=== PATIENT | female | born 1945 | race Caucasian/White ===

== ENCOUNTER → 2017-03-16 | Outpatient (CLI) | payer MEDICARE, OTHER ==
--- NOTE | 2017-03-17 10:17 | MM ---
Reason for exam: screening (asymptomatic). Last mammogram was performed 2 years and 4 months ago. History: Patient is postmenopausal and has history of high-risk lesion on a previous biopsy at age 42. Family history of breast cancer in sister at age 61. High risk excisional biopsy of the right breast, 1994. Excisional biopsy of the right breast, 1987. Physical Findings: A clinical breast exam by your physician is recommended on an annual basis and results should be correlated with mammographic findings. MG 3D Screening Mammo W/Cad Bilateral CC, MLO, and XCCL view(s) were taken. Prior study comparison: November 15, 2014, bilateral MG screening mammo w CAD. May 01, 2008, bilateral digital screening mammogram. There are scattered fibroglandular densities. Finding: There are typically benign round, linear calcifications in both breasts. There is a chronic nodularity in the left breast. There is no discrete abnormality. ASSESSMENT: Benign, BI-RAD 2 RECOMMENDATION: Routine screening mammogram of both breasts in 1 year.
== END | disposition home or self-care (01) ==
LOC: RADMAMWWP 13:14
PROVIDERS: ATTEND Family Medicine
DX: Z12.31 Encounter for screening mammogram for malignant neoplasm of breast (principal)
CPT/HCPCS: 77063; G0202

== ENCOUNTER → 2017-08-20 | Outpatient (CLI) | payer MEDICARE, OTHER ==
--- NOTE | 2017-08-21 07:20 | US ---
EXAMINATION TYPE: US kidneys/renal and bladder DATE OF EXAM: 08/20/2017 COMPARISON: NONE CLINICAL HISTORY: R94.4 ABN KIDNEY RESULTS. EXAM MEASUREMENTS: Right Kidney: 10.7 x 5.4 x 5.1 cm Left Kidney: 10.6 x 5.7 x 4.2 cm Right Kidney: No hydronephrosis or masses seen. No nephrolithiasis. Cortical medullary differentiatio n is maintained. Left Kidney: No hydronephrosis or masses seen. No nephrolithiasis. Cortical medullary differentiatio n is maintained. Bladder: wnl as visualized, not fully distended Bilateral Jets seen: No, bladder is not fully distended There is no evidence for hydronephrosis at this point in time. No nephrolithiasis is seen. No usman s are identified. The urinary bladder is anechoic as visualized. IMPRESSION: No hydronephrosis or nephrolithiasis. No sonographic evidence of medical renal disease.
== END | disposition home or self-care (01) ==
LOC: RADUSWWP 15:16
PROVIDERS: ATTEND Family Medicine
DX: R94.4 Abnormal results of kidney function studies (principal)
CPT/HCPCS: 76770

== ENCOUNTER → 2018-10-25 | Outpatient (CLI) | payer MEDICARE, OTHER ==
--- NOTE | 2018-10-27 11:28 | MM ---
Reason for exam: screening (asymptomatic). Last mammogram was performed 1 year and 7 months ago. History: Patient is postmenopausal and has history of high-risk lesion on a previous biopsy at age 42. Family history of breast cancer in sister at age 61. High risk excisional biopsy of the right breast, 1994. Excisional biopsy of the right breast, 1987. Physical Findings: A clinical breast exam by your physician is recommended on an annual basis and results should be correlated with mammographic findings. MG 3D Screening Mammo W/Cad Bilateral CC and MLO view(s) were taken. XCCL and CV view(s) were taken of the left breast. Prior study comparison: March 16, 2017, bilateral MG 3d screening mammo w/cad. November 15, 2014, bilateral MG screening mammo w CAD. There are scattered fibroglandular densities. Benign appearing bilateral calcifications. No suspicious abnormality. No significant changes when compared with prior studies. ASSESSMENT: Benign, BI-RAD 2 RECOMMENDATION: Routine screening mammogram of both breasts in 1 year.
== END | disposition home or self-care (01) ==
LOC: RADMAMWWP 15:08
PROVIDERS: ATTEND Family Medicine
DX: Z12.31 Encounter for screening mammogram for malignant neoplasm of breast (principal)
CPT/HCPCS: 77063; 77067

== ENCOUNTER → 2019-09-11 | Outpatient (CLI) | payer MEDICARE, OTHER ==
--- NOTE | 2019-09-11 15:44 | US ---
EXAMINATION TYPE: US kidneys/renal and bladder DATE OF EXAM: 09/11/2019 COMPARISON: NONE CLINICAL HISTORY: 73-year-old female N08 glomerular disorders in diseases classified. Abn labs TECHNIQUE: Multiple sonographic images of the kidneys and bladder are obtained. FINDINGS: EXAM MEASUREMENTS: Right Kidney: 11.1 x 5.2 x 5.7 cm Left Kidney: 11.4 x 6.0 x 4.3 cm No hydronephrosis on either side. Bladder: Nondistention of the bladder limits its evaluation. IMPRESSION: 1. No hydronephrosis. 2. Bladder not assessed as it is collapsed.
== END | disposition home or self-care (01) ==
LOC: RADUSWWP 13:40
PROVIDERS: ATTEND Family Medicine
DX: N08 Glomerular disorders in diseases classified elsewhere (principal)
CPT/HCPCS: 76770

== ENCOUNTER → 2019-09-28 | Outpatient (CLI) | payer MEDICARE, OTHER ==
[2019-09-28 14:43] LABS: HGB 9.8 gm/dL (11.4-16.0); Hypochromasia Moderate; MCH 28.3 pg (25.0-35.0); MCHC 31.4 g/dL (31.0-37.0); Platelet Count 327 k/uL (150-450); RBC 3.45 m/uL (3.80-5.40); RDW 14.8 % (11.5-15.5); WBC 11.3 k/uL (3.8-10.6)
[2019-09-28 14:52] LABS: Amorphous Sediment,Urine Rare /hpf; Appearance,Urine Cloudy (Clear); Bacteria,Urine Rare /hpf; Bilirubin,Urine Negative (Negative); Blood,Urine Small (Negative); Color,Urine Yellow; Glucose,Urine (UA) Negative (Negative); Hyaline Casts,Urine 11 /lpf (0-2); Ketones,Urine Negative (Negative); Leukocyte Esterase,Urine Large (Negative); Mucus,Urine Rare /hpf; Nitrite,Urine Negative (Negative); PH, Urine 5.5 (5.0-8.0); Protein,Urine 2+ (Negative); RBC,Urine 4 /hpf (0-5); Specific Gravity,Urine 1.018 (1.001-1.035); Squamous Epithelial Cell,Urine 9 /hpf (0-4); Urobilinogen,Urine <2.0 mg/dL (<2.0); WBC,Urine 21 /hpf (0-5)
[2019-09-28 19:21] LABS: Urine Creatinine 94.3 mg/dL
[2019-09-29 01:36] LABS: Magnesium 2.3 mg/dL (1.5-2.4); Phosphorus 4.4 mg/dL (2.4-5.1); Uric Acid 8.3 mg/dL (2.9-7.7)
[2019-09-29 01:37] LABS: % Iron Saturation 11.3 (12.00-45.00); African American GFR (CKD) 31.4 (60.0-200.0); Albumin 3.9 g/dL (3.80-4.90); Albumin/Globulin Ratio 1.77 (1.60-3.17); Anion Gap 7.3 mmol/L (4.00-12.00); BUN/Creat Ratio 26.67 Ratio (12.00-20.00); Calcium 9.6 mg/dL (8.7-10.3); Carbon Dioxide 26.7 mmol/L (21.6-31.8); Globulin 2.2 g/dL (1.6-3.3); Non-African American GFR(CKD) 27.1 (60.0-200.0); Potassium 5.6 mmol/L (3.5-5.5); Total Bilirubin 0.3 mg/dL (0.3-1.2); Total Protein 6.1 g/dL (6.2-8.2)
[2019-09-29 01:45] LABS: Ferritin 76.4 ng/mL (10.0-291.0)
== END | disposition home or self-care (01) ==
LOC: LABWHC1 13:31
PROVIDERS: ATTEND Internal Medicine
DX: N25.81 Secondary hyperparathyroidism of renal origin (principal); N39.0 Urinary tract infection, site not specified; M10.9 Gout, unspecified; E55.9 Vitamin D deficiency, unspecified; D63.1 Anemia in chronic kidney disease; N18.3 Chronic kidney disease, stage 3 (moderate)
CPT/HCPCS: 36415; 80053; 81001; 82043; 82306; 82570; 82728; 83540; 83550; 83735; 83970; 84100; 84550; 85027

== ENCOUNTER → 2019-10-04 | Outpatient (CLI) | payer MEDICARE, OTHER ==
[2019-10-04 23:24] LABS: African American GFR (CKD) 36.2 (60.0-200.0); Anion Gap 6.5 mmol/L (4.00-12.00); BUN/Creat Ratio 29.38 Ratio (12.00-20.00); Calcium 9.7 mg/dL (8.7-10.3); Carbon Dioxide 26.5 mmol/L (21.6-31.8); Non-African American GFR(CKD) 31.2 (60.0-200.0); Potassium 5.3 mmol/L (3.5-5.5)
== END | disposition home or self-care (01) ==
LOC: LABWHC1 13:31
PROVIDERS: ATTEND Nurse Practitioner Family
DX: E87.5 Hyperkalemia (principal)
CPT/HCPCS: 36415; 80048

== ENCOUNTER 2020-03-13 12:21 | Inpatient (IN) | payer MEDICARE, OTHER ==
[2020-03-13 13:19] LABS: Basophils # (A) 0.1 k/uL (0-0.2); Basophils % (A) 1 %; Eosinophils # (A) 0.2 k/uL (0-0.7); Eosinophils % (A) 1 %; HCT 35.5 % (34.0-46.0); HGB 11.3 gm/dL (11.4-16.0); Hypochromasia Slight; Lymphocytes # (A) 0.9 k/uL (1.0-4.8); Lymphocytes % (A) 8 %; MCH 31.1 pg (25.0-35.0); MCV 97.3 fL (80.0-100.0); Monocytes # (A) 0.5 k/uL (0-1.0); Monocytes % (A) 5 %; Neutrophils # (A) 9.7 k/uL (1.3-7.7); Neutrophils % (A) 85 %; Platelet Count 415 k/uL (150-450); RBC 3.65 m/uL (3.80-5.40); RDW 13.8 % (11.5-15.5); WBC 11.5 k/uL (3.8-10.6)
[2020-03-13 13:29] LABS: INR 0.9 (<1.2); Partial Thromboplastin Time 25.1 sec (22.0-30.0); Prothrombin Time 9.7 sec (9.0-12.0)
[2020-03-13 13:30] LABS: Albumin 3.8 g/dL (3.5-5.0); Calcium 10.6 mg/dL (8.4-10.2); Magnesium 2.2 mg/dL (1.6-2.3); Potassium 5.3 mmol/L (3.5-5.1); Total Bilirubin 0.6 mg/dL (0.2-1.3); Total Protein 6.8 g/dL (6.3-8.2)
--- NOTE | 2020-03-13 13:33 | XR ---
EXAMINATION TYPE: XR chest 2V DATE OF EXAM: 03/13/2020 COMPARISON: NONE HISTORY: Shortness of breath TECHNIQUE: Frontal and lateral views of the chest are obtained. FINDINGS: Scattered senescent parenchymal changes noted. Hyperinflation compatible with COPD. No evidence for infiltrate. No evidence for atelectasis. There is cardiomegaly with pulmonary venous congestion. Mild developing infiltrate right medial lung base. Correlate for developing congestive failure versus underlying pneumonia. Mediastinal structures are stable and grossly unremarkable. No evidence for hilar prominence. Degenerative changes dorsal spine. IMPRESSION: 1. There is cardiomegaly without pulmonary venous congestion. Mild developing infiltrate right medial lung base. Correlate for developing congestive failure versus underlying pneumonia.
--- NOTE | 2020-03-13 13:41 | ED ---
General Adult HPI - General Chief complaint: Shortness of Breath Stated complaint: Chest Pain Time Seen by Provider: 03/13/20 12:33 Source: patient, RN notes reviewed Mode of arrival: wheelchair Limitations: no limitations - History of Present Illness Initial comments: 74-year-old female with a past medical history of CAD, heart failure, hyperlipidemia, hypertension, renal disease presents to the emergency room for a chief, shortness of breath. Patient has had a cough and shortness of breath for the past few days. She also reports she has had leg swelling. Patient states that she has been up on her feet baking and thought it was from that. Patient reports that a few months ago her crna told her to only take her Lasix if she started to develop shortness of breath or leg swelling. Patient has been taking this for the past 6 days because of this. Patient saw her doctor today who wanted her evaluated in the emergency room. She has not had any chest pain.Patient has no other complaints at this time including chest pain, abdominal pain, nausea or vomiting, headache, or visual changes. - Related Data Home Medications Medication Instructions Recorded Confirmed Atorvastatin [Lipitor] 80 mg PO HS 07/04/14 03/13/20 Carvedilol [Coreg] 25 mg PO BID 07/04/14 03/13/20 amLODIPine BESYLATE [Norvasc] 10 mg PO DAILY 07/04/14 03/13/20 hydroCHLOROthiazide 25 mg PO DAILY 07/04/14 03/13/20 Allopurinol [Zyloprim] 100 mg PO DAILY 03/13/20 03/13/20 Ergocalciferol [Vitamin D2] 50,000 unit PO QMONTHLY 03/13/20 03/13/20 Glimepiride [Amaryl] 4 mg PO DAILY PRN 03/13/20 03/13/20 Insulin Glargine,Hum.rec.anlog 10 - 25 unit SQ DAILY 03/13/20 03/13/20 [Basaglar Kwikpen U-100] Thiamine [Vitamin B-1] 100 mg PO BID 03/13/20 03/13/20 Allergies Allergy/AdvReac Type Severity Reaction Status Date / Time Penicillins Allergy Unknown Verified 03/13/20 14:03 Childhood Review of Systems ROS Statement: Those systems with pertinent positive or pertinent negative responses have been documented in the HPI. ROS Other: All systems not noted in ROS Statement are negative. Past Medical History Past Medical History: Coronary Artery Disease (CAD), Heart Failure, CVA/TIA, Hyperlipidemia, Hypertension, Myocardial Infarction ([place]), Renal Disease Additional Past Medical History / Comment(s): HX TIA POST CAROTID SX, STATES LOST VISION NEETA EYES ON LEFT SIDE;cyst under L armpit removed. Last Myocardial Infarction Date:: 2006 History of Any Multi-Drug Resistant Organisms: None Reported Past Surgical History: Coronary Bypass/CABG, Heart Catheterization, Hysterectomy Additional Past Surgical History / Comment(s): CABG X4, STENT IN RIGHT CAROTID ARTERY. 07/12 Incision and drainagel of abscess under left arm Past Anesthesia/Blood Transfusion Reactions: No Reported Reaction Date of Last Stent Placement:: UN Past Psychological History: No Psychological Hx Reported Smoking Status: Former smoker Past Alcohol Use History: None Reported Past Drug Use History: None Reported - Past Family History Sister(s) Family Medical History: Cancer, Deep Vein Thrombosis (DVT) Additional Family Medical History / Comment(s): CERVICAL Father Family Medical History: Cancer General Exam Limitations: no limitations General appearance: alert, in no apparent distress Head exam: Present: atraumatic, normocephalic, normal inspection Eye exam: Present: normal appearance, PERRL, EOMI. Absent: scleral icterus, conjunctival injection, periorbital swelling ENT exam: Present: normal exam, mucous membranes moist Neck exam: Present: normal inspection, full ROM. Absent: tenderness, meningismus, lymphadenopathy Respiratory exam: Present: normal lung sounds bilaterally. Absent: respiratory distress, wheezes, rales, rhonchi, stridor Cardiovascular Exam: Present: regular rate, normal rhythm, normal heart sounds. Absent: systolic murmur, diastolic murmur, rubs, gallop, clicks Extremities exam: Present: pedal edema (2+ pitting edema bilaterally) Course Vital Signs 03/13/20 03/13/20 12:22 14:14 Temperature 98.1 F Pulse Rate 69 67 Respiratory 18 20 Rate Blood Pressure 163/78 173/79 O2 Sat by Pulse 93 L 99 Oximetry EKG Findings - EKG Comments: EKG Findings:: Sinus rhythm with occasional PVC, ventricular rate 68, [place] interval 140, QTC 425. I did compare this to previous EKG from 2015 and it is similar. I did also review patient's EKG that was sent from her doctor's office that appears consistent. Dr. Turner also evaluated these. Medical Decision Making - Medical Decision Making Patient slightly hypoxic 93% on room air. Vitals are otherwise stable. Patient with shortness of breath for the past several days. Has not been taking her Lasix because of her kidney function. She started to feel short of breath and have worsening swelling in the bilateral legs about a week ago. Restarted taking her Lasix for 6 days without improvement. Patient has slight cough and is orthopneic. States she cannot lie flat and when she had started to the EKG she became more short of breath. CBC CMP unremarkable. Troponin 0.024 likely related to kidney function but within normal limits. EKG does not show any acute SC. BNP is elevated at 3800, I do not have a previous. Chest x-ray shows cardiomegaly. Mild evolving infiltrate right medial lung base. Correlate for developing CHF versus underlying pneumonia. I do feel that this is related to CHF given leg swelling and orthopnea. However patient does have a cough and leukocytosis and will also be treated with a dose of antibiotics in addition to Lasix. Patient will be admitted for IV Lasix given her oral Lasix is not giving her improving symptoms. - Lab Data Result diagrams: 03/13/20 13:10 03/13/20 13:10 Lab Results 03/13/20 03/13/20 03/13/20 Range/Units 13:10 13:10 13:10 WBC 11.5 H (3.8-10.6) k/uL RBC 3.65 L (3.80-5.40) m/uL Hgb 11.3 L (11.4-16.0) gm/dL Hct 35.5 (34.0-46.0) % MCV 97.3 (80.0-100.0) fL MCH 31.1 (25.0-35.0) pg MCHC 32.0 (31.0-37.0) g/dL RDW 13.8 (11.5-15.5) % Plt Count 415 (150-450) k/uL MPV 7.0 Neutrophils % 85 % Lymphocytes % 8 % Monocytes % 5 % Eosinophils % 1 % Basophils % 1 % Neutrophils # 9.7 H (1.3-7.7) k/uL Lymphocytes # 0.9 L (1.0-4.8) k/uL Monocytes # 0.5 (0-1.0) k/uL Eosinophils # 0.2 (0-0.7) k/uL Basophils # 0.1 (0-0.2) k/uL Hypochromasia Slight PT 9.7 (9.0-12.0) sec INR 0.9 (<1.2) APTT 25.1 (22.0-30.0) sec Sodium 140 (137-145) mmol/L Potassium 5.3 H (3.5-5.1) mmol/L Chloride 105 (98-107) mmol/L Carbon Dioxide 29 (22-30) mmol/L Anion Gap 6 mmol/L BUN 43 H (7-17) mg/dL Creatinine 2.20 H (0.52-1.04) mg/dL Est GFR (CKD-EPI)AfAm 24 (>60 ml/min/1.73 sqM) Est GFR (CKD-EPI)NonAf 21 (>60 ml/min/1.73 sqM) Glucose 193 H (74-99) mg/dL Calcium 10.6 H (8.4-10.2) mg/dL Magnesium 2.2 (1.6-2.3) mg/dL Total Bilirubin 0.6 (0.2-1.3) mg/dL AST 24 (14-36) U/L ALT 14 (4-34) U/L Alkaline Phosphatase 72 (38-126) U/L Troponin I (0.000-0.034) ng/mL NT-Pro-B Natriuret Pep pg/mL Total Protein 6.8 (6.3-8.2) g/dL Albumin 3.8 (3.5-5.0) g/dL Lipase 145 (23-300) U/L Coronavirus (PCR) (Not Detectd) 03/13/20 03/13/20 03/13/20 Range/Units 13:10 13:10 13:10 WBC (3.8-10.6) k/uL RBC (3.80-5.40) m/uL Hgb (11.4-16.0) gm/dL Hct (34.0-46.0) % MCV (80.0-100.0) fL MCH (25.0-35.0) pg MCHC (31.0-37.0) g/dL RDW (11.5-15.5) % Plt Count (150-450) k/uL MPV Neutrophils % % Lymphocytes % % Monocytes % % Eosinophils % % Basophils % % Neutrophils # (1.3-7.7) k/uL Lymphocytes # (1.0-4.8) k/uL Monocytes # (0-1.0) k/uL Eosinophils # (0-0.7) k/uL Basophils # (0-0.2) k/uL Hypochromasia PT (9.0-12.0) sec INR (<1.2) APTT (22.0-30.0) sec Sodium (137-145) mmol/L Potassium (3.5-5.1) mmol/L Chloride (98-107) mmol/L Carbon Dioxide (22-30) mmol/L Anion Gap mmol/L BUN (7-17) mg/dL Creatinine (0.52-1.04) mg/dL Est GFR (CKD-EPI)AfAm (>60 ml/min/1.73 sqM) Est GFR (CKD-EPI)NonAf (>60 ml/min/1.73 sqM) Glucose (74-99) mg/dL Calcium (8.4-10.2) mg/dL Magnesium (1.6-2.3) mg/dL Total Bilirubin (0.2-1.3) mg/dL AST (14-36) U/L ALT (4-34) U/L Alkaline Phosphatase (38-126) U/L Troponin I 0.024 (0.000-0.034) ng/mL NT-Pro-B Natriuret Pep 3840 pg/mL Total Protein (6.3-8.2) g/dL Albumin (3.5-5.0) g/dL Lipase (23-300) U/L Coronavirus (PCR) Not Detected (Not Detectd) Disposition Clinical Impression: Congestive heart failure, Pneumonia, Shortness of breath Disposition: ADMITTED IP TO THIS HOSP Condition: Fair Is patient prescribed a controlled substance at d/c from ED?: No Referrals: Dwight Abdullahi MD [Primary Care Provider] - 1-2 days Time of Disposition: 14:56
[2020-03-13] MEDS ORDERED: FUROSEMIDE 10 MG/ML 4 ML VIAL IV STA (14:51)
[2020-03-13] MEDS ORDERED: AZITHROMYCIN 500 MG in SODIUM CHLORIDE 0.9% 250 ML IVPB STA (15:02)
[2020-03-13] MEDS ORDERED: cefTRIAXone IN SWFI 1,000 MG/10 ML SYRINGE IVP STA (15:02)
[2020-03-13] MEDS ORDERED: GLIMEPIRIDE 4 MG TAB PO PRN (17:31)
[2020-03-13] MEDS: THIAMINE 100 MG TAB PO SCH (20:37)
[2020-03-13] MEDS: carvediloL 12.5 MG TAB PO SCH (20:37)
[2020-03-13] MEDS: ATORVASTATIN 80 MG TAB PO SCH (20:37)
[2020-03-13 21:29] LABS: Glucose,Whole Blood 185 mg/dL (75-99)
[2020-03-14] MEDS ORDERED: FUROSEMIDE 10 MG/ML 4 ML VIAL IV SCH (03:00)
[2020-03-14 06:27] LABS: Glucose,Whole Blood 140 mg/dL (75-99)
[2020-03-14] MEDS: carvediloL 12.5 MG TAB PO SCH ×2 (06:30→17:22)
[2020-03-14] MEDS: allopurinoL 100 MG TAB PO SCH (08:52)
[2020-03-14] MEDS: amLODIPine 10 MG TAB PO SCH (08:52)
[2020-03-14] MEDS: THIAMINE 100 MG TAB PO SCH ×2 (08:54→20:44)
[2020-03-14] MEDS: INSULIN DETEMIR (LEVEMIR) 100 UNIT/ML SYR SQ SCH (08:55)
[2020-03-14] MEDS ORDERED: hydroCHLOROthiazide 25 MG TAB PO SCH (09:00)
[2020-03-14 11:30] LABS: Glucose,Whole Blood 169 mg/dL (75-99)
[2020-03-14 11:47] LABS: Calcium 10.5 mg/dL (8.4-10.2); Magnesium 2.1 mg/dL (1.6-2.3); Potassium 4.9 mmol/L (3.5-5.1)
--- NOTE | 2020-03-14 11:48 | P.NPCON ---
History of Present Illness - Reason for Consult acute renal failure, chronic renal failure - History of Present Illness Reason for consultation: Acute kidney injury on chronic kidney disease History of present illness: The patient is a 74-year-old female seen in renal consultation for acute kidney injury on chronic kidney disease. Patient has chronic kidney disease stage IIIb with baseline creatinine in the range of 1.8- 2. Patient presented to the hospital with worsening shortness of breath and edema in her lower extremities. She is currently maintained on IV Lasix 40 mg twice daily. Patient states edema has improved significantly. She denies any hematuria or dysuria. Shortness of breath is also improved. She is currently on 2 L nasal cannula. Patient states she was taking hydrochlorothiazide at home for the last 6 days due to the swelling in her legs but it didn't help much. Creatinine was 2.2 on admission. Labs from today are pending. No fever or chills. Patient has history of coronary artery disease and underwent CABG about 14 years ago. She also has a carotid stent. Renal ultrasound from September 2019 revealed no evidence of hydronephrosis. She denies use of nonsteroidals. Denies family history of renal disease. She does have long-standing history of diabetes and states her blood sugars are well-controlled. States recent A1c was less than 7%. Vital signs are stable. General: The patient appeared well nourished and normally developed. HEENT: Head exam is unremarkable. Neck is without jugular venous distension. LUNGS: Breath sounds decreased. HEART: Rate and Rhythm are regular. ABDOMEN: Soft, nontender. EXTREMITITES: 1+ edema. Past Medical History Past Medical History: Coronary Artery Disease (CAD), Heart Failure, CVA/TIA, Diabetes Mellitus, Hyperlipidemia, Hypertension, Myocardial Infarction ([place]), Renal Disease Additional Past Medical History / Comment(s): HX TIA POST CAROTID SX, STATES L OST VISION NEETA EYES ON LEFT SIDE;cyst under L armpit removed. type 2 diabetes Last Myocardial Infarction Date:: 2006 History of Any Multi-Drug Resistant Organisms: None Reported Past Surgical History: Cholecystectomy, Coronary Bypass/CABG, Heart Catheterization, Hysterectomy Additional Past Surgical History / Comment(s): CABG X4, STENT IN RIGHT CAROTID ARTERY. 07/12 Incision and drainagel of abscess under left arm, 5 knee sx, breast biposies-precancerous per pt. Past Anesthesia/Blood Transfusion Reactions: No Reported Reaction Date of Last Stent Placement:: UN Past Psychological History: No Psychological Hx Reported Smoking Status: Former smoker Past Alcohol Use History: None Reported Past Drug Use History: None Reported - Past Family History Sister(s) Family Medical History: Cancer, Deep Vein Thrombosis (DVT) Additional Family Medical History / Comment(s): CERVICAL Father Family Medical History: Cancer Medications and Allergies Home Medications Medication Instructions Recorded Confirmed Type Atorvastatin [Lipitor] 80 mg PO HS 07/04/14 03/13/20 History Carvedilol [Coreg] 25 mg PO BID 07/04/14 03/13/20 History amLODIPine BESYLATE [Norvasc] 10 mg PO DAILY 07/04/14 03/13/20 History hydroCHLOROthiazide 25 mg PO DAILY 07/04/14 03/13/20 History Allopurinol [Zyloprim] 100 mg PO DAILY 03/13/20 03/13/20 History Ergocalciferol [Vitamin D2] 50,000 unit PO QMONTHLY 03/13/20 03/13/20 History Glimepiride [Amaryl] 4 mg PO DAILY PRN 03/13/20 03/13/20 History Insulin Glargine,Hum.rec.anlog 10 - 25 unit SQ DAILY 03/13/20 03/13/20 History [Basaglar Kwikpen U-100] Thiamine [Vitamin B-1] 100 mg PO BID 03/13/20 03/13/20 History Allergies Allergy/AdvReac Type Severity Reaction Status Date / Time Penicillins Allergy Unknown Verified 03/13/20 14:03 Childhood Physical Exam Vitals: Vital Signs Temp Pulse Pulse Resp BP BP Pulse Ox 03/14/20 09:00 20 03/14/20 08:45 97 03/14/20 08:44 98 F 72 20 168/68 85 L 03/14/20 02:36 98.2 F 68 151/74 95 03/14/20 02:35 68 03/13/20 20:04 97.7 F 71 129/68 92 L 03/13/20 20:00 71 03/13/20 17:01 97.7 F 75 18 178/78 90 L 03/13/20 15:45 98.2 F 71 18 186/96 98 03/13/20 14:14 67 20 173/79 99 03/13/20 12:22 98.1 F 69 18 163/78 93 L Intake and Output 03/13/20 03/14/20 03/14/20 22:59 06:59 14:59 Intake Total 550 500 240 Output Total 1400 Balance 550 -900 240 Intake: Oral 550 500 240 Output: Urine 1400 Other: Voiding Method Toilet Toilet Toilet # Voids 1 3 Weight 122.47 kg Results - Lab Results Most recent lab results Calcium 10.6 mg/dL (8.4-10.2) H 03/13/20 13:10 Magnesium 2.2 mg/dL (1.6-2.3) 03/13/20 13:10 03/13/20 13:10 03/13/20 13:10 Assessment and Plan Plan: Assessment: 1. Acute kidney injury mostly prerenal secondary to cardiorenal syndrome. Creatinine 2.2 on admission - 2.42 today. 2. Chronic kidney disease stage III. Baseline creatinine 1.8-2 secondary to diabetic kidney disease. 3. Volume overload. 4. Diabetes mellitus. 5. Hypercalcemia secondary to hydrochlorothiazide and vitamin D. 6. Hypertension with chronic kidney disease. Plan: Stop hydrochlorothiazide. Maintain IV Lasix 40 mg twice daily. Check urinalysis. Add hydralazine 25 mg 3 times daily. Check echocardiogram. I advised the patient to maintain a fluid restriction of less than 40 ounces per day. She was also advised to monitor her weight closely at home and to call our office if he gains more than 3 pounds or edema worsens. Plan to change to oral diuretics starting tomorrow. Repeat electrolytes in the morning. Thank you for the consultation. I will continue to follow the patient with you during her hospital stay.
[2020-03-14] MEDS: hydrALAZINE HCL 25 MG TAB PO SCH ×3 (12:15→20:44)
--- NOTE | 2020-03-14 13:50 | ECHOF ---
Referral Reason:chf, sob MEASUREMENTS -------- HEIGHT: 167.6 cm WEIGHT: 122.5 kg BP: 168/68 RVIDd: 3.7 cm (< 3.3) IVSd: 1.6 cm (0.6 - 1.1) LVIDd: 5.3 cm (3.9 - 5.3) LVPWd: 1.8 cm (0.6 - 1.1) IVSs: 2.0 cm LVIDs: 4.0 cm LVPWs: 2.1 cm LAESV Index (A-L): 39.79 ml/m Ao Diam: 2.7 cm (2.0 - 3.7) AV Cusp: 1.5 cm (1.5 - 2.6) LA Diam: 5.5 cm (2.7 - 3.8) MV EXCURSION: 17.310 mm (> 18.000) MV EF SLOPE: 50 mm/s (70 - 150) EPSS: 1.4 cm AV maxP.87 mmHg AV meanP.85 mmHg RAP: 5.00 mmHg RVSP: 49.03 mmHg FINDINGS -------- Sinus rhythm. This was a technically difficult study with suboptimal views. The left ventricle is mildly dilated. There is moderate concentric left ventricular hypertrophy. Overall left ventricular systolic function is moderately impaired with, an EF between 35 - 40 %. Se ptal wall motion is delayed and consistent with prior cardiac surgery. The right ventricle is mildly enlarged. LA is moderately dilated 34-39 ml/m2 The right atrium was not well visualized. 5.0mg of Lumason was utilized for enhancement of images Interatrial and interventricular septum intact. The aortic valve was not well visualized. There is no evidence of aortic regurgitation. There is moderate aortic stenosis. Degree of aortic stenosis may be underestimated by low flow state. Mild mitral regurgitation is present. Moderate tricuspid regurgitation present. There is moderate pulmonary hypertension. The right shan tricular systolic pressure, as measured by Doppler, is 49.03mmHg. There is no pulmonic regurgitation present. The aortic root size is normal. IVC Not well visulized. There is no pericardial effusion. CONCLUSIONS -------- 1. The left ventricle is mildly dilated. 2. There is moderate concentric left ventricular hypertrophy. 3. Overall left ventricular systolic function is moderately impaired with, an EF between 35 - 40 %. 4. The right ventricle is mildly enlarged. 5. LA is moderately dilated 34-39 ml/m2 6. There is moderate aortic stenosis. Degree of aortic stenosis may be underestimated by low flow st ate. 7. Mild mitral regurgitation is present. 8. Moderate tricuspid regurgitation present. 9. There is moderate pulmonary hypertension. 10. The right ventricular systolic pressure, as measured by Doppler, is 49.03mmHg. SCALE TANK OPERATOR: Chapis Schultz RDCS
[2020-03-14 15:00] VITALS: BMI 43.5
[2020-03-14] MEDS: FUROSEMIDE 100 MG in SODIUM CHLORIDE 0.9% 90 ML IV SCH ×2 (15:29→23:02)
[2020-03-14 17:02] LABS: Glucose,Whole Blood 140 mg/dL (75-99)
[2020-03-14 19:08] LABS: Appearance,Urine Clear (Clear); Bacteria,Urine Rare /hpf; Bilirubin,Urine Negative (Negative); Blood,Urine Small (Negative); Color,Urine Light Yellow; Glucose,Urine (UA) Negative (Negative); Hyaline Casts,Urine 1 /lpf (0-2); Ketones,Urine Negative (Negative); Leukocyte Esterase,Urine Trace (Negative); Mucus,Urine Rare /hpf; Nitrite,Urine Negative (Negative); PH, Urine 5.5 (5.0-8.0); Protein,Urine 1+ (Negative); RBC,Urine 2 /hpf (0-5); Specific Gravity,Urine 1.013 (1.001-1.035); Squamous Epithelial Cell,Urine 1 /hpf (0-4); Urobilinogen,Urine <2.0 mg/dL (<2.0); WBC,Urine 1 /hpf (0-5)
[2020-03-14] MEDS: ATORVASTATIN 80 MG TAB PO SCH (20:44)
[2020-03-14 20:55] LABS: Glucose,Whole Blood 185 mg/dL (75-99)
--- NOTE | 2020-03-15 00:25 | P.HPIM ---
History of Present Illness H&P Date: 03/14/20 Chief Complaint: short of breath History of presenting complaint: This is a very pleasant 74-year-old patient of Dr. Dwight Abdullahi. Chronic stable medical conditions include coronary artery disease, diabetes, hypertension, hyperlipidemia with a prior history of coronary bypass. Patient presents with the off progressive shortness of breath may be a longer period than that. Lower extremity edema. Slight cough. No fever no chills. No perspiration. Appetite is good. Also has orthopnea. 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 Does smoke in the remote past. No alcohol. Physical examination: VITAL SIGNS: 98.1, 69, 18, 163.78, 93% room air-upon presentation GENERAL: BMI 43.6, sitting up in a recliner. EYES: Pupils equal. Conjunctiva normal. HEENT: External appearance of nose and ears normal, oral cavity grossly normal. NECK: JVD possibly raised; masses not palpable. HEART: First and second heart sounds are normal; edema present. LUNGS: Respiratory rate increased, bilateral crackles. ABDOMEN: Soft, nontender, liver spleen not palpable, no masses palpable. PSYCH: Alert and oriented x3; mood and affect normal. NEUROLOGICAL: Cranial nerves grossly intact; no facial asymmetry, power and sensation grossly intact. MUSCULAR skeletal: Evidence of OA LYMPHATICS: No lymph nodes palpable in the axilla and neck INVESTIGATIONS, reviewed in the clinical context: White count 11.5 hemoglobin 11.3 platelets 415 potassium 5.3 BUN 43 creatinine 2.2, proBNP 3840 Coronavirus P/Cr-not detected EKG tracing personally reviewed by me-normal sinus rhythm some T-wave changes Chest x-ray film personally reviewed by me-cardiomegaly and venous prominence 2-D echocardiogram-moderate concentric LVH, EF 35-40%, moderate aortic stenosis, moderate tricuspid regurgitation, moderate pulmonary hypertension Assessment: -Acute on chronic congestive heart exacerbation from systolic dysfunction EF 35- 40% from underlying ischemic heart disease -Moderate aortic stenosis -Moderate tricuspid regurgitation and secondary moderate pulmonary hypertension -Coronary artery disease by history of coronary bypass and-essential hypertension -Hyperlipidemia -Chronic kidney disease stage III, baseline around 2 secondary to diabetic kidney disease Plan: Patient be pushed over to IV Lasix drip overnight. Fluid restriction. Folliculitis closely. Nephrology and cott[place] consulted. Home medications to be continued. Follow Accu-Cheks closely. Care was discussed with the patient. Questions were answered. Strict I's and O's. Past Medical History Past Medical History: Coronary Artery Disease (CAD), Heart Failure, CVA/TIA, Diabetes Mellitus, Hyperlipidemia, Hypertension, Myocardial Infarction ([place]), Renal Disease Additional Past Medical History / Comment(s): HX TIA POST CAROTID SX, STATES LOST VISION NEETA EYES ON LEFT SIDE;cyst under L armpit removed. type 2 diabetes Last Myocardial Infarction Date:: 2006 History of Any Multi-Drug Resistant Organisms: None Reported Past Surgical History: Cholecystectomy, Coronary Bypass/CABG, Heart Catheterization, Hysterectomy Additional Past Surgical History / Comment(s): CABG X4, STENT IN RIGHT CAROTID A RTERY. 07/12 Incision and drainagel of abscess under left arm, 5 knee sx, breast biposies-precancerous per pt. Past Anesthesia/Blood Transfusion Reactions: No Reported Reaction Date of Last Stent Placement:: UN Past Psychological History: No Psychological Hx Reported Smoking Status: Former smoker Past Alcohol Use History: None Reported Past Drug Use History: None Reported - Past Family History Sister(s) Family Medical History: Cancer, Deep Vein Thrombosis (DVT) Additional Family Medical History / Comment(s): CERVICAL Father Family Medical History: Cancer Medications and Allergies Home Medications Medication Instructions Recorded Confirmed Type Atorvastatin [Lipitor] 80 mg PO HS 07/04/14 03/13/20 History Carvedilol [Coreg] 25 mg PO BID 07/04/14 03/13/20 History amLODIPine BESYLATE [Norvasc] 10 mg PO DAILY 07/04/14 03/13/20 History hydroCHLOROthiazide 25 mg PO DAILY 07/04/14 03/13/20 History Allopurinol [Zyloprim] 100 mg PO DAILY 03/13/20 03/13/20 History Ergocalciferol [Vitamin D2] 50,000 unit PO QMONTHLY 03/13/20 03/13/20 History Glimepiride [Amaryl] 4 mg PO DAILY PRN 03/13/20 03/13/20 History Insulin Glargine,Hum.rec.anlog 10 - 25 unit SQ DAILY 03/13/20 03/13/20 History [Basagldionicio Yeagerpen U-100] Thiamine [Vitamin B-1] 100 mg PO BID 03/13/20 03/13/20 History Allergies Allergy/AdvReac Type Severity Reaction Status Date / Time Penicillins Allergy Unknown Verified 03/13/20 14:03 Childhood Physical Exam Vitals: Vital Signs Temp Pulse Pulse Resp BP BP Pulse Ox 03/14/20 09:00 20 03/14/20 08:45 97 03/14/20 08:44 98 F 72 20 168/68 85 L 03/14/20 02:36 98.2 F 68 151/74 95 03/14/20 02:35 68 03/13/20 20:04 97.7 F 71 129/68 92 L 03/13/20 20:00 71 03/13/20 17:01 97.7 F 75 18 178/78 90 L 03/13/20 15:45 98.2 F 71 18 186/96 98 03/13/20 14:14 67 20 173/79 99 03/13/20 12:22 98.1 F 69 18 163/78 93 L Intake and Output 03/13/20 03/14/20 03/14/20 22:59 06:59 14:59 Intake Total 550 500 240 Output Total 1400 Balance 550 -900 240 Intake: Oral 550 500 240 Output: Urine 1400 Other: Voiding Method Toilet Toilet Toilet # Voids 1 3 Weight 122.47 kg Results CBC & Chem 7: 03/13/20 13:10 03/14/20 11:17 Labs: Abnormal Lab Results - Last 24 Hours (Table) 03/13/20 03/13/20 03/13/20 Range/Units 13:10 13:10 21:28 WBC 11.5 H (3.8-10.6) k/uL RBC 3.65 L (3.80-5.40) m/uL Hgb 11.3 L (11.4-16.0) gm/dL Neutrophils # 9.7 H (1.3-7.7) k/uL Lymphocytes # 0.9 L (1.0-4.8) k/uL Potassium 5.3 H (3.5-5.1) mmol/L BUN 43 H (7-17) mg/dL Creatinine 2.20 H (0.52-1.04) mg/dL Glucose 193 H (74-99) mg/dL POC Glucose (mg/dL) 185 H (75-99) mg/dL Calcium 10.6 H (8.4-10.2) mg/dL 03/14/20 Range/Units 06:25 WBC (3.8-10.6) k/uL RBC (3.80-5.40) m/uL Hgb (11.4-16.0) gm/dL Neutrophils # (1.3-7.7) k/uL Lymphocytes # (1.0-4.8) k/uL Potassium (3.5-5.1) mmol/L BUN (7-17) mg/dL Creatinine (0.52-1.04) mg/dL Glucose (74-99) mg/dL POC Glucose (mg/dL) 140 H (75-99) mg/dL Calcium (8.4-10.2) mg/dL Thrombosis Risk Factor Assmnt - Choose All That Apply Any of the Below Risk Factors Present?: Yes Each Factor Represents 1 point: Obesity (BMI >25), Swollen legs (current) Other Risk Factors: Yes Each Risk Factor Represents 3 Points: Age 75 years or older Thrombosis Risk Factor Assessment Total Risk Factor Score: 5 Thrombosis Risk Factor Assessment Level: High Risk
[2020-03-15 06:08] LABS: Glucose,Whole Blood 132 mg/dL (75-99)
[2020-03-15] MEDS: INSULIN DETEMIR (LEVEMIR) 100 UNIT/ML SYR SQ SCH (06:15)
[2020-03-15] MEDS: carvediloL 12.5 MG TAB PO SCH (06:15)
[2020-03-15 08:43] VITALS: BP 145/69; RESP 16; TEMP 98
[2020-03-15 08:56] VITALS: PULSE 69
[2020-03-15] MEDS: hydrALAZINE HCL 25 MG TAB PO SCH (08:56)
[2020-03-15] MEDS: THIAMINE 100 MG TAB PO SCH (08:56)
[2020-03-15] MEDS: allopurinoL 100 MG TAB PO SCH (08:56)
[2020-03-15] MEDS: amLODIPine 10 MG TAB PO SCH (08:57)
[2020-03-15 09:05] LABS: Calcium 9.8 mg/dL (8.4-10.2); Magnesium 1.9 mg/dL (1.6-2.3); Potassium 4.6 mmol/L (3.5-5.1)
[2020-03-15] MEDS ORDERED: FUROSEMIDE 40 MG TAB PO SCH (09:16)
--- NOTE | 2020-03-15 09:36 | P.CRDCN ---
History of Present Illness History of present illness: HISTORY OF PRESENTING ILLNESS This is a pleasant 74-year-old femal past medical history significant for coronary artery disease s/p bypass grafting, chronic heart failure unknown E F, diabetes mellitus, hypertension, dyslipidemia, CVA, peripheral vascular s/p carotid stenting, chronic kidney disease with baseline creatinine 1.8-2 and morbid obesity. She follows in the office with Dr. Ryan in [place]. We have been asked to see in consultation for heart failure. She presented to the hospital with symptoms of worsening shortness of breath and lower extremity edema. She states she's noticed for the previous one month that her breathing is becoming shorter and shorter. In the previous week it seems like things have exacerbated worse. She had been doing a lot of baking and cooking around the house and she states that she felt like her legs weight 100 pounds each. On arrival chest x-ray revealed developing congestive heart failure. She was initiated on a Lasix infusion. Nephrology is also following secondary to chronic kidney disease. She is seen and examined sitting up in the recliner in no acute distress. She states at baseline she is not very active. She states she has been up urinating quite frequently and feels as though her breathing is mostly back to baseline. Lower extremity edema has almost entirely resolved. EKG reveals sinus mechanism, poor R-wave progression, PVCs, T-wave abnormalities inferiorly with a heart rate of 68. Echocardiogram revealed impaired LV systolic function with ejection fraction 35-40%, moderate aortic stenosis, mild mitral regurgitation, moderate tricuspid regurgitation and moderate pulmonary hypertension with an RVSP of 49 mmHg. Laboratory data reviewed, WBC 11.5, hemoglobin 11.3, platelets 415, sodium 139, potassium 4.6, creatinine 2.42 magnesium 1.9, troponin negative 1, NT proBNP 3840. Current daily cardiac medications include hydrochlorothiazide 25 mg daily, amlodipine 10 mg daily, Coreg 25 mg twice a day and atorvastatin 80 mg at bedtime. She is maintaining a negative fluid balance this 2800cc of urine output in the previous 24 hours and her weight is down 3 kg since admission. In the past the patient was on lisinopril which was discontinued secondary to worsening renal function. REVIEW OF SYSTEMS At the time of my exam: CONSTITUTIONAL: Denies fever or chills. CARDIOVASCULAR: Denies chest pain, shortness of breath, orthopnea, PND or palpitations. RESPIRATORY: Denies cough. GASTROINTESTINAL: Denies abdominal pain, diarrhea, constipation, nausea or vomiting. MUSCULOSKELETAL: Denies myalgias. NEUROLOGIC: Denies numbness, tingling or weakness. ENDOCRINE: Denies fatigue, weight change, polydipsia or polyurina. GENITOURINARY: Denies burning, hematuria or urgency with micturation. HEMATOLOGIC: Denies history of anemia or bleeding. PHYSICAL EXAMINATION Blood pressure 145/69 heart rate 69 afebrile and maintaining oxygen saturation on nasal cannula. CONSTITUTIONAL: No apparent distress. Morbidly obese. HEENT: Head is normocephalic. Pupils are equal, round. Sclerae anicteric. Mucous membranes of the mouth are moist. No JVD. Bilateral carotid bruit. CHEST EXAMINATION: Lungs are clear to auscultation. No chest wall tenderness is noted on palpation or with deep breathing. Diminished bilaterally. HEART EXAMINATION: Regular rate and rhythm. S1, S2 heard. Systolic ejection m urmur at the base, no gallops or rub. ABDOMEN: Soft, nontender. Positive bowel sounds. EXTREMITIES: 2+ peripheral pulses, trace lower extremity edema and no calf tenderness. NEUROLOGIC EXAMINATION: Patient is awake, alert and oriented x3. ASSESSMENT Acute systolic heart failure, previous EF unknown by the patient. Acute on chronic kidney disease Leukocytosis Hypoxia Hypertension Coronary artery disease s/p bypass grafting Aortic stenosis, moderate Tricuspid regurgitation, moderate Pulmonary hypertension, moderate Peripheral vascular disease status post stent placement of the left carotid ac cording to the patient, exact details unavailable CVA Diabetes mellitus Dyslipidemia Morbid obesity, BMI 42 PLAN The fluid volume status has improved, recommend transitioning to oral diuretics. Ideally would like to resume lisinopril when her renal function stabilizes. Continue coreg, hydralazine, atorvastatin and amlodipine as previously ordered. Will follow up on carotid doppler in the outpatient setting. Request records from her primary communication arts lecturer to assess prior LV function. Thank you kindly for this consultation. Nurse Practitioner note has been reviewed, I agree with a documented findings and plan of care. Patient was seen and examined. Past Medical History Past Medical History: Coronary Artery Disease (CAD), Heart Failure, CVA/TIA, Diabetes Mellitus, Hyperlipidemia, Hypertension, Myocardial Infarction ([place]), Renal Disease Additional Past Medical History / Comment(s): HX TIA POST CAROTID SX, STATES LOST VISION NEETA EYES ON LEFT SIDE;cyst under L armpit removed. type 2 diabetes Last Myocardial Infarction Date:: 2006 History of Any Multi-Drug Resistant Organisms: None Reported Past Surgical History: Cholecystectomy, Coronary Bypass/CABG, Heart Catheterization, Hysterectomy Additional Past Surgical History / Comment(s): CABG X4, STENT IN RIGHT CAROTID ARTERY. 07/12 Incision and drainagel of abscess under left arm, 5 knee sx, breast biposies-precancerous per pt. Past Anesthesia/Blood Transfusion Reactions: No Reported Reaction Date of Last Stent Placement:: UN Past Psychological History: No Psychological Hx Reported Smoking Status: Former smoker Past Alcohol Use History: None Reported Past Drug Use History: None Reported - Past Family History Sister(s) Family Medical History: Cancer, Deep Vein Thrombosis (DVT) Additional Family Medical History / Comment(s): CERVICAL Father Family Medical History: Cancer Medications and Allergies Home Medications Medication Instructions Recorded Confirmed Type Atorvastatin [Lipitor] 80 mg PO HS 07/04/14 03/13/20 History Carvedilol [Coreg] 25 mg PO BID 07/04/14 03/13/20 History amLODIPine BESYLATE [Norvasc] 10 mg PO DAILY 07/04/14 03/13/20 History hydroCHLOROthiazide 25 mg PO DAILY 07/04/14 03/13/20 History Allopurinol [Zyloprim] 100 mg PO DAILY 03/13/20 03/13/20 History Ergocalciferol [Vitamin D2] 50,000 unit PO QMONTHLY 03/13/20 03/13/20 History Glimepiride [Amaryl] 4 mg PO DAILY PRN 03/13/20 03/13/20 History Insulin Glargine,Hum.rec.anlog 10 - 25 unit SQ DAILY 03/13/20 03/13/20 History [Basaglar Kwikpen U-100] Thiamine [Vitamin B-1] 100 mg PO BID 03/13/20 03/13/20 History Allergies Allergy/AdvReac Type Severity Reaction Status Date / Time Penicillins Allergy Unknown Verified 03/13/20 14:03 Childhood Physical Exam Vitals: Vital Signs Temp Pulse Resp BP Pulse Ox 03/15/20 08:55 69 89 L 03/15/20 08:42 98 F 67 16 145/69 96 03/15/20 06:10 166/72 03/15/20 02:56 97.7 F 76 19 132/60 95 03/14/20 19:47 97.5 F L 69 18 163/68 96 03/14/20 15:00 20 03/14/20 14:50 98.4 F 68 20 147/54 96 Intake and Output 03/14/20 03/15/20 03/15/20 22:59 06:59 14:59 Intake Total 200 517.5 240 Output Total 1000 1600 300 Balance -800 -1082.5 -60 Intake: Intake, IV Titration 75.5 Amount Furosemide 100 mg In 75.5 Sodium Chloride 0.9% 90 ml @ 10 MG/HR 10 mls/hr IV .Q10H [facility] Rx#: [id number] Oral 200 442 240 Output: Urine 1000 1600 300 Other: Voiding Method Toilet Toilet # Voids 1 1 # Bowel Movements 1 Weight 119.5 kg Results 03/13/20 13:10 03/15/20 08:03 Comprehensive Metabolic Panel 03/14/20 03/15/20 Range/Units 11:17 08:03 Sodium 141 139 (137-145) mmol/L Potassium 4.9 4.6 (3.5-5.1) mmol/L Chloride 104 102 (98-107) mmol/L Carbon Dioxide 30 33 H (22-30) mmol/L BUN 54 H 57 H (7-17) mg/dL Creatinine 2.42 H 2.42 H (0.52-1.04) mg/dL Glucose 157 H 159 H (74-99) mg/dL Calcium 10.5 H 9.8 (8.4-10.2) mg/dL Current Medications Generic Name Dose Route Start Last Admin Trade Name Freq PRN Reason Stop Dose Admin Allopurinol 100 mg 03/14/20 09:00 03/15/20 08:56 Allopurinol 100 Mg Tab PO 100 mg DAILY [facility] Administration Amlodipine Besylate 10 mg 03/14/20 09:00 03/15/20 08:57 Amlodipine 10 Mg Tab PO 10 mg DAILY [facility] Administration Atorvastatin Calcium 80 mg 03/13/20 21:00 03/14/20 20:44 Atorvastatin 80 Mg Tab PO 80 mg HS [facility] Administration Carvedilol 25 mg 03/13/20 21:00 03/15/20 06:15 Carvedilol 12.5 Mg Tab PO 25 mg BID-W/MEALS [facility] Administration Furosemide 40 mg 03/15/20 09:16 Furosemide 40 Mg Tab PO BID@0900,1600 [facility] Hydralazine HCl 25 mg 03/14/20 11:45 03/15/20 08:56 Hydralazine Hcl 25 Mg Tab PO 25 mg TID [facility] Administration Insulin Detemir 30 unit 03/14/20 07:00 03/15/20 06:15 Insulin Detemir (Levemir) 100 Unit/Ml Syr SQ 30 unit DAILY@0700 [facility] Administration Thiamine HCl 100 mg 03/13/20 21:00 03/15/20 08:56 Thiamine 100 Mg Tab PO 100 mg BID [facility] Administration Intake and Output 03/14/20 03/15/20 03/15/20 22:59 06:59 14:59 Intake Total 200 517.5 240 Output Total 1000 1600 300 Balance -800 -1082.5 -60 Intake: Intake, IV Titration 75.5 Amount Furosemide 100 mg In 75.5 Sodium Chloride 0.9% 90 ml @ 10 MG/HR 10 mls/hr IV .Q10H [facility] Rx#: [id number] Oral 200 442 240 Output: Urine 1000 1600 300 Other: Voiding Method Toilet Toilet # Voids 1 1 # Bowel Movements 1 Weight 119.5 kg 03/13/20 13:10 03/15/20 08:03
[2020-03-15] MEDS ORDERED: ASPIRIN 81 MG PO SCH (09:45)
--- NOTE | 2020-03-15 10:02 | P.PN ---
Subjective Patient is seen in follow-up for acute kidney injury on chronic kidney disease. Patient was started on Lasix drip yesterday. Renal function stable. Edema improved. Urine output 2.8 L in the last 24 hours. Denies chest pain or shortness of breath. Vital signs are stable. General: The patient appeared well nourished and normally developed. HEENT: Head exam is unremarkable. Neck is without jugular venous distension. LUNGS: Breath sounds decreased. HEART: Rate and Rhythm are regular. ABDOMEN: Soft, nontender. EXTREMITITES: Trace edema. Objective - Vital Signs Vital signs: Vital Signs Temp 98 F 03/15/20 08:42 Pulse 69 03/15/20 08:55 Resp 16 03/15/20 09:00 BP 145/69 03/15/20 08:42 Pulse Ox 89 L 03/15/20 08:55 Intake & Output 03/14/20 03/15/20 03/15/20 18:59 06:59 18:59 Intake Total 540 717.5 240 Output Total 600 2200 300 Balance -60 -1482.5 -60 Weight 122.47 kg 119.5 kg Intake: Intake, IV Titration 75.5 Amount Furosemide 100 mg In 75.5 Sodium Chloride 0.9% 90 ml @ 10 MG/HR 10 mls/hr IV .Q10H [facility]CLUDES [facility] Rx#: [id number] Oral 540 642 240 Output: Urine 600 2200 300 Other: Voiding Method Toilet Toilet Toilet # Voids 1 # Bowel Movements 1 - Labs CBC & Chem 7: 03/13/20 13:10 03/15/20 08:03 Labs: Abnormal Lab Results - Last 24 Hours (Table) 03/14/20 03/14/20 03/14/20 Range/Units 11:17 11:28 14:17 Carbon Dioxide (22-30) mmol/L BUN 54 H (7-17) mg/dL Creatinine 2.42 H (0.52-1.04) mg/dL Glucose 157 H (74-99) mg/dL POC Glucose (mg/dL) 169 H (75-99) mg/dL Calcium 10.5 H (8.4-10.2) mg/dL Urine Protein 1+ H (Negative) Urine Blood Small H (Negative) Ur Leukocyte Esterase Trace H (Negative) Urine Bacteria Rare H (None) /hpf Urine Mucus Rare H (None) /hpf 03/14/20 03/14/20 03/15/20 Range/Units 16:59 20:54 06:06 Carbon Dioxide (22-30) mmol/L BUN (7-17) mg/dL Creatinine (0.52-1.04) mg/dL Glucose (74-99) mg/dL POC Glucose (mg/dL) 140 H 185 H 132 H (75-99) mg/dL Calcium (8.4-10.2) mg/dL Urine Protein (Negative) Urine Blood (Negative) Ur Leukocyte Esterase (Negative) Urine Bacteria (None) /hpf Urine Mucus (None) /hpf 03/15/20 Range/Units 08:03 Carbon Dioxide 33 H (22-30) mmol/L BUN 57 H (7-17) mg/dL Creatinine 2.42 H (0.52-1.04) mg/dL Glucose 159 H (74-99) mg/dL POC Glucose (mg/dL) (75-99) mg/dL Calcium (8.4-10.2) mg/dL Urine Protein (Negative) Urine Blood (Negative) Ur Leukocyte Esterase (Negative) Urine Bacteria (None) /hpf Urine Mucus (None) /hpf Microbiology - Last 24 Hours (Table) 03/13/20 15:58 Blood Culture - Preliminary Blood No Growth after 24 hours Assessment and Plan Plan: Assessment: 1. Acute kidney injury mostly prerenal secondary to cardiorenal syndrome. Creatinine 2.2 on admission - stable at 2.42 today. 2. Chronic kidney disease stage III. Baseline creatinine 1.8-2 secondary to diabetic kidney disease. 3. Volume overload. Improved with diuresis. 4. Diabetes mellitus. 5. Hypercalcemia secondary to hydrochlorothiazide and vitamin D. Better. 6. Hypertension with chronic kidney disease. Stable. 7. Acute on chronic systolic CHF with ejection fraction of 35-40% with moderate tricuspid regurgitation and pulmonary hypertension. Plan: Stop Lasix drip. Start torsemide 20 mg bid tomorrow. I advised the patient to maintain a fluid restriction of less than 40 ounces per day. She was also advised to monitor her weight closely at home and to call our office if he gains more than 3 pounds or edema worsens. Stable to be discharged home from nephrology standpoint.
[2020-03-15 11:28] LABS: Glucose,Whole Blood 154 mg/dL (75-99)
[2020-03-15] MEDS ORDERED: FUROSEMIDE 10 MG/ML 10 ML VIAL IV STA (12:14)
--- NOTE | 2020-03-15 21:44 | P.DS ---
Providers Date of admission: 03/14/20 10:52 Expected date of discharge: 03/15/20 Attending physician: Johnathon Oswald Consults: 03/14/20 10:48 Consult Physician Routine Consulting Provider: Evens Hinojosa Consult Reason/Comments: [email or web address] Do you want consulting provider notified?: Yes 03/14/20 13:15 Consult Physician Routine Consulting Provider: Brad Amaro Consult Reason/Comments: chf Do you want consulting provider notified?: Yes Primary care physician: Dwight Abdullahi [facility] Course: Chief Complaint: short of breath History of presenting complaint: This is a very pleasant 74-year-old patient of Dr. Dwight Abdullahi. Chronic stable medical conditions include coronary artery disease, diabetes, hypertension, hyperlipidemia with a prior history of coronary bypass. Patient presents with the off progressive shortness of breath may be a longer period than that. Lower extremity edema. Slight cough. No fever no chills. No perspiration. Appetite is good. Also has orthopnea. Admitted with CHF exacerbation from systolic dysfunction EF 35-40%. Put on Lasix drip. Good negative fluid balance. Cleared by nephrology and currently. Consultation: Dr. Amaro from cardiology Dr. Hinojosa from nephrology Physical examination: VITAL SIGNS: 98, 69, 16, 89% room air, 1 [id number] GENERAL: BMI 43.6, sitting up in a recliner. EYES: Pupils equal. Conjunctiva normal. HEENT: External appearance of nose and ears normal, oral cavity grossly normal. NECK: JVD possibly raised; masses not palpable. HEART: First and second heart sounds are normal; edema present. LUNGS: Respiratory rate increased, improved with entry ABDOMEN: Soft, nontender, liver spleen not palpable, no masses palpable. PSYCH: Alert and oriented x3; mood and affect normal. INVESTIGATIONS, reviewed in the clinical context: March 15: Potassium 4.6 bun 57 creatinine 2.4 to White count 11.5 hemoglobin 11.3 platelets 415 potassium 5.3 BUN 43 creatinine 2.2, proBNP 3840 Coronavirus P/Cr-not detected EKG tracing personally reviewed by me-normal sinus rhythm some T-wave changes Chest x-ray film personally reviewed by me-cardiomegaly and venous prominence 2-D echocardiogram-moderate concentric LVH, EF 35-40%, moderate aortic stenosis, moderate tricuspid regurgitation, moderate pulmonary hypertension Assessment: -Acute on chronic congestive heart exacerbation from systolic dysfunction EF 35- 40% from underlying ischemic heart disease -Moderate aortic stenosis -Moderate tricuspid regurgitation and secondary moderate pulmonary hypertension -Coronary artery disease by history of coronary bypass and-essential hypertension -Hyperlipidemia -Chronic kidney disease stage III, baseline around 2 secondary to diabetic kidney disease Disposition: Home Patient Condition at Discharge: Stable Plan - Discharge Summary Discharge Rx Participant: No New Discharge Prescriptions: New hydrALAZINE HCL [Apresoline] 25 mg PO TID #90 tab Aspirin 81 mg PO DAILY chew Torsemide [Demadex] 20 mg PO BID@0900,1600 #60 tab Continue amLODIPine BESYLATE [Norvasc] 10 mg PO DAILY Carvedilol [Coreg] 25 mg PO BID Atorvastatin [Lipitor] 80 mg PO HS Allopurinol [Zyloprim] 100 mg PO DAILY Thiamine [Vitamin B-1] 100 mg PO BID Ergocalciferol [Vitamin D2 (DRISDOL)] 50,000 unit PO QMONTHLY Insulin Glargine,Hum.rec.anlog [Basaglar Kwikpen U-100] 10 - 25 unit SQ DAILY Discontinued hydroCHLOROthiazide 25 mg PO DAILY Glimepiride [Amaryl] 4 mg PO DAILY PRN PRN Reason: Blood Sugar - High Discharge Medication List Atorvastatin [Lipitor] 80 mg PO HS 07/04/14 [History] Carvedilol [Coreg] 25 mg PO BID 07/04/14 [History] amLODIPine BESYLATE [Norvasc] 10 mg PO DAILY 07/04/14 [History] Allopurinol [Zyloprim] 100 mg PO DAILY 03/13/20 [History] Ergocalciferol [Vitamin D2 (DRISDOL)] 50,000 unit PO QMONTHLY 03/13/20 [History] Insulin Glargine,Hum.rec.anlog [Basaglar Kwikpen U-100] 10 - 25 unit SQ DAILY 03/13/20 [History] Thiamine [Vitamin B-1] 100 mg PO BID 03/13/20 [History] Aspirin 81 mg PO DAILY chew 03/15/20 [Rx] Torsemide [Demadex] 20 mg PO BID@0900,1600 #60 tab 03/15/20 [Rx] hydrALAZINE HCL [Apresoline] 25 mg PO TID #90 tab 03/15/20 [Rx] Follow up Appointment(s)/Referral(s): Brad Amaro DO [STAFF PHYSICIAN] - 2 Weeks ( Office will call with appointment time ) Dwight Abdullahi MD [Primary Care Provider] - 03/20/20 3:00 pm (with Lorenza RIVERA) Evens Hinojosa DO [STAFF PHYSICIAN] - 04/10/20 11:00 am (Telephone chat) Patient Instructions/Handouts: Heart Failure (DC), Using Oxygen at Home (DC), Fluid Restriction (DC) Activity/Diet/Wound Care/Special Instructions: bmp - 5 days Discharge Disposition: HOME SELF-CARE
[2020-03-16] MEDS ORDERED: TORSEMIDE 20 MG TAB PO SCH (09:00)
== END 2020-03-15 16:00 | disposition home or self-care (01) | DRG 291 ==
LOC: EC 12:21 → 1SOBS 14:57 → OBSVTOIN 03-14 10:52
PROVIDERS: ADMIT Hospitalist; ATTEND Hospitalist
DX: I13.0 Hypertensive heart and chronic kidney disease with heart failure and stage 1 through stage 4 chronic kidney disease, or unspecified chronic kidney disease (principal); I50.23 Acute on chronic systolic (congestive) heart failure; N17.9 Acute kidney failure, unspecified; Z68.41 Body mass index [BMI] 40.0-44.9, adult; E11.22 Type 2 diabetes mellitus with diabetic chronic kidney disease; E11.51 Type 2 diabetes mellitus with diabetic peripheral angiopathy without gangrene; E66.01 Morbid (severe) obesity due to excess calories; E78.5 Hyperlipidemia, unspecified; E83.52 Hypercalcemia; I08.3 Combined rheumatic disorders of mitral, aortic and tricuspid valves; I25.10 Atherosclerotic heart disease of native coronary artery without angina pectoris; I27.20 Pulmonary hypertension, unspecified; T50.2X5A Adverse effect of carbonic-anhydrase inhibitors, benzothiadiazides and other diuretics, initial encounter; Z20.828 Contact with and (suspected) exposure to other viral communicable diseases; I49.3 Ventricular premature depolarization; N18.32 Chronic kidney disease, stage 3b; Z79.899 Other long term (current) drug therapy; I25.2 Old myocardial infarction; Z79.84 Long term (current) use of oral hypoglycemic drugs; Z90.710 Acquired absence of both cervix and uterus; Z95.820 Peripheral vascular angioplasty status with implants and grafts; Z95.1 Presence of aortocoronary bypass graft; Z87.891 Personal history of nicotine dependence; Z86.73 Personal history of transient ischemic attack (TIA), and cerebral infarction without residual deficits; Z88.0 Allergy status to penicillin; Z82.49 Family history of ischemic heart disease and other diseases of the circulatory system; Z90.49 Acquired absence of other specified parts of digestive tract
CPT/HCPCS: 36415; 71046; 80048; 80053; 81001; 83690; 83735; 83880; 84484; 85025; 85610; 85730; 87040; 87635; 93005; 93306; 96365; 96375; 99285

== ENCOUNTER 2020-06-21 22:02 | Inpatient (IN) | payer MEDICARE, OTHER ==
[2020-06-21] MEDS ORDERED: FUROSEMIDE 10 MG/ML 4 ML VIAL IV STA (22:15)
[2020-06-21] MEDS ORDERED: MORPHINE SULFATE 4 MG/ML SYRINGE IV STA (22:18)
[2020-06-21] MEDS ORDERED: NITROGLYCERIN OINT 1 INCH/GM PACKET TOPICAL STA (22:18)
--- NOTE | 2020-06-21 22:25 | ED ---
SOB HPI - General Chief Complaint: Shortness of Breath Stated Complaint: MOHINDER Time Seen by Provider: 06/21/20 22:06 Source: patient, EMS Mode of arrival: EMS Limitations: no limitations - History of Present Illness Initial Comments: This patient is 74-year-old woman who presents with complaint of progressive shortness of breath. She states she has been short of breath for over a couple of weeks, but that it seemed to be getting progressively worse since earlier today. She also is complaining of orthopnea and edema of the lower extremities. The patient states that she is being worked up to start having dialysis. She did recently have venous mapping performed. She had been in the hospital in February with pneumonia and they noticed that she was developing worsening renal failure. The patient denies chest pain. There is a rare cough. No fever or chills. MD Complaint: shortness of breath -: week(s) Severity: moderate Severity scale (1-10): 0 Consistency: constant Improves With: nothing Worsens With: lying flat Known History Of: congestive heart failure Associated Symptoms: orthopnea, other (Edema) Treatments Prior to Arrival: none - Related Data Home Oxygen Therapy: No Home Medications Medication Instructions Recorded Confirmed Atorvastatin [Lipitor] 80 mg PO HS 07/04/14 06/13/20 Carvedilol [Coreg] 25 mg PO BID 07/04/14 06/13/20 amLODIPine BESYLATE [Norvasc] 10 mg PO DAILY 07/04/14 06/13/20 Allopurinol [Zyloprim] 100 mg PO DAILY 03/13/20 06/13/20 Ergocalciferol [Vitamin D2 50,000 unit PO QMONTHLY 03/13/20 06/13/20 (DRISDOL)] Insulin Glargine,Hum.rec.anlog 10 - 25 unit SQ DAILY 03/13/20 06/13/20 [Basaglar Kwikpen U-100] Thiamine [Vitamin B-1] 100 mg PO BID 03/13/20 06/13/20 Previous Rx's Medication Instructions Recorded Aspirin 81 mg PO DAILY chew 03/15/20 Torsemide [Demadex] 20 mg PO BID@0900,1600 #60 tab 03/15/20 hydrALAZINE HCL [Apresoline] 25 mg PO TID #90 tab 03/15/20 Allergies Allergy/AdvReac Type Severity Reaction Status Date / Time Penicillins Allergy Unknown Verified 06/13/20 10:56 Childhood Review of Systems ROS Statement: Those systems with pertinent positive or pertinent negative responses have been documented in the HPI. ROS Other: All systems not noted in ROS Statement are negative. Constitutional: Denies: fever, chills Respiratory: Reports: cough, dyspnea. Denies: wheezes, hemoptysis, stridor Cardiovascular: Reports: orthopnea, edema. Denies: chest pain, palpitations, syncope Gastrointestinal: Denies: abdominal pain, vomiting, diarrhea Genitourinary: Denies: dysuria, frequency, hematuria Musculoskeletal: Denies: back pain Skin: Denies: rash Neurological: Denies: headache, weakness Past Medical History Past Medical History: Coronary Artery Disease (CAD), Heart Failure, CVA/TIA, Diabetes Mellitus, Hyperlipidemia, Hypertension, Myocardial Infarction ([place]), Renal Disease Additional Past Medical History / Comment(s): HX TIA POST CAROTID SX, STATES LOST VISION NEETA EYES ON LEFT SIDE;cyst under L armpit removed. type 2 diabetes Last Myocardial Infarction Date:: 2006 History of Any Multi-Drug Resistant Organisms: None Reported Past Surgical History: Cholecystectomy, Coronary Bypass/CABG, Heart Catheterization, Hysterectomy Additional Past Surgical History / Comment(s): CABG X4, STENT IN RIGHT CAROTID ARTERY. 07/12 Incision and drainagel of abscess under left arm, 5 knee sx, breast biposies-precancerous per pt. Past Anesthesia/Blood Transfusion Reactions: No Reported Reaction Date of Last Stent Placement:: UN Past Psychological History: No Psychological Hx Reported Smoking Status: Former smoker - Past Family History Sister(s) Family Medical History: Cancer, Deep Vein Thrombosis (DVT) Additional Family Medical History / Comment(s): CERVICAL Father Family Medical History: Cancer General Exam Limitations: no limitations General appearance: alert, in distress Head exam: Present: atraumatic, normocephalic Eye exam: Present: normal appearance. Absent: scleral icterus, conjunctival injection ENT exam: Present: normal oropharynx Neck exam: Present: normal inspection Respiratory exam: Present: respiratory distress (Mild tachypnea), rales. A bsent: wheezes, rhonchi, stridor, accessory muscle use, decreased breath sounds, prolonged expiratory Cardiovascular Exam: Present: regular rate, normal rhythm (With ectopic beats), systolic murmur (Grade 3 systolic ejection murmur left sternal border). Absent: diastolic murmur, rubs, gallop GI/Abdominal exam: Present: soft. Absent: distended, tenderness, guarding, rebound, rigid, mass Extremities exam: Present: normal inspection, normal capillary refill, pedal edema. Absent: calf tenderness Back exam: Present: normal inspection. Absent: CVA tenderness (R), CVA tenderness (L) Neurological exam: Present: alert Skin exam: Present: warm, pallor. Absent: dry, intact, normal color, rash Course Vital Signs 06/21/20 22:03 Temperature 98.3 F Pulse Rate 69 Respiratory 22 Rate Blood Pressure 164/60 O2 Sat by Pulse 92 L Oximetry Medical Decision Making - EKG Data -: EKG Interpreted by Me EKG shows normal: sinus rhythm (With occasional PVC, rate 66 bpm), axis (Normal), intervals (Normal), QRS complexes, ST-T waves (Normal) Rate: normal (Rate 66 bpm) Interpretation: other (Possible old septal infarct.) Disposition Referrals: Dwight Abdullahi MD [Primary Care Provider] - 1-2 days
--- NOTE | 2020-06-21 22:58 | XR ---
EXAMINATION TYPE: XR chest 2V DATE OF EXAM: 06/21/2020 COMPARISON: 03/13/2020 HISTORY: Difficulty breathing TECHNIQUE: 2 views FINDINGS: Heart is enlarged. There is pulmonary interstitial and airspace edema. Thoracic aorta is at heromatous. There are sternal wires. There are chest leads. There is blunting of the costophrenic ang les. IMPRESSION: Congestive heart failure with increased congestion and pleural fluid compared to old exam .
[2020-06-21 22:59] LABS: Basophils % (A) 0 %; Eosinophils # (A) 0.1 k/uL (0-0.7); Eosinophils % (A) 1 %; HCT 25.1 % (34.0-46.0); HGB 8.3 gm/dL (11.4-16.0); Hypochromasia Slight; Lymphocytes % (A) 10 %; MCH 31.1 pg (25.0-35.0); MCHC 33.2 g/dL (31.0-37.0); MCV 93.7 fL (80.0-100.0); Mean Platelet Volume 6.9; Monocytes # (A) 0.8 k/uL (0-1.0); Monocytes % (A) 7 %; Neutrophils # (A) 8.3 k/uL (1.3-7.7); Neutrophils % (A) 81 %; Platelet Count 324 k/uL (150-450); RBC 2.68 m/uL (3.80-5.40); RDW 14.9 % (11.5-15.5); WBC 10.2 k/uL (3.8-10.6)
[2020-06-21 23:16] LABS: INR 0.9 (<1.2)
[2020-06-21 23:19] LABS: D-Dimer 0.75 mg/L FEU (<0.60); Partial Thromboplastin Time 21.6 sec (22.0-30.0)
[2020-06-21 23:23] LABS: Albumin 3.3 g/dL (3.5-5.0); Potassium 4.6 mmol/L (3.5-5.1); Total Protein 5.8 g/dL (6.3-8.2)
[2020-06-21 23:24] LABS: Calcium 10.1 mg/dL (8.4-10.2); Total Bilirubin 0.6 mg/dL (0.2-1.3)
[2020-06-22] MEDS: FUROSEMIDE 10 MG/ML 10 ML VIAL IV SCH ×2 (00:32→12:28)
[2020-06-22 01:07] LABS: Appearance,Urine Cloudy (Clear); Bacteria,Urine Rare /hpf; Bilirubin,Urine Negative (Negative); Blood,Urine Negative (Negative); Color,Urine Light Yellow; Glucose,Urine (UA) Negative (Negative); Hyaline Casts,Urine 3 /lpf (0-2); Ketones,Urine Negative (Negative); Leukocyte Esterase,Urine Moderate (Negative); Mucus,Urine Rare /hpf; Nitrite,Urine Negative (Negative); PH, Urine 5.5 (5.0-8.0); Protein,Urine 1+ (Negative); RBC,Urine 2 /hpf (0-5); Specific Gravity,Urine 1.011 (1.001-1.035); Squamous Epithelial Cell,Urine 15 /hpf (0-4); Urobilinogen,Urine <2.0 mg/dL (<2.0); WBC,Urine 62 /hpf (0-5)
--- NOTE | 2020-06-22 03:12 | P.HPIM ---
History of Present Illness H&P Date: 06/22/20 The patient is a 74-year-old female with an extensive PMH including CHF, type II DM, hypertension, hyperlipidemia, chronic kidney disease, and coronary artery disease who presented to the emergency room with complaints of shortness of breath. Patient reports that over the past week, she has noted gradually worsening exercise tolerance along with lower extremity swelling and orthopnea. The patient reports that she underwent a venous mapping last week and is currently being prepared to start hemodialysis. She otherwise denied chest discomfort, nausea, vomiting, diaphoresis, abdominal pain, diarrhea, fever, chills, cough. Laboratory evaluation was remarkable for troponin of 0.041, hemoglobin 8.3, BUN 52, creatinine 2.28, and a d-dimer of 0.75. Chest x-ray was remarkable for congestive heart failure. EKG revealed sinus rhythm with PVCs at 66 bpm. Review of Systems Pertinent positives and negatives as discussed in HPI, a complete review of systems was performed and all other systems are negative. Past Medical History Past Medical History: Coronary Artery Disease (CAD), Heart Failure, CVA/TIA, Diabetes Mellitus, Hyperlipidemia, Hypertension, Myocardial Infarction ([place]), Renal Disease Additional Past Medical History / Comment(s): HX TIA POST CAROTID SX, STATES LOST VISION NEETA EYES ON LEFT SIDE;cyst under L armpit removed. type 2 diabetes Last Myocardial Infarction Date:: 2006 History of Any Multi-Drug Resistant Organisms: None Reported Past Surgical History: Cholecystectomy, Coronary Bypass/CABG, Heart Cathete rization, Hysterectomy Additional Past Surgical History / Comment(s): CABG X4, STENT IN RIGHT CAROTID ARTERY. 07/12 Incision and drainagel of abscess under left arm, 5 knee sx, breast biposies-precancerous per pt. Past Anesthesia/Blood Transfusion Reactions: No Reported Reaction Date of Last Stent Placement:: UN Past Psychological History: No Psychological Hx Reported Smoking Status: Former smoker Past Alcohol Use History: None Reported Past Drug Use History: None Reported - Past Family History Sister(s) Family Medical History: Cancer, Deep Vein Thrombosis (DVT) Additional Family Medical History / Comment(s): CERVICAL Father Family Medical History: Cancer Medications and Allergies Home Medications Medication Instructions Recorded Confirmed Type Atorvastatin [Lipitor] 80 mg PO HS 07/04/14 06/21/20 History Carvedilol [Coreg] 25 mg PO BID 07/04/14 06/21/20 History amLODIPine BESYLATE [Norvasc] 10 mg PO DAILY 07/04/14 06/21/20 History Allopurinol [Zyloprim] 100 mg PO DAILY 03/13/20 06/21/20 History Insulin Glargine,Hum.rec.anlog 30 unit SQ DAILY 03/13/20 06/21/20 History [Basaglar Kwikpen U-100] Thiamine [Vitamin B-1] 100 mg PO BID 03/13/20 06/21/20 History Aspirin 81 mg PO DAILY chew 03/15/20 06/21/20 Rx Torsemide [Demadex] 20 mg PO BID@0900,1600 #60 tab 03/15/20 06/21/20 Rx hydrALAZINE HCL [Apresoline] 25 mg PO TID #90 tab 03/15/20 06/21/20 Rx Cholecalciferol [Vitamin D3 (25 25 mcg PO DAILY 06/21/20 06/21/20 History Mcg = 1000 Iu)] Glimepiride [Amaryl] 4 mg PO DAILY 06/21/20 06/21/20 History Allergies Allergy/AdvReac Type Severity Reaction Status Date / Time Penicillins Allergy Unknown Verified 06/21/20 23:18 Childhood Physical Exam Vitals: Vital Signs Temp Pulse Pulse Resp BP BP Pulse Ox 06/22/20 01:25 84 16 143/72 95 06/22/20 00:50 97.9 F 63 22 140/75 96 06/22/20 00:17 86 17 157/87 96 06/21/20 22:42 28 H 06/21/20 22:25 67 171/64 93 L 06/21/20 22:03 98.3 F 69 22 164/60 92 L Intake and Output 06/21/20 06/21/20 06/22/20 14:59 22:59 06:59 Other: Weight 122.47 kg 122.47 kg General: non toxic, no distress, appears at stated age, morbidly obese Derm: no unusual rashes/lesions no unusual ecchymoses, warm, dry Head: atraumatic, normocephalic, symmetric Eyes: EOMI, no lid lag, anicteric sclera, pupils equal round reactive to light ENT: Nose and ears atraumatic, no thrush, no pharyngeal erythema Neck: No thyromegaly, no cervical lymphadenopathy, trachea midline, supple Mouth: no lip lesion, mucus membranes moist Cardiovascular: S1S2 reg, grade 3 systolic murmur appreciated, positive posterior tibial pulse bilateral, 2+ pitting edema bilateral lower extremities, capillary refill less than 2 seconds Lungs: Bibasilar rales, no rhonchi, no wheezing , no accessory muscle use Abdominal: soft, nontender to palpation, no guarding, no appreciable organomegaly, normal bowel sounds Ext: no gross muscle atrophy, muscle strength 5 out of 5 in all 4 extremities grossly, no contractures, Neuro: CN II-XI grossly intact, light touch intact all 4 extremities, finger to nose within normal limits, Psych: Alert, oriented, appropriate affect Results CBC & Chem 7: 06/21/20 22:45 06/21/20 22:45 Labs: Abnormal Lab Results - Last 24 Hours (Table) 06/21/20 06/21/20 06/21/20 Range/Units 22:45 22:45 22:45 RBC 2.68 L (3.80-5.40) m/uL Hgb 8.3 L (11.4-16.0) gm/dL Hct 25.1 L (34.0-46.0) % Neutrophils # 8.3 H (1.3-7.7) k/uL APTT 21.6 L (22.0-30.0) sec D-Dimer 0.75 H (<0.60) mg/L FEU Carbon Dioxide 32 H (22-30) mmol/L BUN 52 H (7-17) mg/dL Creatinine 2.28 H (0.52-1.04) mg/dL Glucose 152 H (74-99) mg/dL Troponin I (0.000-0.034) ng/mL Total Protein 5.8 L (6.3-8.2) g/dL Albumin 3.3 L (3.5-5.0) g/dL Urine Appearance (Clear) Urine Protein (Negative) Ur Leukocyte Esterase (Negative) Urine WBC (0-5) /hpf Ur Squamous Epith Cells (0-4) /hpf Urine Bacteria (None) /hpf Hyaline Casts (0-2) /lpf Urine Mucus (None) /hpf 06/21/20 06/22/20 Range/Units 22:45 00:56 RBC (3.80-5.40) m/uL Hgb (11.4-16.0) gm/dL Hct (34.0-46.0) % Neutrophils # (1.3-7.7) k/uL APTT (22.0-30.0) sec D-Dimer (<0.60) mg/L FEU Carbon Dioxide (22-30) mmol/L BUN (7-17) mg/dL Creatinine (0.52-1.04) mg/dL Glucose (74-99) mg/dL Troponin I 0.041 H* (0.000-0.034) ng/mL Total Protein (6.3-8.2) g/dL Albumin (3.5-5.0) g/dL Urine Appearance Cloudy H (Clear) Urine Protein 1+ H (Negative) Ur Leukocyte Esterase Moderate H (Negative) Urine WBC 62 H (0-5) /hpf Ur Squamous Epith Cells 15 H (0-4) /hpf Urine Bacteria Rare H (None) /hpf Hyaline Casts 3 H (0-2) /lpf Urine Mucus Rare H (None) /hpf Assessment and Plan Plan: Shortness of breath secondary to fluid overload due to acute CHF exacerbation along with chronic kidney disease -Last echo from 03/17 revealed LVH along with an EF of 35-40% -Continue with Lasix IVP 80 mg twice a day -Fluid restriction -Daily weights -Intake and output -Cardiac monitoring -Cardiology consult Troponin elevation, likely leak due to demand ischemia -Trend for now Normocytic anemia, lower than baseline -Possibly due to CKD -Obtain w/u Chronic conditions: Hypertension, hyperlipidemia, type II DM, coronary artery disease -Continue with home medications -Hold oral hypoglycemics -Lispro insulin sliding scale and blood glucose monitoring -Check A1c DVT prophylaxis -Heparin subq The patient is admitted with an anticipated greater than 2 midnight stay for evaluation of CHF exacer CODE STATUS: Lisa Code Discussed with: patient Anticipated discharge date: 2-[address]: home A total of 40 minutes was spent on the care of this complex patient more than 50% of the time was spent in counseling and care coordination.
[2020-06-22 06:08] LABS: Glucose,Whole Blood 173 mg/dL (75-99)
[2020-06-22 08:29] LABS: HCT 24.7 % (34.0-46.0); HGB 8.2 gm/dL (11.4-16.0); Hypochromasia Slight; MCH 31.5 pg (25.0-35.0); MCHC 33.4 g/dL (31.0-37.0); MCV 94.3 fL (80.0-100.0); Mean Platelet Volume 7.3; Platelet Count 321 k/uL (150-450); RBC 2.62 m/uL (3.80-5.40)
[2020-06-22 08:54] LABS: Calcium 10.1 mg/dL (8.4-10.2); Potassium 4.2 mmol/L (3.5-5.1)
[2020-06-22] MEDS ORDERED: TORSEMIDE 20 MG TAB PO SCH (09:00)
[2020-06-22] MEDS: INSULIN ASPART (NovoLOG) 100 UNIT/ML VIAL SQ SCH ×4 (09:22→20:52)
[2020-06-22] MEDS: carvediloL 12.5 MG TAB PO SCH ×2 (09:23→20:52)
[2020-06-22] MEDS: ASPIRIN 81 MG PO SCH (09:23)
[2020-06-22] MEDS: CHOLECALCIFEROL 25 MCG (1000 IU) TABLET PO SCH (09:24)
[2020-06-22] MEDS: hydrALAZINE HCL 25 MG TAB PO SCH ×3 (09:24→20:52)
[2020-06-22] MEDS: HEPARIN SODIUM,PORCINE 5,000 UNIT/ML 1 ML VIAL SQ SCH ×2 (09:24→20:52)
[2020-06-22] MEDS: amLODIPine 10 MG TAB PO SCH (09:24)
[2020-06-22] MEDS: THIAMINE 100 MG TAB PO SCH ×2 (09:24→20:52)
--- NOTE | 2020-06-22 11:20 | P.NPCON ---
History of Present Illness - Reason for Consult Consult date: 06/22/20 acute renal failure - Chief Complaint Acute and chronic kidney disease - History of Present Illness This is a 74-year-old female seen in consultation because of acute and chronic kidney disease. She came in because of worsening shortness of breath and edema. No fever chills no cough. No nausea vomiting diarrhea No changes in medications She's been seen in the past by our office. She is known with coronary artery disease and diabetes mellitus, CVA in the past, history of carotid surgery and visual blurring. Also known with coronary artery bypass graft cholecystectomy and stents in the right carotid artery Since admission she is feeling better less short of breath. She is also known with anemia and is on subcutaneous charts as an outpatient Past Medical History Past Medical History: Coronary Artery Disease (CAD), Heart Failure, CVA/TIA, D iabetes Mellitus, Hyperlipidemia, Hypertension, Myocardial Infarction ([place]), Renal Disease Additional Past Medical History / Comment(s): HX TIA POST CAROTID SX, STATES LOST VISION NEETA EYES ON LEFT SIDE;cyst under L armpit removed. type 2 diabetes Last Myocardial Infarction Date:: 2006 History of Any Multi-Drug Resistant Organisms: None Reported Past Surgical History: Cholecystectomy, Coronary Bypass/CABG, Heart Catheterization, Hysterectomy Additional Past Surgical History / Comment(s): CABG X4, STENT IN RIGHT CAROTID ARTERY. 07/12 Incision and drainagel of abscess under left arm, 5 knee sx, breast biposies-precancerous per pt. Past Anesthesia/Blood Transfusion Reactions: No Reported Reaction Date of Last Stent Placement:: UN Past Psychological History: No Psychological Hx Reported Smoking Status: Former smoker Past Alcohol Use History: None Reported Past Drug Use History: None Reported - Past Family History Sister(s) Family Medical History: Cancer, Deep Vein Thrombosis (DVT) Additional Family Medical History / Comment(s): CERVICAL Father Family Medical History: Cancer Medications and Allergies Home Medications Medication Instructions Recorded Confirmed Type Atorvastatin [Lipitor] 80 mg PO HS 07/04/14 06/21/20 History Carvedilol [Coreg] 25 mg PO BID 07/04/14 06/21/20 History amLODIPine BESYLATE [Norvasc] 10 mg PO DAILY 07/04/14 06/21/20 History Allopurinol [Zyloprim] 100 mg PO DAILY 03/13/20 06/21/20 History Insulin Glargine,Hum.rec.anlog 30 unit SQ DAILY 03/13/20 06/21/20 History [Basaglar Kwikpen U-100] Thiamine [Vitamin B-1] 100 mg PO BID 03/13/20 06/21/20 History Aspirin 81 mg PO DAILY chew 03/15/20 06/21/20 Rx Torsemide [Demadex] 20 mg PO BID@0900,1600 #60 tab 03/15/20 06/21/20 Rx hydrALAZINE HCL [Apresoline] 25 mg PO TID #90 tab 03/15/20 06/21/20 Rx Cholecalciferol [Vitamin D3 (25 25 mcg PO DAILY 06/21/20 06/21/20 History Mcg = 1000 Iu)] Glimepiride [Amaryl] 4 mg PO DAILY 06/21/20 06/21/20 History Allergies Allergy/AdvReac Type Severity Reaction Status Date / Time Penicillins Allergy Unknown Verified 06/21/20 23:18 Childhood Physical Exam Vitals: Vital Signs Temp Pulse Pulse Resp BP BP BP 06/22/20 08:20 97.1 F L 68 18 140/67 06/22/20 02:00 97.9 F 63 22 140/75 06/22/20 01:25 84 16 143/72 06/22/20 00:50 97.9 F 63 22 140/75 06/22/20 00:17 86 17 157/87 06/21/20 22:42 28 H 06/21/20 22:25 67 171/64 06/21/20 22:03 98.3 F 69 22 164/60 Pulse Ox 06/22/20 08:20 93 L 06/22/20 02:00 96 06/22/20 01:25 95 06/22/20 00:50 96 06/22/20 00:17 96 06/21/20 22:42 06/21/20 22:25 93 L 06/21/20 22:03 92 L Intake and Output 06/21/20 06/22/20 06/22/20 22:59 06:59 14:59 Output Total 180 Balance -180 Output: Urine 180 Other: Voiding Method External Catheter External Catheter Weight 122.47 kg 122.4 kg On examination she is mildly short of breath otherwise comfortable she is awake and alert and oriented HEENT exam no JVP neck is supple no facial asymmetry Lungs are significant for an occasional coarse crackle at bases good air entry bilaterally Heart sounds unremarkable for any murmur rub gallop Abdomen soft nontender obese protuberant No suprapubic or flank tenderness Extremity exam reveals minimal edema Neurologically awake alert oriented but generalized weakness Results - Lab Results Most recent lab results Calcium 10.1 mg/dL (8.4-10.2) 06/22/20 08:14 06/22/20 08:14 06/22/20 08:14 Assessment and Plan Assessment: Impression 1. Chronic kidney disease, stage IV secondary to nephrosclerosis and possible diabetic nephropathy additionally with 1+ proteinuria. Baseline creatinine of was 1.6 as of 10/04/2019 but more recently has been at 2.4-1 03/15/2020. She came in with a creatinine of 2.28 and went up to 2.3 this morning. Her true baseline and therefore is somewhere between 1.6-2.2 2. Possible acute kidney injury secondary to cardiorenal syndrome 3. The chart failure 4. Mild degree of metabolic alkalosis secondary to diuresis bicarb is up from 32 on admission to 36 this morning. 5. History of anemia on ANGELA as an outpatient. Hemoglobin is 8.2 was 8.1 on 06/13/2020 a week ago. Etiology is chronic kidney disease as well as iron saturation being 11.3% she has iron deficiency 6. Iron deficiency 11.2% saturation on 09/27/2021 months ago but no recent saturation available. Recommendation 1. Currently on Lasix 80 mg every 12 with good response, would continue that for a deer 2 and then reassess 2. Check iron saturation 3. Maintain darbepoetin 40 g every 7 days. Thank you for this consultation and we'll continue to follow
[2020-06-22 11:30] LABS: % Iron Saturation 13.33 (12.00-45.00)
[2020-06-22 11:45] LABS: Glucose,Whole Blood 203 mg/dL (75-99)
[2020-06-22 11:54] VITALS: BMI 43.5
[2020-06-22] MEDS ORDERED: DARBEPOETIN ALFA 40 MCG/0.4 ML SYRINGE SQ SCH (12:00)
[2020-06-22 12:08] LABS: Ferritin 385.4 ng/mL (10.0-291.0)
--- NOTE | 2020-06-22 12:14 | P.CRDCN ---
History of Present Illness Consult date: 06/22/20 History of present illness: HISTORY OF PRESENT ILLNESS: This is a 74 year old female with a past medical history significant for congestive heart failure, chronic kidney disease, coronary artery disease with previous CABG 4, carotid stenosis with stent in the right carotid artery, hypertension, hyperlipidemia, and former nicotine dependence. Patient follows in the office with Dr. Amaro. We have been asked to see the patient in consultation for congestive heart failure. Patient examined at the bedside. patient states she has been feeling short of breath for the last 2-3 weeks but states over the past 2 days it has become significantly worse. Patient reports increased swelling to her lower extremities. Patient states when she was di scharged from the hospital last she was weighing herself daily but has not been doing this recently. Patient also reports that she had a vein mapping done recently and is going to be started on hemodialysis but she is unsure when this will happen. She follows with Dr. Hinojosa. Patient was found to be in congestive heart failure in the emergency room. She was started on IV Lasix 80 mg every 12 hours. Patient is sitting up in the chair this morning. She states that her breathing has significantly improved. She also reports improvement in her lower extremity edema. she denies chest pain or pressure. EKG reveals sinus rhythm with PVCs. No signs of acute ischemia. Chest xray congestive heart failure with increased congestion and pleural fluid compared to exam. Laboratory data: WBC 9.0. Hemoglobin 8.2. Platelet count 321. Sodium 141. Potassium 4.2. BUN 50. Creatinine 2.33. BNP 6220. Troponin 0.041. 0.033. Current home cardiac medications include Demadex 20 mg twice a day hydralazine 25 mg 3 times a day, amlodipine 10 mg daily, carvedilol 25 mg twice a day, atorvastatin 80 mg daily, and aspirin 81 mg daily Most recent echocardiogram obtained in February 2020 revealed ejection fraction 35-40%, moderate aortic stenosis, moderate tricuspid regurgitation, and moderate pulmonary hypertension REVIEW OF SYSTEMS: At the time of my exam: CONSTITUTIONAL: Denies fever or chills. HEENT: Denies blurred vision, vision changes, or eye pain. Denies hemoptysis CARDIOVASCULAR: Denies chest pain. Denies orthopnea. Denies PND. Denies palpitations RESPIRATORY: Denies shortness of breath. GASTROINTESTINAL: Denies abdominal pain. Denies nausea or vomiting. HEMATOLOGIC: Denies bleeding disorders. GENITOURINARY: Denies any blood in urine. SKIN: Denies pruitis. Denies rash. PHYSICAL EXAM: VITAL SIGNS: Reviewed. GENERAL: Well-developed in no acute distress. HEENT: Head is normocephalic. Pupils are equal, round. Sclerae anicteric. Mucous membranes of the mouth are moist. Neck supple. No JVD or thyromegaly LUNGS: Respirations even and unlabored. Lungs diminished bilaterally with mild bibasilar rales. HEART: Regular rate and rhythm. S1 and S2 heard. systolic murmur noted. ABDOMEN: Soft. Nondistended. Nontender. EXTREMITIES: Normal range of motion. No clubbing or cyanosis. Peripheral pulses intact. trace bilateral lower extremity edema NEUROLOGIC: Awake and alert. Oriented x 3. ASSESSMENT: Acute exacerbation of chronic systolic heart failure, EF 35-40% chronic kidney disease Coronary artery disease status post CABG Valvular heart disease: Moderate aortic stenosis and moderate tricuspid regurgitation Moderate pulmonary hypertension Hypertension Hyperlipidemia Peripheral vascular disease with previous stent placement of left carotid artery per patient Diabetes mellitus History of TIA PLAN: No need to repeat echocardiogram as this was performed in February 2020 Nephrology following Continue IV Lasix Monitor kidney function Daily weights Resume additional home cardiac medications Further recommendations pending patient course Nurse practitioner note has been reviewed by physician. Signing provider agrees with the documented findings, assessment, and plan of care. Past Medical History Past Medical History: Coronary Artery Disease (CAD), Heart Failure, CVA/TIA, Diabetes Mellitus, Hyperlipidemia, Hypertension, Myocardial Infarction (HI), Renal Disease Additional Past Medical History / Comment(s): HX TIA POST CAROTID SX, STATES LOST VISION NEETA EYES ON LEFT SIDE;cyst under L armpit removed. type 2 diabetes Last Myocardial Infarction Date:: 2006 History of Any Multi-Drug Resistant Organisms: None Reported Past Surgical History: Cholecystectomy, Coronary Bypass/CABG, Heart Catheterization, Hysterectomy Additional Past Surgical History / Comment(s): CABG X4, STENT IN RIGHT CAROTID ARTERY. 07/12 Incision and drainagel of abscess under left arm, 5 knee sx, serafin st biposies-precancerous per pt. Past Anesthesia/Blood Transfusion Reactions: No Reported Reaction Date of Last Stent Placement:: UN Past Psychological History: No Psychological Hx Reported Smoking Status: Former smoker Past Alcohol Use History: None Reported Past Drug Use History: None Reported - Past Family History Sister(s) Family Medical History: Cancer, Deep Vein Thrombosis (DVT) Additional Family Medical History / Comment(s): CERVICAL Father Family Medical History: Cancer Medications and Allergies Home Medications Medication Instructions Recorded Confirmed Type Atorvastatin [Lipitor] 80 mg PO HS 07/04/14 06/21/20 History Carvedilol [Coreg] 25 mg PO BID 07/04/14 06/21/20 History amLODIPine BESYLATE [Norvasc] 10 mg PO DAILY 07/04/14 06/21/20 History Allopurinol [Zyloprim] 100 mg PO DAILY 03/13/20 06/21/20 History Insulin Glargine,Hum.rec.anlog 30 unit SQ DAILY 03/13/20 06/21/20 History [Basaglar Kwikpen U-100] Thiamine [Vitamin B-1] 100 mg PO BID 03/13/20 06/21/20 History Aspirin 81 mg PO DAILY chew 03/15/20 06/21/20 Rx Torsemide [Demadex] 20 mg PO BID@0900,1600 #60 tab 03/15/20 06/21/20 Rx hydrALAZINE HCL [Apresoline] 25 mg PO TID #90 tab 03/15/20 06/21/20 Rx Cholecalciferol [Vitamin D3 (25 25 mcg PO DAILY 06/21/20 06/21/20 History Mcg = 1000 Iu)] Glimepiride [Amaryl] 4 mg PO DAILY 06/21/20 06/21/20 History Allergies Allergy/AdvReac Type Severity Reaction Status Date / Time Penicillins Allergy Unknown Verified 06/21/20 23:18 Childhood Physical Exam Vitals: Vital Signs Temp Pulse Pulse Resp BP BP BP 06/22/20 08:20 97.1 F L 68 18 140/67 06/22/20 02:00 97.9 F 63 22 140/75 06/22/20 01:25 84 16 143/72 06/22/20 00:50 97.9 F 63 22 140/75 06/22/20 00:17 86 17 157/87 06/21/20 22:42 28 H 06/21/20 22:25 67 171/64 06/21/20 22:03 98.3 F 69 22 164/60 Pulse Ox 06/22/20 08:20 93 L 06/22/20 02:00 96 06/22/20 01:25 95 06/22/20 00:50 96 06/22/20 00:17 96 06/21/20 22:42 06/21/20 22:25 93 L 06/21/20 22:03 92 L Intake and Output 06/21/20 06/22/20 06/22/20 22:59 06:59 14:59 Output Total 180 Balance -180 Output: Urine 180 Other: Voiding Method External Catheter External Catheter Weight 122.47 kg 122.4 kg Results 06/22/20 08:14 06/22/20 08:14 Cardiac Enzymes 06/21/20 06/21/20 06/22/20 Range/Units 22:45 22:45 08:14 AST 26 (14-36) U/L Troponin I 0.041 H* 0.033 (0.000-0.034) ng/mL Coagulation 06/21/20 Range/Units 22:45 PT 10.0 (9.0-12.0) sec APTT 21.6 L (22.0-30.0) sec CBC 06/21/20 06/22/20 Range/Units 22:45 08:14 WBC 10.2 9.0 (3.8-10.6) k/uL RBC 2.68 L 2.62 L (3.80-5.40) m/uL Hgb 8.3 L 8.2 L (11.4-16.0) gm/dL Hct 25.1 L 24.7 L (34.0-46.0) % Plt Count 324 321 (150-450) k/uL Comprehensive Metabolic Panel 06/21/20 06/22/20 Range/Units 22:45 08:14 Sodium 140 141 (137-145) mmol/L Potassium 4.6 4.2 (3.5-5.1) mmol/L Chloride 102 102 (98-107) mmol/L Carbon Dioxide 32 H 36 H (22-30) mmol/L BUN 52 H 50 H (7-17) mg/dL Creatinine 2.28 H 2.33 H (0.52-1.04) mg/dL Glucose 152 H 131 H (74-99) mg/dL Calcium 10.1 10.1 (8.4-10.2) mg/dL AST 26 (14-36) U/L ALT 22 (4-34) U/L Alkaline Phosphatase 62 (38-126) U/L Total Protein 5.8 L (6.3-8.2) g/dL Albumin 3.3 L (3.5-5.0) g/dL Current Medications Generic Name Dose Route Start Last Admin Trade Name Pretty PRN Reason Stop Dose Admin Amlodipine Besylate 10 mg 06/22/20 09:00 06/22/20 09:24 Amlodipine 10 Mg Tab PO 10 mg DAILY ELIESER Administration Aspirin 81 mg 06/22/20 09:00 06/22/20 09:23 Aspirin 81 Mg PO 81 mg DAILY ELIESER Administration Atorvastatin Calcium 80 mg 06/22/20 21:00 Atorvastatin 80 Mg Tab PO HS [facility] Carvedilol 25 mg 06/22/20 09:00 06/22/20 09:23 Carvedilol 12.5 Mg Tab PO 25 mg BID ELIESER Administration Cholecalciferol 25 mcg 06/22/20 09:00 06/22/20 09:24 Cholecalciferol 25 Mcg (1000 Iu) Tablet PO 25 mcg DAILY [facility] Administration Furosemide 80 mg 06/22/20 00:30 06/22/20 00:32 Furosemide 10 Mg/Ml 10 Ml Vial IV Not Given Q12H [facility] Heparin Sodium (Porcine) 5,000 unit 06/22/20 09:00 06/22/20 09:24 Heparin Sodium,Porcine 5,000 Unit/Ml 1 Ml Vial SQ 5,000 unit Q12HR ELIESER Administration Hydralazine HCl 25 mg 06/22/20 09:00 06/22/20 09:24 Hydralazine Hcl 25 Mg Tab PO 25 mg TID [facility] Administration Insulin Aspart 0 unit 06/22/20 07:30 06/22/20 09:22 Insulin Aspart (Novolog) 100 Unit/Ml Vial SQ Not Given ACHS [facility] Protocol Insulin Detemir 20 unit 06/22/20 21:00 Insulin Detemir (Levemir) 100 Unit/Ml Syr SQ HS [facility] Sodium Chloride 10 ml 06/22/20 09:00 06/22/20 10:11 Sodium Chloride 0.9% Flush 10 Ml Syringe IV Not Given BID [facility] Thiamine HCl 100 mg 06/22/20 09:00 06/22/20 09:24 Thiamine 100 Mg Tab PO 100 mg BID [facility] Administration Intake and Output 06/21/20 06/22/20 06/22/20 22:59 06:59 14:59 Output Total 180 Balance -180 Output: Urine 180 Other: Voiding Method External Catheter External Catheter Weight 122.47 kg 122.4 kg 06/22/20 08:14 06/22/20 08:14
[2020-06-22 14:34] LABS: Hemoglobin A1C 5.6 % (4.0-6.0)
[2020-06-22 17:00] LABS: Glucose,Whole Blood 156 mg/dL (75-99)
[2020-06-22 20:09] LABS: Glucose,Whole Blood 192 mg/dL (75-99)
[2020-06-22 20:44] LABS: Hepatitis B Surface AB- Quant 4.6 mIU/mL; Hepatitis B Surface Antibody Non-Reactive (Non-Reactive); Hepatitis B Surface Antigen Non-Reactive (Non-Reactive)
[2020-06-22] MEDS: ATORVASTATIN 80 MG TAB PO SCH (20:51)
[2020-06-22] MEDS: INSULIN DETEMIR (LEVEMIR) 100 UNIT/ML SYR SQ SCH (20:52)
[2020-06-23] MEDS: FUROSEMIDE 10 MG/ML 10 ML VIAL IV SCH (00:23)
[2020-06-23 06:12] LABS: Glucose,Whole Blood 114 mg/dL (75-99)
[2020-06-23] MEDS: INSULIN ASPART (NovoLOG) 100 UNIT/ML VIAL SQ SCH ×4 (06:16→21:04)
[2020-06-23] MEDS: amLODIPine 10 MG TAB PO SCH (08:36)
[2020-06-23] MEDS: ASPIRIN 81 MG PO SCH (08:39)
[2020-06-23] MEDS: CHOLECALCIFEROL 25 MCG (1000 IU) TABLET PO SCH (08:39)
[2020-06-23] MEDS: hydrALAZINE HCL 25 MG TAB PO SCH ×3 (08:39→21:04)
[2020-06-23] MEDS: THIAMINE 100 MG TAB PO SCH ×2 (08:39→21:04)
[2020-06-23] MEDS: carvediloL 12.5 MG TAB PO SCH ×2 (08:39→21:04)
[2020-06-23] MEDS: HEPARIN SODIUM,PORCINE 5,000 UNIT/ML 1 ML VIAL SQ SCH ×2 (08:39→21:04)
[2020-06-23 10:08] LABS: Calcium 9.9 mg/dL (8.4-10.2); Magnesium 2.4 mg/dL (1.6-2.3); Potassium 4.3 mmol/L (3.5-5.1)
--- NOTE | 2020-06-23 11:03 | P.PN ---
Subjective Progress Note Date: 06/23/20 Principal diagnosis: This is a 74 year. Old female, seen in consultation because of acute kidney injury secondary to cardiorenal syndrome, and chronic kidney disease with diabetic nephropathy and nephrosclerosis 1+ proteinuria, baseline creatinine is in the 1.6 mg to 2.2 mg range. Additionally she is known with mild degree of metabolic alkalosis, bicarb of 36 > 38, anemia with a hemoglobin of 8.2 and possible iron deficiency. She was treated with Lasix with good response. She is also on darbepoetin, last dose was . Her iron saturation came out to be 30% yesterday the 2020 She is known with coronary artery disease diabetes mellitus carotid artery surgery coronary artery bypass graft and stents in the right carotid artery. Objective - Vital Signs Vital signs: Vital Signs Temp 97.1 F L 06/23/20 08:20 Pulse 67 06/23/20 08:20 Resp 18 06/23/20 08:20 BP 134/57 06/23/20 08:20 Pulse Ox 94 L 06/23/20 08:20 Intake & Output 06/22/20 06/23/20 06/23/20 18:59 06:59 18:59 Intake Total 882 240 Output Total 400 100 650 Balance 482 -100 -410 Weight 122.4 kg 121.7 kg Intake: Oral 882 240 Output: Urine 400 100 650 Other: Voiding Method External Catheter External Catheter External Catheter Examination she is awake alert oriented comfortable She is on room air HEENT exam JVP is still remains elevated about 8 cm above the sternal angle Lungs are significant for an occasional coarse crackle at bases good air entry bilaterally Heart sounds unremarkable for any murmur rub gallop Abdomen soft nontender obese protuberant Extremity exam was trace edema Neurologically awake alert oriented - Labs CBC & Chem 7: 06/22/20 08:14 06/23/20 08:36 Labs: Abnormal Lab Results - Last 24 Hours (Table) 06/22/20 06/22/20 06/22/20 Range/Units 08:14 11:44 16:59 Carbon Dioxide (22-30) mmol/L BUN (7-17) mg/dL Creatinine (0.52-1.04) mg/dL Glucose (74-99) mg/dL POC Glucose (mg/dL) 203 H 156 H (75-99) mg/dL Magnesium (1.6-2.3) mg/dL Iron 38 L (50-170) ug/dL Ferritin 385.4 H (10.0-291.0) ng/mL 06/22/20 06/23/20 06/23/20 Range/Units 20:08 06:10 08:36 Carbon Dioxide 38 H (22-30) mmol/L BUN 55 H (7-17) mg/dL Creatinine 2.23 H (0.52-1.04) mg/dL Glucose 125 H (74-99) mg/dL POC Glucose (mg/dL) 192 H 114 H (75-99) mg/dL Magnesium 2.4 H (1.6-2.3) mg/dL Iron (50-170) ug/dL Ferritin (10.0-291.0) ng/mL Microbiology - Last 24 Hours (Table) 06/21/20 22:30 Blood Culture - Preliminary Blood No Growth after 24 hours 06/21/20 22:45 Blood Culture - Preliminary Blood No Growth after 24 hours Assessment and Plan Assessment: Impression 1. Chronic kidney disease, stage IV secondary to nephrosclerosis and possible diabetic nephropathy additionally with 1+ proteinuria. Baseline creatinine of was 1.6 as of 10/04/2019 but more recently has been at 2.4-on 03/15/2020. She came in with a creatinine of 2.28 and went up to 2.3 this morning. Her true b aseline and therefore is somewhere between 1.6-2.2 2. Possible acute kidney injury secondary to cardiorenal syndrome. Improved creatinine is 2.23 down from 2.3 yesterday 3. Congestive heart failure better 4. Mild degree of metabolic alkalosis secondary to diuresis bicarb is up from 32 on admission to 36 > 38 this morning. 5. History of anemia on ANGELA as an outpatient. Hemoglobin is 8.2 was 8.1 on 06/13/2020 a week ago. Etiology is chronic kidney disease as well as iron deficiency 6. Iron deficienc, saturations 13% on 06/23/2019 V1 yesterday Recommendation 1. IV Ferrlecit 125 mg 1 dose 2. In preparation for discharge, discontinued IV Lasix 80 every 12 hours and start torsemide 80 once a day and watch urine output and clinical course
--- NOTE | 2020-06-23 11:30 | P.PN ---
Subjective Progress Note Date: 06/23/20 Patient reports feeling a lot better compared to her presentation. Shortness of breath is improving. She is diuresing well. She was up in the chair when I saw her. She informed me that lower extremity edema improved significantly. Objective - Vital Signs Vital signs: Vital Signs Temp 97.1 F L 06/23/20 08:20 Pulse 67 06/23/20 08:20 Resp 18 06/23/20 08:20 BP 134/57 06/23/20 08:20 Pulse Ox 94 L 06/23/20 08:20 Intake & Output 06/22/20 06/23/20 06/23/20 18:59 06:59 18:59 Intake Total 882 240 Output Total 400 100 650 Balance 482 -100 -410 Weight 122.4 kg 121.7 kg Intake: Oral 882 240 Output: Urine 400 100 650 Other: Voiding Method External Catheter External Catheter External Catheter - Exam General: The patient is awake and alert, in no distress Eye: there is normal conjunctiva bilaterally. Neck: The neck is supple, there is no JVD. Cardiovascular: Normal S1-S2, no S3-S4, no murmurs. Respiratory: Lungs clear to auscultation bilaterally Gastrointestinal: Abdomen is soft, nontender Musculoskeletal: There is +1 pedal edema. Neurological:. Speech is normal. Skin: Skin is warm and dry - Labs CBC & Chem 7: 06/22/20 08:14 06/23/20 08:36 Labs: Abnormal Lab Results - Last 24 Hours (Table) 06/22/20 06/22/20 06/22/20 Range/Units 08:14 11:44 16:59 Carbon Dioxide (22-30) mmol/L BUN (7-17) mg/dL Creatinine (0.52-1.04) mg/dL Glucose (74-99) mg/dL POC Glucose (mg/dL) 203 H 156 H (75-99) mg/dL Magnesium (1.6-2.3) mg/dL Iron 38 L (50-170) ug/dL Ferritin 385.4 H (10.0-291.0) ng/mL 06/22/20 06/23/20 06/23/20 Range/Units 20:08 06:10 08:36 Carbon Dioxide 38 H (22-30) mmol/L BUN 55 H (7-17) mg/dL Creatinine 2.23 H (0.52-1.04) mg/dL Glucose 125 H (74-99) mg/dL POC Glucose (mg/dL) 192 H 114 H (75-99) mg/dL Magnesium 2.4 H (1.6-2.3) mg/dL Iron (50-170) ug/dL Ferritin (10.0-291.0) ng/mL Microbiology - Last 24 Hours (Table) 06/21/20 22:30 Blood Culture - Preliminary Blood No Growth after 24 hours 06/21/20 22:45 Blood Culture - Preliminary Blood No Growth after 24 hours Assessment and Plan Assessment: This is a 74-year-old female with very complex past medical history noted below who presented to the emergency room with worsening shortness of breath. Patient was evaluated in the ER and admitted to the hospital for further management of her medical problems noted below. 1. Acute systolic heart failure exacerbation, started on IV Lasix 80 mg twice daily with good response. Most recent echocardiogram showed ejection fraction of 35-40%. Patient was seen by cardiology, appreciate recommendations. 2. Acute kidney injury on stage IIIB chronic kidney disease, maybe cardiorenal. patient was seen and evaluated by nephrology. Creatinine stable at this time. 3. Chronic medical problems: Coronary artery disease with history of CABG, moderate aortic stenosis, moderate pulmonary hypertension, hyperlipidemia, hypertension, type 2 diabetes, peripheral vascular occlusive disease Today, I reviewed her medication list and lab work results. Continue current regimen. Wean off O2 as tolerated. Anticipate discharge home tomorrow.
[2020-06-23] MEDS ORDERED: SODIUM FERRIC GLUCONAT-SUCROSE 125 MG in SODIUM CHLORIDE 0.9% 100 ML IVPB ONE (12:00)
[2020-06-23 12:28] LABS: Glucose,Whole Blood 155 mg/dL (75-99)
[2020-06-23] MEDS: TORSEMIDE 20 MG TAB PO SCH (12:43)
--- NOTE | 2020-06-23 12:48 | P.PN ---
Subjective Progress Note Date: 06/23/20 HISTORY OF PRESENT ILLNESS: 06/22/2020 This is a 74 year old female with a past medical history significant for congestive heart failure, chronic kidney disease, coronary artery disease with previous CABG 4, carotid stenosis with stent in the right carotid artery, hypertension, hyperlipidemia, and former nicotine dependence. Patient follows in the office with Dr. Amaro. We have been asked to see the patient in consultation for congestive heart failure. Patient examined at the bedside. patient states she has been feeling short of breath for the last 2-3 weeks but states over the past 2 days it has become significantly worse. Patient reports increased swelling to her lower extremities. Patient states when she was discharged from the hospital last she was weighing herself daily but has not been doing this recently. Patient also reports that she had a vein mapping done recently and is going to be started on hemodialysis but she is unsure when this will happen. She follows with Dr. Hinojosa. Patient was found to be in congestive heart failure in the emergency room. She was started on IV Lasix 80 mg every 12 hours. Patient is sitting up in the chair this morning. She states that her breathing has significantly improved. She also reports improvement in her lower extremity edema. she denies chest pain or pressure. EKG reveals sinus rhythm with PVCs. No signs of acute ischemia. Chest xray congestive heart failure with increased congestion and pleural fluid compared to exam. Laboratory data: WBC 9.0. Hemoglobin 8.2. Platelet count 321. Sodium 141. Potassium 4.2. BUN 50. Creatinine 2.33. BNP 6220. Troponin 0.041. 0.033. Current home cardiac medications include Demadex 20 mg twice a day hydralazine 25 mg 3 times a day, amlodipine 10 mg daily, carvedilol 25 mg twice a day, atorvastatin 80 mg daily, and aspirin 81 mg daily Most recent echocardiogram obtained in February 2020 revealed ejection fraction 35-40%, moderate aortic stenosis, moderate tricuspid regurgitation, and moderate pulmonary hypertension 06/23/2020 Patient examined this morning at the bedside. Patient denies chest pain or pressure. She states her shortness of breath has resolved. She reports significant improvement in her lower extremity edema. Creatinine today 2.23. PHYSICAL EXAM: VITAL SIGNS: Reviewed. GENERAL: Well-developed in no acute distress. HEENT: Head is normocephalic. Pupils are equal, round. Sclerae anicteric. Mucous membranes of the mouth are moist. Neck supple. No JVD or thyromegaly LUNGS: Respirations even and unlabored. Lungs diminished bilaterally. HEART: Regular rate and rhythm. S1 and S2 heard. systolic murmur noted. ABDOMEN: Soft. Nondistended. Nontender. EXTREMITIES: Normal range of motion. No clubbing or cyanosis. Peripheral pulses intact. Minimal bilateral pedal edema NEUROLOGIC: Awake and alert. Oriented x 3. ASSESSMENT: Acute exacerbation of chronic systolic heart failure, EF 35-40% chronic kidney disease Coronary artery disease status post CABG Valvular heart disease: Moderate aortic stenosis and moderate tricuspid regurgitation Moderate pulmonary hypertension Hypertension Hyperlipidemia Peripheral vascular disease with previous stent placement of left carotid artery per patient Diabetes mellitus History of TIA PLAN: Continue diuretics per nephrology Monitor kidney function Daily weights Further recommendations pending patient course Nurse practitioner note has been reviewed by physician. Signing provider agrees with the documented findings, assessment, and plan of care. Objective - Vital Signs Vital signs: Vital Signs Temp 97.1 F L 06/23/20 08:20 Pulse 67 06/23/20 08:20 Resp 18 06/23/20 08:20 BP 134/57 06/23/20 08:20 Pulse Ox 94 L 06/23/20 08:20 Intake & Output 06/22/20 06/23/20 06/23/20 18:59 06:59 18:59 Intake Total 882 240 Output Total 400 100 650 Balance 482 -100 -410 Weight 122.4 kg 121.7 kg Intake: Oral 882 240 Output: Urine 400 100 650 Other: Voiding Method External Catheter External Catheter External Catheter - Labs CBC & Chem 7: 06/22/20 08:14 06/23/20 08:36 Labs: Abnormal Lab Results - Last 24 Hours (Table) 06/22/20 06/22/20 06/23/20 Range/Units 16:59 20:08 06:10 Carbon Dioxide (22-30) mmol/L BUN (7-17) mg/dL Creatinine (0.52-1.04) mg/dL Glucose (74-99) mg/dL POC Glucose (mg/dL) 156 H 192 H 114 H (75-99) mg/dL Magnesium (1.6-2.3) mg/dL 06/23/20 06/23/20 Range/Units 08:36 12:22 Carbon Dioxide 38 H (22-30) mmol/L BUN 55 H (7-17) mg/dL Creatinine 2.23 H (0.52-1.04) mg/dL Glucose 125 H (74-99) mg/dL POC Glucose (mg/dL) 155 H (75-99) mg/dL Magnesium 2.4 H (1.6-2.3) mg/dL Microbiology - Last 24 Hours (Table) 06/21/20 22:30 Blood Culture - Preliminary Blood No Growth after 24 hours 06/21/20 22:45 Blood Culture - Preliminary Blood No Growth after 24 hours
[2020-06-23 16:05] LABS: Glucose,Whole Blood 196 mg/dL (75-99)
[2020-06-23 20:25] LABS: Glucose,Whole Blood 215 mg/dL (75-99)
[2020-06-23] MEDS: ATORVASTATIN 80 MG TAB PO SCH (21:04)
[2020-06-23] MEDS: INSULIN DETEMIR (LEVEMIR) 100 UNIT/ML SYR SQ SCH (21:05)
[2020-06-24 04:29] VITALS: TEMP 97.1
[2020-06-24 05:41] LABS: Glucose,Whole Blood 108 mg/dL (75-99)
[2020-06-24] MEDS: INSULIN ASPART (NovoLOG) 100 UNIT/ML VIAL SQ SCH ×2 (05:56→12:46)
[2020-06-24 07:54] LABS: Magnesium 2.3 mg/dL (1.6-2.3); Potassium 4.4 mmol/L (3.5-5.1)
--- NOTE | 2020-06-24 08:36 | XR ---
EXAMINATION TYPE: XR chest 2V DATE OF EXAM: 06/24/2020 COMPARISON: 06/21/2020 HISTORY: 74 year-old female shortness of breath, follow-up study TECHNIQUE: AP and lateral views FINDINGS: Median sternotomy wires are present. Post-CABG clips in the mediastinum. Heart mildly enlarged. Diffu se vascular and interstitial prominence. A few Mervin B lines are also noted. Trace to small effusion s bilaterally. IMPRESSION: Correlate for mild CHF with mild pulmonary vascular congestion along with trace to small effusions, s imilar to slightly improved from prior exam.
[2020-06-24] MEDS: ASPIRIN 81 MG PO SCH (09:39)
[2020-06-24] MEDS: TORSEMIDE 20 MG TAB PO SCH (09:39)
[2020-06-24] MEDS: hydrALAZINE HCL 25 MG TAB PO SCH (09:39)
[2020-06-24] MEDS: CHOLECALCIFEROL 25 MCG (1000 IU) TABLET PO SCH (09:39)
[2020-06-24] MEDS: amLODIPine 10 MG TAB PO SCH (09:39)
[2020-06-24] MEDS: carvediloL 12.5 MG TAB PO SCH (09:39)
[2020-06-24] MEDS: THIAMINE 100 MG TAB PO SCH (09:39)
[2020-06-24] MEDS: HEPARIN SODIUM,PORCINE 5,000 UNIT/ML 1 ML VIAL SQ SCH (09:39)
--- NOTE | 2020-06-24 10:01 | P.DS ---
Providers Date of admission: 06/22/20 00:28 Expected date of discharge: 06/24/20 Attending physician: Linda Caputo MD Consults: 06/22/20 00:22 Consult Physician Routine Consulting Provider: Evens Hinojosa Consult Reason/Comments: your patient Do you want consulting provider notified?: Yes 06/22/20 03:06 Consult Physician Routine Consulting Provider: Pedro Bush Consult Reason/Comments: chf Do you want consulting provider notified?: Yes Primary care physician: Dwight Oleary [place] [facility] Course: This is a 74-year-old female with very complex past medical history noted below who presented to the emergency room with worsening shortness of breath. Patient was evaluated in the ER and admitted to the hospital for further management of her medical problems noted below. 1. Acute systolic heart failure exacerbation, started on IV Lasix 80 mg twice daily with good response. Most recent echocardiogram showed ejection fraction of 35-40%. Patient was seen by cardiology and nephrology. Diuretics switched to oral torsemide 80 mg daily. 2. Acute kidney injury on stage IIIB chronic kidney disease, maybe cardiorenal. patient was seen and evaluated by nephrology. Creatinine stable at this time. 3. Iron deficiency anemia and anemia of chronic disease, started on iron supplement. 4. Chronic medical problems: Coronary artery disease with history of CABG, moderate aortic stenosis, moderate pulmonary hypertension, hyperlipidemia, hypertension, type 2 diabetes, peripheral vascular occlusive disease Patient will be discharged home in a stable condition. She was advised to follow-up with her PCP within the next 3-5 days for repeat BMP. She will need referral to nephrology as an outpatient due to chronic kidney disease. Plan - Discharge Summary Discharge Rx Participant: Yes New Discharge Prescriptions: New Torsemide [Demadex] 80 mg PO DAILY #120 tablet Ferrous Sulfate [Feosol] 325 mg PO BID #60 tab Continue amLODIPine BESYLATE [Norvasc] 10 mg PO DAILY Carvedilol [Coreg] 25 mg PO BID Atorvastatin [Lipitor] 80 mg PO HS Allopurinol [Zyloprim] 100 mg PO DAILY Thiamine [Vitamin B-1] 100 mg PO BID Insulin Glargine,Hum.rec.anlog [Basaglar Kwikpen U-100] 30 unit SQ DAILY hydrALAZINE HCL [Apresoline] 25 mg PO TID #90 tab Aspirin 81 mg PO DAILY chew Glimepiride [Amaryl] 4 mg PO DAILY Cholecalciferol [Vitamin D3 (25 Mcg = 1000 Iu)] 25 mcg PO DAILY Discontinued Torsemide [Demadex] 20 mg PO BID@0900,1600 #60 tab Discharge Medication List Atorvastatin [Lipitor] 80 mg PO HS 07/04/14 [History] Carvedilol [Coreg] 25 mg PO BID 07/04/14 [History] amLODIPine BESYLATE [Norvasc] 10 mg PO DAILY 07/04/14 [History] Allopurinol [Zyloprim] 100 mg PO DAILY 03/13/20 [History] Insulin Glargine,Hum.rec.anlog [Basaglar Kwikpen U-100] 30 unit SQ DAILY 03/13/20 [History] Thiamine [Vitamin B-1] 100 mg PO BID 03/13/20 [History] Aspirin 81 mg PO DAILY chew 03/15/20 [Rx] hydrALAZINE HCL [Apresoline] 25 mg PO TID #90 tab 03/15/20 [Rx] Cholecalciferol [Vitamin D3 (25 Mcg = 1000 Iu)] 25 mcg PO DAILY 06/21/20 [History] Glimepiride [Amaryl] 4 mg PO DAILY 06/21/20 [History] Ferrous Sulfate [Feosol] 325 mg PO BID #60 tab 06/24/20 [Rx] Torsemide [Demadex] 80 mg PO DAILY #120 tablet 06/24/20 [Rx] Follow up Appointment(s)/Referral(s): Dwight Abdullahi MD [Primary Care Provider] - 1-2 days Discharge Disposition: HOME SELF-CARE
[2020-06-24 10:03] VITALS: RESP 18
--- NOTE | 2020-06-24 11:08 | P.PN ---
Subjective Progress Note Date: 06/24/20 HISTORY OF PRESENT ILLNESS: 06/22/2020 This is a 74 year old female with a past medical history significant for congestive heart failure, chronic kidney disease, coronary artery disease with previous CABG 4, carotid stenosis with stent in the right carotid artery, hypertension, hyperlipidemia, and former nicotine dependence. Patient follows in the office with Dr. Amaro. We have been asked to see the patient in consultation for congestive heart failure. Patient examined at the bedside. patient states she has been feeling short of breath for the last 2-3 weeks but states over the past 2 days it has become significantly worse. Patient reports increased swelling to her lower extremities. Patient states when she was discharged from the hospital last she was weighing herself daily but has not been doing this recently. Patient also reports that she had a vein mapping done recently and is going to be started on hemodialysis but she is unsure when this will happen. She follows with Dr. Hinojosa. Patient was found to be in congestive heart failure in the emergency room. She was started on IV Lasix 80 mg every 12 hours. Patient is sitting up in the chair this morning. She states that her breathing has significantly improved. She also reports improvement in her lower extremity edema. she denies chest pain or pressure. EKG reveals sinus rhythm with PVCs. No signs of acute ischemia. Chest xray congestive heart failure with increased congestion and pleural fluid compared to exam. Laboratory data: WBC 9.0. Hemoglobin 8.2. Platelet count 321. Sodium 141. Potassium 4.2. BUN 50. Creatinine 2.33. BNP 6220. Troponin 0.041. 0.033. Current home cardiac medications include Demadex 20 mg twice a day hydralazine 25 mg 3 times a day, amlodipine 10 mg daily, carvedilol 25 mg twice a day, atorvastatin 80 mg daily, and aspirin 81 mg daily Most recent echocardiogram obtained in February 2020 revealed ejection fraction 35-40%, moderate aortic stenosis, moderate tricuspid regurgitation, and moderate pulmonary hypertension 06/23/2020 Patient examined this morning at the bedside. Patient denies chest pain or pressure. She states her shortness of breath has resolved. She reports significant improvement in her lower extremity edema. Creatinine today 2.23. 06/24/2020 Patient examined this morning. She is sitting up in the chair. She denies chest pain or pressure. She denies shortness of breath. She's been transitioned to oral Demadex. Creatinine today 2.4. Fluid balance over the last 24 hours is -160 mL. PHYSICAL EXAM: VITAL SIGNS: Reviewed. GENERAL: Well-developed in no acute distress. HEENT: Head is normocephalic. Pupils are equal, round. Sclerae anicteric. Mucous membranes of the mouth are moist. Neck supple. No JVD or thyromegaly LUNGS: Respirations even and unlabored. Lungs diminished bilaterally. HEART: Regular rate and rhythm. S1 and S2 heard. systolic murmur noted. ABDOMEN: Soft. Nondistended. Nontender. EXTREMITIES: Normal range of motion. No clubbing or cyanosis. Peripheral pulses intact. No lower extremity edema NEUROLOGIC: Awake and alert. Oriented x 3. ASSESSMENT: Acute exacerbation of chronic systolic heart failure, EF 35-40% chronic kidney disease Coronary artery disease status post CABG Valvular heart disease: Moderate aortic stenosis and moderate tricuspid regur gitation Moderate pulmonary hypertension Hypertension Hyperlipidemia Peripheral vascular disease with previous stent placement of left carotid artery per patient Diabetes mellitus History of TIA PLAN: Continue diuretics per nephrology Monitor kidney function Daily weights Patient is stable for discharge home today from a cardiac standpoint. She is to follow up outpatient with Dr. Amaro Nurse practitioner note has been reviewed by physician. Signing provider agrees with the documented findings, assessment, and plan of care. Objective - Vital Signs Vital signs: Vital Signs Temp 97.1 F L 06/24/20 04:27 Pulse 65 06/24/20 08:00 Resp 18 06/24/20 08:00 BP 133/69 06/24/20 08:00 Pulse Ox 96 06/24/20 08:00 Intake & Output 06/23/20 06/24/20 06/24/20 18:59 06:59 18:59 Intake Total 490 Output Total 650 Balance -160 Weight 122 kg Intake: Oral 490 Output: Urine 650 Other: Voiding Method External Catheter External Catheter External Catheter # Bowel Movements 1 - Labs CBC & Chem 7: 06/22/20 08:14 06/24/20 07:07 Labs: Abnormal Lab Results - Last 24 Hours (Table) 06/23/20 06/23/20 06/23/20 Range/Units 12:22 16:03 20:13 Carbon Dioxide (22-30) mmol/L BUN (7-17) mg/dL Creatinine (0.52-1.04) mg/dL POC Glucose (mg/dL) 155 H 196 H 215 H (75-99) mg/dL 06/24/20 06/24/20 Range/Units 05:39 07:07 Carbon Dioxide 39 H (22-30) mmol/L BUN 58 H (7-17) mg/dL Creatinine 2.41 H (0.52-1.04) mg/dL POC Glucose (mg/dL) 108 H (75-99) mg/dL Microbiology - Last 24 Hours (Table) 06/21/20 22:30 Blood Culture - Preliminary Blood No Growth after 48 hours 06/21/20 22:45 Blood Culture - Preliminary Blood No Growth after 48 hours
[2020-06-24 11:48] LABS: Glucose,Whole Blood 159 mg/dL (75-99)
[2020-06-24 12:52] VITALS: BP 129/76; PULSE 73
--- NOTE | 2020-06-24 14:05 | PN ---
PROGRESS NOTE The patient is seen for followup for acute kidney injury on top of chronic kidney disease with baseline creatinine 1.6-2.2 mg/dL. The patient was admitted with fluid overload and mostly cardiorenal acute kidney injury. She has been diuresed and now switched over to oral Demadex. PHYSICAL EXAMINATION: On examination today, blood pressure is 129/76, heart rate 73 per minute. She is afebrile. EXAMINATION OF THE HEART: S1, S2. EXAMINATION OF LUNGS: Decreased breath sounds at bases. Abdomen is soft, nontender. Examination of lower extremities shows trace edema bilaterally. HAT LINING BLOCKER exam is grossly intact. LABS: Labs show sodium 141, potassium 4.1, chloride 99, CO2 is 39, BUN 58, creatinine 2.4. ASSESSMENT: 1. Acute kidney injury, cardiorenal, renal function fairly stable. Patient has been switched over to oral diuretics. 2. Chronic kidney disease, stage 4, secondary to diabetic nephropathy. Baseline creatinine 1.6-2.2. 3. Congestive heart failure, acute on top of chronic. 4. Anemia of chronic disease and iron deficiency, status post IV iron. PLAN: Patient can be discharged. Follow up as outpatient in about one week's time. MMODL / IJN: [id number] /
[2020-06-27] MEDS ORDERED: DARBEPOETIN ALFA 40 MCG/0.4 ML SYRINGE SQ SCH (12:00)
== END 2020-06-24 14:45 | disposition home or self-care (01) | DRG 291 ==
LOC: EC 22:02 → 3SCARD 06-22 00:28
PROVIDERS: ADMIT Internal Medicine; ATTEND Internal Medicine
DX: I13.0 Hypertensive heart and chronic kidney disease with heart failure and stage 1 through stage 4 chronic kidney disease, or unspecified chronic kidney disease (principal); I50.23 Acute on chronic systolic (congestive) heart failure; I24.8 Other forms of acute ischemic heart disease; N17.9 Acute kidney failure, unspecified; N18.4 Chronic kidney disease, stage 4 (severe); E87.3 Alkalosis; Z87.01 Personal history of pneumonia (recurrent); Z79.82 Long term (current) use of aspirin; Z95.1 Presence of aortocoronary bypass graft; Z90.710 Acquired absence of both cervix and uterus; Z87.891 Personal history of nicotine dependence; E11.22 Type 2 diabetes mellitus with diabetic chronic kidney disease; I25.10 Atherosclerotic heart disease of native coronary artery without angina pectoris; I25.2 Old myocardial infarction; Z79.84 Long term (current) use of oral hypoglycemic drugs; E78.5 Hyperlipidemia, unspecified; Z86.73 Personal history of transient ischemic attack (TIA), and cerebral infarction without residual deficits; D50.9 Iron deficiency anemia, unspecified; I08.2 Rheumatic disorders of both aortic and tricuspid valves; I27.20 Pulmonary hypertension, unspecified; I73.9 Peripheral vascular disease, unspecified; E11.51 Type 2 diabetes mellitus with diabetic peripheral angiopathy without gangrene; D63.8 Anemia in other chronic diseases classified elsewhere
CPT/HCPCS: 36415; 71046; 80048; 80053; 81001; 82607; 82728; 83036; 83540; 83550; 83605; 83735; 83880; 84484; 85025; 85027; 85379; 85610; 85730; 86704; 86706; 87040; 87340; 87635; 93005; 96374; 99285

== ENCOUNTER 2020-07-28 02:26 | Inpatient (IN) | payer MEDICARE, OTHER ==
[2020-07-28 03:12] LABS: Basophils % (A) 0 %; Eosinophils # (A) 0.2 k/uL (0-0.7); Eosinophils % (A) 2 %; HCT 24.8 % (34.0-46.0); HGB 7.8 gm/dL (11.4-16.0); Hypochromasia Slight; Lymphocytes % (A) 8 %; MCHC 31.4 g/dL (31.0-37.0); MCV 92.4 fL (80.0-100.0); Mean Platelet Volume 7.3; Monocytes # (A) 0.7 k/uL (0-1.0); Monocytes % (A) 6 %; Neutrophils # (A) 9.8 k/uL (1.3-7.7); Neutrophils % (A) 82 %; Platelet Count 351 k/uL (150-450); RBC 2.69 m/uL (3.80-5.40)
[2020-07-28 03:33] LABS: INR 0.9 (<1.2); Prothrombin Time 9.9 sec (9.0-12.0)
--- NOTE | 2020-07-28 03:33 | ED ---
SOB HPI - General Chief Complaint: Shortness of Breath Stated Complaint: SOB Time Seen by Provider: 07/28/20 02:37 Source: patient, EMS Mode of arrival: EMS Limitations: no limitations - History of Present Illness Initial Comments: This woman is a 74-year-old who presents to have evaluation of worsening shortness of breath. She states that is been going on since at least Wednesday possibly a little before. She states that it is reminding her of previous CHF exacerbation. She has not noted fever or chills. Patient denies much in way of coughing. She has not noted change in urination. No new leg edema though she has some at baseline. MD Complaint: shortness of breath, cough Onset/Timin -: days(s) Consistency: constant Improves With: nothing Worsens With: lying flat, exertion Known History Of: congestive heart failure Associated Symptoms: denies other symptoms Treatments Prior to Arrival: none - Related Data Home Medications Medication Instructions Recorded Confirmed Atorvastatin [Lipitor] 80 mg PO HS 07/04/14 07/28/20 Carvedilol [Coreg] 25 mg PO BID 07/04/14 07/28/20 amLODIPine BESYLATE [Norvasc] 10 mg PO DAILY 07/04/14 07/28/20 Allopurinol [Zyloprim] 200 mg PO DAILY 03/13/20 07/28/20 Insulin Glargine,Hum.rec.anlog 30 unit SQ DAILY 03/13/20 07/28/20 [Basaglar Kwikpen U-100] Thiamine [Vitamin B-1] 100 mg PO BID 03/13/20 07/28/20 Glimepiride [Amaryl] 4 mg PO DAILY 06/21/20 07/28/20 Ergocalciferol [Vitamin D2 (1250 1,250 mcg PO Q30D 07/28/20 07/28/20 Mcg = 09619 Iu)] Previous Rx's Medication Instructions Recorded Aspirin 81 mg PO DAILY chew 03/15/20 hydrALAZINE HCL [Apresoline] 25 mg PO TID #90 tab 03/15/20 Ferrous Sulfate [Feosol] 325 mg PO BID #60 tab 06/24/20 Torsemide [Demadex] 80 mg PO DAILY #120 tablet 06/24/20 Allergies Allergy/AdvReac Type Severity Reaction Status Date / Time Penicillins Allergy Unknown Verified 07/28/20 07:30 Childhood Review of Systems ROS Statement: Those systems with pertinent positive or pertinent negative responses have been documented in the HPI. ROS Other: All systems not noted in ROS Statement are negative. Constitutional: Denies: fever, chills, weakness Respiratory: Reports: dyspnea. Denies: cough, wheezes, hemoptysis Cardiovascular: Reports: dyspnea on exertion, orthopnea, edema. Denies: chest pain, palpitations, syncope Gastrointestinal: Denies: abdominal pain, vomiting, diarrhea, melena, hematochezia Genitourinary: Denies: dysuria, hematuria Musculoskeletal: Denies: back pain Skin: Denies: rash Neurological: Denies: headache, weakness, numbness Past Medical History Past Medical History: Coronary Artery Disease (CAD), Heart Failure, CVA/TIA, Diabetes Mellitus, Hyperlipidemia, Hypertension, Myocardial Infarction ([place]), Renal Disease Additional Past Medical History / Comment(s): HX TIA POST CAROTID SX, STATES LOST VISION NEETA EYES ON LEFT SIDE;cyst under L armpit removed. type 2 diabetes Last Myocardial Infarction Date:: 2006 History of Any Multi-Drug Resistant Organisms: None Reported Past Surgical History: Cholecystectomy, Coronary Bypass/CABG, Heart Catheterization, Hysterectomy Additional Past Surgical History / Comment(s): CABG X4, STENT IN RIGHT CAROTID ARTERY. 07/12 Incision and drainagel of abscess under left arm, 5 knee sx, breast biposies-precancerous per pt. Past Anesthesia/Blood Transfusion Reactions: No Reported Reaction Date of Last Stent Placement:: UN Past Psychological History: No Psychological Hx Reported Smoking Status: Former smoker Past Alcohol Use History: None Reported Past Drug Use History: None Reported - Past Family History Sister(s) Family Medical History: Cancer, Deep Vein Thrombosis (DVT) Additional Family Medical History / Comment(s): CERVICAL Father Family Medical History: Cancer General Exam Limitations: no limitations General appearance: alert, in no apparent distress Head exam: Present: atraumatic, normocephalic Eye exam: Present: normal appearance. Absent: scleral icterus, conjunctival injection Neck exam: Present: normal inspection Respiratory exam: Present: rales (Bilateral lower lung cantu). Absent: respiratory distress, wheezes, rhonchi, stridor, accessory muscle use, decreased breath sounds Cardiovascular Exam: Present: regular rate, normal rhythm, systolic murmur. Absent: diastolic murmur, rubs, gallop GI/Abdominal exam: Present: soft. Absent: distended, tenderness, guarding, rebound, rigid, mass Extremities exam: Present: normal inspection, normal capillary refill, pedal edema. Absent: calf tenderness Back exam: Present: normal inspection Neurological exam: Present: alert Skin exam: Present: warm, dry, intact, normal color. Absent: rash Course Vital Signs 07/28/20 07/28/20 07/28/20 02:32 02:36 04:27 Temperature 97.9 F Pulse Rate 63 64 Pulse Rate [ Pulse Oximetery ] Respiratory 16 16 Rate Blood Pressure 121/46 165/65 Blood Pressure [Right Arm] O2 Sat by Pulse 94 L 97 Oximetry 07/28/20 07/28/20 06:19 08:00 Temperature 97.9 F Pulse Rate 69 Pulse Rate [ 74 Pulse Oximetery ] Respiratory 18 18 Rate Blood Pressure 142/51 Blood Pressure 164/70 [Right Arm] O2 Sat by Pulse 95 95 Oximetry Medical Decision Making - Lab Data Result diagrams: 07/30/20 07:11 07/30/20 07:11 Lab Results 07/28/20 07/28/20 07/28/20 Range/Units 02:46 02:46 02:46 WBC 12.0 H (3.8-10.6) k/uL RBC 2.69 L (3.80-5.40) m/uL Hgb 7.8 L (11.4-16.0) gm/dL Hct 24.8 L (34.0-46.0) % MCV 92.4 (80.0-100.0) fL MCH 29.0 (25.0-35.0) pg MCHC 31.4 (31.0-37.0) g/dL RDW 15.0 (11.5-15.5) % Plt Count 351 (150-450) k/uL MPV 7.3 Neutrophils % 82 % Lymphocytes % 8 % Monocytes % 6 % Eosinophils % 2 % Basophils % 0 % Neutrophils # 9.8 H (1.3-7.7) k/uL Lymphocytes # 1.0 (1.0-4.8) k/uL Monocytes # 0.7 (0-1.0) k/uL Eosinophils # 0.2 (0-0.7) k/uL Basophils # 0.0 (0-0.2) k/uL Hypochromasia Slight PT 9.9 (9.0-12.0) sec INR 0.9 (<1.2) APTT 21.5 L (22.0-30.0) sec Sodium 136 L (137-145) mmol/L Potassium 4.5 (3.5-5.1) mmol/L Chloride 97 L (98-107) mmol/L Carbon Dioxide 30 (22-30) mmol/L Anion Gap 9 mmol/L BUN 97 H (7-17) mg/dL Creatinine 3.31 H (0.52-1.04) mg/dL Est GFR (CKD-EPI)AfAm 15 (>60 ml/min/1.73 sqM) Est GFR (CKD-EPI)NonAf 13 (>60 ml/min/1.73 sqM) Glucose 119 H (74-99) mg/dL Estimated Ave Glu mg/dL Hemoglobin A1c (4.0-6.0) % Plasma Lactic Acid Corwin (0.7-2.0) mmol/L Calcium 9.6 (8.4-10.2) mg/dL Magnesium 2.7 H (1.6-2.3) mg/dL Iron (50-170) ug/dL TIBC (228-460) ug/dL % Saturation (12.00-45.00) Ferritin (10.0-291.0) ng/mL Total Bilirubin 0.5 (0.2-1.3) mg/dL AST 25 (14-36) U/L ALT 11 (4-34) U/L Alkaline Phosphatase 62 (38-126) U/L Troponin I (0.000-0.034) ng/mL NT-Pro-B Natriuret Pep pg/mL Total Protein 5.9 L (6.3-8.2) g/dL Albumin 3.2 L (3.5-5.0) g/dL Vitamin B12 (200.0-944.0) pg/mL RBC Folate (280 - 791) ng/mL Influenza Type A (PCR) (Not Detectd) Influenza Type B (PCR) (Not Detectd) RSV (PCR) (Not Detectd) SARS-CoV-2 (PCR) (Not Detectd) 07/28/20 07/28/20 07/28/20 Range/Units 02:46 02:46 02:46 WBC (3.8-10.6) k/uL RBC (3.80-5.40) m/uL Hgb (11.4-16.0) gm/dL Hct (34.0-46.0) % MCV (80.0-100.0) fL MCH (25.0-35.0) pg MCHC (31.0-37.0) g/dL RDW (11.5-15.5) % Plt Count (150-450) k/uL MPV Neutrophils % % Lymphocytes % % Monocytes % % Eosinophils % % Basophils % % Neutrophils # (1.3-7.7) k/uL Lymphocytes # (1.0-4.8) k/uL Monocytes # (0-1.0) k/uL Eosinophils # (0-0.7) k/uL Basophils # (0-0.2) k/uL Hypochromasia PT (9.0-12.0) sec INR (<1.2) APTT (22.0-30.0) sec Sodium (137-145) mmol/L Potassium (3.5-5.1) mmol/L Chloride (98-107) mmol/L Carbon Dioxide (22-30) mmol/L Anion Gap mmol/L BUN (7-17) mg/dL Creatinine (0.52-1.04) mg/dL Est GFR (CKD-EPI)AfAm (>60 ml/min/1.73 sqM) Est GFR (CKD-EPI)NonAf (>60 ml/min/1.73 sqM) Glucose (74-99) mg/dL Estimated Ave Glu mg/dL Hemoglobin A1c (4.0-6.0) % Plasma Lactic Acid Corwin 0.7 (0.7-2.0) mmol/L Calcium (8.4-10.2) mg/dL Magnesium (1.6-2.3) mg/dL Iron (50-170) ug/dL TIBC (228-460) ug/dL % Saturation (12.00-45.00) Ferritin (10.0-291.0) ng/mL Total Bilirubin (0.2-1.3) mg/dL AST (14-36) U/L ALT (4-34) U/L Alkaline Phosphatase (38-126) U/L Troponin I 0.045 H* (0.000-0.034) ng/mL NT-Pro-B Natriuret Pep 6500 pg/mL Total Protein (6.3-8.2) g/dL Albumin (3.5-5.0) g/dL Vitamin B12 (200.0-944.0) pg/mL RBC Folate (280 - 791) ng/mL Influenza Type A (PCR) (Not Detectd) Influenza Type B (PCR) (Not Detectd) RSV (PCR) (Not Detectd) SARS-CoV-2 (PCR) (Not Detectd) 07/28/20 07/28/20 07/28/20 Range/Units 04:27 06:43 06:43 WBC 11.8 H (3.8-10.6) k/uL RBC 2.65 L (3.80-5.40) m/uL Hgb 8.1 L (11.4-16.0) gm/dL Hct 24.5 L (34.0-46.0) % MCV 92.3 (80.0-100.0) fL MCH 30.6 (25.0-35.0) pg MCHC 33.2 (31.0-37.0) g/dL RDW 14.6 (11.5-15.5) % Plt Count 276 (150-450) k/uL MPV 7.2 Neutrophils % % Lymphocytes % % Monocytes % % Eosinophils % % Basophils % % Neutrophils # (1.3-7.7) k/uL Lymphocytes # (1.0-4.8) k/uL Monocytes # (0-1.0) k/uL Eosinophils # (0-0.7) k/uL Basophils # (0-0.2) k/uL Hypochromasia PT (9.0-12.0) sec INR (<1.2) APTT (22.0-30.0) sec Sodium 135 L (137-145) mmol/L Potassium 4.6 (3.5-5.1) mmol/L Chloride 99 (98-107) mmol/L Carbon Dioxide 28 (22-30) mmol/L Anion Gap 8 mmol/L BUN 95 H (7-17) mg/dL Creatinine 3.29 H (0.52-1.04) mg/dL Est GFR (CKD-EPI)AfAm 15 (>60 ml/min/1.73 sqM) Est GFR (CKD-EPI)NonAf 13 (>60 ml/min/1.73 sqM) Glucose 135 H (74-99) mg/dL Estimated Ave Glu mg/dL Hemoglobin A1c (4.0-6.0) % Plasma Lactic Acid Corwin (0.7-2.0) mmol/L Calcium 10.0 (8.4-10.2) mg/dL Magnesium 2.7 H (1.6-2.3) mg/dL Iron 22 L (50-170) ug/dL TIBC 269 (228-460) ug/dL % Saturation 8.18 L (12.00-45.00) Ferritin 429.7 H (10.0-291.0) ng/mL Total Bilirubin (0.2-1.3) mg/dL AST (14-36) U/L ALT (4-34) U/L Alkaline Phosphatase (38-126) U/L Troponin I (0.000-0.034) ng/mL NT-Pro-B Natriuret Pep pg/mL Total Protein (6.3-8.2) g/dL Albumin (3.5-5.0) g/dL Vitamin B12 488.0 (200.0-944.0) pg/mL RBC Folate (280 - 791) ng/mL Influenza Type A (PCR) Not Detected (Not Detectd) Influenza Type B (PCR) Not Detected (Not Detectd) RSV (PCR) Not Detected (Not Detectd) SARS-CoV-2 (PCR) Not Detected (Not Detectd) 07/28/20 07/28/20 07/28/20 Range/Units 06:43 06:43 06:45 WBC (3.8-10.6) k/uL RBC (3.80-5.40) m/uL Hgb (11.4-16.0) gm/dL Hct (34.0-46.0) % MCV (80.0-100.0) fL MCH (25.0-35.0) pg MCHC (31.0-37.0) g/dL RDW (11.5-15.5) % Plt Count (150-450) k/uL MPV Neutrophils % % Lymphocytes % % Monocytes % % Eosinophils % % Basophils % % Neutrophils # (1.3-7.7) k/uL Lymphocytes # (1.0-4.8) k/uL Monocytes # (0-1.0) k/uL Eosinophils # (0-0.7) k/uL Basophils # (0-0.2) k/uL Hypochromasia PT (9.0-12.0) sec INR (<1.2) APTT (22.0-30.0) sec Sodium (137-145) mmol/L Potassium (3.5-5.1) mmol/L Chloride (98-107) mmol/L Carbon Dioxide (22-30) mmol/L Anion Gap mmol/L BUN (7-17) mg/dL Creatinine (0.52-1.04) mg/dL Est GFR (CKD-EPI)AfAm (>60 ml/min/1.73 sqM) Est GFR (CKD-EPI)NonAf (>60 ml/min/1.73 sqM) Glucose (74-99) mg/dL Estimated Ave Glu mg/dL 85 Hemoglobin A1c 4.6 (4.0-6.0) % Plasma Lactic Acid Corwin (0.7-2.0) mmol/L Calcium (8.4-10.2) mg/dL Magnesium (1.6-2.3) mg/dL Iron (50-170) ug/dL TIBC (228-460) ug/dL % Saturation (12.00-45.00) Ferritin (10.0-291.0) ng/mL Total Bilirubin (0.2-1.3) mg/dL AST (14-36) U/L ALT (4-34) U/L Alkaline Phosphatase (38-126) U/L Troponin I 0.038 H* (0.000-0.034) ng/mL NT-Pro-B Natriuret Pep pg/mL Total Protein (6.3-8.2) g/dL Albumin (3.5-5.0) g/dL Vitamin B12 (200.0-944.0) pg/mL RBC Folate 1,050 H (280 - 791) ng/mL Influenza Type A (PCR) (Not Detectd) Influenza Type B (PCR) (Not Detectd) RSV (PCR) (Not Detectd) SARS-CoV-2 (PCR) (Not Detectd) - EKG Data -: EKG Interpreted by Me EKG shows normal: sinus rhythm, axis (Normal), intervals (Normal), QRS complexes (Possible old anteroseptal infarct), ST-T waves (Normal) Rate: normal (Rate 64 bpm) Disposition Clinical Impression: Elevated troponin I measurement, Chronic renal disease, Acute on chronic diastolic CHF (congestive heart failure) Disposition: ADMITTED IP TO THIS HOSP Condition: Poor Is patient prescribed a controlled substance at d/c from ED?: No
[2020-07-28 03:35] LABS: Albumin 3.2 g/dL (3.5-5.0); Calcium 9.6 mg/dL (8.4-10.2); Magnesium 2.7 mg/dL (1.6-2.3); Potassium 4.5 mmol/L (3.5-5.1); Total Bilirubin 0.5 mg/dL (0.2-1.3); Total Protein 5.9 g/dL (6.3-8.2)
--- NOTE | 2020-07-28 03:45 | XR ---
EXAM: XR Chest, 2 Views CLINICAL HISTORY: ITS.REASON XR Reason: difficulty breathing TECHNIQUE: Frontal and lateral views of the chest. COMPARISON: Chest x-ray dated 06/24/2020 FINDINGS: Lungs: Diffuse airspace opacities which may represent pulmonary edema versus an infectious process. Pleural space: Unremarkable. Heart: Unremarkable. Mediastinum: Unremarkable. Bones/joints: Evidence of prior median sternotomy. Vasculature: Tortuosity calcification of the aorta. IMPRESSION: Diffuse airspace opacities which may represent pulmonary edema versus an infectious process.
[2020-07-28 03:46] LABS: Partial Thromboplastin Time 21.5 sec (22.0-30.0)
[2020-07-28] MEDS ORDERED: MORPHINE SULFATE 4 MG/ML SYRINGE IV STA (04:05)
[2020-07-28] MEDS ORDERED: FUROSEMIDE 10 MG/ML 2 ML VIAL IV STA (04:05)
[2020-07-28] MEDS ORDERED: NITROGLYCERIN OINT 1 INCH/GM PACKET TOPICAL STA (04:05)
--- NOTE | 2020-07-28 05:15 | P.HPIM ---
History of Present Illness H&P Date: 07/28/20 Patient is a 74-year-old female with a PMH of systolic CHF, chronic kidney disease, CAD, hypertension, hyperlipidemia, and type II DM presented to the emergency room with complaints of shortness of breath and fluid overload. The patient reports that over the past few weeks, she has noticed gradually worsening shortness of breath, orthopnea, decreased excess tolerance, and lower extremity edema. The patient reports compliance with her diet and her medications with little avail. She has been following with cardiology and recently underwent an echocardiogram and is also being prepared for hemodialysis and underwent a venous mapping. The patient otherwise denied chest discomfort, nausea, vomiting, fever, chills, cough, lower extremity pain. Also denied abdominal pain, diarrhea, or dizziness. In the emergency room, chest x-ray revealed bilateral airspace opacities as pulmonary edema versus infectious process. EKG revealed normal sinus rhythm at 64 bpm with poor R-wave progression and flattened T waves in V1 to V3. After evaluation was remarkable for leukocytosis of 12.0, hemoglobin 7.8, sodium 136, chloride 97, BUN 97, creatinine 3.31, troponin 0.045, proBNP 6500. Review of Systems Pertinent positives and negatives as discussed in HPI, a complete review of systems was performed and all other systems are negative. Past Medical History Past Medical History: Coronary Artery Disease (CAD), Heart Failure, CVA/TIA, Diabetes Mellitus, Hyperlipidemia, Hypertension, Myocardial Infarction ([place]), Renal Disease Additional Past Medical History / Comment(s): HX TIA POST CAROTID SX, STATES LO ST VISION NEETA EYES ON LEFT SIDE;cyst under L armpit removed. type 2 diabetes Last Myocardial Infarction Date:: 2006 History of Any Multi-Drug Resistant Organisms: None Reported Past Surgical History: Cholecystectomy, Coronary Bypass/CABG, Heart Catheterization, Hysterectomy Additional Past Surgical History / Comment(s): CABG X4, STENT IN RIGHT CAROTID ARTERY. 07/12 Incision and drainagel of abscess under left arm, 5 knee sx, breast biposies-precancerous per pt. Past Anesthesia/Blood Transfusion Reactions: No Reported Reaction Date of Last Stent Placement:: UN Past Psychological History: No Psychological Hx Reported Smoking Status: Former smoker Past Alcohol Use History: None Reported Past Drug Use History: None Reported - Past Family History Sister(s) Family Medical History: Cancer, Deep Vein Thrombosis (DVT) Additional Family Medical History / Comment(s): CERVICAL Father Family Medical History: Cancer Medications and Allergies Home Medications Medication Instructions Recorded Confirmed Type Atorvastatin [Lipitor] 80 mg PO HS 07/04/14 07/25/20 History Carvedilol [Coreg] 25 mg PO BID 07/04/14 07/25/20 History amLODIPine BESYLATE [Norvasc] 10 mg PO DAILY 07/04/14 07/25/20 History Allopurinol [Zyloprim] 100 mg PO DAILY 03/13/20 07/25/20 History Insulin Glargine,Hum.rec.anlog 30 unit SQ DAILY 03/13/20 07/25/20 History [Basaglar Kwikpen U-100] Thiamine [Vitamin B-1] 100 mg PO BID 03/13/20 07/25/20 History Aspirin 81 mg PO DAILY chew 03/15/20 07/25/20 Rx hydrALAZINE HCL [Apresoline] 25 mg PO TID #90 tab 03/15/20 07/25/20 Rx Cholecalciferol [Vitamin D3 (25 25 mcg PO DAILY 06/21/20 07/25/20 History Mcg = 1000 Iu)] Glimepiride [Amaryl] 4 mg PO DAILY 06/21/20 07/25/20 History Ferrous Sulfate [Feosol] 325 mg PO BID #60 tab 06/24/20 07/25/20 Rx Torsemide [Demadex] 80 mg PO DAILY #120 tablet 06/24/20 07/25/20 Rx Allergies Allergy/AdvReac Type Severity Reaction Status Date / Time Penicillins Allergy Unknown Verified 07/04/20 13:19 Childhood Physical Exam Vitals: Vital Signs Temp Pulse Resp BP Pulse Ox 07/28/20 04:27 64 16 165/65 97 07/28/20 02:36 97.9 F 07/28/20 02:32 63 16 121/46 94 L Intake and Output 07/27/20 07/27/20 07/28/20 14:59 22:59 06:59 Other: Weight 120.202 kg General: non toxic, no distress, appears at stated age, obese Derm: no unusual rashes/lesions no unusual ecchymoses, warm, dry Head: atraumatic, normocephalic, symmetric Eyes: EOMI, no lid lag, anicteric sclera, pupils equal round reactive to light ENT: Nose and ears atraumatic, no thrush, no pharyngeal erythema Neck: No thyromegaly, no cervical lymphadenopathy, trachea midline, supple Mouth: no lip lesion, mucus membranes moist Cardiovascular: S1S2 reg, systolic murmur appreciated, positive posterior tibial pulse bilateral, compression stockings on with 2+ edema noted of thighs neeta, ca pillary refill less than 2 seconds Lungs: Bibasilar rales to mid lung, no wheezing appreciated, no accessory muscle use Abdominal: Obese, soft, nontender to palpation, no guarding, no appreciable org anomegaly, normal bowel sounds Ext: no gross muscle atrophy, muscle strength 4 out of 5 in all 4 extremities grossly, no contractures, Neuro: CN II-XI grossly intact, light touch intact all 4 extremities, finger to nose within normal limits, Psych: Alert, oriented, appropriate affect Results CBC & Chem 7: 07/28/20 02:46 07/28/20 02:46 Labs: Abnormal Lab Results - Last 24 Hours (Table) 07/28/20 07/28/20 07/28/20 Range/Units 02:46 02:46 02:46 WBC 12.0 H (3.8-10.6) k/uL RBC 2.69 L (3.80-5.40) m/uL Hgb 7.8 L (11.4-16.0) gm/dL Hct 24.8 L (34.0-46.0) % Neutrophils # 9.8 H (1.3-7.7) k/uL APTT 21.5 L (22.0-30.0) sec Sodium 136 L (137-145) mmol/L Chloride 97 L (98-107) mmol/L BUN 97 H (7-17) mg/dL Creatinine 3.31 H (0.52-1.04) mg/dL Glucose 119 H (74-99) mg/dL Magnesium 2.7 H (1.6-2.3) mg/dL Troponin I (0.000-0.034) ng/mL Total Protein 5.9 L (6.3-8.2) g/dL Albumin 3.2 L (3.5-5.0) g/dL 07/28/20 Range/Units 02:46 WBC (3.8-10.6) k/uL RBC (3.80-5.40) m/uL Hgb (11.4-16.0) gm/dL Hct (34.0-46.0) % Neutrophils # (1.3-7.7) k/uL APTT (22.0-30.0) sec Sodium (137-145) mmol/L Chloride (98-107) mmol/L BUN (7-17) mg/dL Creatinine (0.52-1.04) mg/dL Glucose (74-99) mg/dL Magnesium (1.6-2.3) mg/dL Troponin I 0.045 H* (0.000-0.034) ng/mL Total Protein (6.3-8.2) g/dL Albumin (3.5-5.0) g/dL Assessment and Plan Plan: Fluid overload in setting of acute CHF exacerbation with chronic kidney disease -Continue with Lasix 40 mg every 8 hourly for now -Cardiology consult -Cardiac monitoring -Daily weight, I/Os, fluid restriction THERESA on Chronic kidney disease -Nephrology consult -Avoid nephrotoxic agents Troponin elevation, at baseline, likely due to CHF w/ THERESA Normocytic anemia, likely secondary to chronic kidney disease -Slightly lower than baseline Chronic conditions: Type II DM, hypertension, hyperlipidemia -Continue with home medications -Check A1c -Lispro insulin sliding scale and blood glucose monitoring DVT prophylaxis -Heparin subq Discussed with: Patient Anticipated discharge date: 2-[address]: Home A total of 40 minutes was spent on the care of this complex patient more than 50% of the time was spent in counseling and care coordination.
[2020-07-28 06:58] LABS: HCT 24.5 % (34.0-46.0); HGB 8.1 gm/dL (11.4-16.0); MCH 30.6 pg (25.0-35.0); MCHC 33.2 g/dL (31.0-37.0); MCV 92.3 fL (80.0-100.0); Mean Platelet Volume 7.2; Platelet Count 276 k/uL (150-450); RBC 2.65 m/uL (3.80-5.40); RDW 14.6 % (11.5-15.5); WBC 11.8 k/uL (3.8-10.6)
[2020-07-28 07:10] LABS: Magnesium 2.7 mg/dL (1.6-2.3); Potassium 4.6 mmol/L (3.5-5.1)
[2020-07-28] MEDS ORDERED: NALOXONE 0.4 MG/ML 1 ML VIAL IV PRN (07:22)
[2020-07-28] MEDS: INSULIN ASPART (NovoLOG) 100 UNIT/ML VIAL SQ SCH ×4 (07:57→20:53)
[2020-07-28] MEDS: HEPARIN SODIUM,PORCINE/PF 5,000 UNIT/0.5 ML SYRINGE SQ SCH ×3 (08:01→23:43)
[2020-07-28 11:50] LABS: Glucose,Whole Blood 133 mg/dL (75-99)
[2020-07-28] MEDS ORDERED: FUROSEMIDE 10 MG/ML 4 ML VIAL IV SCH (12:00)
[2020-07-28 12:32] LABS: % Iron Saturation 8.18 (12.00-45.00); Ferritin 429.7 ng/mL (10.0-291.0)
[2020-07-28] MEDS: allopurinoL 100 MG TAB PO SCH (12:43)
[2020-07-28] MEDS: carvediloL 12.5 MG TAB PO SCH ×2 (12:43→18:19)
[2020-07-28] MEDS: amLODIPine 10 MG TAB PO SCH (12:43)
[2020-07-28] MEDS: ASPIRIN 81 MG PO SCH (12:44)
[2020-07-28 14:11] LABS: Hemoglobin A1C 4.6 % (4.0-6.0)
--- NOTE | 2020-07-28 14:12 | P.NPCON ---
History of Present Illness - Reason for Consult Consult date: 07/28/20 acute renal failure - Chief Complaint Shortness of breath - History of Present Illness Admitted to the hospital with worsening shortness of breath. She has history of CK D4 with a baseline creatinine around 2.0-2.2 MG per DL. Currently hospitalized and discharged on torsemide 80 mg daily.. As per her she was taking her medications, restricting her fluid and salt intake. He has EF of 30- 35%. No nausea vomiting diarrhea no recent contrast studies or NSAID use. Serum creatinine was 3.3, started on Lasix, 40 mg IV every 8, creatinine stable today. Urine output still minimal. Clinically feels better. Review of Systems Constitutional: Reports as per HPI Past Medical History Past Medical History: Coronary Artery Disease (CAD), Heart Failure, CVA/TIA, Diabetes Mellitus, Hyperlipidemia, Hypertension, Myocardial Infarction ([place]), Renal Disease Additional Past Medical History / Comment(s): HX TIA POST CAROTID SX, STATES LOST VISION NEETA EYES ON LEFT SIDE;cyst under L armpit removed. type 2 diabetes Last Myocardial Infarction Date:: 2006 History of Any Multi-Drug Resistant Organisms: None Reported Past Surgical History: Cholecystectomy, Coronary Bypass/CABG, Heart Catheterization, Hysterectomy Additional Past Surgical History / Comment(s): CABG X4, STENT IN RIGHT CAROTID ARTERY. 07/12 Incision and drainagel of abscess under left arm, 5 knee sx, breast biposies-precancerous per pt. Past Anesthesia/Blood Transfusion Reactions: No Reported Reaction Date of Last Stent Placement:: UN Past Psychological History: No Psychological Hx Reported Smoking Status: Former smoker Past Alcohol Use History: None Reported Past Drug Use History: None Reported - Past Family History Sister(s) Family Medical History: Cancer, Deep Vein Thrombosis (DVT) Additional Family Medical History / Comment(s): CERVICAL Father Family Medical History: Cancer Medications and Allergies Home Medications Medication Instructions Recorded Confirmed Type Atorvastatin [Lipitor] 80 mg PO HS 07/04/14 07/28/20 History Carvedilol [Coreg] 25 mg PO BID 07/04/14 07/28/20 History amLODIPine BESYLATE [Norvasc] 10 mg PO DAILY 07/04/14 07/28/20 History Allopurinol [Zyloprim] 200 mg PO DAILY 03/13/20 07/28/20 History Insulin Glargine,Hum.rec.anlog 30 unit SQ DAILY 03/13/20 07/28/20 History [Danni Teresa U-100] Thiamine [Vitamin B-1] 100 mg PO BID 03/13/20 07/28/20 History Aspirin 81 mg PO DAILY chew 03/15/20 07/28/20 Rx hydrALAZINE HCL [Apresoline] 25 mg PO TID #90 tab 03/15/20 07/28/20 Rx Glimepiride [Amaryl] 4 mg PO DAILY 06/21/20 07/28/20 History Ferrous Sulfate [Feosol] 325 mg PO BID #60 tab 06/24/20 07/28/20 Rx Torsemide [Demadex] 80 mg PO DAILY #120 tablet 06/24/20 07/28/20 Rx Ergocalciferol [Vitamin D2 (1250 1,250 mcg PO Q30D 07/28/20 07/28/20 History Mcg = 65670 Iu)] Allergies Allergy/AdvReac Type Severity Reaction Status Date / Time Penicillins Allergy Unknown Verified 07/28/20 07:30 Childhood Physical Exam Vitals: Vital Signs Temp Pulse Pulse Resp BP BP Pulse Ox 07/28/20 08:00 97.9 F 74 18 164/70 95 07/28/20 06:19 69 18 142/51 95 07/28/20 04:27 64 16 165/65 97 07/28/20 02:36 97.9 F 07/28/20 02:32 63 16 121/46 94 L Intake and Output 07/27/20 07/28/20 07/28/20 22:59 06:59 14:59 Intake Total 180 Output Total 300 Balance -120 Intake: Oral 180 Output: Urine 300 Other: Voiding Method External Catheter # Bowel Movements 1 Weight 120.202 kg 120.202 kg No acute distress S1-S2 heard Decreased breath sounds Abdomen distended Edema Results - Lab Results Most recent lab results Calcium 10.0 mg/dL (8.4-10.2) 07/28/20 06:43 Magnesium 2.7 mg/dL (1.6-2.3) H 07/28/20 06:43 07/28/20 06:43 07/28/20 06:43 Assessment and Plan Assessment: #1 acute kidney injury secondary to type I CRS. #2 CK D stage IV suspect nephrosclerosis with a baseline creatinine of 2.0-2.2 MG per DL. #3 volume overload with pulmonary edema #4 hypertension with chronic kidney disease #5 metabolic bone disease #6 CHF with systolic dysfunction EF of 30-35% Plan: #1 continue with Lasix increased to 80 mg IV 3 times a day. #2 add metolazone for extra diuretic effect #3 bladder scan to rule out urinary retention #4 daily weights and strict ins and outs #5 avoid nephrotoxic agents and hypotensive episodes
[2020-07-28 16:46] LABS: Glucose,Whole Blood 140 mg/dL (75-99)
[2020-07-28 17:20] LABS: Creatinine,Urine Random 68.7 mg/dL
[2020-07-28 17:30] LABS: Appearance,Urine Clear (Clear); Bilirubin,Urine Negative (Negative); Blood,Urine Negative (Negative); Color,Urine Light Yellow; Glucose,Urine (UA) Negative (Negative); Hyaline Casts,Urine 4 /lpf (0-2); Ketones,Urine Negative (Negative); Leukocyte Esterase,Urine Trace (Negative); Nitrite,Urine Negative (Negative); Protein,Urine 1+ (Negative); RBC,Urine 1 /hpf (0-5); Specific Gravity,Urine 1.014 (1.001-1.035); Squamous Epithelial Cell,Urine <1 /hpf (0-4); Urobilinogen,Urine <2.0 mg/dL (<2.0); WBC,Urine 4 /hpf (0-5)
[2020-07-28] MEDS: hydrALAZINE HCL 25 MG TAB PO SCH ×2 (18:18→21:05)
[2020-07-28] MEDS: metOLazone 5 MG TAB PO SCH (18:19)
--- NOTE | 2020-07-28 19:14 | P.CRDCN ---
History of Present Illness Consult date: 07/28/20 History of present illness: This is a 74-year-old female with history of previous bypass surgery, carotid stenosis with previous stent placement of the carotid artery, hypertension, hyperlipidemia who follows with my partner, Dr. Amaro. Patient had echocardiogram and cardiology office last Wednesday which showed evidence of pleural effusions. Patient comes to the hospital now with complaints of increasing shortness of breath and increasing pedal swelling. Patient also has chronic renal failure. She was advised that she may need dialysis. Patient is relatively comfortable at rest. Doesn't appear to be in acute distress. Her blood pressure in the range of 140-160 systolic. Heart rate is in the 70s. Respirations are 18 and patient is afebrile. Lab values showed hemoglobin of 8.1. Her creatinine is 3.29. Troponin values 0.038. Her proBNP is 6500. Her echo Cardigan showed normal LV function. Patient's congestive heart failure, Seems to be diastolic. She is currently on Coreg 25 mg by mouth twice a day. Lipitor, aspirin and Norvasc along with hydralazine. She is initiated on IV Lasix along with metolazone 5 mg daily. She is on subcu heparin. Continue current medical therapy. Patient may need dialysis. She may also need pleural tap. From [facility]ec standpoint we'll continue current medical therapy Review of Systems As per the chart Past Medical History Past Medical History: Coronary Artery Disease (CAD), Heart Failure, CVA/TIA, Diabetes Mellitus, Hyperlipidemia, Hypertension, Myocardial Infarction ([place]), Renal Disease Additional Past Medical History / Comment(s): HX TIA POST CAROTID SX, STATES LOST VISION NEETA EYES ON LEFT SIDE;cyst under L armpit removed. type 2 diabetes Last Myocardial Infarction Date:: 2006 History of Any Multi-Drug Resistant Organisms: None Reported Past Surgical History: Cholecystectomy, Coronary Bypass/CABG, Heart Catheterization, Hysterectomy Additional Past Surgical History / Comment(s): CABG X4, STENT IN RIGHT CAROTID ARTERY. 07/12 Incision and drainagel of abscess under left arm, 5 knee sx, breast biposies-precancerous per pt. Past Anesthesia/Blood Transfusion Reactions: No Reported Reaction Date of Last Stent Placement:: UN Past Psychological History: No Psychological Hx Reported Smoking Status: Former smoker Past Alcohol Use History: None Reported Past Drug Use History: None Reported - Past Family History Sister(s) Family Medical History: Cancer, Deep Vein Thrombosis (DVT) Additional Family Medical History / Comment(s): CERVICAL Father Family Medical History: Cancer Medications and Allergies Home Medications Medication Instructions Recorded Confirmed Type Atorvastatin [Lipitor] 80 mg PO HS 07/04/14 07/28/20 History Carvedilol [Coreg] 25 mg PO BID 07/04/14 07/28/20 History amLODIPine BESYLATE [Norvasc] 10 mg PO DAILY 07/04/14 07/28/20 History Allopurinol [Zyloprim] 200 mg PO DAILY 03/13/20 07/28/20 History Insulin Glargine,Hum.rec.anlog 30 unit SQ DAILY 03/13/20 07/28/20 History [Basvarundionicio Hairstonikpen U-100] Thiamine [Vitamin B-1] 100 mg PO BID 03/13/20 07/28/20 History Aspirin 81 mg PO DAILY chew 03/15/20 07/28/20 Rx hydrALAZINE HCL [Apresoline] 25 mg PO TID #90 tab 03/15/20 07/28/20 Rx Glimepiride [Amaryl] 4 mg PO DAILY 06/21/20 07/28/20 History Ferrous Sulfate [Feosol] 325 mg PO BID #60 tab 06/24/20 07/28/20 Rx Torsemide [Demadex] 80 mg PO DAILY #120 tablet 06/24/20 07/28/20 Rx Ergocalciferol [Vitamin D2 (1250 1,250 mcg PO Q30D 07/28/20 07/28/20 History Mcg = 94286 Iu)] Allergies Allergy/AdvReac Type Severity Reaction Status Date / Time Penicillins Allergy Unknown Verified 07/28/20 07:30 Childhood Physical Exam Vitals: Vital Signs Temp Pulse Pulse Resp BP BP Pulse Ox 07/28/20 16:00 97.7 F 64 18 142/65 95 07/28/20 14:00 64 18 07/28/20 12:00 76 18 163/70 93 L 07/28/20 08:00 97.9 F 74 18 164/70 95 07/28/20 06:19 69 18 142/51 95 07/28/20 04:27 64 16 165/65 97 07/28/20 02:36 97.9 F 07/28/20 02:32 63 16 121/46 94 L Intake and Output 07/28/20 07/28/20 07/28/20 06:59 14:59 22:59 Intake Total 180 240 Output Total 450 450 Balance -270 -210 Intake: Oral 180 240 Output: Urine 450 450 Other: Voiding Method External Catheter # Bowel Movements 1 Weight 120.202 kg 120.202 kg GENERAL EXAM: Patient is alert and oriented and doesn't appear to be in any acute distress HEENT: Normocephalic. Normal reaction of pupils, equal size, normal range of extraocular motion. No erythema or exudates in the throat. NECK: No masses, no nuchal rigidity. CHEST: No chest wall deformity. LUNGS: Diminished breath sounds HEART: S1 and S2 normal with no audible mumurs or gallops. Regular rhythm, femorals equal on both sides.. ABDOMEN: No hepatosplenomegaly, normal bowel sounds, no guarding or rigidity. SKIN: No rashes CENTRAL NERVOUS SYSTEM: No focal deficits. EXTREMITIES: 2-3+ edema Results 07/28/20 06:43 07/28/20 06:43 Cardiac Enzymes 07/28/20 07/28/20 07/28/20 Range/Units 02:46 02:46 06:45 AST 25 (14-36) U/L Troponin I 0.045 H* 0.038 H* (0.000-0.034) ng/mL Coagulation 07/28/20 Range/Units 02:46 PT 9.9 (9.0-12.0) sec APTT 21.5 L (22.0-30.0) sec CBC 07/28/20 07/28/20 Range/Units 02:46 06:43 WBC 12.0 H 11.8 H (3.8-10.6) k/uL RBC 2.69 L 2.65 L (3.80-5.40) m/uL Hgb 7.8 L 8.1 L (11.4-16.0) gm/dL Hct 24.8 L 24.5 L (34.0-46.0) % Plt Count 351 276 (150-450) k/uL Comprehensive Metabolic Panel 07/28/20 07/28/20 Range/Units 02:46 06:43 Sodium 136 L 135 L (137-145) mmol/L Potassium 4.5 4.6 (3.5-5.1) mmol/L Chloride 97 L 99 (98-107) mmol/L Carbon Dioxide 30 28 (22-30) mmol/L BUN 97 H 95 H (7-17) mg/dL Creatinine 3.31 H 3.29 H (0.52-1.04) mg/dL Glucose 119 H 135 H (74-99) mg/dL Calcium 9.6 10.0 (8.4-10.2) mg/dL AST 25 (14-36) U/L ALT 11 (4-34) U/L Alkaline Phosphatase 62 (38-126) U/L Total Protein 5.9 L (6.3-8.2) g/dL Albumin 3.2 L (3.5-5.0) g/dL Current Medications Generic Name Dose Route Start Last Admin Trade Name Freq PRN Reason Stop Dose Admin Allopurinol 200 mg 07/28/20 10:30 07/28/20 12:43 Allopurinol 100 Mg Tab PO 200 mg DAILY ELIESER Administration Amlodipine Besylate 10 mg 07/28/20 10:30 07/28/20 12:43 Amlodipine 10 Mg Tab PO 10 mg DAILY ELIESER Administration Aspirin 81 mg 07/28/20 10:30 07/28/20 12:44 Aspirin 81 Mg PO 81 mg DAILY ELIESER Administration Atorvastatin Calcium 80 mg 07/28/20 21:00 Atorvastatin 80 Mg Tab PO HS [facility] Carvedilol 25 mg 07/28/20 10:30 07/28/20 18:19 Carvedilol 12.5 Mg Tab PO 25 mg AC-BID ELIESER Administration Furosemide 80 mg 07/28/20 20:00 Furosemide 10 Mg/Ml 10 Ml Vial IV Q8H [facility] Heparin Sodium (Porcine) 5,000 unit 07/28/20 08:00 07/28/20 18:19 Heparin Sodium,Porcine/Pf 5,000 Unit/0.5 Ml Syringe SQ 5,000 unit Q8HR [facility] Administration Hydralazine HCl 25 mg 07/28/20 16:00 07/28/20 18:18 Hydralazine Hcl 25 Mg Tab PO 25 mg TID ELIESER Administration Insulin Aspart 0 unit 07/28/20 07:30 07/28/20 17:13 Insulin Aspart (Novolog) 100 Unit/Ml Vial SQ Not Given ACHS [facility] Protocol Metolazone 5 mg 07/28/20 14:15 07/28/20 18:19 Metolazone 5 Mg Tab PO 5 mg DAILY ELIESER Administration Naloxone HCl 0.2 mg 07/28/20 07:22 Naloxone 0.4 Mg/Ml 1 Ml Vial IV Q2M PRN Opioid Reversal Intake and Output 07/28/20 07/28/20 07/28/20 06:59 14:59 22:59 Intake Total 180 240 Output Total 450 450 Balance -270 -210 Intake: Oral 180 240 Output: Urine 450 450 Other: Voiding Method External Catheter # Bowel Movements 1 Weight 120.202 kg 120.202 kg Patient Weight 07/29/20 06:59 Weight 120.202 kg 07/28/20 06:43 07/28/20 06:43 EKG Interpretations (text) Sinus rhythm. Possible anteroseptal IN Assessment and Plan (1) Acute on chronic diastolic CHF (congestive heart failure) Current Visit: Yes Status: Acute Code(s): I50.33 - ACUTE ON CHRONIC DIASTOLIC (CONGESTIVE) HEART FAILURE SNOMED Code(s): 052550744 (2) CAD (coronary artery disease) Current Visit: Yes Status: Acute Code(s): I25.10 - ATHSCL HEART DISEASE OF [place] CORONARY ARTERY W/O ANG PCTRS SNOMED Code(s): 01224265 (3) CAD (coronary artery disease) of bypass graft Current Visit: Yes Status: Acute Code(s): I25.810 - ATHEROSCLEROSIS OF CABG W/O ANGINA PECTORIS SNOMED Code(s): 708391706 (4) Chronic renal failure Current Visit: Yes Status: Acute Code(s): N18.9 - CHRONIC KIDNEY DISEASE, UNSPECIFIED SNOMED Code(s): 78762305 (5) Anemia Current Visit: No Status: Acute Code(s): D64.9 - ANEMIA, UNSPECIFIED SNOMED Code(s): 331266108 (6) Elevated troponin I measurement Current Visit: No Status: Acute Code(s): R77.8 - OTHER SPECIFIED ABNORMALITIES OF PLASMA PROTEINS SNOMED Code(s): 710017903 Plan: Continue current management with IV Lasix and also metolazone. Continue rest of the medications. Consider dialysis. Further examination depend upon critical course
[2020-07-28 20:30] LABS: Glucose,Whole Blood 198 mg/dL (75-99)
[2020-07-28] MEDS: ATORVASTATIN 80 MG TAB PO SCH (20:53)
[2020-07-28] MEDS: FUROSEMIDE 10 MG/ML 10 ML VIAL IV SCH (20:53)
[2020-07-29] MEDS: FUROSEMIDE 10 MG/ML 10 ML VIAL IV SCH ×3 (04:12→21:21)
[2020-07-29 06:41] LABS: Glucose,Whole Blood 199 mg/dL (75-99)
[2020-07-29] MEDS: INSULIN ASPART (NovoLOG) 100 UNIT/ML VIAL SQ SCH ×4 (07:03→21:21)
[2020-07-29] MEDS: carvediloL 12.5 MG TAB PO SCH ×2 (07:03→17:39)
[2020-07-29 08:24] LABS: Basophils % (A) 0 %; Eosinophils # (A) 0.1 k/uL (0-0.7); Eosinophils % (A) 1 %; HCT 23.6 % (34.0-46.0); HGB 7.8 gm/dL (11.4-16.0); Hypochromasia Slight; Lymphocytes # (A) 0.7 k/uL (1.0-4.8); Lymphocytes % (A) 8 %; MCH 30.9 pg (25.0-35.0); MCHC 33.2 g/dL (31.0-37.0); Mean Platelet Volume 6.9; Monocytes # (A) 0.6 k/uL (0-1.0); Monocytes % (A) 6 %; Neutrophils % (A) 84 %; Platelet Count 350 k/uL (150-450); RBC 2.54 m/uL (3.80-5.40); RDW 14.7 % (11.5-15.5); WBC 9.6 k/uL (3.8-10.6)
[2020-07-29] MEDS: HEPARIN SODIUM,PORCINE/PF 5,000 UNIT/0.5 ML SYRINGE SQ SCH ×2 (08:55→15:30)
[2020-07-29 08:56] LABS: Albumin 3.2 g/dL (3.5-5.0); Calcium 10.1 mg/dL (8.4-10.2); Phosphorus 5.4 mg/dL (2.5-4.5); Potassium 4.3 mmol/L (3.5-5.1); Total Bilirubin 0.5 mg/dL (0.2-1.3); Total Protein 5.9 g/dL (6.3-8.2)
[2020-07-29] MEDS: amLODIPine 10 MG TAB PO SCH (08:56)
[2020-07-29] MEDS: ASPIRIN 81 MG PO SCH (08:56)
[2020-07-29] MEDS: hydrALAZINE HCL 25 MG TAB PO SCH ×3 (08:56→21:21)
[2020-07-29] MEDS: metOLazone 5 MG TAB PO SCH (08:56)
[2020-07-29] MEDS: allopurinoL 100 MG TAB PO SCH (08:56)
[2020-07-29 11:00] VITALS: BMI 42.5
[2020-07-29] MEDS: ACETAMINOPHEN TAB 325 MG TAB PO PRN ×2 (11:10→21:55)
[2020-07-29 11:26] LABS: Glucose,Whole Blood 242 mg/dL (75-99)
--- NOTE | 2020-07-29 11:44 | P.PN ---
Subjective Progress Note Date: 07/29/20 Feels better, no chest pain no abdominal pain no nausea or vomiting. She is on 2 L of oxygen. She denies shortness of breath. Objective - Vital Signs Vital signs: Vital Signs Temp 97.8 F 07/29/20 08:51 Pulse 70 07/29/20 11:08 Resp 18 07/29/20 11:08 BP 146/62 07/29/20 11:08 Pulse Ox 94 L 07/29/20 11:08 Intake & Output 07/28/20 07/29/20 07/29/20 18:59 06:59 18:59 Intake Total 420 240 Output Total 900 650 700 Balance -480 -650 -460 Weight 120.202 kg 119.7 kg 119.7 kg Intake: Oral 420 240 Output: Urine 900 650 700 Other: Voiding Method External Catheter External Catheter External Catheter # Voids 1 # Bowel Movements 1 - Exam Constitutional: No acute distress, conversant, pleasant Eyes: Anicteric sclerae, moist conjunctiva, no lid-lag, PERRLA ENMT: NC/AT Neck:Supple, FROM, no masses, or JVD, No carotid bruits; No thyromegaly Lungs: Decreased breath sounds, no wheezing Cardiovascular: Heart regular in rate and rhythm, No murmurs, gallops, or rubs no peripheral edema Abdominal: Soft Nontender, nom distended, no guarding, no rebound or rigidity Skin: Normal temperature Extremities:No digital cyanosis No clubbing, 1+ bilateral edema Psychiatric: Alert and oriented to person, place and time, Appropriate affect In tact judgement Neuro: Muscles Strength 5/5 in all 4 extremities, Sensation to light touch grossly present throughout, Cranial nerves II-XII grossly intact. No focal sensory deficits - Labs CBC & Chem 7: 07/29/20 08:00 07/29/20 08:00 Labs: Abnormal Lab Results - Last 24 Hours (Table) 07/28/20 07/28/20 07/28/20 Range/Units 06:43 11:48 15:15 RBC (3.80-5.40) m/uL Hgb (11.4-16.0) gm/dL Hct (34.0-46.0) % Neutrophils # (1.3-7.7) k/uL Lymphocytes # (1.0-4.8) k/uL Chloride (98-107) mmol/L Carbon Dioxide (22-30) mmol/L BUN (7-17) mg/dL Creatinine (0.52-1.04) mg/dL Glucose (74-99) mg/dL POC Glucose (mg/dL) 133 H (75-99) mg/dL Phosphorus (2.5-4.5) mg/dL Iron 22 L (50-170) ug/dL % Saturation 8.18 L (12.00-45.00) Ferritin 429.7 H (10.0-291.0) ng/mL Total Protein (6.3-8.2) g/dL Albumin (3.5-5.0) g/dL Urine Protein 1+ H (Negative) Ur Leukocyte Esterase Trace H (Negative) Hyaline Casts 4 H (0-2) /lpf 07/28/20 07/28/20 07/29/20 Range/Units 16:44 20:27 06:38 RBC (3.80-5.40) m/uL Hgb (11.4-16.0) gm/dL Hct (34.0-46.0) % Neutrophils # (1.3-7.7) k/uL Lymphocytes # (1.0-4.8) k/uL Chloride (98-107) mmol/L Carbon Dioxide (22-30) mmol/L BUN (7-17) mg/dL Creatinine (0.52-1.04) mg/dL Glucose (74-99) mg/dL POC Glucose (mg/dL) 140 H 198 H 199 H (75-99) mg/dL Phosphorus (2.5-4.5) mg/dL Iron (50-170) ug/dL % Saturation (12.00-45.00) Ferritin (10.0-291.0) ng/mL Total Protein (6.3-8.2) g/dL Albumin (3.5-5.0) g/dL Urine Protein (Negative) Ur Leukocyte Esterase (Negative) Hyaline Casts (0-2) /lpf 07/29/20 07/29/20 07/29/20 Range/Units 08:00 08:00 11:23 RBC 2.54 L (3.80-5.40) m/uL Hgb 7.8 L (11.4-16.0) gm/dL Hct 23.6 L (34.0-46.0) % Neutrophils # 8.0 H (1.3-7.7) k/uL Lymphocytes # 0.7 L (1.0-4.8) k/uL Chloride 97 L (98-107) mmol/L Carbon Dioxide 33 H (22-30) mmol/L BUN 93 H (7-17) mg/dL Creatinine 3.20 H (0.52-1.04) mg/dL Glucose 149 H (74-99) mg/dL POC Glucose (mg/dL) 242 H (75-99) mg/dL Phosphorus 5.4 H (2.5-4.5) mg/dL Iron (50-170) ug/dL % Saturation (12.00-45.00) Ferritin (10.0-291.0) ng/mL Total Protein 5.9 L (6.3-8.2) g/dL Albumin 3.2 L (3.5-5.0) g/dL Urine Protein (Negative) Ur Leukocyte Esterase (Negative) Hyaline Casts (0-2) /lpf Assessment and Plan Plan: Acute on chronic diastolic/systolic CHF EF 30-35% -Continue with Lasix 40 mg every 8 hourly, continue metolazone -Cardiology consult, input appreciated THERESA on Chronic kidney disease stage IV baseline serum creatinine to 2.2 Currently serum creatinine 3.2 -Nephrology consult, input appreciated -Avoid nephrotoxic agents Troponin elevation, at baseline, likely due to CHF w/ THERESA monitor Normocytic anemia, likely secondary to chronic kidney disease -Slightly lower than baseline, hemoglobin down to 7.8 Chronic conditions: Type II DM, hypertension, hyperlipidemia -Continue with home medications -Lispro insulin sliding scale and blood glucose monitoring DVT prophylaxis -Heparin subq Discussed with: Patient Anticipated discharge date: 1-[address]: Home once clinically better.
--- NOTE | 2020-07-29 14:04 | PN ---
PROGRESS NOTE The patient is seen for followup for acute kidney injury. Her renal function is fairly stable with creatinine staying at about 3.2 mg/dL for the last couple of days. The patient has CKD with baseline creatinine around 2.2-2.3 mg/dL all the way back to 2019. She was admitted with volume overload and is currently being diuresed. She is maintained on Lasix 80 mg IV q.8 hours. Overall, patient states she is feeling better. A 24-hour urine output documented at 1.5 L. PHYSICAL EXAMINATION: On examination today, blood pressure is 136/61, heart rate 70 per minute. She is afebrile. EXAMINATION OF THE HEART: S1, S2. EXAMINATION OF THE LUNGS: Bilateral breath sounds are heard. Abdomen is soft, nontender. Examination of lower extremities shows edema 1+ bilaterally. SUPERIOR COURT CLERK exam grossly intact. LABS: Labs show sodium 138, potassium 4.3, chloride 97, CO2 is 33, BUN 93, creatinine 3.2, hemoglobin 7.8 g/dL. ASSESSMENT: 1. Acute kidney injury cardiorenal currently stable. The patient is aware of possible renal replacement therapy if her renal function deteriorates. However, at this time she is stable with improvement in volume status, so we can wait on initiation of dialysis. 2. Severe anemia with significantly low iron saturation, although ferritin was on the higher side, but this could be acute phase reactant. We will proceed with a couple of doses of IV iron and start the patient on Aranesp. 3. Chronic kidney disease, stage 4. Baseline creatinine 2-2.2 mg/dL secondary to nephrosclerosis. 4. Cardiomyopathy, ejection fraction 30% to 35%. 5. Chronic kidney disease mineral bone disorder. PLAN: Continue with current dose of Lasix. Repeat labs in a.m. Avoid nephrotoxic medications. Add IV iron. Add Aranesp starting tomorrow and no need for renal replacement therapy at this point unless renal function worsens or volume status worsens. MMODL / IJN: [id number] /
--- NOTE | 2020-07-29 14:44 | P.PN ---
Subjective This is a 74-year-old female with history of coronary artery disease status post CABG 2016, chronic systolic heart failure, type 2 diabetes, hypertension, hyperlipidemia, peripheral vascular disease status post left internal carotid artery stenting with complications from stenting resulting stroke and partial vision loss, prior tobacco use. Patient follows with Dr. Amaro. We are being consulted for congestive heart failure and elevated troponin. Most recent echocardiogram 02/2020- EF 35-40%, which was decreased from prior which was 45-50%, moderate aortic stenosis, mild tricuspid regurgitation, pulmonary hypertension with RVSP of 49. Echocardiogram obtained at office 07/26/20- results not available at this time. Patient was also suppose to undergo Lexiscan stress test outpatient. 07/29/20: Patient seen and examined at bedside, no acute distress. Blood pressure 146/62, heart rate 70, afebrile, maintaining oxygen saturation is 94% on 2 L nasal cannula currently being maintained on amlodipine 10 mg daily, aspirin 81 mg daily, atorvastatin 80 mg nightly, carvedilol 25 mg twice a day Lasix IV 80 mg every 8, hydralazine 25 mg 3 times a day. Patient with 1.5 L urine output past 24 hours laboratory data reviewed sodium 138, potassium 4.3, serum creatinine 3.20 BUN 93 GENERAL: Well-appearing, well-nourished and in no acute distress. NECK: Supple without JVD or thyromegaly. LUNGS: Breath sounds clear to auscultation bilaterally. Respiration equal and unlabored. No wheezes, rales or rhonchi. HEART: Regular rate and rhythm without murmurs, rubs or gallops. S1 and S2 heard. EXTREMITIES: Normal range of motion, no edema. No clubbing or cyanosis. Peripheral pulses intact. ASSESSMENT Chronic Systolic heart failure - EF 35-40% Elevated troponin Type 2 Diabetes Coronary artery disease s/p CAGB Moderate aortic stenosis Coronary artery stenosis Chronic Kidney Disease Anemia Hypertension Dyslipidemia Obesity BMI 42. PLAN -Will call office and obtain Echocardiogram results -Continue IV Lasix- nephrology is following and managing -Continue metolazone -Continue aspirin 81 mg daily, atorvastatin 80 mg nightly, carvedilol 25 mg twice a day -Further recommendations pending clinical course Nurse Practitioner note has been reviewed, I agree with a documented findings and plan of care. Patient was seen and examined. Objective - Vital Signs Vital signs: Vital Signs Temp 97.8 F 07/29/20 08:51 Pulse 70 07/29/20 12:45 Resp 18 07/29/20 12:45 BP 146/62 07/29/20 11:08 Pulse Ox 94 L 07/29/20 11:08 Intake & Output 07/28/20 07/29/20 07/29/20 18:59 06:59 18:59 Intake Total 420 240 Output Total 900 650 700 Balance -480 -650 -460 Weight 120.202 kg 119.7 kg 119.7 kg Intake: Oral 420 240 Output: Urine 900 650 700 Other: Voiding Method External Catheter External Catheter External Catheter # Voids 1 # Bowel Movements 1 - Labs CBC & Chem 7: 07/29/20 08:00 07/29/20 08:00 Labs: Abnormal Lab Results - Last 24 Hours (Table) 07/28/20 07/28/20 07/28/20 Range/Units 06:43 15:15 16:44 RBC (3.80-5.40) m/uL Hgb (11.4-16.0) gm/dL Hct (34.0-46.0) % Neutrophils # (1.3-7.7) k/uL Lymphocytes # (1.0-4.8) k/uL Chloride (98-107) mmol/L Carbon Dioxide (22-30) mmol/L BUN (7-17) mg/dL Creatinine (0.52-1.04) mg/dL Glucose (74-99) mg/dL POC Glucose (mg/dL) 140 H (75-99) mg/dL Phosphorus (2.5-4.5) mg/dL Total Protein (6.3-8.2) g/dL Albumin (3.5-5.0) g/dL RBC Folate 1,050 H (280 - 791) ng/mL Urine Protein 1+ H (Negative) Ur Leukocyte Esterase Trace H (Negative) Hyaline Casts 4 H (0-2) /lpf 07/28/20 07/29/20 07/29/20 Range/Units 20:27 06:38 08:00 RBC 2.54 L (3.80-5.40) m/uL Hgb 7.8 L (11.4-16.0) gm/dL Hct 23.6 L (34.0-46.0) % Neutrophils # 8.0 H (1.3-7.7) k/uL Lymphocytes # 0.7 L (1.0-4.8) k/uL Chloride (98-107) mmol/L Carbon Dioxide (22-30) mmol/L BUN (7-17) mg/dL Creatinine (0.52-1.04) mg/dL Glucose (74-99) mg/dL POC Glucose (mg/dL) 198 H 199 H (75-99) mg/dL Phosphorus (2.5-4.5) mg/dL Total Protein (6.3-8.2) g/dL Albumin (3.5-5.0) g/dL RBC Folate (280 - 791) ng/mL Urine Protein (Negative) Ur Leukocyte Esterase (Negative) Hyaline Casts (0-2) /lpf 07/29/20 07/29/20 Range/Units 08:00 11:23 RBC (3.80-5.40) m/uL Hgb (11.4-16.0) gm/dL Hct (34.0-46.0) % Neutrophils # (1.3-7.7) k/uL Lymphocytes # (1.0-4.8) k/uL Chloride 97 L (98-107) mmol/L Carbon Dioxide 33 H (22-30) mmol/L BUN 93 H (7-17) mg/dL Creatinine 3.20 H (0.52-1.04) mg/dL Glucose 149 H (74-99) mg/dL POC Glucose (mg/dL) 242 H (75-99) mg/dL Phosphorus 5.4 H (2.5-4.5) mg/dL Total Protein 5.9 L (6.3-8.2) g/dL Albumin 3.2 L (3.5-5.0) g/dL RBC Folate (280 - 791) ng/mL Urine Protein (Negative) Ur Leukocyte Esterase (Negative) Hyaline Casts (0-2) /lpf
[2020-07-29] MEDS: SODIUM FERRIC GLUCONAT-SUCROSE 125 MG in SODIUM CHLORIDE 0.9% 100 ML IVPB SCH (15:29)
[2020-07-29 17:00] LABS: Glucose,Whole Blood 171 mg/dL (75-99)
[2020-07-29 20:34] LABS: Glucose,Whole Blood 176 mg/dL (75-99)
[2020-07-29] MEDS: ATORVASTATIN 80 MG TAB PO SCH (21:21)
[2020-07-30] MEDS: HEPARIN SODIUM,PORCINE/PF 5,000 UNIT/0.5 ML SYRINGE SQ SCH ×4 (00:16→23:02)
[2020-07-30] MEDS: FUROSEMIDE 10 MG/ML 10 ML VIAL IV SCH (03:37)
[2020-07-30] MEDS: ACETAMINOPHEN TAB 325 MG TAB PO PRN ×3 (03:41→21:49)
[2020-07-30 06:17] LABS: Glucose,Whole Blood 146 mg/dL (75-99)
[2020-07-30] MEDS: INSULIN ASPART (NovoLOG) 100 UNIT/ML VIAL SQ SCH ×4 (06:48→20:22)
[2020-07-30] MEDS: carvediloL 12.5 MG TAB PO SCH ×2 (06:48→17:26)
[2020-07-30 07:51] LABS: Basophils % (A) 0 %; Eosinophils # (A) 0.1 k/uL (0-0.7); Eosinophils % (A) 2 %; HCT 24.5 % (34.0-46.0); HGB 8.1 gm/dL (11.4-16.0); Lymphocytes % (A) 10 %; MCH 30.3 pg (25.0-35.0); MCHC 32.9 g/dL (31.0-37.0); MCV 92.2 fL (80.0-100.0); Monocytes # (A) 0.6 k/uL (0-1.0); Monocytes % (A) 7 %; Neutrophils # (A) 7.4 k/uL (1.3-7.7); Neutrophils % (A) 80 %; Platelet Count 340 k/uL (150-450); RBC 2.66 m/uL (3.80-5.40); RDW 14.6 % (11.5-15.5); WBC 9.3 k/uL (3.8-10.6)
[2020-07-30 08:11] LABS: Albumin 3.1 g/dL (3.5-5.0); Calcium 10.2 mg/dL (8.4-10.2); Potassium 4.6 mmol/L (3.5-5.1); Total Bilirubin 0.5 mg/dL (0.2-1.3); Total Protein 5.8 g/dL (6.3-8.2)
[2020-07-30] MEDS: hydrALAZINE HCL 25 MG TAB PO SCH ×3 (08:51→20:21)
[2020-07-30] MEDS: allopurinoL 100 MG TAB PO SCH (08:51)
[2020-07-30] MEDS: amLODIPine 10 MG TAB PO SCH (08:51)
[2020-07-30] MEDS: metOLazone 5 MG TAB PO SCH (08:51)
[2020-07-30] MEDS: ASPIRIN 81 MG PO SCH (08:51)
[2020-07-30] MEDS: SODIUM FERRIC GLUCONAT-SUCROSE 125 MG in SODIUM CHLORIDE 0.9% 100 ML IVPB SCH (08:52)
--- NOTE | 2020-07-30 09:31 | XR ---
EXAMINATION TYPE: XR chest 1V portable DATE OF EXAM: 07/30/2020 COMPARISON: 07/28/20 INDICATION: CHF TECHNIQUE: Single frontal view of the chest is obtained. FINDINGS: The heart size is normal. The pulmonary vasculature is normal. The lungs are clear. IMPRESSION: 1. Resolution previous volume overload.
--- NOTE | 2020-07-30 10:55 | P.PN ---
Subjective Progress Note Date: 07/30/20 Hospital course: Patient is a 74-year-old female with a past medical history of CAD status post CABG, chronic systolic heart failure, hypertension, hyperlipidemia, COPD home oxygen dependent on 2 L O2, previous CVA with deficit of partial vision loss, insulin-dependent diabetes mellitus type 2, and CKD stage III. Patient presented to the hospital on 07/28/20 for chief complaint of shortness of breath with exertion. The patient reports this initially began approximately 3 weeks ago and progressively worsened shortness of breath with exertion, orthopnea, increased lower extremity edema, and finally resulting in shortness of breath at rest resulting in her coming to the hospital for further evaluation. Upon arrival to Hospital patient was found to be in moderate fluid overload but the proBNP is 6500, elevated troponin 0.045, and to have an acute kidney injury on top of her stage III chronic kidney disease with a BUN of 97, creatinine of 3.31, and GFR of 13. Initial chest x-ray revealing diffuse airspace opacities possibly representing pulmonary edema versus an infectious process. EKG showing normal sinus rhythm at 64 bpm with no noted T wave or ST abnormality showing no signs of acute ischemia. Patient was admitted under our services for acute exacerbation of chronic systolic heart failure and acute kidney injury on chronic kidney disease accompanied by consultation to nephrology and cardiology. Patient has been under outpatient treatment by cardiology for chronic systolic heart failure and nephrology where she is being prepared for hemodialysis and recently underwent venous mapping for AV fistula with plans to place and left arm. Physical exam: 07/30/20: Patient seen and fully evaluated at the bedside this morning. Patient reports feeling much better, stating previously experienced shortness of breath at rest and orthopnea has significantly improved and she only continues to have shortness of breath with exertion only. Patient denies having any chest pain, palpitations, headaches, lightheadedness, dizziness, or experiencing any numbness/tingling/weakness in her extremities. She has been receiving Lasix 80 mg 3 times daily and has had a urine output of 1950 mL over the past 24 hours. Renal function remains unchanged with creatinine 3.36. General: non toxic, no distress, appears at stated age Derm: warm, dry Head: atraumatic, normocephalic, symmetric Eyes: EOMI, no lid lag, anicteric sclera Mouth: no lip lesion, mucus membranes moist Cardiovascular: S1S2 reg, no murmur, positive posterior tibial pulse bilateral, Lungs: Respirations even, regular, and unlabored on 3 L O2 via nasal cannula. Lungs significantly diminished at bilateral bases. No wheezes, rales, or rhonchi noted. No accessory muscle usage. Abdominal: soft obese abdomen, nontender to palpation, no guarding, no appreciable organomegaly Ext: no gross muscle atrophy, 1+ pitting lower extremity edema , no contractures Neuro: CN II-XI grossly intact, no focal neuro deficits Psych: Alert, oriented, appropriate affect Plan of care: Acute on chronic systolic heart failure with a moderately impaired ejection fraction of 30-35% -ProBNP 6500 -Initial chest x-ray revealing diffuse airspace opacities concerning for pulmonary edema/fluid overload. Repeat chest x-ray on 07/30/20 reported resolution of previous volume overload. -Echocardiogram completed 03/17/20 showing a moderately impaired ejection fraction of 35-40% with a mildly dilated left ventricle, moderate aortic stenosis, moderate tricuspid regurgitation and moderate pulmonary hypertension. -Lasix decreased to 40 mg twice a day. -Continued close monitoring of electrolyte function while diuresing. -Close monitoring of I's and O's. -Daily weights. -Cardiology following, appreciate further recommendations. THERESA on Chronic kidney disease stage IV -Currently serum creatinine 3.36, baseline 2.2. -Nephrology following, appreciate further recommendations. -Caution with nephrotoxic medications. Elevated troponin, elevated at baseline likely secondary to CKD stage IV currently with acute exacerbation of chronic systolic heart failure and THERESA -Telemetry monitoring. -Cardiology following, appreciate further recommendations. Normocytic anemia of chronic disease secondary to chronic kidney disease stage IV -Currently at baseline with hemoglobin of 8.1. -We will continue to monitor with repeat a.m. labs. Insulin-dependent diabetes mellitus type 2 -Glycemic protocol with NovoLog sliding scale. -Heart healthy and carb consistent renal diet. Hypertension -Monitor vital signs and continue daily medication management with hydralazine, carvedilol, and amlodipine. Hyperlipidemia -Continue daily medication management with atorvastatin 80 mg nightly. CODE STATUS: Full code DVT prophylaxis: Heparin Discussed with: Patient and RN Anticipated discharge date: 1-[address]: Home with home care A total of 45 minutes was spent on the care of this complex patient more than 50% of the time was spent in counseling and care coordination. Objective - Vital Signs Vital signs: Vital Signs Temp 98 F 07/30/20 08:25 Pulse 59 L 07/30/20 08:25 Resp 18 07/30/20 08:25 BP 123/65 07/30/20 08:25 Pulse Ox 97 07/30/20 09:02 Intake & Output 07/29/20 07/30/20 07/30/20 18:59 06:59 18:59 Intake Total 480 240 Output Total 950 1000 600 Balance -470 -1000 -360 Weight 119.7 kg 119.7 kg Intake: Oral 480 240 Output: Urine 950 1000 600 Other: Voiding Method External Catheter External Catheter External Catheter # Bowel Movements 1 - Labs CBC & Chem 7: 07/30/20 07:11 07/30/20 07:11 Labs: Abnormal Lab Results - Last 24 Hours (Table) 07/28/20 07/29/20 07/29/20 Range/Units 06:43 11:23 16:59 RBC (3.80-5.40) m/uL Hgb (11.4-16.0) gm/dL Hct (34.0-46.0) % Sodium (137-145) mmol/L Chloride (98-107) mmol/L Carbon Dioxide (22-30) mmol/L BUN (7-17) mg/dL Creatinine (0.52-1.04) mg/dL Glucose (74-99) mg/dL POC Glucose (mg/dL) 242 H 171 H (75-99) mg/dL Total Protein (6.3-8.2) g/dL Albumin (3.5-5.0) g/dL RBC Folate 1,050 H (280 - 791) ng/mL 07/29/20 07/30/20 07/30/20 Range/Units 20:32 06:15 07:11 RBC 2.66 L (3.80-5.40) m/uL Hgb 8.1 L (11.4-16.0) gm/dL Hct 24.5 L (34.0-46.0) % Sodium (137-145) mmol/L Chloride (98-107) mmol/L Carbon Dioxide (22-30) mmol/L BUN (7-17) mg/dL Creatinine (0.52-1.04) mg/dL Glucose (74-99) mg/dL POC Glucose (mg/dL) 176 H 146 H (75-99) mg/dL Total Protein (6.3-8.2) g/dL Albumin (3.5-5.0) g/dL RBC Folate (280 - 791) ng/mL 07/30/20 Range/Units 07:11 RBC (3.80-5.40) m/uL Hgb (11.4-16.0) gm/dL Hct (34.0-46.0) % Sodium 135 L (137-145) mmol/L Chloride 94 L (98-107) mmol/L Carbon Dioxide 35 H (22-30) mmol/L BUN 93 H (7-17) mg/dL Creatinine 3.36 H (0.52-1.04) mg/dL Glucose 120 H (74-99) mg/dL POC Glucose (mg/dL) (75-99) mg/dL Total Protein 5.8 L (6.3-8.2) g/dL Albumin 3.1 L (3.5-5.0) g/dL RBC Folate (280 - 791) ng/mL
[2020-07-30 12:38] LABS: Glucose,Whole Blood 148 mg/dL (75-99)
--- NOTE | 2020-07-30 15:38 | PN ---
PROGRESS NOTE The patient is seen for followup for chronic kidney disease and volume overload. She was admitted to the hospital with CHF exacerbation. Serum creatinine has been staying at about 3.3-3.2 mg/dL. Today creatinine is up to 3.3 from 3.2. Overall, patient states she feels about the same. She did have an episode of increased oxygen requirement last night. PHYSICAL EXAMINATION: On examination today, blood pressure is 136/67, heart rate 71 per minute. She is afebrile. EXAMINATION OF THE HEART: S1, S2. EXAMINATION OF THE LUNGS: Decreased breath sounds at the bases. Abdomen is obese, soft, nontender. Examination of lower extremities shows improving edema, 1+ edema noted in the ankles. [employer]ODUCTION TROUBLES[employer]OTER exam grossly intact. LABS: Labs show sodium 135, potassium 4.6, chloride 94, CO2 of 35, BUN 93, serum creatinine 3.36. ASSESSMENT: 1. Acute kidney injury, mostly cardiorenal, serum creatinine slightly higher today. The patient is being diuresed. I will continue with the current dose of diuretics and change to oral diuretics in a.m. Check chest x-ray as well. 2. Severe anemia with significantly low iron saturations, status post IV iron. Also start Aranesp. 3. Chronic kidney disease, stage 4. Baseline creatinine 2-2.2 secondary to nephrosclerosis. 4. Cardiomyopathy, ejection fraction 30% to 35%. 5. Chronic kidney disease mineral bone disorder. PLAN: The patient will be discharged home on oral Zaroxolyn along with the dose of Demadex that she was taking at home. She will need to follow up closely as outpatient. Different options for renal replacement therapy discussed with the patient. She is scheduled to see Vascular Surgery after cardiac clearance for placement of AV fistula. The patient is advised to avoid any blood draws or IVs in her left arm. No need for dialysis at this point. MMODL / IJN: [id number] /
[2020-07-30] MEDS: FUROSEMIDE 40 MG TAB PO SCH (15:42)
--- NOTE | 2020-07-30 16:21 | P.PN ---
Subjective This is a 74-year-old female with history of coronary artery disease status post CABG 2016, chronic systolic heart failure, type 2 diabetes, hypertension, hyperlipidemia, peripheral vascular disease status post left internal carotid artery stenting with complications from stenting resulting stroke and partial vision loss, prior tobacco use. Patient follows with Dr. Amaro. We are being consulted for congestive heart failure and elevated troponin. Echocardiogram 07/26/20- in the office, EF 40-45%, moderate aortic stenosis, peak gradient 29mmHg/mean gradient 19mmHg, severe tricuspid regurgitation, mild to moderate tricuspid regurgitation, moderately increased pulmonary hypertension with RVSP of 52mmHg Echocardiogram 02/2020- EF 35-40%, which was decreased from prior which was 45- 50%, moderate aortic stenosis, mild tricuspid regurgitation, pulmonary hypertension with RVSP of 49. Echocardiogram obtained at office 07/26/20- results not available at this time. Patient was also suppose to undergo Lexiscan stress test outpatient. 07/30/20: Patient seen and examined at bedside, no acute distress. Blood pressure , heart rate afebrile, maintaining oxygen saturation is 94% on 2 L nasal cannula currently being maintained on amlodipine 10 mg daily, aspirin 81 mg daily, atorvastatin 80 mg nightly, carvedilol 25 mg twice a day Lasix IV 80 mg every 8, hydralazine 25 mg 3 times a day. Patient with urine output past 24 hours Laboratory data reviewed sodium 138, potassium 4.3, serum creatinine 3.20 BUN 93 GENERAL: Well-appearing, well-nourished and in no acute distress. NECK: Supple without JVD or thyromegaly. LUNGS: Breath sounds clear to auscultation bilaterally. Respiration equal and unlabored. No wheezes, rales or rhonchi. HEART: Regular rate and rhythm systolic murmur heard at left sternal border, systolic murmur heard right sternal border. No rubs or gallops. S1 and S2 heard. EXTREMITIES: Normal range of motion, no edema. No clubbing or cyanosis. Peripheral pulses intact. ASSESSMENT Chronic Systolic heart failure - EF 35-40% Elevated troponin, not indicative of acute coronary syndrome. Moderate aortic stenosis, severe tricuspid regurgitation Type 2 Diabetes Coronary artery disease s/p CAGB Moderate aortic stenosis Coronary artery stenosis Chronic Kidney Disease Anemia Hypertension Dyslipidemia Obesity BMI 42. PLAN -Echocardiogram 07/26 as above -We will transition to PO lasix today -Continue metolazone per nephrology -Continue aspirin 81 mg daily, atorvastatin 80 mg nightly, carvedilol 25 mg t wice a day -Most likely discharge tomorrow if improvement Nurse Practitioner note has been reviewed, I agree with a documented findings and plan of care. Patient was seen and examined. Objective - Vital Signs Vital signs: Vital Signs Temp 98 F 07/30/20 08:25 Pulse 59 L 07/30/20 08:25 Resp 18 07/30/20 08:25 BP 123/65 07/30/20 08:25 Pulse Ox 97 07/30/20 09:02 Intake & Output 07/29/20 07/30/20 07/30/20 18:59 06:59 18:59 Intake Total 480 240 Output Total 950 1000 600 Balance -470 -1000 -360 Weight 119.7 kg 119.7 kg Intake: Oral 480 240 Output: Urine 950 1000 600 Other: Voiding Method External Catheter External Catheter External Catheter # Bowel Movements 1 - Labs CBC & Chem 7: 07/30/20 07:11 07/30/20 07:11 Labs: Abnormal Lab Results - Last 24 Hours (Table) 07/28/20 07/29/20 07/29/20 Range/Units 06:43 16:59 20:32 RBC (3.80-5.40) m/uL Hgb (11.4-16.0) gm/dL Hct (34.0-46.0) % Sodium (137-145) mmol/L Chloride (98-107) mmol/L Carbon Dioxide (22-30) mmol/L BUN (7-17) mg/dL Creatinine (0.52-1.04) mg/dL Glucose (74-99) mg/dL POC Glucose (mg/dL) 171 H 176 H (75-99) mg/dL Total Protein (6.3-8.2) g/dL Albumin (3.5-5.0) g/dL RBC Folate 1,050 H (280 - 791) ng/mL 07/30/20 07/30/20 07/30/20 Range/Units 06:15 07:11 07:11 RBC 2.66 L (3.80-5.40) m/uL Hgb 8.1 L (11.4-16.0) gm/dL Hct 24.5 L (34.0-46.0) % Sodium 135 L (137-145) mmol/L Chloride 94 L (98-107) mmol/L Carbon Dioxide 35 H (22-30) mmol/L BUN 93 H (7-17) mg/dL Creatinine 3.36 H (0.52-1.04) mg/dL Glucose 120 H (74-99) mg/dL POC Glucose (mg/dL) 146 H (75-99) mg/dL Total Protein 5.8 L (6.3-8.2) g/dL Albumin 3.1 L (3.5-5.0) g/dL RBC Folate (280 - 791) ng/mL
[2020-07-30 17:20] LABS: Glucose,Whole Blood 152 mg/dL (75-99)
[2020-07-30 20:05] LABS: Glucose,Whole Blood 179 mg/dL (75-99)
[2020-07-30] MEDS: ATORVASTATIN 80 MG TAB PO SCH (20:21)
[2020-07-30] MEDS ORDERED: FUROSEMIDE 10 MG/ML 10 ML VIAL IV SCH (21:00)
[2020-07-30 23:02] LABS: Glucose,Whole Blood 148 mg/dL (75-99)
[2020-07-31] MEDS: ACETAMINOPHEN TAB 325 MG TAB PO PRN ×2 (03:15→09:56)
[2020-07-31 06:19] LABS: Glucose,Whole Blood 151 mg/dL (75-99)
[2020-07-31] MEDS: carvediloL 12.5 MG TAB PO SCH (06:26)
[2020-07-31] MEDS: INSULIN ASPART (NovoLOG) 100 UNIT/ML VIAL SQ SCH ×2 (06:26→13:40)
[2020-07-31 08:44] LABS: Calcium 9.9 mg/dL (8.4-10.2); Potassium 4.1 mmol/L (3.5-5.1)
[2020-07-31 09:00] LABS: Magnesium 2.6 mg/dL (1.6-2.3)
[2020-07-31 09:04] LABS: Basophils % (A) 0 %; Eosinophils # (A) 0.2 k/uL (0-0.7); Eosinophils % (A) 2 %; HCT 24.7 % (34.0-46.0); HGB 7.8 gm/dL (11.4-16.0); Hypochromasia Slight; Lymphocytes # (A) 0.8 k/uL (1.0-4.8); Lymphocytes % (A) 8 %; MCH 29.6 pg (25.0-35.0); MCHC 31.7 g/dL (31.0-37.0); MCV 93.3 fL (80.0-100.0); Mean Platelet Volume 7.1; Monocytes # (A) 0.6 k/uL (0-1.0); Monocytes % (A) 6 %; Neutrophils # (A) 8.2 k/uL (1.3-7.7); Neutrophils % (A) 82 %; Platelet Count 367 k/uL (150-450); RBC 2.64 m/uL (3.80-5.40); RDW 15.1 % (11.5-15.5); WBC 9.9 k/uL (3.8-10.6)
[2020-07-31] MEDS: metOLazone 5 MG TAB PO SCH (09:08)
[2020-07-31] MEDS: HEPARIN SODIUM,PORCINE/PF 5,000 UNIT/0.5 ML SYRINGE SQ SCH (09:56)
[2020-07-31] MEDS: allopurinoL 100 MG TAB PO SCH (09:57)
[2020-07-31] MEDS: SODIUM FERRIC GLUCONAT-SUCROSE 125 MG in SODIUM CHLORIDE 0.9% 100 ML IVPB SCH (09:57)
[2020-07-31] MEDS: FUROSEMIDE 40 MG TAB PO SCH (09:57)
[2020-07-31] MEDS: hydrALAZINE HCL 25 MG TAB PO SCH (09:57)
[2020-07-31] MEDS: ASPIRIN 81 MG PO SCH (09:57)
[2020-07-31] MEDS: amLODIPine 10 MG TAB PO SCH (09:57)
[2020-07-31 11:53] LABS: Glucose,Whole Blood 197 mg/dL (75-99)
--- NOTE | 2020-07-31 12:54 | P.PN ---
Subjective This is a 74-year-old female with history of coronary artery disease status post CABG 2016, chronic systolic heart failure, type 2 diabetes, hypertension, hyperlipidemia, peripheral vascular disease status post left internal carotid artery stenting with complications from stenting resulting stroke and partial vision loss, prior tobacco use. Patient follows with Dr. Amaro. We are being consulted for congestive heart failure and elevated troponin. Echocardiogram 07/26/20- in the office, EF 40-45%, moderate aortic stenosis, peak gradient 29mmHg/mean gradient 19mmHg, severe tricuspid regurgitation, mild to moderate tricuspid regurgitation, moderately increased pulmonary hypertension with RVSP of 52mmHg Echocardiogram 02/2020- EF 35-40%, which was decreased from prior which was 45- 50%, moderate aortic stenosis, mild tricuspid regurgitation, pulmonary hypertension with RVSP of 49. Echocardiogram obtained at office 07/26/20- results not available at this time. Patient was also suppose to undergo Lexiscan stress test outpatient. 07/31/20: Patient seen and examined at bedside, no acute distress. Blood pressure 120/58 , heart rate 71 afebrile, maintaining oxygen saturation is 94% on 2 L nasal cannula currently being maintained on amlodipine 10 mg daily, aspirin 81 mg daily, atorvastatin 80 mg nightly, carvedilol 25 mg twice a day, furosemide 40 mg twice a day, hydralazine 25 mg 3 times a day. Patient with 2.9 L urine output past 24 hours. Laboratory data reviewed sodium 134, potassium 4.3, serum creatinine 4.26 BUN 106 (increased from yesterday) GENERAL: Well-appearing, well-nourished and in no acute distress. NECK: Supple without JVD or thyromegaly. LUNGS: Breath sounds clear to auscultation bilaterally. Respiration equal and unlabored. No wheezes, rales or rhonchi. HEART: Regular rate and rhythm systolic murmur heard at left sternal border, systolic murmur heard right sternal border. No rubs or gallops. S1 and S2 heard. EXTREMITIES: Normal range of motion, no edema. No clubbing or cyanosis. Peripheral pulses intact. ASSESSMENT Chronic Systolic heart failure - EF 35-40% Elevated troponin, not indicative of acute coronary syndrome. Moderate aortic stenosis, severe tricuspid regurgitation Type 2 Diabetes Coronary artery disease s/p CAGB Moderate aortic stenosis Coronary artery stenosis Acute on Chronic Kidney Disease- Anemia Hypertension Dyslipidemia Obesity BMI 42. PLAN -Echocardiogram 07/26 as above -Would recommend discontinuing metolazone will discuss with nephrology -Continue aspirin 81 mg daily, atorvastatin 80 mg nightly, carvedilol 25 mg twice a day -From cardiology perspective, no further workup or changes at this time. Patient is stable for discharge from our perspective -Patient is undergoing workup for renal replacement therapy and she is scheduled to see vascular surgery for placement of AV fistula as an outpatient. Nurse Practitioner note has been reviewed, I agree with a documented findings and plan of care. Patient was seen and examined. Objective - Vital Signs Vital signs: Vital Signs Temp 98 F 07/31/20 03:57 Pulse 74 07/31/20 03:57 Resp 18 07/31/20 03:57 BP 139/63 07/31/20 03:57 Pulse Ox 92 L 07/31/20 03:57 Intake & Output 07/30/20 07/31/20 07/31/20 18:59 06:59 18:59 Intake Total 820 240 240 Output Total 2000 900 Balance -1180 -660 240 Weight 118.8 kg Intake: Intake, IV Titration 100 240 Amount Sodium Ferric Gluconat- 100 240 Sucrose 125 mg In Sodium Chloride 0.9% 100 ml @ 100 mls/hr IVPB DAILY [facility] Rx#:[id number] Oral 720 240 Output: Urine 2000 900 Other: Voiding Method External Catheter External Catheter # Bowel Movements 1 - Labs CBC & Chem 7: 07/31/20 08:14 07/31/20 08:14 Labs: Abnormal Lab Results - Last 24 Hours (Table) 07/30/20 07/30/20 07/30/20 Range/Units 17:18 20:00 22:56 RBC (3.80-5.40) m/uL Hgb (11.4-16.0) gm/dL Hct (34.0-46.0) % Neutrophils # (1.3-7.7) k/uL Lymphocytes # (1.0-4.8) k/uL Sodium (137-145) mmol/L Chloride (98-107) mmol/L Carbon Dioxide (22-30) mmol/L BUN (7-17) mg/dL Creatinine (0.52-1.04) mg/dL Glucose (74-99) mg/dL POC Glucose (mg/dL) 152 H 179 H 148 H (75-99) mg/dL Magnesium (1.6-2.3) mg/dL 07/31/20 07/31/20 07/31/20 Range/Units 06:18 08:14 08:14 RBC 2.64 L (3.80-5.40) m/uL Hgb 7.8 L (11.4-16.0) gm/dL Hct 24.7 L (34.0-46.0) % Neutrophils # 8.2 H (1.3-7.7) k/uL Lymphocytes # 0.8 L (1.0-4.8) k/uL Sodium 134 L (137-145) mmol/L Chloride 92 L (98-107) mmol/L Carbon Dioxide 35 H (22-30) mmol/L BUN 106 H* (7-17) mg/dL Creatinine 4.26 H (0.52-1.04) mg/dL Glucose 178 H (74-99) mg/dL POC Glucose (mg/dL) 151 H (75-99) mg/dL Magnesium 2.6 H (1.6-2.3) mg/dL 07/31/20 Range/Units 11:45 RBC (3.80-5.40) m/uL Hgb (11.4-16.0) gm/dL Hct (34.0-46.0) % Neutrophils # (1.3-7.7) k/uL Lymphocytes # (1.0-4.8) k/uL Sodium (137-145) mmol/L Chloride (98-107) mmol/L Carbon Dioxide (22-30) mmol/L BUN (7-17) mg/dL Creatinine (0.52-1.04) mg/dL Glucose (74-99) mg/dL POC Glucose (mg/dL) 197 H (75-99) mg/dL Magnesium (1.6-2.3) mg/dL
[2020-07-31 14:22] VITALS: TEMP 97.7
--- NOTE | 2020-07-31 14:37 | PN ---
PROGRESS NOTE Ekaterina is seen for followup for chronic kidney disease and acute kidney injury and volume overload. She has been aggressively diuresed. Serum creatinine has jumped up today to 4.26. The patient was maintained on Zaroxolyn and IV Lasix 80 mg q.8 hours. She has been switched to p.o. Lasix today. Patient is feeling well. She wants to go home and has been cleared . No complaints of chest pains or shortness of breath. PHYSICAL EXAMINATION: On examination today, blood pressure was 128/58, heart rate 71 per minute. Patient is afebrile. Examination shows no significant edema lower extremities. Abdomen is soft, obese, nontender. EMT P exam is grossly intact. LABS: Labs show sodium 134, potassium 4.1, BUN 106, serum creatinine 4.26, CO2 is 35, hemoglobin 7.8 g/dL. ASSESSMENT: 1. Acute kidney injury related to recent diuresis. Creatinine at 4.2. Agree with holding off on Zaroxolyn and switching to p.o. diuretics. We can decrease the dose of her diuretics for the next couple of days post discharge and patient can start Zaroxolyn 3 times a week from next week. In the meantime, she will reduce her Lasix to 40 mg daily for the next couple of days and then resume 80 mg daily that she was taking at home about 3 days later. She will need to follow up as outpatient in about one week's time with Nephrology. 2. 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 3. Cardiomyopathy, ejection fraction 30% to 35%. PLAN: Agree with holding Zaroxolyn for now. We can decrease her home dose of Lasix upon discharge to 40 mg daily for 2 days and then resume the 80 mg daily and we can add Zaroxolyn 3 times a week starting next week with labs to be done in one week and follow up with Nephrology in one week's time. MMODL / IJN: [id number] /
[2020-07-31 14:52] VITALS: BP 137/62; PULSE 71; RESP 16
--- NOTE | 2020-07-31 15:18 | P.DS ---
Providers Date of admission: 07/28/20 07:23 Expected date of discharge: 07/31/20 Attending physician: Linda Caputo MD Consults: 07/28/20 05:13 Consult Physician Routine Consulting Provider: Evens Hinojosa Consult Reason/Comments: THERESA on CKD w/ CHF Do you want consulting provider notified?: Yes Consult Physician Urgent Consulting Provider: Pedro Bush Consult Reason/Comments: systolic CHF exac Do you want consulting provider notified?: Yes Primary care physician: Dwight Oleary [place] Hospital Course: Discharge Diagnosis: Acute on chronic systolic heart failure with a moderately impaired ejection fraction of 30-35% THERESA on Chronic kidney disease stage IV Elevated troponin, elevated at baseline likely secondary to CKD stage IV currently with acute exacerbation of chronic systolic heart failure and THERESA Normocytic anemia of chronic disease secondary to chronic kidney disease stage IV Insulin-dependent diabetes mellitus type 2 Hypertension Hyperlipidemia Hospital Course: Patient is a 74-year-old female with a past medical history of CAD status post CABG, chronic systolic heart failure, hypertension, hyperlipidemia, COPD home oxygen dependent on 2 L O2, previous CVA with visual deficits, insulin-dependent diabetes mellitus type 2, and CK D stage IV. She is currently being prepared for hemodialysis and recently underwent venous mapping for AV fistula placement in left arm and presented to the hospital on 07/28/20 for chief complaint of shortness of breath with exertion. She reported this initially began approximately 3 weeks ago and progressively worsened accompanied by orthopnea and increased lower extremity edema. Upon arrival to the hospital she was found to be in moderate fluid overload with a pro-BNP of 6500, elevated troponin 0.045, and to have an acute kidney injury on top of her stage IV CKD with a BUN of 97, creatinine 3.31, and GFR of 13. Chest x-ray was completed revealing diffuse airspace opacities representing pulmonary edema. EKG showed normal sinus rhythm at 64 bpm with no noted T wave or ST abnormality showing no signs of acute ischemia. Patient was admitted under our services for acute exacerbation of chronic systolic heart failure and acute kidney injury on chronic kidney disease accompanied by consultation to nephrology and cardiology. Patient was aggressively diuresed and a repeat chest x-ray on 07/30/20 reported resolution of previous fluid volume overload. Patient was seen and evaluated both by cardiology and nephrology and cleared for discharge home. Patient reported significant improvement of shortness of breath and really eager to return home. Patient medically cleared for discharge home and to follow up outpatient with nephrology as for further preparation for hemodialysis. Patient being discharged home on Lasix 40 mg twice a day and to begin Zaroxolyn 5 mg every other day beginning Wednesday08/05/20 as instructed by rn dermatology. Patient to follow-up with PCP in 1-2 days and rn dermatology next week for continued monitoring and repeat labs. Physical exam: 07/31/20: Patient seen and fully evaluated at the bedside this morning. Patient reports she continues to feel better and is very eager to go home. Patient denies having any chest pain, palpitations, headaches, lightheadedness, dizziness, or experiencing any numbness/tingling/weakness in her extremities. She has been receiving Lasix 80 mg 3 times daily and has had a urine output of 1950 mL over the past 24 hours. Renal function remains unchanged with creatinine 3.36. General: non toxic, no distress, appears at stated age Derm: warm, dry Head: atraumatic, normocephalic, symmetric Eyes: EOMI, no lid lag, anicteric sclera Mouth: no lip lesion, mucus membranes moist Cardiovascular: S1S2 normal with regular rate and rhythm. Murmur present. No gallop or rub noted. Bilateral posterior tibial pulses palpated. Lungs: Respirations even, regular, and unlabored on baseline 2 L O2 via nasal cannula. Lungs significantly diminished at bilateral bases. No wheezes, rales, or rhonchi noted. No accessory muscle usage. Abdominal: soft obese abdomen, nontender to palpation, no guarding, no appreciable organomegaly Ext: no gross muscle atrophy, 1+ pitting lower extremity edema , no contractures Neuro: CN II-XI grossly intact, no focal neuro deficits Psych: Alert, oriented, appropriate affect A total of 45 minutes of time were spent preparing this complex discharge summary. Patient Condition at Discharge: Stable Plan - Discharge Summary Discharge Rx Participant: Yes New Discharge Prescriptions: New Darbepoetin Paresh [Aranesp] 40 mcg SQ Q7D syringe Furosemide [Lasix] 40 mg PO BID@0900,1600 30 Days #60 tab metOLazone [Zaroxolyn] 5 mg PO Q48H 30 Days #15 tab Continue amLODIPine BESYLATE [Norvasc] 10 mg PO DAILY Carvedilol [Coreg] 25 mg PO BID Atorvastatin [Lipitor] 80 mg PO HS Allopurinol [Zyloprim] 200 mg PO DAILY Thiamine [Vitamin B-1] 100 mg PO BID Insulin Glargine,Hum.rec.anlog [Basaglar Kwikpen U-100] 30 unit SQ DAILY hydrALAZINE HCL [Apresoline] 25 mg PO TID #90 tab Aspirin 81 mg PO DAILY chew Glimepiride [Amaryl] 4 mg PO DAILY Torsemide [Demadex] 80 mg PO DAILY #120 tablet Ferrous Sulfate [Feosol] 325 mg PO BID #60 tab Ergocalciferol [Vitamin D2 (1250 Mcg = 25498 Iu)] 1,250 mcg PO Q30D Discharge Medication List Atorvastatin [Lipitor] 80 mg PO HS 07/04/14 [History] Carvedilol [Coreg] 25 mg PO BID 07/04/14 [History] amLODIPine BESYLATE [Norvasc] 10 mg PO DAILY 07/04/14 [History] Allopurinol [Zyloprim] 200 mg PO DAILY 03/13/20 [History] Insulin Glargine,Hum.rec.anlog [Basaglar Kwikpen U-100] 30 unit SQ DAILY 03/13/20 [History] Thiamine [Vitamin B-1] 100 mg PO BID 03/13/20 [History] Aspirin 81 mg PO DAILY chew 03/15/20 [Rx] hydrALAZINE HCL [Apresoline] 25 mg PO TID #90 tab 03/15/20 [Rx] Glimepiride [Amaryl] 4 mg PO DAILY 06/21/20 [History] Ferrous Sulfate [Feosol] 325 mg PO BID #60 tab 06/24/20 [Rx] Torsemide [Demadex] 80 mg PO DAILY #120 tablet 06/24/20 [Rx] Ergocalciferol [Vitamin D2 (1250 Mcg = 22897 Iu)] 1,250 mcg PO Q30D 07/28/20 [History] Darbepoetin Paresh [Aranesp] 40 mcg SQ Q7D syringe 07/31/20 [Rx] Furosemide [Lasix] 40 mg PO BID@0900,1600 30 Days #60 tab 07/31/20 [Rx] metOLazone [Zaroxolyn] 5 mg PO Q48H 30 Days #15 tab 07/31/20 [Rx] Follow up Appointment(s)/Referral(s): Malini Tyler MD [STAFF PHYSICIAN] - 08/28/20 10:40 am (Keep education appointment 08/07 at 1040. ) Dwight Abdullahi MD [Primary Care Provider] - 08/05/20 12:00 pm Patient Instructions/Handouts: Heart Failure (DC), Chronic Kidney Disease (DC)
[2020-08-01] MEDS ORDERED: DARBEPOETIN ALFA 40 MCG/0.4 ML SYRINGE SQ SCH (09:00)
== END 2020-07-31 15:34 | disposition home or self-care (01) | DRG 291 ==
LOC: EC 02:26 → 3SCARD 07:23
PROVIDERS: ADMIT Internal Medicine; ATTEND Internal Medicine
DX: I13.2 Hypertensive heart and chronic kidney disease with heart failure and with stage 5 chronic kidney disease, or end stage renal disease (principal); I50.23 Acute on chronic systolic (congestive) heart failure; Z68.41 Body mass index [BMI] 40.0-44.9, adult; I25.810 Atherosclerosis of coronary artery bypass graft(s) without angina pectoris; N17.9 Acute kidney failure, unspecified; N18.5 Chronic kidney disease, stage 5; I13.0 Hypertensive heart and chronic kidney disease with heart failure and stage 1 through stage 4 chronic kidney disease, or unspecified chronic kidney disease; E11.22 Type 2 diabetes mellitus with diabetic chronic kidney disease; Z79.4 Long term (current) use of insulin; I42.9 Cardiomyopathy, unspecified; I69.398 Other sequelae of cerebral infarction; J44.9 Chronic obstructive pulmonary disease, unspecified; E83.9 Disorder of mineral metabolism, unspecified; D63.1 Anemia in chronic kidney disease; D72.829 Elevated white blood cell count, unspecified; E66.9 Obesity, unspecified; E78.5 Hyperlipidemia, unspecified; E88.89 Other specified metabolic disorders; H54.7 Unspecified visual loss; I08.3 Combined rheumatic disorders of mitral, aortic and tricuspid valves; R79.89 Other specified abnormal findings of blood chemistry; Z20.822 Contact with and (suspected) exposure to COVID-19; I25.10 Atherosclerotic heart disease of native coronary artery without angina pectoris; I25.2 Old myocardial infarction; I27.20 Pulmonary hypertension, unspecified; Z79.82 Long term (current) use of aspirin; Z79.899 Other long term (current) drug therapy; Z87.891 Personal history of nicotine dependence; Z90.710 Acquired absence of both cervix and uterus; Z95.5 Presence of coronary angioplasty implant and graft; Z99.81 Dependence on supplemental oxygen; Z98.890 Other specified postprocedural states; Z88.0 Allergy status to penicillin; Z90.49 Acquired absence of other specified parts of digestive tract
CPT/HCPCS: 36415; 71045; 71046; 80048; 80053; 81001; 82570; 82607; 82728; 82747; 83036; 83540; 83550; 83605; 83735; 83880; 84100; 84133; 84300; 84484; 84540; 85025; 85027; 85610; 85730; 87636; 93005; 94760; 96372; 96374; 99285

== ENCOUNTER 2020-08-06 10:15 | Inpatient (IN) | payer MEDICARE, OTHER ==
--- NOTE | 2020-08-06 10:43 | ED ---
General Adult HPI - General Chief complaint: Recheck/Abnormal Lab/Rx Stated complaint: sent by PCP Time Seen by Provider: 08/06/20 10:26 Source: patient, RN notes reviewed Mode of arrival: ambulatory Limitations: no limitations - History of Present Illness Initial comments: Patient is a pleasant 74-year-old female presenting to the emergency department for abnormal lab results. Patient is unclear which it was. Patient states she received a call from her doctor and wanted her to come to the hospital. Patient complains of generalized weakness and fatigue. Patient was recently in the hospital for CHF. Patient denies any dyspnea. No chest pain. No fevers. Patient has had nausea and decreased appetite. No vomiting. Patient is on fluid restrictions and has been sticking with that. - Related Data Home Medications Medication Instructions Recorded Confirmed Atorvastatin [Lipitor] 80 mg PO HS 07/04/14 08/06/20 Carvedilol [Coreg] 25 mg PO BID 07/04/14 08/06/20 amLODIPine BESYLATE [Norvasc] 10 mg PO DAILY 07/04/14 08/06/20 Allopurinol [Zyloprim] 200 mg PO DAILY 03/13/20 08/06/20 Insulin Glargine,Hum.rec.anlog 30 unit SQ DAILY 03/13/20 08/06/20 [Basaglar Kwikpen U-100] Thiamine [Vitamin B-1] 100 mg PO BID 03/13/20 08/06/20 Ergocalciferol [Vitamin D2 (1250 1,250 mcg PO Q30D 07/28/20 08/06/20 Mcg = 99906 Iu)] Darbepoetin Paresh [Aranesp] 40 mcg SQ TH 08/06/20 08/06/20 Previous Rx's Medication Instructions Recorded Aspirin 81 mg PO DAILY chew 03/15/20 hydrALAZINE HCL [Apresoline] 25 mg PO TID #90 tab 03/15/20 Ferrous Sulfate [Feosol] 325 mg PO BID #60 tab 06/24/20 Torsemide [Demadex] 80 mg PO DAILY #120 tablet 06/24/20 Furosemide [Lasix] 40 mg PO BID@0900,1600 30 Days #60 07/31/20 tab metOLazone [Zaroxolyn] 5 mg PO Q48H 30 Days #15 tab 07/31/20 Allergies Allergy/AdvReac Type Severity Reaction Status Date / Time Penicillins Allergy Unknown Verified 08/06/20 10:22 Childhood Review of Systems ROS Statement: Those systems with pertinent positive or pertinent negative responses have been documented in the HPI. ROS Other: All systems not noted in ROS Statement are negative. Constitutional: Denies: fever Eyes: Denies: eye pain ENT: Denies: ear pain Respiratory: Denies: cough, dyspnea Cardiovascular: Denies: chest pain Endocrine: Reports: fatigue Gastrointestinal: Reports: nausea. Denies: abdominal pain, vomiting Genitourinary: Denies: urgency Musculoskeletal: Denies: back pain Skin: Denies: rash Neurological: Denies: headache, confusion Past Medical History Past Medical History: Coronary Artery Disease (CAD), Heart Failure, CVA/TIA, Diabetes Mellitus, Hyperlipidemia, Hypertension, Myocardial Infarction ([place]), Renal Disease Additional Past Medical History / Comment(s): HX TIA POST CAROTID SX, STATES LOST VISION NEETA EYES ON LEFT SIDE;cyst under L armpit removed. type 2 diabetes Last Myocardial Infarction Date:: 2006 History of Any Multi-Drug Resistant Organisms: None Reported Past Surgical History: Cholecystectomy, Coronary Bypass/CABG, Heart Catheterization, Hysterectomy Additional Past Surgical History / Comment(s): CABG X4, STENT IN RIGHT CAROTID ARTERY. 07/12 Incision and drainagel of abscess under left arm, 5 knee sx, breast biposies-precancerous per pt. Past Anesthesia/Blood Transfusion Reactions: No Reported Reaction Date of Last Stent Placement:: UN Past Psychological History: No Psychological Hx Reported Smoking Status: Former smoker Past Alcohol Use History: None Reported Past Drug Use History: None Reported - Past Family History Sister(s) Family Medical History: Cancer, Deep Vein Thrombosis (DVT) Additional Family Medical History / Comment(s): CERVICAL Father Family Medical History: Cancer General Exam Limitations: no limitations General appearance: alert, in no apparent distress Head exam: Present: normocephalic Eye exam: Present: normal appearance Neck exam: Present: normal inspection Respiratory exam: Present: normal lung sounds bilaterally Cardiovascular Exam: Present: regular rate, normal rhythm GI/Abdominal exam: Present: soft. Absent: distended, tenderness Extremities exam: Present: pedal edema (Trace bilateral. Patient does have stockings on). Absent: calf tenderness Neurological exam: Present: alert Psychiatric exam: Present: normal affect, normal mood Skin exam: Present: normal color Course Vital Signs 08/06/20 08/06/20 08/06/20 10:19 11:30 12:29 Temperature 97.2 F L Pulse Rate 66 64 75 Respiratory 20 20 21 Rate Blood Pressure 136/55 138/76 139/69 O2 Sat by Pulse 97 98 96 Oximetry EKG Findings - EKG Comments: EKG Findings:: Sinus rhythm with a rate of 64. PVC present. [place] 162. QRS 108. QT 4:30. QTC 443. Normal axis. Septal Q waves. No acute ST change. Medical Decision Making - Medical Decision Making Labs received from primary care physician's office concern for renal failure. Patient reevaluated and updated. Case was discussed with Dr. Donis, covering for Dr. Abdullahi, who will admit. - Lab Data Result diagrams: 08/06/20 11:00 08/06/20 11:00 Lab Results 08/06/20 08/06/20 08/06/20 Range/Units 11:00 11:00 11:00 WBC 11.8 H (3.8-10.6) k/uL RBC 2.54 L (3.80-5.40) m/uL Hgb 7.8 L (11.4-16.0) gm/dL Hct 23.3 L (34.0-46.0) % MCV 91.9 (80.0-100.0) fL MCH 30.8 (25.0-35.0) pg MCHC 33.5 (31.0-37.0) g/dL RDW 15.5 (11.5-15.5) % Plt Count 359 (150-450) k/uL MPV 7.4 Neutrophils % 85 % Lymphocytes % 6 % Monocytes % 6 % Eosinophils % 1 % Basophils % 1 % Neutrophils # 10.0 H (1.3-7.7) k/uL Lymphocytes # 0.7 L (1.0-4.8) k/uL Monocytes # 0.7 (0-1.0) k/uL Eosinophils # 0.2 (0-0.7) k/uL Basophils # 0.1 (0-0.2) k/uL PT 9.8 (9.0-12.0) sec INR 0.9 (<1.2) APTT 21.3 L (22.0-30.0) sec Sodium (137-145) mmol/L Potassium (3.5-5.1) mmol/L Chloride (98-107) mmol/L Carbon Dioxide (22-30) mmol/L Anion Gap mmol/L BUN (7-17) mg/dL Creatinine (0.52-1.04) mg/dL Est GFR (CKD-EPI)AfAm (>60 ml/min/1.73 sqM) Est GFR (CKD-EPI)NonAf (>60 ml/min/1.73 sqM) Glucose (74-99) mg/dL Plasma Lactic Acid Corwin (0.7-2.0) mmol/L Calcium (8.4-10.2) mg/dL Phosphorus (2.5-4.5) mg/dL Magnesium (1.6-2.3) mg/dL Total Bilirubin (0.2-1.3) mg/dL AST (14-36) U/L ALT (4-34) U/L Alkaline Phosphatase (38-126) U/L Creatine Kinase (30-135) U/L NT-Pro-B Natriuret Pep pg/mL Total Protein (6.3-8.2) g/dL Albumin (3.5-5.0) g/dL Urine Color Light Yellow Urine Appearance Clear (Clear) Urine pH 5.5 (5.0-8.0) Ur Specific Orrick 1.012 (1.001-1.035) Urine Protein 1+ H (Negative) Urine Glucose (UA) Negative (Negative) Urine Ketones Negative (Negative) Urine Blood Negative (Negative) Urine Nitrite Negative (Negative) Urine Bilirubin Negative (Negative) Urine Urobilinogen <2.0 (<2.0) mg/dL Ur Leukocyte Esterase Small H (Negative) Urine WBC 3 (0-5) /hpf Ur Squamous Epith Cells 1 (0-4) /hpf 08/06/20 08/06/20 08/06/20 Range/Units 11:00 11:00 11:00 WBC (3.8-10.6) k/uL RBC (3.80-5.40) m/uL Hgb (11.4-16.0) gm/dL Hct (34.0-46.0) % MCV (80.0-100.0) fL MCH (25.0-35.0) pg MCHC (31.0-37.0) g/dL RDW (11.5-15.5) % Plt Count (150-450) k/uL MPV Neutrophils % % Lymphocytes % % Monocytes % % Eosinophils % % Basophils % % Neutrophils # (1.3-7.7) k/uL Lymphocytes # (1.0-4.8) k/uL Monocytes # (0-1.0) k/uL Eosinophils # (0-0.7) k/uL Basophils # (0-0.2) k/uL PT (9.0-12.0) sec INR (<1.2) APTT (22.0-30.0) sec Sodium 135 L (137-145) mmol/L Potassium 4.7 (3.5-5.1) mmol/L Chloride 94 L (98-107) mmol/L Carbon Dioxide 29 (22-30) mmol/L Anion Gap 12 mmol/L BUN 126 H* (7-17) mg/dL Creatinine 6.23 H (0.52-1.04) mg/dL Est GFR (CKD-EPI)AfAm 7 (>60 ml/min/1.73 sqM) Est GFR (CKD-EPI)NonAf 6 (>60 ml/min/1.73 sqM) Glucose 116 H (74-99) mg/dL Plasma Lactic Acid Corwin 0.6 L (0.7-2.0) mmol/L Calcium 10.4 H (8.4-10.2) mg/dL Phosphorus 7.7 H (2.5-4.5) mg/dL Magnesium 2.9 H (1.6-2.3) mg/dL Total Bilirubin 0.4 (0.2-1.3) mg/dL AST 31 (14-36) U/L ALT 20 (4-34) U/L Alkaline Phosphatase 72 (38-126) U/L Creatine Kinase 31 (30-135) U/L NT-Pro-B Natriuret Pep 9540 pg/mL Total Protein 6.3 (6.3-8.2) g/dL Albumin 3.6 (3.5-5.0) g/dL Urine Color Urine Appearance (Clear) Urine pH (5.0-8.0) Ur Specific Orrick (1.001-1.035) Urine Protein (Negative) Urine Glucose (UA) (Negative) Urine Ketones (Negative) Urine Blood (Negative) Urine Nitrite (Negative) Urine Bilirubin (Negative) Urine Urobilinogen (<2.0) mg/dL Ur Leukocyte Esterase (Negative) Urine WBC (0-5) /hpf Ur Squamous Epith Cells (0-4) /hpf Disposition Clinical Impression: ARF (acute renal failure) Disposition: ADMITTED IP TO THIS HOSP Is patient prescribed a controlled substance at d/c from ED?: No Referrals: Dwight Abdullahi MD [Primary Care Provider] - 1-2 days Decision Time: 13:11
[2020-08-06 11:45] LABS: Basophils # (A) 0.1 k/uL (0-0.2); Basophils % (A) 1 %; Eosinophils # (A) 0.2 k/uL (0-0.7); Eosinophils % (A) 1 %; HCT 23.3 % (34.0-46.0); HGB 7.8 gm/dL (11.4-16.0); Lymphocytes # (A) 0.7 k/uL (1.0-4.8); Lymphocytes % (A) 6 %; MCH 30.8 pg (25.0-35.0); MCHC 33.5 g/dL (31.0-37.0); MCV 91.9 fL (80.0-100.0); Mean Platelet Volume 7.4; Monocytes # (A) 0.7 k/uL (0-1.0); Monocytes % (A) 6 %; Neutrophils % (A) 85 %; Platelet Count 359 k/uL (150-450); RBC 2.54 m/uL (3.80-5.40); RDW 15.5 % (11.5-15.5); WBC 11.8 k/uL (3.8-10.6)
[2020-08-06 12:03] LABS: Albumin 3.6 g/dL (3.5-5.0); Calcium 10.4 mg/dL (8.4-10.2); Magnesium 2.9 mg/dL (1.6-2.3); Phosphorus 7.7 mg/dL (2.5-4.5); Potassium 4.7 mmol/L (3.5-5.1); Total Bilirubin 0.4 mg/dL (0.2-1.3); Total Protein 6.3 g/dL (6.3-8.2)
[2020-08-06 12:05] LABS: INR 0.9 (<1.2); Prothrombin Time 9.8 sec (9.0-12.0)
--- NOTE | 2020-08-06 12:16 | XR ---
EXAMINATION TYPE: XR chest 2V DATE OF EXAM: 08/06/2020 COMPARISON: 07/30/2020 TECHNIQUE: PA and lateral views submitted. HISTORY: Weakness FINDINGS: Heart is enlarged and there is diffuse interstitial pattern. Postoperative change and cardiomegaly. A therosclerotic change aorta. No pneumothorax. Hypertrophic degenerative changes spine. Tiny bilateral pleural effusions. IMPRESSION: 1. Correlate for CHF otherwise consider interstitial pneumonia.
[2020-08-06 12:26] LABS: Partial Thromboplastin Time 21.3 sec (22.0-30.0)
[2020-08-06 13:02] LABS: Appearance,Urine Clear (Clear); Bilirubin,Urine Negative (Negative); Blood,Urine Negative (Negative); Color,Urine Light Yellow; Glucose,Urine (UA) Negative (Negative); Ketones,Urine Negative (Negative); Leukocyte Esterase,Urine Small (Negative); Nitrite,Urine Negative (Negative); PH, Urine 5.5 (5.0-8.0); Protein,Urine 1+ (Negative); Specific Gravity,Urine 1.012 (1.001-1.035); Squamous Epithelial Cell,Urine 1 /hpf (0-4); Urobilinogen,Urine <2.0 mg/dL (<2.0); WBC,Urine 3 /hpf (0-5)
[2020-08-06] MEDS ORDERED: NALOXONE 0.4 MG/ML 1 ML VIAL IV PRN ×2 (13:11→16:53)
[2020-08-06] MEDS ORDERED: ONDANSETRON 4 MG/2 ML VIAL IVP PRN (16:53)
[2020-08-06] MEDS ORDERED: metOLazone 5 MG TAB PO SCH (17:00)
[2020-08-06] MEDS ORDERED: ERGOCALCIFEROL 1,250 MCG (50,000 IU) CAPSULE PO SCH (17:00)
--- NOTE | 2020-08-06 17:02 | P.HPIM ---
History of Present Illness H&P Date: 08/06/20 Chief Complaint: weakness 74-year-old female presenting to the emergency department for abnormal lab results involving her kidneys. She is currently being worked up for a fistula placement, she already had a stress test and an echocardiogram but she is not aware of the results. Over the past few weeks she has been having worsening generalized weakness and nausea. No vomiting. No diarrhea. She denied having chest pain, shortness of breath, fevers or chills. Patient states that she continues to make urine. She denies urinary symptoms. In the emergency department her creatinine was over 6, BUN 120, sodium 135. Rest of labs okay. Chest x-ray showed CHF. Review of Systems Complete review of system performed, pertinent positives per HPI, otherwise negative Past Medical History Past Medical History: Coronary Artery Disease (CAD), Heart Failure, CVA/TIA, Diabetes Mellitus, Hyperlipidemia, Hypertension, Myocardial Infarction ([place]), Renal Disease Additional Past Medical History / Comment(s): HX TIA POST CAROTID SX, STATES LOST VISION NEETA EYES ON LEFT SIDE;cyst under L armpit removed. type 2 diabetes Last Myocardial Infarction Date:: 2006 History of Any Multi-Drug Resistant Organisms: None Reported Past Surgical History: Cholecystectomy, Coronary Bypass/CABG, Heart Catheterization, Hysterectomy Additional Past Surgical History / Comment(s): CABG X4, STENT IN RIGHT CAROTID ARTERY. 07/12 Incision and drainagel of abscess under left arm, 5 knee sx, breast biposies-precancerous per pt. Past Anesthesia/Blood Transfusion Reactions: No Reported Reaction Date of Last Stent Placement:: UN Past Psychological History: No Psychological Hx Reported Smoking Status: Former smoker Past Alcohol Use History: None Reported Past Drug Use History: None Reported - Past Family History Sister(s) Family Medical History: Cancer, Deep Vein Thrombosis (DVT) Additional Family Medical History / Comment(s): CERVICAL Father Family Medical History: Cancer Medications and Allergies Home Medications Medication Instructions Recorded Confirmed Type Atorvastatin [Lipitor] 80 mg PO HS 07/04/14 08/06/20 History Carvedilol [Coreg] 25 mg PO BID 07/04/14 08/06/20 History amLODIPine BESYLATE [Norvasc] 10 mg PO DAILY 07/04/14 08/06/20 History Allopurinol [Zyloprim] 200 mg PO DAILY 03/13/20 08/06/20 History Insulin Glargine,Hum.rec.anlog 30 unit SQ DAILY 03/13/20 08/06/20 History [Yarelisagldionicio Yeagerpen U-100] Thiamine [Vitamin B-1] 100 mg PO BID 03/13/20 08/06/20 History Aspirin 81 mg PO DAILY chew 03/15/20 08/06/20 Rx hydrALAZINE HCL [Apresoline] 25 mg PO TID #90 tab 03/15/20 08/06/20 Rx Ferrous Sulfate [Feosol] 325 mg PO BID #60 tab 06/24/20 08/06/20 Rx Torsemide [Demadex] 80 mg PO DAILY #120 tablet 06/24/20 08/06/20 Rx Ergocalciferol [Vitamin D2 (1250 1,250 mcg PO Q30D 07/28/20 08/06/20 History Mcg = 57179 Iu)] Furosemide [Lasix] 40 mg PO BID@0900,1600 30 Days #60 07/31/20 08/06/20 Rx tab metOLazone [Zaroxolyn] 5 mg PO Q48H 30 Days #15 tab 07/31/20 08/06/20 Rx Darbepoetin Paresh [Aranesp] 40 mcg SQ TH 08/06/20 08/06/20 History Allergies Allergy/AdvReac Type Severity Reaction Status Date / Time Penicillins Allergy Unknown Verified 08/06/20 10:22 Childhood Physical Exam Vitals: Vital Signs Temp Pulse Resp BP Pulse Ox 08/06/20 14:00 71 20 141/65 96 08/06/20 12:29 75 21 139/69 96 08/06/20 11:30 64 20 138/76 98 08/06/20 10:19 97.2 F L 66 20 136/55 97 Intake and Output 08/06/20 08/06/20 08/06/20 06:59 14:59 22:59 Other: Weight 117.027 kg Constitutional: No acute distress, conversant, pleasant Eyes:Anicteric sclerae, moist conjunctiva, no lid-lag, PERRLA, ENMT: Oropharynx clear, no erythema, exudates Neck: Supple, FROM, no masses, or JVD, No carotid bruits, No thyromegaly Lungs: Clear to auscultation, Clear to percussion, Normal respiratory effort, no accessory muscle use Cardiovascular: Heart regular in rate and rhythm, No murmurs, gallops, or rubs, 2+ peripheral edema Abdominal: Soft, Nontender, no guarding, rebound or rigidity, Normoactive bowel sounds, No hepatomegaly, No splenomegaly, No palpable mass Skin: Normal temperature, tone, texture, turgor, no induration, No subcutaneous nodules, No rash, lesions, No ulcers Extremities: No digital cyanosis, No clubbing, Pedal pulses intact and symmetrical, Radial pulses intact and symmetrical, No calf tenderness Psychiatric: Alert and oriented to person, place and time, appropriate affect, intact judgement Neuro: Muscles Strength 5/5 in all 4 extremities, Sensation to light touch grossly present throughout, Cranial nerves II-XII grossly intact, no focal sensory deficits Results CBC & Chem 7: 08/06/20 11:00 08/06/20 11:00 Labs: Abnormal Lab Results - Last 24 Hours (Table) 08/06/20 08/06/20 08/06/20 Range/Units 11:00 11:00 11:00 WBC 11.8 H (3.8-10.6) k/uL RBC 2.54 L (3.80-5.40) m/uL Hgb 7.8 L (11.4-16.0) gm/dL Hct 23.3 L (34.0-46.0) % Neutrophils # 10.0 H (1.3-7.7) k/uL Lymphocytes # 0.7 L (1.0-4.8) k/uL APTT 21.3 L (22.0-30.0) sec Sodium (137-145) mmol/L Chloride (98-107) mmol/L BUN (7-17) mg/dL Creatinine (0.52-1.04) mg/dL Glucose (74-99) mg/dL Plasma Lactic Acid Corwin (0.7-2.0) mmol/L Calcium (8.4-10.2) mg/dL Phosphorus (2.5-4.5) mg/dL Magnesium (1.6-2.3) mg/dL Urine Protein 1+ H (Negative) Ur Leukocyte Esterase Small H (Negative) 08/06/20 08/06/20 Range/Units 11:00 11:00 WBC (3.8-10.6) k/uL RBC (3.80-5.40) m/uL Hgb (11.4-16.0) gm/dL Hct (34.0-46.0) % Neutrophils # (1.3-7.7) k/uL Lymphocytes # (1.0-4.8) k/uL APTT (22.0-30.0) sec Sodium 135 L (137-145) mmol/L Chloride 94 L (98-107) mmol/L BUN 126 H* (7-17) mg/dL Creatinine 6.23 H (0.52-1.04) mg/dL Glucose 116 H (74-99) mg/dL Plasma Lactic Acid Corwin 0.6 L (0.7-2.0) mmol/L Calcium 10.4 H (8.4-10.2) mg/dL Phosphorus 7.7 H (2.5-4.5) mg/dL Magnesium 2.9 H (1.6-2.3) mg/dL Urine Protein (Negative) Ur Leukocyte Esterase (Negative) Assessment and Plan Plan: Acute on chronic kidney disease stage V Patient will be admitted Consult nephrology, consult vascular surgery for access placement Monitor electrolytes and creatinine Continue home Lasix Essential hypertension Gout Coronary Artery Disease (CAD) Diabetes Mellitus 2, Hyperlipidemia All stable Resume meds Admitted to inpatient, expected length of stay more than 2 midnights
[2020-08-06] MEDS: SODIUM CHLORIDE 0.9% 1,000 ML IV SCH (20:11)
[2020-08-06] MEDS: ATORVASTATIN 80 MG TAB PO SCH (21:42)
[2020-08-06] MEDS: THIAMINE 100 MG TAB PO SCH (21:42)
[2020-08-06] MEDS: hydrALAZINE HCL 25 MG TAB PO SCH (21:42)
[2020-08-06] MEDS: FERROUS SULFATE 325 MG TAB PO SCH (21:42)
[2020-08-06] MEDS: ACETAMINOPHEN TAB 325 MG TAB PO PRN (21:43)
[2020-08-06] MEDS: carvediloL 12.5 MG TAB PO SCH (21:43)
[2020-08-07 05:48] LABS: Basophils % (A) 0 %; Eosinophils # (A) 0.1 k/uL (0-0.7); Eosinophils % (A) 1 %; HCT 22.6 % (34.0-46.0); HGB 7.4 gm/dL (11.4-16.0); Lymphocytes # (A) 0.7 k/uL (1.0-4.8); Lymphocytes % (A) 6 %; MCH 30.8 pg (25.0-35.0); MCHC 32.8 g/dL (31.0-37.0); MCV 93.8 fL (80.0-100.0); Mean Platelet Volume 7.6; Monocytes # (A) 0.8 k/uL (0-1.0); Monocytes % (A) 7 %; Neutrophils # (A) 9.6 k/uL (1.3-7.7); Neutrophils % (A) 84 %; Platelet Count 340 k/uL (150-450); RDW 15.4 % (11.5-15.5); WBC 11.4 k/uL (3.8-10.6)
[2020-08-07] MEDS: ACETAMINOPHEN TAB 325 MG TAB PO PRN ×3 (06:04→21:14)
[2020-08-07 07:35] LABS: African American GFR (CKD) 7 (>60 ml/min/1.73 sqM); Anion Gap 10 mmol/L; Calcium 9.9 mg/dL (8.4-10.2); Carbon Dioxide 30 mmol/L (22-30); Chloride 96 mmol/L (98-107); Glucose 120 mg/dL (74-99); Magnesium 2.9 mg/dL (1.6-2.3); Non-African American GFR(CKD) 6 (>60 ml/min/1.73 sqM); Phosphorus 7.6 mg/dL (2.5-4.5); Potassium 4.5 mmol/L (3.5-5.1); Sodium 136 mmol/L (137-145)
[2020-08-07 07:45] LABS: Blood Urea Nitrogen 125 mg/dL (7-17)
[2020-08-07] MEDS ORDERED: FUROSEMIDE 40 MG TAB PO SCH (09:00)
[2020-08-07] MEDS ORDERED: INSULIN DETEMIR (LEVEMIR) 100 UNIT/ML SYR SQ SCH (09:00)
[2020-08-07] MEDS: amLODIPine 10 MG TAB PO SCH (09:43)
[2020-08-07] MEDS: THIAMINE 100 MG TAB PO SCH ×2 (09:43→21:15)
[2020-08-07] MEDS: carvediloL 12.5 MG TAB PO SCH ×2 (09:43→21:14)
[2020-08-07] MEDS: FERROUS SULFATE 325 MG TAB PO SCH ×2 (09:43→21:15)
[2020-08-07] MEDS: hydrALAZINE HCL 25 MG TAB PO SCH ×3 (09:46→21:14)
[2020-08-07] MEDS: ASPIRIN 81 MG PO SCH (10:31)
--- NOTE | 2020-08-07 11:05 | P.NPCON ---
History of Present Illness - Reason for Consult acute renal failure, chronic renal failure - History of Present Illness Reason for consultation: Acute kidney injury on chronic kidney disease History of present illness: Patient is a 74-year-old female seen in renal consultation for acute kidney injury on chronic kidney disease. Patient has chronic kidney disease stage IV with baseline creatinine in the range of 2.2-2.4 secondary to diabetic kidney disease and cardiorenal syndrome. Patient was recently discharged from the hospital and at that time was admitted for CHF exacerbation. Patient states s he's been taking Lasix 40 mg orally twice daily. She had blood work in yesterday and was noted to be in acute renal failure. She was subsequently advised to go to the hospital. Creatinine today is 6.39. Oral intake has been poor. Feels weak and tired. Denies chest pain or shortness of breath. Currently on 2 L nasal cannula which she wears at home as well. Has been voiding. No hematuria or dysuria. No diarrhea. No fever or chills. Hemodynamically stable. Vital signs are stable. General: The patient appeared well nourished and normally developed. HEENT: Head exam is unremarkable. Neck is without jugular venous distension. LUNGS: Breath sounds decreased. HEART: Rate and Rhythm are regular. ABDOMEN: Soft, obese. EXTREMITITES: Trace edema. Past Medical History Past Medical History: Coronary Artery Disease (CAD), Heart Failure, COPD, CVA/T IA, Diabetes Mellitus, Hyperlipidemia, Hypertension, Myocardial Infarction ([place]), Pneumonia, Renal Disease Additional Past Medical History / Comment(s): Pt recently admitted to [facility] on 07/31/20 for acute on chronic CHF with EF 30-35%. Other hx: IDDM type II, neuropathy bilateral legs/feet, CKD stage IV-pt being worked up for fistula placement/hemodialysis, normocytic anemia, during caratid stent procedure pt lost some vision in bilateral eyes, home oxygen 2L/NC ATC, gout bilateral great toes. Last Myocardial Infarction Date:: 2006 History of Any Multi-Drug Resistant Organisms: None Reported Past Surgical History: Breast Surgery, Cholecystectomy, Coronary Bypass/CABG, Heart Catheterization, Hysterectomy, Orthopedic Surgery Additional Past Surgical History / Comment(s): R caratid stenting, 2006 CABG 4 vessels, bilateral knee surgeries-R knee was reconstructed/has hardware, L axillae cyst I&D, R index finger wound I&D, R breast biopsy x 2. Past Anesthesia/Blood Transfusion Reactions: No Reported Reaction Date of Last Stent Placement:: UN Smoking Status: Former smoker - Past Family History Mother Family Medical History: No Reported History Sister(s) Family Medical History: Cancer, Deep Vein Thrombosis (DVT) Additional Family Medical History / Comment(s): CERVICAL Father Family Medical History: Coronary Artery Disease (CAD), Diabetes Mellitus Medications and Allergies Home Medications Medication Instructions Recorded Confirmed Type Atorvastatin [Lipitor] 80 mg PO HS 07/04/14 08/06/20 History Carvedilol [Coreg] 25 mg PO BID 07/04/14 08/06/20 History amLODIPine BESYLATE [Norvasc] 10 mg PO DAILY 07/04/14 08/06/20 History Allopurinol [Zyloprim] 200 mg PO DAILY 03/13/20 08/06/20 History Insulin Glargine,Hum.rec.anlog 30 unit SQ DAILY 03/13/20 08/06/20 History [Basaglar Toypen U-100] Thiamine [Vitamin B-1] 100 mg PO BID 03/13/20 08/06/20 History Aspirin 81 mg PO DAILY chew 03/15/20 08/06/20 Rx hydrALAZINE HCL [Apresoline] 25 mg PO TID #90 tab 03/15/20 08/06/20 Rx Ferrous Sulfate [Feosol] 325 mg PO BID #60 tab 06/24/20 08/06/20 Rx Torsemide [Demadex] 80 mg PO DAILY #120 tablet 06/24/20 08/06/20 Rx Ergocalciferol [Vitamin D2 (1250 1,250 mcg PO Q30D 07/28/20 08/06/20 History Mcg = 68333 Iu)] Furosemide [Lasix] 40 mg PO BID@0900,1600 30 Days #60 07/31/20 08/06/20 Rx tab metOLazone [Zaroxolyn] 5 mg PO Q48H 30 Days #15 tab 07/31/20 08/06/20 Rx Darbepoetin Paresh [Aranesp] 40 mcg SQ TH 08/06/20 08/06/20 History Allergies Allergy/AdvReac Type Severity Reaction Status Date / Time Penicillins Allergy Unknown Verified 08/06/20 10:22 Childhood Physical Exam Vitals: Vital Signs Temp Pulse Pulse Resp BP BP Pulse Ox 08/07/20 07:45 97.7 F 73 16 125/57 97 08/07/20 06:05 97.8 F 73 17 141/50 97 08/07/20 01:50 72 19 131/51 98 08/06/20 22:00 73 16 136/59 97 08/06/20 19:30 75 18 144/58 99 08/06/20 17:00 81 20 132/65 96 08/06/20 14:00 71 20 141/65 96 08/06/20 12:29 75 21 139/69 96 08/06/20 11:30 64 20 138/76 98 Intake and Output 08/06/20 08/07/20 08/07/20 22:59 06:59 14:59 Intake Total 236 Balance 236 Intake: Oral 236 Other: # Voids 2 Weight 117.027 kg Results - Lab Results Most recent lab results Calcium 9.9 mg/dL (8.4-10.2) 08/07/20 04:40 Phosphorus 7.6 mg/dL (2.5-4.5) H 08/07/20 04:40 Magnesium 2.9 mg/dL (1.6-2.3) H 08/07/20 04:40 08/07/20 04:40 08/07/20 04:40 Assessment and Plan Plan: Assessment: 1. Acute kidney injury secondary to ATN secondary to cardiorenal syndrome. Also concern for progression of underlying renal disease. Creatinine 6.39 today. 2. Chronic kidney disease stage IV with baseline creatinine 2.2-2.4 secondary to diabetic kidney disease and cardiorenal syndrome. Patient's creatinine during last admission was as high as 4.2. 3. Acute on chronic systolic CHF with ejection fraction of 35-40% with moderate tricuspid regurgitation and aortic stenosis. 4. Pulmonary hypertension. 5. Weakness, poor appetite concerning for uremia. 6. Anemia of chronic kidney disease. Rule out iron deficiency. No active bleeding. 7. Hypercalcemia secondary to vitamin D supplementation as well as thiazide diuretic. Better today. 8. Hypertension with chronic kidney disease. Controlled. 9. Fluid overload. Plan: I will change Lasix to 40 mg IV twice daily. Stop metolazone. Stop vitamin D. Check iron studies. Add Aranesp. Check phosphorus level. Due to worsening renal function and symptoms of uremia, initiate renal placement therapy. Consult vascular surgery for dialysis catheter placement. Plan for first treatment of hemodialysis today and second treatment water. cash applications manager to set up outpatient hemodialysis. Patient is agreeable with the above plan. Thank you for the consultation. I will continue to follow the patient with you during her hospital stay.
[2020-08-07 11:55] LABS: Glucose,Whole Blood 202 mg/dL (75-99)
--- NOTE | 2020-08-07 15:02 | P.PN ---
Subjective Progress Note Date: 08/07/20 Principal diagnosis: Abnormal labs Patient doing well, still feeling generally weak. No pain or shortness of breath. No fevers or chills. Objective - Vital Signs Vital signs: Vital Signs Temp 97.6 F 08/07/20 12:28 Pulse 68 08/07/20 12:28 Resp 16 08/07/20 12:28 BP 126/60 08/07/20 12:28 Pulse Ox 95 08/07/20 12:28 Intake & Output 08/06/20 08/07/20 08/07/20 18:59 06:59 18:59 Intake Total 236 Balance 236 Weight 117.027 kg 117.027 kg Intake: Oral 236 Other: # Voids 2 - Exam Constitutional: No acute distress, conversant, pleasant Eyes:Anicteric sclerae, moist conjunctiva, no lid-lag, PERRLA, ENMT: Oropharynx clear, no erythema, exudates Neck: Supple, FROM, no masses, or JVD, No carotid bruits, No thyromegaly Lungs: Clear to auscultation, Clear to percussion, Normal respiratory effort, no accessory muscle use Cardiovascular: Heart regular in rate and rhythm, No murmurs, gallops, or rubs, No peripheral edema Abdominal: Soft, Nontender, no guarding, rebound or rigidity, Normoactive bowel sounds, No hepatomegaly, No splenomegaly, No palpable mass Skin: Normal temperature, tone, texture, turgor, no induration, No subcutaneous nodules, No rash, lesions, No ulcers Extremities: No digital cyanosis, No clubbing, Pedal pulses intact and symmetrical, Radial pulses intact and symmetrical, No calf tenderness Psychiatric: Alert and oriented to person, place and time, appropriate affect, intact judgement Neuro: Muscles Strength 5/5 in all 4 extremities, Sensation to light touch grossly present throughout, Cranial nerves II-XII grossly intact, no focal sensory deficits - Labs CBC & Chem 7: 08/07/20 04:40 08/07/20 04:40 Labs: Abnormal Lab Results - Last 24 Hours (Table) 08/07/20 08/07/20 08/07/20 Range/Units 04:40 04:40 11:54 WBC 11.4 H (3.8-10.6) k/uL RBC 2.40 L (3.80-5.40) m/uL Hgb 7.4 L (11.4-16.0) gm/dL Hct 22.6 L (34.0-46.0) % Neutrophils # 9.6 H (1.3-7.7) k/uL Lymphocytes # 0.7 L (1.0-4.8) k/uL Sodium 136 L (137-145) mmol/L Chloride 96 L (98-107) mmol/L BUN 125 H* (7-17) mg/dL Creatinine 6.39 H (0.52-1.04) mg/dL Glucose 120 H (74-99) mg/dL POC Glucose (mg/dL) 202 H (75-99) mg/dL Phosphorus 7.6 H (2.5-4.5) mg/dL Magnesium 2.9 H (1.6-2.3) mg/dL Assessment and Plan Plan: Acute on chronic kidney disease stage V Patient seen by vascular surgery and nephrology, Planning dialysis catheter this afternoon Monitor electrolytes and creatinine Continue home Lasix Essential hypertension Gout Coronary Artery Disease (CAD) Diabetes Mellitus 2, Hyperlipidemia All stable Resume meds
--- NOTE | 2020-08-07 16:17 | P.GSCN ---
History of Present Illness History of present illness: 74-year-old white female, and has been admitted with shortness of breath and history of chronic kidney disease. 6.39. Patient also has history of congestive heart failure on Lasix and has history of 4 diabetes coronary syndrome I was consulted for placement of a dialysis catheter Neck examination neck is supple no bruit appreciated Chest is clear her bilateral Abdomen soft nontender Femoral dorsal pedis spell present Plan is placement of dialysis catheter risk and complication discussed Past Medical History Past Medical History: Coronary Artery Disease (CAD), Heart Failure, COPD, CVA/TIA, Diabetes Mellitus, Hyperlipidemia, Hypertension, Myocardial Infarction (ID), Pneumonia, Renal Disease Additional Past Medical History / Comment(s): Pt recently admitted to [facility] on 07/31/20 for acute on chronic CHF with EF 30-35%. Other hx: IDDM type II, neuropathy bilateral legs/feet, CKD stage IV-pt being worked up for fistula placement/hemodialysis, normocytic anemia, during caratid stent procedure pt lost some vision in bilateral eyes, home oxygen 2L/NC ATC, gout bilateral great toes. Last Myocardial Infarction Date:: 2006 History of Any Multi-Drug Resistant Organisms: None Reported Past Surgical History: Breast Surgery, Cholecystectomy, Coronary Bypass/CABG, Heart Catheterization, Hysterectomy, Orthopedic Surgery Additional Past Surgical History / Comment(s): R caratid stenting, 2006 CABG 4 vessels, bilateral knee surgeries-R knee was reconstructed/has hardware, L axillae cyst I&D, R index finger wound I&D, R breast biopsy x 2. Past Anesthesia/Blood Transfusion Reactions: No Reported Reaction Date of Last Stent Placement:: UN Smoking Status: Former smoker - Past Family History Mother Family Medical History: No Reported History Sister(s) Family Medical History: Cancer, Deep Vein Thrombosis (DVT) Additional Family Medical History / Comment(s): CERVICAL Father Family Medical History: Coronary Artery Disease (CAD), Diabetes Mellitus Medications and Allergies Home Medications Medication Instructions Recorded Confirmed Type Atorvastatin [Lipitor] 80 mg PO HS 07/04/14 08/06/20 History Carvedilol [Coreg] 25 mg PO BID 07/04/14 08/06/20 History amLODIPine BESYLATE [Norvasc] 10 mg PO DAILY 07/04/14 08/06/20 History Allopurinol [Zyloprim] 200 mg PO DAILY 03/13/20 08/06/20 History Insulin Glargine,Hum.rec.anlog 30 unit SQ DAILY 03/13/20 08/06/20 History [Yarelisagldionicio Yeagerpen U-100] Thiamine [Vitamin B-1] 100 mg PO BID 03/13/20 08/06/20 History Aspirin 81 mg PO DAILY chew 03/15/20 08/06/20 Rx hydrALAZINE HCL [Apresoline] 25 mg PO TID #90 tab 03/15/20 08/06/20 Rx Ferrous Sulfate [Feosol] 325 mg PO BID #60 tab 06/24/20 08/06/20 Rx Torsemide [Demadex] 80 mg PO DAILY #120 tablet 06/24/20 08/06/20 Rx Ergocalciferol [Vitamin D2 (1250 1,250 mcg PO Q30D 07/28/20 08/06/20 History Mcg = 25749 Iu)] Furosemide [Lasix] 40 mg PO BID@0900,1600 30 Days #60 07/31/20 08/06/20 Rx tab metOLazone [Zaroxolyn] 5 mg PO Q48H 30 Days #15 tab 07/31/20 08/06/20 Rx Darbepoetin Paresh [Aranesp] 40 mcg SQ TH 08/06/20 08/06/20 History Allergies Allergy/AdvReac Type Severity Reaction Status Date / Time Penicillins Allergy Unknown Verified 08/06/20 10:22 Childhood Surgical - Exam Vital Signs Temp Pulse Resp BP Pulse Ox 97.2 F L 66 20 136/55 97 08/06/20 10:19 08/06/20 10:19 08/06/20 10:19 08/06/20 10:19 08/06/20 10:19 Results - Labs 08/07/20 04:40 08/07/20 04:40 Abnormal Lab Results - Last 24 Hours (Table) 08/07/20 08/07/20 08/07/20 Range/Units 04:40 04:40 11:54 WBC 11.4 H (3.8-10.6) k/uL RBC 2.40 L (3.80-5.40) m/uL Hgb 7.4 L (11.4-16.0) gm/dL Hct 22.6 L (34.0-46.0) % Neutrophils # 9.6 H (1.3-7.7) k/uL Lymphocytes # 0.7 L (1.0-4.8) k/uL Sodium 136 L (137-145) mmol/L Chloride 96 L (98-107) mmol/L BUN 125 H* (7-17) mg/dL Creatinine 6.39 H (0.52-1.04) mg/dL Glucose 120 H (74-99) mg/dL POC Glucose (mg/dL) 202 H (75-99) mg/dL Phosphorus 7.6 H (2.5-4.5) mg/dL Magnesium 2.9 H (1.6-2.3) mg/dL Diabetes panel 08/07/20 Range/Units 04:40 Sodium 136 L (137-145) mmol/L Potassium 4.5 (3.5-5.1) mmol/L Chloride 96 L (98-107) mmol/L Carbon Dioxide 30 (22-30) mmol/L BUN 125 H* (7-17) mg/dL Creatinine 6.39 H (0.52-1.04) mg/dL Glucose 120 H (74-99) mg/dL Calcium 9.9 (8.4-10.2) mg/dL Calcium panel 08/07/20 Range/Units 04:40 Calcium 9.9 (8.4-10.2) mg/dL Phosphorus 7.6 H (2.5-4.5) mg/dL Pituitary panel 08/07/20 Range/Units 04:40 Sodium 136 L (137-145) mmol/L Potassium 4.5 (3.5-5.1) mmol/L Chloride 96 L (98-107) mmol/L Carbon Dioxide 30 (22-30) mmol/L BUN 125 H* (7-17) mg/dL Creatinine 6.39 H (0.52-1.04) mg/dL Glucose 120 H (74-99) mg/dL Calcium 9.9 (8.4-10.2) mg/dL Adrenal panel 08/07/20 Range/Units 04:40 Sodium 136 L (137-145) mmol/L Potassium 4.5 (3.5-5.1) mmol/L Chloride 96 L (98-107) mmol/L Carbon Dioxide 30 (22-30) mmol/L BUN 125 H* (7-17) mg/dL Creatinine 6.39 H (0.52-1.04) mg/dL Glucose 120 H (74-99) mg/dL Calcium 9.9 (8.4-10.2) mg/dL
[2020-08-07] MEDS ORDERED: IV FLUID CONTINUATION 600 ML IV ONE (16:30)
[2020-08-07] MEDS ORDERED: fentaNYL (PF) 50 MCG/ML 2 ML AMP IV ONE (16:55)
[2020-08-07] MEDS ORDERED: LIDOCAINE 1% INJ 10MG/ML (20 ML MDV) SQ ONE (16:57)
[2020-08-07] MEDS ORDERED: MIDAZOLAM 2 MG/2 ML VIAL IV ONE (16:58)
[2020-08-07] MEDS: INSULIN ASPART (NovoLOG) 100 UNIT/ML VIAL SQ SCH ×2 (17:19→21:15)
--- NOTE | 2020-08-07 17:39 | P.PCN ---
Description of Procedure: Preoperative diagnoses is acute chronic renal failure Postoperative same procedure ultrasound-guided 90 seemed is Carmen right jugul ar approach #2 sedation time 45 minutes Procedure patient brought to the [facility] of the neck and S was prepped afebrile used an manner 1% lidocaine for infected local and IV sedation was given and ultrasound-guided micropuncture needle right jugular vein micropuncture guidewire was passed and 4-Polish dilator across on the top of guidewire. After that we passed a regular guidewire which was parked at the inferior vena cava dilator was advanced and sheath were advanced. The guidewire through the sheath we did use dialysis catheter tip of the catheter in superior vena cava and atrium junction flush with heparin saline and Hep-Lock. Incision was closed with Vicryl and nylon dressing applied patient are to the procedure well dorsal to her room in satisfactory condition thank you
[2020-08-07] MEDS: SODIUM CHLORIDE 0.9% 1,000 ML IV SCH (17:52)
--- NOTE | 2020-08-07 19:03 | XR ---
EXAMINATION TYPE: XR chest 1V portable DATE OF EXAM: 08/07/2020 COMPARISON: 08/06/2020 HISTORY: Catheter insertion TECHNIQUE: Single view FINDINGS: There is right-sided central venous catheter with tip in the superior vena cava. There are sternal wires. Thoracic aorta is atheromatous. There is some pulmonary interstitial edema. No pneumot horax. IMPRESSION: Catheter in good position. There is pulmonary edema which is the same or slightly improve d compared to yesterday.
[2020-08-07 20:44] LABS: Glucose,Whole Blood 171 mg/dL (75-99)
[2020-08-07] MEDS: FUROSEMIDE 10 MG/ML 4 ML VIAL IV SCH (21:15)
[2020-08-07] MEDS: ATORVASTATIN 80 MG TAB PO SCH (21:15)
[2020-08-08] MEDS: ACETAMINOPHEN TAB 325 MG TAB PO PRN ×3 (02:57→22:35)
[2020-08-08 04:02] LABS: % Iron Saturation 7.14 (12.00-45.00); Ferritin 792.7 ng/mL (10.0-291.0)
[2020-08-08 04:55] LABS: Hepatitis B Surface AB- Quant 3.5 mIU/mL; Hepatitis B Surface Antibody Non-Reactive (Non-Reactive); Hepatitis B Surface Antigen Non-Reactive (Non-Reactive)
[2020-08-08 07:51] LABS: Glucose,Whole Blood 165 mg/dL (75-99)
[2020-08-08] MEDS: INSULIN ASPART (NovoLOG) 100 UNIT/ML VIAL SQ SCH ×4 (08:22→20:57)
[2020-08-08] MEDS: INSULIN DETEMIR (LEVEMIR) 100 UNIT/ML SYR SQ SCH (08:22)
[2020-08-08] MEDS: FUROSEMIDE 10 MG/ML 4 ML VIAL IV SCH ×2 (08:22→20:58)
[2020-08-08] MEDS: ASPIRIN 81 MG PO SCH (08:22)
[2020-08-08] MEDS: amLODIPine 10 MG TAB PO SCH (08:23)
[2020-08-08] MEDS: carvediloL 12.5 MG TAB PO SCH ×2 (08:23→20:58)
[2020-08-08] MEDS: FERROUS SULFATE 325 MG TAB PO SCH (08:23)
[2020-08-08] MEDS: hydrALAZINE HCL 25 MG TAB PO SCH ×3 (08:23→21:00)
[2020-08-08] MEDS: THIAMINE 100 MG TAB PO SCH ×2 (08:23→20:58)
[2020-08-08] MEDS ORDERED: DARBEPOETIN ALFA 40 MCG/0.4 ML SYRINGE SQ SCH (09:00)
--- NOTE | 2020-08-08 11:45 | P.PN ---
Subjective Patient is seen in follow-up for chronic kidney disease stage IV, now progressed to end-stage renal disease. Catheter placed this morning for dialysis. Denies chest pain or shortness of breath. Has been voiding. Vital signs are stable. General: The patient appeared well nourished and normally developed. HEENT: Head exam is unremarkable. Neck is without jugular venous distension. LUNGS: Breath sounds decreased. HEART: Rate and Rhythm are regular. ABDOMEN: Soft, no distention. Obese. EXTREMITITES: 1+ edema. Objective - Vital Signs Vital signs: Vital Signs Temp 98.1 F 08/08/20 04:44 Pulse 76 08/08/20 08:15 Resp 16 08/08/20 04:44 BP 119/62 08/08/20 08:15 Pulse Ox 95 08/08/20 04:44 Intake & Output 08/07/20 08/08/20 08/08/20 18:59 06:59 18:59 Intake Total 526 840 Output Total 200 Balance 526 640 Weight 117.027 kg Intake: IV 50 Intake, IV Titration 240 240 Amount Sodium Chloride 0.9% 1, 240 240 000 ml @ 20 mls/hr IV . Q24H [facility] Rx#:[id number] Oral 236 600 Output: Urine 200 Other: Voiding Method Bedside Commode Bedside Commode Incontinent Incontinent # Voids 2 2 - Labs CBC & Chem 7: 08/07/20 04:40 08/07/20 04:40 Labs: Abnormal Lab Results - Last 24 Hours (Table) 08/07/20 08/07/20 08/07/20 Range/Units 04:40 11:54 20:43 POC Glucose (mg/dL) 202 H 171 H (75-99) mg/dL Iron 19 L (50-170) ug/dL % Saturation 7.14 L (12.00-45.00) Ferritin 792.7 H (10.0-291.0) ng/mL 08/08/20 Range/Units 07:39 POC Glucose (mg/dL) 165 H (75-99) mg/dL Iron (50-170) ug/dL % Saturation (12.00-45.00) Ferritin (10.0-291.0) ng/mL Assessment and Plan Plan: Assessment: 1. Acute kidney injury secondary to ATN secondary to cardiorenal syndrome. Now progressed to end-stage renal disease. 2. Chronic kidney disease stage IV with baseline creatinine 2.2-2.4 secondary to diabetic kidney disease and cardiorenal syndrome. Patient's creatinine during last admission was as high as 4.2. 3. Acute on chronic systolic CHF with ejection fraction of 35-40% with moderate tricuspid regurgitation and aortic stenosis. 4. Pulmonary hypertension. 5. Weakness, poor appetite concerning for uremia. 6. Anemia of chronic kidney disease. Iron deficiency noted. On Aranesp. No active bleeding. 7. Hypercalcemia secondary to vitamin D supplementation as well as thiazide diuretic. Improved. 8. Hypertension with chronic kidney disease. Controlled. 9. Fluid overload. 10. Hyperphosphatemia secondary to chronic kidney disease. Plan: Maintain IV Lasix. Continue to hold vitamin D. Add IV iron. Add Renvela with meals. Due to worsening renal function and symptoms of uremia, initiate renal placement therapy. Catheter placed this morning. Plan for first treatment of hemodialysis today and second treatment tomorrow. manager resort to set up outpatient hemodialysis. Patient is agreeable with the above plan. Potential rehab upon discharge.
[2020-08-08] MEDS: SODIUM FERRIC GLUCONAT-SUCROSE 125 MG in SODIUM CHLORIDE 0.9% 100 ML IVPB SCH (12:22)
[2020-08-08 12:41] LABS: Glucose,Whole Blood 113 mg/dL (75-99)
[2020-08-08] MEDS: SEVELAMER 800 MG TAB PO SCH ×2 (14:41→17:42)
[2020-08-08 15:02] VITALS: BMI 41.6
--- NOTE | 2020-08-08 15:51 | IR ---
EXAMINATION TYPE: IR cvc insert central tunneled DATE OF EXAM: 08/07/2020 COMPARISON: NONE HISTORY: Fluoroscopy time. Fluoroscopy was provided to the referring clinician.
[2020-08-08 16:03] LABS: African American GFR (CKD) 7.7 (60.0-200.0); Anion Gap 13.9 mmol/L (4.00-12.00); BUN/Creat Ratio 21.58 Ratio (12.00-20.00); Calcium 9.8 mg/dL (8.7-10.3); Carbon Dioxide 29.1 mmol/L (21.6-31.8); Magnesium 2.8 mg/dL (1.5-2.4); Non-African American GFR(CKD) 6.7 (60.0-200.0); Phosphorus 7.5 mg/dL (2.4-5.1); Potassium 4.2 mmol/L (3.5-5.5)
--- NOTE | 2020-08-08 16:14 | P.PN ---
Subjective Progress Note Date: 08/08/20 Principal diagnosis: Abnormal labs No sob, no pain. No overnight events. Starting dialysis today. Objective - Vital Signs Vital signs: Vital Signs Temp 97.5 F L 08/08/20 11:46 Pulse 65 08/08/20 11:46 Resp 18 08/08/20 11:46 BP 118/63 08/08/20 14:28 Pulse Ox 94 L 08/08/20 11:46 Intake & Output 08/07/20 08/08/20 08/08/20 18:59 06:59 18:59 Intake Total 526 840 Output Total 200 1000 Balance 526 640 -1000 Weight 117.027 kg 117.027 kg Intake: IV 50 Intake, IV Titration 240 240 Amount Sodium Chloride 0.9% 1, 240 240 000 ml @ 20 mls/hr IV . Q24H [facility] Rx#:[id number] Oral 236 600 Output: Urine 200 Hemodialysis 1000 Other: Voiding Method Bedside Commode Bedside Commode Incontinent Incontinent # Voids 2 2 2 # Bowel Movements 1 - Exam Constitutional: No acute distress, conversant, pleasant Eyes:Anicteric sclerae, moist conjunctiva, no lid-lag, PERRLA, ENMT: Oropharynx clear, no erythema, exudates Neck: Supple, FROM, no masses, or JVD, No carotid bruits, No thyromegaly Lungs: Clear to auscultation, Clear to percussion, Normal respiratory effort, no accessory muscle use Cardiovascular: Heart regular in rate and rhythm, No murmurs, gallops, or rubs, No peripheral edema Abdominal: Soft, Nontender, no guarding, rebound or rigidity, Normoactive bowel sounds, No hepatomegaly, No splenomegaly, No palpable mass Skin: Normal temperature, tone, texture, turgor, no induration, No subcutaneous nodules, No rash, lesions, No ulcers Extremities: No digital cyanosis, No clubbing, Pedal pulses intact and symmetrical, Radial pulses intact and symmetrical, No calf tenderness Psychiatric: Alert and oriented to person, place and time, appropriate affect, intact judgement Neuro: Muscles Strength 5/5 in all 4 extremities, Sensation to light touch nathan ssly present throughout, Cranial nerves II-XII grossly intact, no focal sensory deficits - Labs CBC & Chem 7: 08/07/20 04:40 08/07/20 04:40 Labs: Abnormal Lab Results - Last 24 Hours (Table) 08/07/20 08/07/20 08/08/20 Range/Units 04:40 20:43 07:39 POC Glucose (mg/dL) 171 H 165 H (75-99) mg/dL Iron 19 L (50-170) ug/dL % Saturation 7.14 L (12.00-45.00) Ferritin 792.7 H (10.0-291.0) ng/mL 08/08/20 Range/Units 12:30 POC Glucose (mg/dL) 113 H (75-99) mg/dL Iron (50-170) ug/dL % Saturation (12.00-45.00) Ferritin (10.0-291.0) ng/mL Assessment and Plan Plan: Acute on chronic kidney disease stage V Patient seen by vascular surgery and nephrology, Dialysis cath inserted First dialysis treatment today, planning one more tomorrow Monitor electrolytes and creatinine Continue home Lasix Essential hypertension Gout Coronary Artery Disease (CAD) Diabetes Mellitus 2, Hyperlipidemia All stable Resume meds Anticipated discharge tomorrow Disposition likely home
[2020-08-08] MEDS: SODIUM CHLORIDE 0.9% 1,000 ML IV SCH (16:31)
[2020-08-08 17:08] LABS: Glucose,Whole Blood 200 mg/dL (75-99)
[2020-08-08 20:58] LABS: Glucose,Whole Blood 118 mg/dL (75-99)
[2020-08-08] MEDS: ATORVASTATIN 80 MG TAB PO SCH (20:58)
[2020-08-09 07:04] LABS: Glucose,Whole Blood 108 mg/dL (75-99)
[2020-08-09] MEDS: INSULIN ASPART (NovoLOG) 100 UNIT/ML VIAL SQ SCH ×4 (07:13→20:45)
[2020-08-09] MEDS: THIAMINE 100 MG TAB PO SCH ×2 (07:41→20:45)
[2020-08-09] MEDS: FUROSEMIDE 10 MG/ML 4 ML VIAL IV SCH (07:41)
[2020-08-09] MEDS: ASPIRIN 81 MG PO SCH (07:41)
[2020-08-09] MEDS: INSULIN DETEMIR (LEVEMIR) 100 UNIT/ML SYR SQ SCH (08:34)
[2020-08-09] MEDS: SEVELAMER 800 MG TAB PO SCH ×3 (08:34→17:39)
[2020-08-09 10:29] LABS: Anion Gap 12.7 mmol/L (4.00-12.00); BUN/Creat Ratio 20.87 Ratio (12.00-20.00); Calcium 10.1 mg/dL (8.7-10.3); Carbon Dioxide 30.3 mmol/L (21.6-31.8); Magnesium 2.5 mg/dL (1.5-2.4); Non-African American GFR(CKD) 8.6 (60.0-200.0); Potassium 4.1 mmol/L (3.5-5.5)
[2020-08-09 12:07] LABS: Glucose,Whole Blood 144 mg/dL (75-99)
[2020-08-09] MEDS: SODIUM FERRIC GLUCONAT-SUCROSE 125 MG in SODIUM CHLORIDE 0.9% 100 ML IVPB SCH (12:19)
--- NOTE | 2020-08-09 12:44 | P.PN ---
Subjective Patient is seen in follow-up for chronic kidney disease stage IV, now progressed to end-stage renal disease. Started on hemodialysis August 08. No problems with dialysis yesterday. No chest pain or shortness of breath. Hemodynamically stable. Vital signs are stable. General: The patient appeared well nourished and normally developed. HEENT: Head exam is unremarkable. Neck is without jugular venous distension. LUNGS: Breath sounds decreased. HEART: Rate and Rhythm are regular. ABDOMEN: Soft, no distention. Obese. EXTREMITITES: 1+ edema. Objective - Vital Signs Vital signs: Vital Signs Temp 98.5 F 08/09/20 11:58 Pulse 86 08/09/20 11:58 Resp 18 08/09/20 11:58 BP 113/50 08/09/20 11:58 Pulse Ox 94 L 08/09/20 11:58 Intake & Output 08/08/20 08/09/20 08/09/20 18:59 06:59 18:59 Intake Total 340 340 Output Total 1000 800 Balance -660 340 -800 Weight 117.027 kg Intake: Intake, IV Titration 340 240 Amount Sodium Chloride 0.9% 1, 240 240 000 ml @ 20 mls/hr IV . Q24H [facility] Rx#:[id number] Sodium Ferric Gluconat- 100 Sucrose 125 mg In Sodium Chloride 0.9% 100 ml @ 100 mls/hr IVPB Q24H [facility] Rx#:[id number] Oral 100 Output: Urine 800 Hemodialysis 1000 Other: Voiding Method Bedside Commode Bedside Commode Bedside Commode Incontinent Diaper Diaper Incontinent Incontinent # Voids 2 5 # Bowel Movements 2 2 - Labs CBC & Chem 7: 08/07/20 04:40 08/09/20 04:31 Labs: Abnormal Lab Results - Last 24 Hours (Table) 08/08/20 08/08/20 08/08/20 Range/Units 06:20 12:30 17:05 Anion Gap 13.90 H (4.00-12.00) mmol/L BUN 123.0 H* (9.0-27.0) mg/dL Creatinine 5.7 H (0.6-1.5) mg/dL Est GFR (CKD-EPI)AfAm 7.7 L (60.0-200.0) Est GFR (CKD-EPI)NonAf 6.7 L (60.0-200.0) BUN/Creatinine Ratio 21.58 H (12.00-20.00) Ratio Glucose 161 H (70-110) mg/dL POC Glucose (mg/dL) 113 H 200 H (75-99) mg/dL Phosphorus 7.5 H (2.4-5.1) mg/dL Magnesium 2.8 H (1.5-2.4) mg/dL 08/08/20 08/09/20 08/09/20 Range/Units 20:56 04:31 07:02 Anion Gap 12.70 H (4.00-12.00) mmol/L BUN 96.0 H (9.0-27.0) mg/dL Creatinine 4.6 H (0.6-1.5) mg/dL Est GFR (CKD-EPI)AfAm 10.0 L (60.0-200.0) Est GFR (CKD-EPI)NonAf 8.6 L (60.0-200.0) BUN/Creatinine Ratio 20.87 H (12.00-20.00) Ratio Glucose (70-110) mg/dL POC Glucose (mg/dL) 118 H 108 H (75-99) mg/dL Phosphorus (2.4-5.1) mg/dL Magnesium 2.5 H (1.5-2.4) mg/dL 08/09/20 Range/Units 12:02 Anion Gap (4.00-12.00) mmol/L BUN (9.0-27.0) mg/dL Creatinine (0.6-1.5) mg/dL Est GFR (CKD-EPI)AfAm (60.0-200.0) Est GFR (CKD-EPI)NonAf (60.0-200.0) BUN/Creatinine Ratio (12.00-20.00) Ratio Glucose (70-110) mg/dL POC Glucose (mg/dL) 144 H (75-99) mg/dL Phosphorus (2.4-5.1) mg/dL Magnesium (1.5-2.4) mg/dL Assessment and Plan Plan: Assessment: 1. Acute kidney injury secondary to ATN secondary to cardiorenal syndrome. Now progressed to end-stage renal disease. 2. Chronic kidney disease stage IV with baseline creatinine 2.2-2.4 secondary to diabetic kidney disease and cardiorenal syndrome. Patient's creatinine during last admission was as high as 4.2. 3. Acute on chronic systolic CHF with ejection fraction of 35-40% with moderate tricuspid regurgitation and aortic stenosis. 4. Pulmonary hypertension. 5. Weakness, poor appetite concerning for uremia. 6. Anemia of chronic kidney disease. Iron deficiency noted. On Aranesp. No active bleeding. 7. Hypercalcemia secondary to vitamin D supplementation as well as thiazide diuretic. Improved. 8. Hypertension with chronic kidney disease. Controlled. 9. Fluid overload. Improved with diuresis and ultrafiltration. 10. Hyperphosphatemia secondary to chronic kidney disease. Maintained on Renvela. Plan: I will change Lasix to torsemide 40 mg once daily. Continue to hold vitamin D. Maintain IV iron. Next hemodialysis on Wednesday. Outpatient dialysis has been set up. Check workup for hypercalcemia.
--- NOTE | 2020-08-09 13:44 | P.DS ---
Providers Date of admission: 08/06/20 13:11 Expected date of discharge: 08/09/20 Attending physician: Sarah Almaraz Consults: 08/06/20 13:11 Consult Physician Urgent Consulting Provider: Evens Hinojosa Consult Reason/Comments: arf Do you want consulting provider notified?: Yes 08/06/20 16:55 Consult Physician Routine Consulting Provider: Peter Sanchez Consult Reason/Comments: dialyssi Do you want consulting provider notified?: Yes Primary care physician: Dwight Oleary [facility] Course: 74-year-old female presenting to the emergency department for abnormal lab resu lts involving her kidneys. She is currently being worked up for a fistula placement to prepare her for dialysis, she already had a stress test and an echocardiogram. Over the past few weeks she has been having worsening generalized weakness and nausea. No vomiting. No diarrhea. She denied having chest pain, shortness of breath, fevers or chills. She continues to make urine. She denied urinary symptoms. In the emergency department her creatinine was over 6, BUN 120, sodium 135. Rest of labs okay. Chest x-ray showed CHF. Patient was seen by nephrology upon admission. A permacath was ordered and was placed by vascular surgery. Based on her labs she was diagnosed with acute kidney injury secondary to ATN as well as to cardiorenal syndrome. Patient was started on torsemide for diuresis and in addition had 2 treatments of dialysis while in the hospital. Both interventions helped taking fluids off of her. She felt better in terms of her breathing and weakness. Care management was involved in her care and patient was set up for outpatient dialysis. She is currently doing well, will be discharged home in stable condition. Discharge diagnoses Acute exacerbation of systolic congestive heart failure. Fluid overload Adult failure to thrive End-stage renal disease. Pulmonary hypertension. Anemia of chronic kidney disease. Iron deficiency noted. On Aranesp. No active bleeding. Hypercalcemia secondary to vitamin D supplementation as well as thiazide diuretic. Improved. Hypertension with chronic kidney disease. Controlled. Hyperphosphatemia secondary to chronic kidney disease. Maintained on Renvela. Plan - Discharge Summary Discharge Rx Participant: No New Discharge Prescriptions: New Sevelamer [Renvela] 800 mg PO TID-W/MEALS 30 Days #90 tab Continue amLODIPine BESYLATE [Norvasc] 10 mg PO DAILY Carvedilol [Coreg] 25 mg PO BID Atorvastatin [Lipitor] 80 mg PO HS Allopurinol [Zyloprim] 200 mg PO DAILY Thiamine [Vitamin B-1] 100 mg PO BID Insulin Glargine,Hum.rec.anlog [Basaglar Kwikpen U-100] 30 unit SQ DAILY hydrALAZINE HCL [Apresoline] 25 mg PO TID #90 tab Aspirin 81 mg PO DAILY chew metOLazone [Zaroxolyn] 5 mg PO Q48H 30 Days #15 tab Darbepoetin Paresh [Aranesp] 40 mcg SQ TH Ferrous Sulfate [Feosol] 325 mg PO BID #60 tab Ergocalciferol [Vitamin D2 (1250 Mcg = 51577 Iu)] 1,250 mcg PO Q30D Changed Torsemide [Demadex] 40 mg PO DAILY #30 tablet Discontinued Furosemide [Lasix] 40 mg PO BID@0900,1600 30 Days #60 tab Discharge Medication List Atorvastatin [Lipitor] 80 mg PO HS 07/04/14 [History] Carvedilol [Coreg] 25 mg PO BID 07/04/14 [History] amLODIPine BESYLATE [Norvasc] 10 mg PO DAILY 07/04/14 [History] Allopurinol [Zyloprim] 200 mg PO DAILY 03/13/20 [History] Insulin Glargine,Hum.rec.anlog [Basaglar Kwikpen U-100] 30 unit SQ DAILY 03/13/20 [History] Thiamine [Vitamin B-1] 100 mg PO BID 03/13/20 [History] Aspirin 81 mg PO DAILY chew 03/15/20 [Rx] hydrALAZINE HCL [Apresoline] 25 mg PO TID #90 tab 03/15/20 [Rx] Ferrous Sulfate [Feosol] 325 mg PO BID #60 tab 06/24/20 [Rx] Ergocalciferol [Vitamin D2 (1250 Mcg = 15818 Iu)] 1,250 mcg PO Q30D 07/28/20 [History] metOLazone [Zaroxolyn] 5 mg PO Q48H 30 Days #15 tab 07/31/20 [Rx] Darbepoetin Paresh [Aranesp] 40 mcg SQ TH 08/06/20 [History] Sevelamer [Renvela] 800 mg PO TID-W/MEALS 30 Days #90 tab 08/09/20 [Rx] Torsemide [Demadex] 40 mg PO DAILY #30 tablet 08/09/20 [Rx] Follow up Appointment(s)/Referral(s): Dwight Abdullahi MD [Primary Care Provider] - 1-2 days Activity/Diet/Wound Care/Special Instructions: [facility]- in [facility] ([address]) - pt first treatment is Wednesdayaugust 12 at 6:30am
[2020-08-09] MEDS: carvediloL 12.5 MG TAB PO SCH ×2 (14:40→20:44)
[2020-08-09] MEDS: hydrALAZINE HCL 25 MG TAB PO SCH ×3 (14:41→20:45)
[2020-08-09] MEDS: ACETAMINOPHEN TAB 325 MG TAB PO PRN (15:28)
[2020-08-09 16:32] LABS: Protein, Total 5.9 g/dL (6.2-8.2)
[2020-08-09 16:57] LABS: Glucose,Whole Blood 135 mg/dL (75-99)
[2020-08-09] MEDS: amLODIPine 10 MG TAB PO SCH (17:49)
[2020-08-09] MEDS: SODIUM CHLORIDE 0.9% 1,000 ML IV SCH (19:25)
[2020-08-09 20:17] LABS: Glucose,Whole Blood 91 mg/dL (75-99)
[2020-08-09 20:19] VITALS: PULSE 84
[2020-08-09 20:25] VITALS: BP 154/81; RESP 16; TEMP 98.4
[2020-08-09] MEDS: ATORVASTATIN 80 MG TAB PO SCH (20:45)
[2020-08-10] MEDS ORDERED: TORSEMIDE 20 MG TAB PO SCH (09:00)
[2020-08-12 11:38] LABS: Angiotensin-1 Converting Enz. 32 U/L (8-52)
[2020-08-12 12:08] LABS: Albumin 2.92 g/dL (3.80-4.90); Gamma Globulin 0.59 g/dL (0.70-1.50)
[2020-08-12 16:24] LABS: Vitamin D, 1, 25-Dihydroxy 26 pg/mL (20 - 79)
== END 2020-08-09 20:52 | disposition home or self-care (01) | DRG 291 ==
LOC: EC 10:15 → 5NMEDONC 13:11
PROVIDERS: ADMIT Internal Medicine; ATTEND Internal Medicine
PROC: 06H033Z Insertion of Infusion Device into Inferior Vena Cava, Percutaneous Approach (ICD-10-PCS; principal; 2020-08-07 11:40)
PROC: 5A1D70Z Performance of Urinary Filtration, Intermittent, Less than 6 Hours Per Day (ICD-10-PCS; principal; 2020-08-07 11:40)
DX: I13.2 Hypertensive heart and chronic kidney disease with heart failure and with stage 5 chronic kidney disease, or end stage renal disease (principal); I50.23 Acute on chronic systolic (congestive) heart failure; N17.0 Acute kidney failure with tubular necrosis; N18.6 End stage renal disease; Z68.41 Body mass index [BMI] 40.0-44.9, adult; I27.20 Pulmonary hypertension, unspecified; I25.2 Old myocardial infarction; I25.10 Atherosclerotic heart disease of native coronary artery without angina pectoris; D63.1 Anemia in chronic kidney disease; E11.22 Type 2 diabetes mellitus with diabetic chronic kidney disease; Z20.822 Contact with and (suspected) exposure to COVID-19; E11.40 Type 2 diabetes mellitus with diabetic neuropathy, unspecified; Z79.4 Long term (current) use of insulin; E66.9 Obesity, unspecified; E78.5 Hyperlipidemia, unspecified; E83.39 Other disorders of phosphorus metabolism; E83.52 Hypercalcemia; I08.2 Rheumatic disorders of both aortic and tricuspid valves; J44.9 Chronic obstructive pulmonary disease, unspecified; M10.9 Gout, unspecified; R62.7 Adult failure to thrive; Z79.82 Long term (current) use of aspirin; Z79.899 Other long term (current) drug therapy; Z82.49 Family history of ischemic heart disease and other diseases of the circulatory system; Z83.3 Family history of diabetes mellitus; Z86.73 Personal history of transient ischemic attack (TIA), and cerebral infarction without residual deficits; Z87.891 Personal history of nicotine dependence; Z90.710 Acquired absence of both cervix and uterus; Z95.1 Presence of aortocoronary bypass graft; Z99.81 Dependence on supplemental oxygen; Z80.49 Family history of malignant neoplasm of other genital organs; Z83.2 Family history of diseases of the blood and blood-forming organs and certain disorders involving the immune mechanism; Z88.0 Allergy status to penicillin; H53.8 Other visual disturbances
CPT/HCPCS: 36415; 36558; 71045; 71046; 76937; 77001; 80048; 80053; 81001; 82164; 82306; 82550; 82652; 82728; 83540; 83550; 83605; 83735; 83880; 83970; 84100; 84165; 85025; 85610; 85730; 86334; 86335; 86704; 86706; 87324; 87340; 87635; 90935; 93005; 99285

== ENCOUNTER 2020-08-31 21:47 | Inpatient (IN) | payer MEDICARE, OTHER ==
[2020-08-31] MEDS ORDERED: methylPREDNISolone SOD SUCCI 125 MG/2 ML VIAL IV STA ×2 (22:07→22:09)
[2020-08-31] MEDS ORDERED: ALBUTEROL NEBULIZED 2.5 MG/3 ML INHALATION STA (22:09)
[2020-08-31] MEDS ORDERED: SODIUM CHLORIDE 0.9% 500 ML 500 ML IV STA (22:09)
[2020-08-31] MEDS ORDERED: IPRATROPIUM 0.5 MG/2.5 ML NEBU INHALATION STA (22:09)
--- NOTE | 2020-08-31 22:17 | ED ---
SOB HPI - General Chief Complaint: Shortness of Breath Stated Complaint: MOHINDER Time Seen by Provider: 08/31/20 21:52 Source: patient, EMS, RN notes reviewed Mode of arrival: EMS Limitations: no limitations - History of Present Illness Initial Comments: 74-year-old white female, oriented 4 presents to the emergency room in respiratory distress with complaints of dyspnea that started last night, gradually getting worse. Patient was found by EMS to have oxygen saturation of 88% on 6 L n/c. patient was placed on nonrebreather oxygen saturation increased to 96% but still dyspneic with suprasternal retractions and abdominal accessory muscle use. Patient was given a breathing treatment in route by EMS. Patient denies any chest pain, nausea vomiting diarrhea or fevers. patient has history of coronary artery disease, heart failure, COPD, CVA, and diabetes, hypertension, renal failure with hemodialysis, [place] with CABG and heart catheterization. Patient states makes minimal urine. MD Complaint: shortness of breath -: days(s) (1) Severity scale (1-10): 0 Known History Of: COPD, congestive heart failure Associated Symptoms: denies other symptoms Treatments Prior to Arrival: oxygen, bronchodilator - Related Data Home Medications Medication Instructions Recorded Confirmed Atorvastatin [Lipitor] 80 mg PO HS 07/04/14 08/06/20 Carvedilol [Coreg] 25 mg PO BID 07/04/14 08/06/20 amLODIPine BESYLATE [Norvasc] 10 mg PO DAILY 07/04/14 08/06/20 Allopurinol [Zyloprim] 200 mg PO DAILY 03/13/20 08/06/20 Insulin Glargine,Hum.rec.anlog 30 unit SQ DAILY 03/13/20 08/06/20 [Basaglar Yovannyikpen U-100] Thiamine [Vitamin B-1] 100 mg PO BID 03/13/20 08/06/20 Ergocalciferol [Vitamin D2 (1250 1,250 mcg PO Q30D 07/28/20 08/06/20 Mcg = 37409 Iu)] Darbepoetin Paresh [Aranesp] 40 mcg SQ TH 08/06/20 08/06/20 Previous Rx's Medication Instructions Recorded Aspirin 81 mg PO DAILY chew 03/15/20 hydrALAZINE HCL [Apresoline] 25 mg PO TID #90 tab 03/15/20 Ferrous Sulfate [Feosol] 325 mg PO BID #60 tab 06/24/20 metOLazone [Zaroxolyn] 5 mg PO Q48H 30 Days #15 tab 07/31/20 Sevelamer [Renvela] 800 mg PO TID-W/MEALS 30 Days #90 08/09/20 tab Torsemide [Demadex] 40 mg PO DAILY #30 tablet 08/09/20 Allergies Allergy/AdvReac Type Severity Reaction Status Date / Time Penicillins Allergy Unknown Verified 08/31/20 21:57 Childhood Review of Systems ROS Statement: Those systems with pertinent positive or pertinent negative responses have been documented in the HPI. ROS Other: All systems not noted in ROS Statement are negative. Past Medical History Past Medical History: Coronary Artery Disease (CAD), Heart Failure, COPD, CVA/TIA, Diabetes Mellitus, Hyperlipidemia, Hypertension, Myocardial Infarction ([place]), Pneumonia, Renal Disease Additional Past Medical History / Comment(s): Pt recently admitted to [facility] on 07/31/20 for acute on chronic CHF with EF 30-35%. Other hx: IDDM type II, neuropathy bilateral legs/feet, CKD stage IV-pt being worked up for fistula placement/hemodialysis, normocytic anemia, during caratid stent procedure pt los t some vision in bilateral eyes, home oxygen 2L/NC ATC, gout bilateral great toes, CHF Last Myocardial Infarction Date:: 2006 History of Any Multi-Drug Resistant Organisms: None Reported Past Surgical History: Breast Surgery, Cholecystectomy, Coronary Bypass/CABG, Heart Catheterization, Hysterectomy, Orthopedic Surgery Additional Past Surgical History / Comment(s): R caratid stenting, 2006 CABG 4 vessels, bilateral knee surgeries-R knee was reconstructed/has hardware, L axillae cyst I&D, R index finger wound I&D, R breast biopsy x 2. Past Anesthesia/Blood Transfusion Reactions: No Reported Reaction Date of Last Stent Placement:: UN Past Psychological History: No Psychological Hx Reported Smoking Status: Former smoker Past Alcohol Use History: Occasional Past Drug Use History: None Reported - Past Family History Mother Family Medical History: No Reported History Sister(s) Family Medical History: Cancer, Deep Vein Thrombosis (DVT) Additional Family Medical History / Comment(s): CERVICAL Father Family Medical History: Coronary Artery Disease (CAD), Diabetes Mellitus General Exam Limitations: no limitations General appearance: alert, in distress, obese Head exam: Present: atraumatic, normocephalic, normal inspection Eye exam: Present: normal appearance, PERRL, EOMI. Absent: scleral icterus, conjunctival injection, periorbital swelling Pupils: Present: normal accommodation ENT exam: Present: normal exam, normal oropharynx, mucous membranes moist Neck exam: Present: normal inspection, full ROM. Absent: tenderness, meningismus, lymphadenopathy, thyromegaly Respiratory exam: Present: respiratory distress, wheezes, rales, accessory muscle use, decreased breath sounds. Absent: stridor, chest wall tenderness Expanded Location: Wheezes: Right, Left, Upper, Lower, Rales: Lower, Left, Right, Decreased Breath Sounds: Lower Cardiovascular Exam: Present: regular rate, normal rhythm, normal heart sounds. Absent: systolic murmur, diastolic murmur, rubs, gallop, clicks GI/Abdominal exam: Present: soft, normal bowel sounds. Absent: distended, tenderness, guarding, rebound, rigid Rectal exam: Present: deferred Extremities exam: Present: normal inspection, full ROM, normal capillary refill. Absent: tenderness, pedal edema, joint swelling, calf tenderness Back exam: Present: normal inspection. Absent: tenderness, CVA tenderness (R), CVA tenderness (L), muscle spasm, paraspinal tenderness, vertebral tenderness Neurological exam: Present: alert, oriented X3, CN II-XII intact Psychiatric exam: Present: normal affect, normal mood Skin exam: Present: warm, dry, intact, pallor, other (Right chest wall permacath). Absent: rash, cyanosis, diaphoretic, erythema, petechiae, mottled Course Vital Signs 08/31/20 08/31/20 08/31/20 21:50 22:00 22:22 Temperature 97.3 F L Pulse Rate 79 77 Respiratory 33 H 38 H Rate Blood Pressure 108/78 O2 Sat by Pulse 96 Oximetry 08/31/20 08/31/20 08/31/20 22:31 22:43 23:00 Temperature Pulse Rate 82 62 Respiratory 22 Rate Blood Pressure 130/73 O2 Sat by Pulse 100 100 Oximetry - Reevaluation(s) Reevaluation #1: 08/31/20 22:31 Patient on BiPAP states that starting to feel a little bit better. Patient also received solumedrol and currently receiving an albuterol Atrovent treatment. Dr. Hayes at bedside Time: 22:31 Reevaluation #2: 08/31/20 22:49 Arterial blood gas 7.34, patient's color now pink. Patient states continuing to feel better. at bedside states that patient had dialysis last night and that's when she started to feel short of breath. Patient is scheduled with Dr. Sanchez to have dialysis graft placed to stay. Chest x-ray shows congestive heart failure with elevated WBC count patient will be given antibiotics and admitted. Time: 22:49 Medical Decision Making - Medical Decision Making ABG shows pH of 7.33, pCO2 of 62, pO2 of 277. Patient's hemoglobin is 7.8, hematocrit is 25.6 which is consistent for patient. White blood cell count was 18.4 and is elevated and august 07 was 11. Patient given 2 g cefepime. Chest x- ray shows congestive heart failure, cardiomegaly, the right central venous catheter in the superior vena cava. BNP is 27,400, magnesium is 2.4. BUN is 44 and creatinine is 4.84 which is consistent for patient, on renal dialysis. D- dimer is 1.76, was elevated in May of 0.75 which is likely elevated from her congestive heart failure. Troponin Case discussed with Dr. Hayes. Will admit patient to the hospital for congestive heart failure, fluid overload. - Lab Data Result diagrams: 08/31/20 22:21 08/31/20 22:21 Lab Results 08/31/20 08/31/20 08/31/20 Range/Units 22:21 22:21 22:21 WBC 18.4 H (3.8-10.6) k/uL RBC 2.68 L (3.80-5.40) m/uL Hgb 7.8 L (11.4-16.0) gm/dL Hct 25.6 L (34.0-46.0) % MCV 95.4 (80.0-100.0) fL MCH 29.0 (25.0-35.0) pg MCHC 30.4 L (31.0-37.0) g/dL RDW 16.8 H (11.5-15.5) % Plt Count 506 H (150-450) k/uL MPV 6.8 Neutrophils % 87 % Lymphocytes % 5 % Monocytes % 5 % Eosinophils % 1 % Basophils % 1 % Neutrophils # 16.1 H (1.3-7.7) k/uL Lymphocytes # 1.0 (1.0-4.8) k/uL Monocytes # 0.9 (0-1.0) k/uL Eosinophils # 0.1 (0-0.7) k/uL Basophils # 0.1 (0-0.2) k/uL Hypochromasia Moderate Anisocytosis Slight Macrocytosis Slight PT 10.3 (9.0-12.0) sec INR 1.0 (<1.2) APTT 20.8 L (22.0-30.0) sec D-Dimer 1.76 H (<0.60) mg/L FEU Sample Site ABG pH (7.35-7.45) ABG pCO2 (35-45) mmHg ABG pO2 (83-108) mmHg ABG HCO3 (21-25) mmol/L ABG Total CO2 (19-24) mmol/L ABG O2 Saturation (94-97) % ABG Base Excess mmol/L Juvenal Test FiO2 % Sodium 136 L (137-145) mmol/L Potassium 4.6 (3.5-5.1) mmol/L Chloride 95 L (98-107) mmol/L Carbon Dioxide 33 H (22-30) mmol/L Anion Gap 8 mmol/L BUN 44 H (7-17) mg/dL Creatinine 4.84 H (0.52-1.04) mg/dL Est GFR (CKD-EPI)AfAm 9 (>60 ml/min/1.73 sqM) Est GFR (CKD-EPI)NonAf 8 (>60 ml/min/1.73 sqM) Glucose 151 H (74-99) mg/dL Calcium 10.5 H (8.4-10.2) mg/dL Magnesium 2.4 H (1.6-2.3) mg/dL Total Bilirubin 0.4 (0.2-1.3) mg/dL AST 27 (14-36) U/L ALT 11 (4-34) U/L Alkaline Phosphatase 78 (38-126) U/L NT-Pro-B Natriuret Pep pg/mL Total Protein 6.6 (6.3-8.2) g/dL Albumin 3.7 (3.5-5.0) g/dL 08/31/20 08/31/20 Range/Units 22:21 22:36 WBC (3.8-10.6) k/uL RBC (3.80-5.40) m/uL Hgb (11.4-16.0) gm/dL Hct (34.0-46.0) % MCV (80.0-100.0) fL MCH (25.0-35.0) pg MCHC (31.0-37.0) g/dL RDW (11.5-15.5) % Plt Count (150-450) k/uL MPV Neutrophils % % Lymphocytes % % Monocytes % % Eosinophils % % Basophils % % Neutrophils # (1.3-7.7) k/uL Lymphocytes # (1.0-4.8) k/uL Monocytes # (0-1.0) k/uL Eosinophils # (0-0.7) k/uL Basophils # (0-0.2) k/uL Hypochromasia Anisocytosis Macrocytosis PT (9.0-12.0) sec INR (<1.2) APTT (22.0-30.0) sec D-Dimer (<0.60) mg/L FEU Sample Site R radial ABG pH 7.34 L (7.35-7.45) ABG pCO2 63 H (35-45) mmHg ABG pO2 277 H (83-108) mmHg ABG HCO3 33 H (21-25) mmol/L ABG Total CO2 35 H (19-24) mmol/L ABG O2 Saturation 99.9 H (94-97) % ABG Base Excess 7.6 mmol/L Juvenal Test Yes FiO2 100 % Sodium (137-145) mmol/L Potassium (3.5-5.1) mmol/L Chloride (98-107) mmol/L Carbon Dioxide (22-30) mmol/L Anion Gap mmol/L BUN (7-17) mg/dL Creatinine (0.52-1.04) mg/dL Est GFR (CKD-EPI)AfAm (>60 ml/min/1.73 sqM) Est GFR (CKD-EPI)NonAf (>60 ml/min/1.73 sqM) Glucose (74-99) mg/dL Calcium (8.4-10.2) mg/dL Magnesium (1.6-2.3) mg/dL Total Bilirubin (0.2-1.3) mg/dL AST (14-36) U/L ALT (4-34) U/L Alkaline Phosphatase (38-126) U/L NT-Pro-B Natriuret Pep 84084 pg/mL Total Protein (6.3-8.2) g/dL Albumin (3.5-5.0) g/dL - EKG Data EKG shows normal: sinus rhythm, axis (right), intervals (Ventricular rate of 77, NV interval 0.142, QRS of 0.112, QTC of 0.439) Rate: normal Critical Care Time Critical Care Time: Yes Total Critical Care Time: 15 Disposition Clinical Impression: Congestive heart failure, Chronic anemia, Acute exacerbation of chronic obstructive pulmonary disease Disposition: ADMITTED IP TO THIS HOSP Condition: Fair Referrals: Dwight Abdullahi MD [Primary Care Provider] - 1-2 days Decision Date: 08/31/20 Decision Time: 22:52
[2020-08-31 22:33] LABS: Anisocytosis Slight; Basophils # (A) 0.1 k/uL (0-0.2); Basophils % (A) 1 %; Eosinophils # (A) 0.1 k/uL (0-0.7); Eosinophils % (A) 1 %; HCT 25.6 % (34.0-46.0); HGB 7.8 gm/dL (11.4-16.0); Hypochromasia Moderate; Lymphocytes % (A) 5 %; MCHC 30.4 g/dL (31.0-37.0); MCV 95.4 fL (80.0-100.0); Macrocytosis Slight; Mean Platelet Volume 6.8; Monocytes # (A) 0.9 k/uL (0-1.0); Monocytes % (A) 5 %; Neutrophils # (A) 16.1 k/uL (1.3-7.7); Neutrophils % (A) 87 %; Platelet Count 506 k/uL (150-450); RBC 2.68 m/uL (3.80-5.40); RDW 16.8 % (11.5-15.5); WBC 18.4 k/uL (3.8-10.6)
--- NOTE | 2020-08-31 22:39 | XR ---
EXAMINATION TYPE: XR chest 1V portable DATE OF EXAM: 08/31/2020 COMPARISON: 08/07/2020 HISTORY: Difficulty breathing TECHNIQUE: Single view FINDINGS: Heart is enlarged. There is pulmonary vascular congestion. There is right central venous ca theter with tip in the superior vena cava. There are sternal wires. IMPRESSION: Congestive heart failure that is increased compared to last exam.
[2020-08-31 22:40] LABS: ABG Base Excess 7.6 mmol/L; ABG HCO3 33 mmol/L (21-25); ABG Oxygen Saturation 99.9 % (94-97); ABG PCO2 63 mmHg (35-45); ABG PH 7.34 (7.35-7.45); ABG PO2 277 mmHg (83-108); ABG TCO2 35 mmol/L (19-24); Allen Test Performed? Yes
[2020-08-31] MEDS ORDERED: CEFEPIME 2 GM in SODIUM CHLORIDE 0.9% 100 ML IVPB STA (22:44)
[2020-08-31 22:53] LABS: Prothrombin Time 10.3 sec (9.0-12.0)
[2020-08-31 22:58] LABS: Albumin 3.7 g/dL (3.5-5.0); Calcium 10.5 mg/dL (8.4-10.2); Magnesium 2.4 mg/dL (1.6-2.3); Potassium 4.6 mmol/L (3.5-5.1); Total Bilirubin 0.4 mg/dL (0.2-1.3); Total Protein 6.6 g/dL (6.3-8.2)
[2020-08-31 23:02] LABS: D-Dimer 1.76 mg/L FEU (<0.60); Partial Thromboplastin Time 20.8 sec (22.0-30.0)
[2020-08-31] MEDS ORDERED: NALOXONE 0.4 MG/ML 1 ML VIAL IV PRN (23:46)
[2020-08-31] MEDS ORDERED: ACETAMINOPHEN TAB 325 MG TAB PO PRN (23:46)
[2020-09-01] MEDS: ALBUTEROL NEBULIZED 2.5 MG/3 ML INHALATION SCH ×7 (00:01→19:58)
--- NOTE | 2020-09-01 01:31 | P.HPIM ---
History of Present Illness H&P Date: 09/01/20 The patient is a 74-year-old female with an extensive PMH including systolic CHF, chronic hypoxic respiratory failure on home 2 L nasal cannula oxygen, ESRD on hemodialysis, hypertension, hyperlipidemia, and type II DM who presented to the emergency room with complaints of shortness of breath. The patient reports that her breathing acutely worsened yesterday and she woke up from sleep feeling short of breath. She reports that since then, she had to increase her nasal cannula oxygen 6 L with only minimal improvement in her symptoms. EMS found the patient with SpO2 88% on 6 L nasal cannula. She was given a breathing treatment en-route to the hospital. Reports shortness of breath at rest and significantly decreased exercise tolerance. Patient reports she received her last dialysis on Wednesday 08/30, though could not recall the amount of fluid that was removed. She also reported chronic lower extremity edema which is unchanged and two-pillow orthopnea. She denied chest pain, fever, cough. Denied nausea, vomiting, abdominal pain, diarrhea. Denied leg pain. In the emergency room, an EKG revealed normal sinus rhythm at 77 bpm with poor R-wave progression. Chest x- ray was consistent with fluid overload and congestive heart failure. Laboratory evaluation was remarkable for leukocytosis of 18.4, hemoglobin 7.8 (at baseline) platelets 506, d-dimer 1.76, ABG showing pCO2 63, sodium 136, CO2 33, BUN 44, creatinine 4.4, glucose 151, troponin 0.036, proBNP 27,400. Review of systems: Pertinent positives and negatives as discussed in HPI, a complete review of systems was performed and all other systems are negative. Physical examination: General: non toxic, on BiPAP, no distress, appears at stated age, morbidly obese Derm: no unusual rashes/lesions no unusual ecchymoses, warm, dry Head: atraumatic, normocephalic, symmetric Eyes: EOMI, no lid lag, anicteric sclera, pupils equal round reactive to light ENT: Nose and ears atraumatic, no thrush, no pharyngeal erythema Neck: No thyromegaly, no cervical lymphadenopathy, trachea midline, supple Mouth: no lip lesion, mucus membranes moist Cardiovascular: S1S2 reg, no murmur, positive posterior tibial pulse bilateral, 2+ bilateral lower extremity pitting edema to thighs, capillary refill less than 2 seconds Lungs: Bibasilar rales to mid lung cantu, no rhonchi or wheezing appreciated, no accessory muscle use Abdominal: soft, nontender to palpation, no guarding, no appreciable organomegaly, normal bowel sounds Ext: no gross muscle atrophy, muscle strength 5 out of 5 in all 4 extremities grossly, no contractures, Neuro: CN II-XI grossly intact, light touch intact all 4 extremities, finger to nose within normal limits, Psych: Alert, oriented, appropriate affect Assessment/plan Shortness of breath, likely due to fluid overload from systolic CHF and end- stage renal disease -Patient still makes urine -Lasix 80 mg every 12 hourly -Cardiology and nephrology consultations -Cardiac monitoring -Daily weights -Intake and output -Fluid restriction -Continue with BiPAP for now Troponin elevation -Likely secondary to ongoing CHF exacerbation with renal disease -At baseline Leukocytosis, likely due to acute stressor -Obtain pro-calcitonin -Patient received cefepime in the emergency room for suspected pneumonia -Patient denied cough, fever, chills -Hold off on antibiotics pending the pro-calcitonin Borderline elevated D-dimer -Likely elevated due to significant on-going stressors -Low suspicion for DVT/PE at this time Chronic conditions: Type II DM, hypertension, hyperlipidemia -Check A1c -Insulin sliding scale with blood glucose monitoring -Continue with home medications DVT prophylaxis -IPCDs The patient is admitted with an anticipated greater than 2 midnight stay for evaluation of CHF exacerb CODE STATUS: Full Code Discussed with: Patient Anticipated discharge date: 2-[address]: Home A total of 40 minutes was spent on the care of this complex patient more than 50% of the time was spent in counseling and care coordination. Past Medical History Past Medical History: Coronary Artery Disease (CAD), Heart Failure, COPD, CVA/TIA, Diabetes Mellitus, Hyperlipidemia, Hypertension, Myocardial Infarction ([place]), Pneumonia, Renal Disease Additional Past Medical History / Comment(s): Pt recently admitted to [facility] on 07/31/20 for acute on chronic CHF with EF 30-35%. Other hx: IDDM type II, neuropathy bilateral legs/feet, CKD stage IV-pt being worked up for fistula placement/hemodialysis, normocytic anemia, during caratid stent procedure pt lost some vision in bilateral eyes, home oxygen 2L/NC ATC, gout bilateral great toes, CHF Last Myocardial Infarction Date:: 2006 History of Any Multi-Drug Resistant Organisms: None Reported Past Surgical History: Breast Surgery, Cholecystectomy, Coronary Bypass/CABG, Heart Catheterization, Hysterectomy, Orthopedic Surgery Additional Past Surgical History / Comment(s): R caratid stenting, 2006 CABG 4 vessels, bilateral knee surgeries-R knee was reconstructed/has hardware, L axillae cyst I&D, R index finger wound I&D, R breast biopsy x 2. Past Anesthesia/Blood Transfusion Reactions: No Reported Reaction Date of Last Stent Placement:: UN Past Psychological History: No Psychological Hx Reported Smoking Status: Former smoker Past Alcohol Use History: Occasional Past Drug Use History: None Reported - Past Family History Mother Family Medical History: No Reported History Sister(s) Family Medical History: Cancer, Deep Vein Thrombosis (DVT) Additional Family Medical History / Comment(s): CERVICAL Father Family Medical History: Coronary Artery Disease (CAD), Diabetes Mellitus Medications and Allergies Home Medications Medication Instructions Recorded Confirmed Type Atorvastatin [Lipitor] 80 mg PO HS 07/04/14 08/06/20 History Carvedilol [Coreg] 25 mg PO BID 07/04/14 08/06/20 History amLODIPine BESYLATE [Norvasc] 10 mg PO DAILY 07/04/14 08/06/20 History Allopurinol [Zyloprim] 200 mg PO DAILY 03/13/20 08/06/20 History Insulin Glargine,Hum.rec.anlog 30 unit SQ DAILY 03/13/20 08/06/20 History [Danni Teresa U-100] Thiamine [Vitamin B-1] 100 mg PO BID 03/13/20 08/06/20 History Aspirin 81 mg PO DAILY chew 03/15/20 08/06/20 Rx hydrALAZINE HCL [Apresoline] 25 mg PO TID #90 tab 03/15/20 08/06/20 Rx Ferrous Sulfate [Feosol] 325 mg PO BID #60 tab 06/24/20 08/06/20 Rx Ergocalciferol [Vitamin D2 (1250 1,250 mcg PO Q30D 07/28/20 08/06/20 History Mcg = 83768 Iu)] metOLazone [Zaroxolyn] 5 mg PO Q48H 30 Days #15 tab 07/31/20 08/06/20 Rx Darbepoetin Paresh [Aranesp] 40 mcg SQ TH 08/06/20 08/06/20 History Sevelamer [Renvela] 800 mg PO TID-W/MEALS 30 Days #90 08/09/20 Rx tab Torsemide [Demadex] 40 mg PO DAILY #30 tablet 08/09/20 08/06/20 Rx Allergies Allergy/AdvReac Type Severity Reaction Status Date / Time Penicillins Allergy Unknown Verified 08/31/20 21:57 Childhood Physical Exam Vitals: Vital Signs Temp Pulse Resp BP Pulse Ox 09/01/20 00:00 58 L 20 133/51 95 08/31/20 23:00 62 22 130/73 100 08/31/20 22:43 100 08/31/20 22:31 82 08/31/20 22:22 77 08/31/20 22:00 38 H 08/31/20 21:50 97.3 F L 79 33 H 108/78 96 Intake and Output 08/31/20 08/31/20 09/01/20 14:59 22:59 06:59 Other: Weight 114.305 kg Results CBC & Chem 7: 08/31/20 22:21 08/31/20 22:21 Labs: Abnormal Lab Results - Last 24 Hours (Table) 08/31/20 08/31/20 08/31/20 Range/Units 22:21 22:21 22:21 WBC 18.4 H (3.8-10.6) k/uL RBC 2.68 L (3.80-5.40) m/uL Hgb 7.8 L (11.4-16.0) gm/dL Hct 25.6 L (34.0-46.0) % MCHC 30.4 L (31.0-37.0) g/dL RDW 16.8 H (11.5-15.5) % Plt Count 506 H (150-450) k/uL Neutrophils # 16.1 H (1.3-7.7) k/uL APTT 20.8 L (22.0-30.0) sec D-Dimer 1.76 H (<0.60) mg/L FEU ABG pH (7.35-7.45) ABG pCO2 (35-45) mmHg ABG pO2 (83-108) mmHg ABG HCO3 (21-25) mmol/L ABG Total CO2 (19-24) mmol/L ABG O2 Saturation (94-97) % Sodium 136 L (137-145) mmol/L Chloride 95 L (98-107) mmol/L Carbon Dioxide 33 H (22-30) mmol/L BUN 44 H (7-17) mg/dL Creatinine 4.84 H (0.52-1.04) mg/dL Glucose 151 H (74-99) mg/dL Calcium 10.5 H (8.4-10.2) mg/dL Magnesium 2.4 H (1.6-2.3) mg/dL Troponin I (0.000-0.034) ng/mL 08/31/20 08/31/20 Range/Units 22:21 22:36 WBC (3.8-10.6) k/uL RBC (3.80-5.40) m/uL Hgb (11.4-16.0) gm/dL Hct (34.0-46.0) % MCHC (31.0-37.0) g/dL RDW (11.5-15.5) % Plt Count (150-450) k/uL Neutrophils # (1.3-7.7) k/uL APTT (22.0-30.0) sec D-Dimer (<0.60) mg/L FEU ABG pH 7.34 L (7.35-7.45) ABG pCO2 63 H (35-45) mmHg ABG pO2 277 H (83-108) mmHg ABG HCO3 33 H (21-25) mmol/L ABG Total CO2 35 H (19-24) mmol/L ABG O2 Saturation 99.9 H (94-97) % Sodium (137-145) mmol/L Chloride (98-107) mmol/L Carbon Dioxide (22-30) mmol/L BUN (7-17) mg/dL Creatinine (0.52-1.04) mg/dL Glucose (74-99) mg/dL Calcium (8.4-10.2) mg/dL Magnesium (1.6-2.3) mg/dL Troponin I 0.036 H* (0.000-0.034) ng/mL
[2020-09-01 07:43] LABS: African American GFR (CKD) 8 (>60 ml/min/1.73 sqM); Anion Gap 13 mmol/L; Blood Urea Nitrogen 51 mg/dL (7-17); Calcium 11.1 mg/dL (8.4-10.2); Carbon Dioxide 28 mmol/L (22-30); Chloride 95 mmol/L (98-107); Glucose 160 mg/dL (74-99); Non-African American GFR(CKD) 7 (>60 ml/min/1.73 sqM); Potassium 5.6 mmol/L (3.5-5.1); Sodium 136 mmol/L (137-145)
[2020-09-01] MEDS ORDERED: LORazepam 2 MG/ML INJ IV STA ×2 (08:10→14:54)
[2020-09-01] MEDS: INSULIN ASPART (NovoLOG) 100 UNIT/ML VIAL SQ SCH ×4 (09:25→20:55)
[2020-09-01] MEDS: FUROSEMIDE 10 MG/ML 10 ML VIAL IV SCH ×2 (09:31→20:16)
[2020-09-01] MEDS ORDERED: NITROGLYCERIN SL TABS 0.4 MG TAB SUBLINGUAL PRN (09:40)
[2020-09-01] MEDS ORDERED: FOLIC ACID-VIT B COMPLEX-VIT C 1 CAP PO PRN (09:45)
--- NOTE | 2020-09-01 10:19 | P.PN ---
<Brent Pfeiffer - Last Filed: 09/01/20 09:45> Subjective Progress Note Date: 09/01/20 Hospital course: Patient is a 74-year-old female with a past medical history including coronary artery disease, chronic systolic heart failure with an EF of 35-40%, hypertension, hyperlipidemia, COPD home oxygen dependent on 2 L, insulin- dependent diabetes mellitus type 2, and end-stage renal disease on dialysis Mondays/Wednesdays/Fridays. Patient presented to the hospital on 08/31/20 with a chief complaint of shortness of breath. Patient reports on Wednesday after her normal regular dialysis session she went home, but shortly later that evening she began noticing an increase shortness of breath from her baseline. Patient reports she was in the house and the air conditioner was on and she was not exposed to any excess heat or activities. Patient states progressively through the night Wednesday and throughout the day Wednesday shortness of breath became more and more severe so she came to the emergency department. In the emergency department patient was found to have leukocytosis with WBC count of 18.4, and elevated proBNP of 27,400, and a troponin of 0.036. Chest x-ray was completed and revealed increased pulmonary vascular congestion consistent with worsening CHF. EKG revealed normal sinus rhythm at 77 bpm with no noted T wave or ST abnormality showing no signs of acute ischemia. D-dimer was elevated at 1.76, however patient very low suspicion for DVT/PE at this time and borderline elevation is likely secondary to ongoing stressors. Patient admitted under our services for continued medical management with consultation to cardiology for CHF exacerbation and nephrology for continued dialysis.. Patient currently requiring BiPAP. Physical exam: Patient seen and fully evaluated at the bedside. She reports continued short of breath and continued anxiety secondary to wearing BiPAP mask. Patient requesting anti-anxiety medication in order placed at this time. Patient denied having any headache, lightheadedness, dizziness, chest pain, palpitations, abdominal pain, nausea, vomiting, or experiencing any numbness/tingling/weakness in her extremities. General: non toxic, no distress, appears at stated age Derm: warm, dry Head: atraumatic, normocephalic, symmetric Eyes: EOMI, no lid lag, anicteric sclera Mouth: no lip lesion, mucus membranes moist Cardiovascular: Normal rate and rhythm. Positive murmur. No gallop or rub. 2+ pitting bilateral lower extremity edema. Cap refill less than 2 seconds. Dialysis access right anterior chest. Lungs: Respirations tachypneic at 26 breaths per minute but were even, regular, and unlabored on BiPAP. Lungs diminished with diffuse crackles. Abdominal: Obese abdomen soft, nontender to palpation, no guarding, no appreciable organomegaly Ext: no gross muscle atrophy, no edema, no contractures Neuro: CN II-XI grossly intact, no focal neuro deficits Psych: Alert, oriented, appropriate affect Plan of care: Acute on chronic systolic congestive heart failure with an ejection fraction of 35-40% -ProBNP 27,400, troponin 0.036 -Chest x-ray revealed increased pulmonary vascular congestion consistent with worsening CHF. -Consult to Cardiology and Nephrology -Telemetry monitoring -Daily weights -Close monitoring of I's and O's -Cardiac diet -Lasix 80 mg IVP every 12 hours -Continued close monitoring of electrolytes while diuresing. ESRD on dialysis Mondays/Wednesdays/Fridays -Currently admitted for fluid volume overload secondary to acute on chronic systolic congestive heart failure accompanied by need for dialysis. -Nephrology consulted for continued dialysis treatments. -We will continue to monitor closely. Elevated troponin -Likely secondary to CHF exacerbation on top of ESRD -Troponin 0.036 -EKG showed normal sinus rhythm at 77 bpm with no noted T wave or ST abnormalities. -Patient being diuresed and nephrology following for dialysis. -Cardiology following, appreciate further recommendations. Leukocytosis -Possibly secondary to inflammatory secondary to stressors vs underlying infection. -Pro-calcitonin to be obtained. -Blood cultures 2 sets obtained and currently pending results. -We will continue to monitor closely for any signs/symptoms of infections, at this time we will hold off antibiotics until further results available. Hypertension -Monitor vital signs and continue daily medication management. Hyperlipidemia -Continue daily medication management with atorvastatin 80 mg nightly. COPD home oxygen dependent on 2 L -Continue all to provide oxygen supplementation as needed to maintain SpO2 equal to or greater than 92%. Patient currently requiring BiPAP at this time. -Encourage incentive spirometry use 10-15 times hourly while awake. Insulin-dependent diabetes mellitus type 2 -Glycemic protocol with NovoLog sliding scale along with Levemir 30 units daily. -Heart healthy carb consistent diet. CODE STATUS: Full code DVT prophylaxis: Heparin Discussed with: Patient and RN Anticipated discharge date: Clinical course to determine Anticipated discharge place: Home, may consider home care services A total of 45 minutes was spent on the care of this complex patient more than 50% of the time was spent in counseling and care coordination. Objective - Vital Signs Vital signs: Vital Signs Temp 97.3 F L 08/31/20 21:50 Pulse 86 09/01/20 07:35 Resp 18 09/01/20 05:00 BP 139/63 09/01/20 05:00 Pulse Ox 76 L 09/01/20 07:44 Intake & Output 08/31/20 09/01/20 09/01/20 18:59 06:59 18:59 Weight 114.305 kg - Labs CBC & Chem 7: 08/31/20 22:21 09/01/20 06:46 Labs: Abnormal Lab Results - Last 24 Hours (Table) 08/31/20 08/31/20 08/31/20 Range/Units 22:21 22:21 22:21 WBC 18.4 H (3.8-10.6) k/uL RBC 2.68 L (3.80-5.40) m/uL Hgb 7.8 L (11.4-16.0) gm/dL Hct 25.6 L (34.0-46.0) % MCHC 30.4 L (31.0-37.0) g/dL RDW 16.8 H (11.5-15.5) % Plt Count 506 H (150-450) k/uL Neutrophils # 16.1 H (1.3-7.7) k/uL APTT 20.8 L (22.0-30.0) sec D-Dimer 1.76 H (<0.60) mg/L FEU ABG pH (7.35-7.45) ABG pCO2 (35-45) mmHg ABG pO2 (83-108) mmHg ABG HCO3 (21-25) mmol/L ABG Total CO2 (19-24) mmol/L ABG O2 Saturation (94-97) % Sodium 136 L (137-145) mmol/L Potassium (3.5-5.1) mmol/L Chloride 95 L (98-107) mmol/L Carbon Dioxide 33 H (22-30) mmol/L BUN 44 H (7-17) mg/dL Creatinine 4.84 H (0.52-1.04) mg/dL Glucose 151 H (74-99) mg/dL Calcium 10.5 H (8.4-10.2) mg/dL Magnesium 2.4 H (1.6-2.3) mg/dL Troponin I (0.000-0.034) ng/mL 08/31/20 08/31/20 09/01/20 Range/Units 22:21 22:36 06:46 WBC (3.8-10.6) k/uL RBC (3.80-5.40) m/uL Hgb (11.4-16.0) gm/dL Hct (34.0-46.0) % MCHC (31.0-37.0) g/dL RDW (11.5-15.5) % Plt Count (150-450) k/uL Neutrophils # (1.3-7.7) k/uL APTT (22.0-30.0) sec D-Dimer (<0.60) mg/L FEU ABG pH 7.34 L (7.35-7.45) ABG pCO2 63 H (35-45) mmHg ABG pO2 277 H (83-108) mmHg ABG HCO3 33 H (21-25) mmol/L ABG Total CO2 35 H (19-24) mmol/L ABG O2 Saturation 99.9 H (94-97) % Sodium 136 L (137-145) mmol/L Potassium 5.6 H (3.5-5.1) mmol/L Chloride 95 L (98-107) mmol/L Carbon Dioxide (22-30) mmol/L BUN 51 H (7-17) mg/dL Creatinine 5.39 H (0.52-1.04) mg/dL Glucose 160 H (74-99) mg/dL Calcium 11.1 H (8.4-10.2) mg/dL Magnesium (1.6-2.3) mg/dL Troponin I 0.036 H* (0.000-0.034) ng/mL <Emily Dick - Last Filed: 09/01/20 14:35> Objective - Vital Signs Vital signs: Vital Signs Temp 97.3 F L 08/31/20 21:50 Pulse 81 09/01/20 11:09 Resp 27 H 09/01/20 09:43 BP 151/78 09/01/20 09:43 Pulse Ox 97 09/01/20 09:43 Intake & Output 08/31/20 09/01/20 09/01/20 18:59 06:59 18:59 Weight 114.305 kg - Labs CBC & Chem 7: 09/01/20 06:46 09/01/20 06:46 Labs: Abnormal Lab Results - Last 24 Hours (Table) 08/31/20 08/31/20 08/31/20 Range/Units 22:21 22:21 22:21 WBC 18.4 H (3.8-10.6) k/uL RBC 2.68 L (3.80-5.40) m/uL Hgb 7.8 L (11.4-16.0) gm/dL Hct 25.6 L (34.0-46.0) % MCV (80.0-97.0) fL MCHC 30.4 L (31.0-37.0) g/dL RDW 16.8 H (11.5-15.5) % Plt Count 506 H (150-450) k/uL Neutrophils # 16.1 H (1.3-7.7) k/uL APTT 20.8 L (22.0-30.0) sec D-Dimer 1.76 H (<0.60) mg/L FEU ABG pH (7.35-7.45) ABG pCO2 (35-45) mmHg ABG pO2 (83-108) mmHg ABG HCO3 (21-25) mmol/L ABG Total CO2 (19-24) mmol/L ABG O2 Saturation (94-97) % Sodium 136 L (137-145) mmol/L Potassium (3.5-5.1) mmol/L Chloride 95 L (98-107) mmol/L Carbon Dioxide 33 H (22-30) mmol/L BUN 44 H (7-17) mg/dL Creatinine 4.84 H (0.52-1.04) mg/dL Glucose 151 H (74-99) mg/dL Calcium 10.5 H (8.4-10.2) mg/dL Magnesium 2.4 H (1.6-2.3) mg/dL Troponin I (0.000-0.034) ng/mL Procalcitonin (0.02-0.09) ng/mL 08/31/20 08/31/20 09/01/20 Range/Units 22:21 22:36 06:46 WBC (3.8-10.6) k/uL RBC (3.80-5.40) m/uL Hgb (11.4-16.0) gm/dL Hct (34.0-46.0) % MCV (80.0-97.0) fL MCHC (31.0-37.0) g/dL RDW (11.5-15.5) % Plt Count (150-450) k/uL Neutrophils # (1.3-7.7) k/uL APTT (22.0-30.0) sec D-Dimer (<0.60) mg/L FEU ABG pH 7.34 L (7.35-7.45) ABG pCO2 63 H (35-45) mmHg ABG pO2 277 H (83-108) mmHg ABG HCO3 33 H (21-25) mmol/L ABG Total CO2 35 H (19-24) mmol/L ABG O2 Saturation 99.9 H (94-97) % Sodium (137-145) mmol/L Potassium (3.5-5.1) mmol/L Chloride (98-107) mmol/L Carbon Dioxide (22-30) mmol/L BUN (7-17) mg/dL Creatinine (0.52-1.04) mg/dL Glucose (74-99) mg/dL Calcium (8.4-10.2) mg/dL Magnesium (1.6-2.3) mg/dL Troponin I 0.036 H* (0.000-0.034) ng/mL Procalcitonin 0.36 H (0.02-0.09) ng/mL 09/01/20 09/01/20 Range/Units 06:46 06:46 WBC 16.53 H (3.8-10.6) k/uL RBC 2.57 L (3.80-5.40) m/uL Hgb 7.6 L (11.4-16.0) gm/dL Hct 26.1 L (34.0-46.0) % MCV 101.6 H (80.0-97.0) fL MCHC 29.1 L (31.0-37.0) g/dL RDW 15.6 H (11.5-15.5) % Plt Count (150-450) k/uL Neutrophils # (1.3-7.7) k/uL APTT (22.0-30.0) sec D-Dimer (<0.60) mg/L FEU ABG pH (7.35-7.45) ABG pCO2 (35-45) mmHg ABG pO2 (83-108) mmHg ABG HCO3 (21-25) mmol/L ABG Total CO2 (19-24) mmol/L ABG O2 Saturation (94-97) % Sodium 136 L (137-145) mmol/L Potassium 5.6 H (3.5-5.1) mmol/L Chloride 95 L (98-107) mmol/L Carbon Dioxide (22-30) mmol/L BUN 51 H (7-17) mg/dL Creatinine 5.39 H (0.52-1.04) mg/dL Glucose 160 H (74-99) mg/dL Calcium 11.1 H (8.4-10.2) mg/dL Magnesium (1.6-2.3) mg/dL Troponin I (0.000-0.034) ng/mL Procalcitonin (0.02-0.09) ng/mL Assessment and Plan Assessment: Brent Pfeiffer NP rendered care for this patient independently, reviewed the findings and plan as documented in the note above. I did not physically speak with or examine the patient on this date.
--- NOTE | 2020-09-01 12:09 | P.NPCON ---
History of Present Illness - Reason for Consult Consult date: 09/01/20 end stage renal disease - Chief Complaint Short of breath congestive heart failure - History of Present Illness This is 74-year-old female with new onset ESRD on dialysis started. Her last dialysis was on Wednesday day before yesterday.. She came in yesterday Wednesday with shortness of breath. She is known with hypertension and type 2 diabetes, COPD, history of TIA in the past, history of MA ejection fraction 30-35% history of loss of vision after carotid artery stenting. She also has had coronary artery bypass graft and stenting. stent. A chest x-ray shows congestive heart failure, hemoglobin 7.8. Potassium is 5.6 Past Medical History Past Medical History: Coronary Artery Disease (CAD), Heart Failure, COPD, CVA/TIA, Diabetes Mellitus, Hyperlipidemia, Hypertension, Myocardial Infarction (MA), Pneumonia, Renal Disease Additional Past Medical History / Comment(s): Pt recently admitted to [facility] on 07/31/20 for acute on chronic CHF with EF 30-35%. Other hx: IDDM type II, neuropathy bilateral legs/feet, CKD stage IV-pt being worked up for fistula placement/hemodialysis, normocytic anemia, during caratid stent procedure pt lost some vision in bilateral eyes, home oxygen 2L/NC ATC, gout bilateral great toes, CHF Last Myocardial Infarction Date:: 2006 History of Any Multi-Drug Resistant Organisms: None Reported Past Surgical History: Breast Surgery, Cholecystectomy, Coronary Bypass/CABG, Heart Catheterization, Hysterectomy, Orthopedic Surgery Additional Past Surgical History / Comment(s): R caratid stenting, 2006 CABG 4 vessels, bilateral knee surgeries-R knee was reconstructed/has hardware, L axillae cyst I&D, R index finger wound I&D, R breast biopsy x 2. Past Anesthesia/Blood Transfusion Reactions: No Reported Reaction Date of Last Stent Placement:: UN Past Psychological History: No Psychological Hx Reported Smoking Status: Former smoker Past Alcohol Use History: Occasional Past Drug Use History: None Reported - Past Family History Mother Family Medical History: No Reported History Sister(s) Family Medical History: Cancer, Deep Vein Thrombosis (DVT) Additional Family Medical History / Comment(s): CERVICAL Father Family Medical History: Coronary Artery Disease (CAD), Diabetes Mellitus Medications and Allergies Home Medications Medication Instructions Recorded Confirmed Type Atorvastatin [Lipitor] 80 mg PO HS 07/04/14 09/01/20 History Carvedilol [Coreg] 25 mg PO BID 07/04/14 09/01/20 History amLODIPine BESYLATE [Norvasc] 10 mg PO DAILY 07/04/14 09/01/20 History Allopurinol [Zyloprim] 200 mg PO DAILY 03/13/20 09/01/20 History Insulin Glargine,Hum.rec.anlog 30 unit SQ DAILY 03/13/20 09/01/20 History [Basaglar Kwikpen U-100] Thiamine [Vitamin B-1] 100 mg PO BID 03/13/20 09/01/20 History Aspirin 81 mg PO DAILY chew 03/15/20 09/01/20 Rx Ferrous Sulfate [Feosol] 325 mg PO BID #60 tab 06/24/20 09/01/20 Rx Ergocalciferol [Vitamin D2 (1250 1,250 mcg PO Q30D 07/28/20 09/01/20 History Mcg = 48723 Iu)] Darbepoetin Paresh [Aranesp] 40 mcg SQ TH 08/06/20 09/01/20 History Sevelamer [Renvela] 800 mg PO TID-W/MEALS 30 Days #90 08/09/20 09/01/20 Rx tab Folic Acid-Vit B Complex-Vit C 1 mg PO DIRECTED 09/01/20 09/01/20 History [Nephrocaps] Nitroglycerin Sl Tabs [Nitrostat] 0.4 mg SUBLINGUAL Q5M PRN 09/01/20 09/01/20 History Torsemide [Demadex] 20 mg PO BID 09/01/20 09/01/20 History metOLazone [Zaroxolyn] 5 mg PO AC-TID 09/01/20 09/01/20 History Allergies Allergy/AdvReac Type Severity Reaction Status Date / Time Penicillins Allergy Unknown Verified 09/01/20 08:12 Childhood Physical Exam Vitals: Vital Signs Temp Pulse Resp BP Pulse Ox 09/01/20 11:09 81 09/01/20 10:56 89 09/01/20 09:43 88 27 H 151/78 97 09/01/20 07:44 76 L 09/01/20 07:35 86 09/01/20 07:23 81 90 L 09/01/20 05:48 91 L 09/01/20 05:00 62 18 139/63 92 L 09/01/20 03:01 64 09/01/20 02:50 67 09/01/20 00:00 58 L 20 133/51 95 08/31/20 23:00 62 22 130/73 100 08/31/20 22:43 100 08/31/20 22:31 82 08/31/20 22:22 77 08/31/20 22:00 38 H 08/31/20 21:50 97.3 F L 79 33 H 108/78 96 Intake and Output 08/31/20 09/01/20 09/01/20 22:59 06:59 14:59 Other: Weight 114.305 kg On exam she is awake alert on nasal cannula oxygen slightly short of breath HEENT exam no JVP neck is supple no facial asymmetry Lungs are significant for bilateral fine crackles with good air entry bilaterally Heart sounds are unremarkable for any murmur rub gallop. Rhythm strip shows normal sinus rhythm Abdomen soft nontender Extremities arms mild edema Neurologically awake alert oriented Results - Lab Results Most recent lab results ABG pH 7.34 (7.35-7.45) L 08/31/20 22:36 ABG pCO2 63 mmHg (35-45) H 08/31/20 22:36 ABG pO2 277 mmHg (83-108) H 08/31/20 22:36 ABG HCO3 33 mmol/L (21-25) H 08/31/20 22:36 ABG O2 Saturation 99.9 % (94-97) H 08/31/20 22:36 Calcium 11.1 mg/dL (8.4-10.2) H 09/01/20 06:46 Magnesium 2.4 mg/dL (1.6-2.3) H 08/31/20 22:21 08/31/20 22:21 09/01/20 06:46 Assessment and Plan Assessment: Impression 1. New onset ESRD started on dialysis recently on 08/08/2020. Last dialysis was day before yesterday. 2. Admitted with congestive heart failure 3 anemia with hemoglobin of 7.8 4. History of coronary artery disease history of CABG and stenting. Ejection fraction 35-40% on 03/14/2020 echocardiogram. Recommendation 1. Will try to dialyze her today for a short period of time 2 hours and take off 3 L with 2. Use Lasix IV drip at 10 mg an hour. 3. Next dialysis will be Wednesday Thank you for this consultation and will continue to follow
[2020-09-01 12:26] LABS: HCT 26.1 % (37.2-46.3); HGB 7.6 g/dL (12.0-15.0); MCH 29.6 pg (27.0-32.0); MCHC 29.1 g/dL (32.0-37.0); MCV 101.6 fL (80.0-97.0); Mean Platelet Volume 9.6 fL (9.5-12.2); Platelet Count 369 X 10*3/uL (140-440); RBC 2.57 X 10*6/uL (4.10-5.20); RDW 15.6 % (11.5-14.5); WBC 16.53 X 10*3/uL (4.50-10.00)
[2020-09-01 15:06] LABS: Hemoglobin A1C 5.3 % (4.0-6.0)
[2020-09-01 15:24] LABS: Glucose,Whole Blood 212 mg/dL (75-99)
[2020-09-01] MEDS: metOLazone 5 MG TAB PO SCH ×2 (16:12→17:37)
[2020-09-01] MEDS: SEVELAMER 800 MG TAB PO SCH ×2 (16:12→17:37)
[2020-09-01 17:30] LABS: Glucose,Whole Blood 174 mg/dL (75-99)
[2020-09-01] MEDS: HEPARIN SODIUM,PORCINE/PF 5,000 UNIT/0.5 ML SYRINGE SQ SCH ×2 (17:37→23:19)
[2020-09-01] MEDS: carvediloL 12.5 MG TAB PO SCH (17:45)
[2020-09-01 20:16] LABS: Glucose,Whole Blood 237 mg/dL (75-99)
[2020-09-01] MEDS: THIAMINE 100 MG TAB PO SCH (20:16)
[2020-09-01] MEDS: FERROUS SULFATE 325 MG TAB PO SCH (20:17)
[2020-09-01] MEDS: ATORVASTATIN 80 MG TAB PO SCH (20:17)
[2020-09-01] MEDS: ALPRAZolam 0.5 MG TAB PO PRN (20:17)
--- NOTE | 2020-09-01 21:29 | CONS ---
CONSULTATION Mrs. Andrade is a 74-year-old female who presented to the hospital with symptoms of progressive dyspnea. The patient had recently started dialysis because of worsening renal failure. She came in with worsening dyspnea and fluid overload. In view of that, she was evaluated and admitted. She follows with Dr. Amaro on a regular basis. She has a known history of ischemic cardiomyopathy status post coronary artery bypass grafting as well history of peripheral vascular disease. She has been becoming more short of breath over the last few days. She denies any chest discomfort. She denies any dizziness or palpitation. She has no clear PND or orthopnea. She has peripheral edema. She has no significant PND or orthopnea. She has a decrease in her exercise tolerance. She recently underwent a myocardial perfusion imaging and an echocardiogram by Dr. Amaro and the reports are not available to me. Her prior cardiac workup includes an echocardiogram that was done in February of last year and at that time her ejection fraction was estimated at 35% to 40%. She had moderate aortic stenosis as well as moderate tricuspid and mild mitral regurgitation. Her right-sided pressure was 49 mmHg. Her coronary risk factors are remarkable for history of hypertension, hyperlipidemia, and diabetes. She is a nonsmoker. MEDICATIONS: Her medications include aspirin, Lipitor 80 mg daily, Coreg 25 mg twice a day, insulin, Renvela, thiamine, Demodex 20 mg twice a day, amlodipine 10 mg daily, and Zaroxolyn. REVIEW OF SYSTEMS: RESPIRATORY SYSTEM: She has progressive dyspnea on exertion. She denies any recent wheezing. She has some cough. GI SYSTEM: No recent GI bleeding. No peptic ulcer disease. SYSTEM: No dysuria or hematuria. She has decrease in urine output. NERVOUS SYSTEM: No history of stroke or seizure. PHYSICAL EXAMINATION: She is a 74-year-old female, alert, oriented, obese. Mild dyspnea. Blood pressure 139/60 with a heart rate in the 80s. HEAD: Normocephalic. Eyes sclerae anicteric. NECK: No bruit. LUNGS: Lungs with few crackles at the bases. HEART: Regular rate and rhythm S1, S2. No S3 with systolic ejection murmur heard at the base. No diastolic murmur. No rub. ABDOMEN: Soft, obese, nontender. Positive bowel sounds. No organomegaly. EXTREMITIES: With 1+ edema. LAB DATA: Hemoglobin of 7.6, white blood cell of 16.53, pH of 7.34, pCO2 of 63, PO2 of 277. BUN and creatinine 51 and 5.39. Potassium 5.6. NT proBNP of 27,400. Troponin 0.036, which has been elevated in prior admissions without significant changes. Her NT proBNP is higher than her last admission. Her EKG shows a sinus mechanism with intraventricular conduction delay, poor R-wave progression, cannot exclude anterior wall myocardial infarction. Her chest x-ray shows evidence of worsening congestive heart failure. IMPRESSION: 1. Progressive symptoms of dyspnea with evidence of congestive heart failure in a patient with known history of cardiomyopathy and element of fluid overload related to her renal failure. 2. History of coronary artery disease status post coronary artery bypass grafting. 3. Status post carotid stenting. 4. End-stage renal disease, on hemodialysis. 5. History of hypertension. 6. Diabetes. 7. Hyperlipidemia. RECOMMENDATION: Patient will undergo dialysis today to try to remove some extra fluid. I will try to obtain the results of the stress test and the echo that were done by Dr. Amaro recently. There was a question of at least moderate aortic stenosis and will review the most recent data. Depending on her progress, further recommendation will be made. Thank you for this consult. We will follow with you. MMODL / IJN: [id number] /
[2020-09-01 23:01] LABS: Hepatitis B Surface AB- Quant <3.5 mIU/mL; Hepatitis B Surface Antibody Non-Reactive (Non-Reactive)
[2020-09-01] MEDS: ALBUTEROL NEBULIZED 2.5 MG/3 ML INHALATION PRN (23:42)
[2020-09-02 06:18] LABS: Glucose,Whole Blood 154 mg/dL (75-99)
[2020-09-02] MEDS: INSULIN ASPART (NovoLOG) 100 UNIT/ML VIAL SQ SCH ×4 (06:33→20:36)
[2020-09-02] MEDS: carvediloL 12.5 MG TAB PO SCH ×2 (06:33→18:19)
[2020-09-02] MEDS: metOLazone 5 MG TAB PO SCH ×3 (06:33→18:22)
[2020-09-02] MEDS: SEVELAMER 800 MG TAB PO SCH ×3 (06:33→18:19)
[2020-09-02] MEDS: ALBUTEROL NEBULIZED 2.5 MG/3 ML INHALATION SCH ×4 (08:26→19:09)
[2020-09-02] MEDS: FERROUS SULFATE 325 MG TAB PO SCH ×2 (09:25→20:36)
[2020-09-02] MEDS: THIAMINE 100 MG TAB PO SCH ×2 (09:25→20:36)
[2020-09-02] MEDS: ASPIRIN 81 MG PO SCH (09:25)
[2020-09-02] MEDS: allopurinoL 100 MG TAB PO SCH (09:25)
[2020-09-02] MEDS: FUROSEMIDE 10 MG/ML 10 ML VIAL IV SCH ×2 (09:25→20:36)
[2020-09-02] MEDS: amLODIPine 10 MG TAB PO SCH (09:26)
[2020-09-02] MEDS: INSULIN DETEMIR (LEVEMIR) 100 UNIT/ML SYR SQ SCH (09:26)
[2020-09-02] MEDS: HEPARIN SODIUM,PORCINE/PF 5,000 UNIT/0.5 ML SYRINGE SQ SCH ×3 (09:28→22:47)
[2020-09-02] MEDS: ALPRAZolam 0.5 MG TAB PO PRN ×2 (09:36→20:40)
--- NOTE | 2020-09-02 10:45 | P.PN ---
Subjective Progress Note Date: 09/02/20 Hospital course: Patient is a 74-year-old female with a past medical history including coronary artery disease, chronic systolic heart failure with an EF of 35-40%, hypertension, hyperlipidemia, COPD home oxygen dependent on 2 L, insulin- dependent diabetes mellitus type 2, and end-stage renal disease on dialysis Mondays/Wednesdays/Fridays. Patient presented to the hospital on 08/31/20 with a chief complaint of shortness of breath. Patient reports on Wednesday after her normal regular dialysis session she went home, but shortly later that evening she began noticing an increase shortness of breath from her baseline. Patient reports she was in the house and the air conditioner was on and she was not exposed to any excess heat or activities. Patient states progressively through the night Wednesday and throughout the day Wednesday shortness of breath became more and more severe so she came to the emergency department. In the emergency department patient was found to have leukocytosis with WBC count of 18.4, and elevated proBNP of 27,400, and a troponin of 0.036. Chest x-ray was completed and revealed increased pulmonary vascular congestion consistent with worsening CHF. EKG revealed normal sinus rhythm at 77 bpm with no noted T wave or ST abnormality showing no signs of acute ischemia. D-dimer was elevated at 1.76, however patient very low suspicion for DVT/PE at this time and borderline elevation is likely secondary to ongoing stressors. Patient admitted under our services for continued medical management with consultation to cardiology for CHF exacerbation and nephrology for continued dialysis. Patient currently requiring BiPAP. Physical exam: Patient seen and fully evaluated at the bedside. She reports continued shortness of breath and continued anxiety but has been weaned off of BiPAP and back on 6 L high flow nasal cannula and maintaining saturations. Patient continues to deny having any headache, lightheadedness, dizziness, chest pain, palpitations, abdominal pain, nausea, vomiting, or experiencing any numbness/tingling/weakness in her extremities. General: non toxic, no distress, appears at stated age Derm: warm, dry Head: atraumatic, normocephalic, symmetric Eyes: EOMI, no lid lag, anicteric sclera Mouth: no lip lesion, mucus membranes moist Cardiovascular: Normal rate and rhythm. Positive murmur. No gallop or rub. 2+ pitting bilateral lower extremity edema. Cap refill less than 2 seconds. Dialysis access right anterior chest. Lungs: Respirations tachypneic at 26 breaths per minute but were even, regular, and unlabored on 6L high flow NC. Lungs with coarse rhonchi. Abdominal: Obese abdomen soft, nontender to palpation, no guarding, no appreciable organomegaly Ext: no gross muscle atrophy, no edema, no contractures Neuro: CN II-XI grossly intact, no focal neuro deficits Psych: Alert, oriented, appropriate affect Plan of care: Acute on chronic systolic congestive heart failure with an ejection fraction of 35-40% -ProBNP 27,400, troponin 0.036 -Chest x-ray revealed increased pulmonary vascular congestion consistent with worsening CHF. -Cardiology and Nephrology following, pt to have dialysis today -Telemetry monitoring -Daily weights -Close monitoring of I's and O's -Cardiac diet -Continue Lasix 80 mg IVP every 12 hours -Continued close monitoring of electrolytes while diuresing. ESRD on dialysis Mondays/Wednesdays/Fridays -Currently admitted for fluid volume overload secondary to acute on chronic systolic congestive heart failure accompanied by need for dialysis. -Nephrology consulted for continued dialysis treatments. -We will continue to monitor closely. Elevated troponin -Likely secondary to CHF exacerbation on top of ESRD -Troponin 0.036 -EKG showed normal sinus rhythm at 77 bpm with no noted T wave or ST abnormalities. -Patient being diuresed and nephrology following for dialysis. -Cardiology following, appreciate further recommendations. Leukocytosis, improving -Possibly secondary to inflammatory secondary to stressors vs underlying infection. -Pro-calcitonin 0.36. Blood cultures 2 sets obtained and currently pending results. -We will continue to monitor closely for any signs/symptoms of infections, at this time we will hold off antibiotics until further results available. Hypertension -Monitor vital signs and continue daily medication management. Hyperlipidemia -Continue daily medication management with atorvastatin 80 mg nightly. COPD home oxygen dependent on 2 L -Continue all to provide oxygen supplementation as needed to maintain SpO2 equal to or greater than 92%. Patient currently requiring BiPAP at this time. -Encourage incentive spirometry use 10-15 times hourly while awake. Insulin-dependent diabetes mellitus type 2 -Glycemic protocol with NovoLog sliding scale along with Levemir 30 units daily. -Heart healthy carb consistent diet. CODE STATUS: Full code DVT prophylaxis: Heparin Discussed with: Patient and RN Anticipated discharge date: Clinical course to determine Anticipated discharge place: Home, may consider home care services A total of 45 minutes was spent on the care of this complex patient more than 50% of the time was spent in counseling and care coordination. Objective - Vital Signs Vital signs: Vital Signs Temp 97.7 F 09/02/20 09:20 Pulse 67 09/02/20 09:20 Resp 18 09/02/20 09:20 BP 141/63 09/02/20 09:20 Pulse Ox 93 L 09/02/20 09:20 Intake & Output 09/01/20 09/02/20 09/02/20 18:59 06:59 18:59 Intake Total 118 Balance 118 Weight 114.5 kg Intake: Oral 118 Other: # Voids 0 - Labs CBC & Chem 7: 09/01/20 06:46 09/01/20 06:46 Labs: Abnormal Lab Results - Last 24 Hours (Table) 09/01/20 09/01/20 09/01/20 Range/Units 06:46 06:46 15:21 WBC 16.53 H (4.50-10.00) X 10*3/uL RBC 2.57 L (4.10-5.20) X 10*6/uL Hgb 7.6 L (12.0-15.0) g/dL Hct 26.1 L (37.2-46.3) % MCV 101.6 H (80.0-97.0) fL MCHC 29.1 L (32.0-37.0) g/dL RDW 15.6 H (11.5-14.5) % POC Glucose (mg/dL) 212 H (75-99) mg/dL Procalcitonin 0.36 H (0.02-0.09) ng/mL 09/01/20 09/01/20 09/02/20 Range/Units 17:28 20:14 06:05 WBC (4.50-10.00) X 10*3/uL RBC (4.10-5.20) X 10*6/uL Hgb (12.0-15.0) g/dL Hct (37.2-46.3) % MCV (80.0-97.0) fL MCHC (32.0-37.0) g/dL RDW (11.5-14.5) % POC Glucose (mg/dL) 174 H 237 H 154 H (75-99) mg/dL Procalcitonin (0.02-0.09) ng/mL Microbiology - Last 24 Hours (Table) 08/31/20 23:00 Blood Culture - Preliminary Blood No Growth after 24 hours 08/31/20 23:15 Blood Culture - Preliminary Blood No Growth after 24 hours
[2020-09-02 11:08] LABS: Anisocytosis Slight; HGB 7.3 gm/dL (11.4-16.0); Hypochromasia Moderate; MCH 30.6 pg (25.0-35.0); MCHC 31.8 g/dL (31.0-37.0); MCV 96.4 fL (80.0-100.0); Macrocytosis Slight; Mean Platelet Volume 6.9; Platelet Count 390 k/uL (150-450); RBC 2.39 m/uL (3.80-5.40); RDW 16.2 % (11.5-15.5); WBC 15.2 k/uL (3.8-10.6)
[2020-09-02 11:23] LABS: Calcium 10.1 mg/dL (8.4-10.2); Magnesium 2.6 mg/dL (1.6-2.3); Potassium 5.4 mmol/L (3.5-5.1)
[2020-09-02 11:48] LABS: Glucose,Whole Blood 167 mg/dL (75-99)
--- NOTE | 2020-09-02 14:52 | PN ---
PROGRESS NOTE The patient is seen for followup for end-stage renal disease. She was admitted to the hospital with shortness of breath. Patient is on the schedule for hemodialysis today. She does have underlying cardiomyopathy with ejection fraction 30-35 percent. EXAMINATION: Today patient is comfortable, not in any acute distress. Blood pressure 127/59, heart rate 64 per minute. She is afebrile. Examination of the heart S1, S2. Examination of the lungs, decreased breath sounds at bases. ABDOMEN: Soft, nontender, obese. Exam of lower extremities: Edema 1+ bilaterally. [employer] exam grossly intact. LAB: Show sodium 134, potassium 5.4, BUN 75, creatinine 6.9, hemoglobin 7.3 g/dL. ASSESSMENT: 1. End-stage renal disease, on hemodialysis on a Wednesday, Wednesday, Wednesday schedule. Patient will be dialyzed today. 2. Volume overload, expect improvement post dialysis. 3. Mild hyperkalemia. Expect improvement with dialysis. 4. History of coronary artery disease status post coronary artery bypass surgery and stenting. 5. Cardiomyopathy, ejection fraction 35 to 40%. PLAN: Hemodialysis today with goal UF of about 2-3 L. Continue with the Aranesp. Continue with IV Lasix for now as well. I do not see much urine output documented in the computer. MMODL / IJN: [id number] /
[2020-09-02 16:57] LABS: Glucose,Whole Blood 88 mg/dL (75-99)
[2020-09-02] MEDS: polyethylene glycoL 3350 17 GM POWD.PACK PO SCH (18:37)
--- NOTE | 2020-09-02 19:28 | P.PN ---
Subjective HISTORY OF PRESENTING ILLNESS This is a pleasant 74-year-old femal past medical history significant for coronary artery disease s/p bypass grafting, chronic systolic heart failure EF 35-40%, moderate aortic stenosis, moderate tricuspid regurgitation, diabetes mellitus, hypertension, dyslipidemia, CVA, peripheral vascular s/p carotid lyly nting, new ESRD and morbid obesity. Patient had undergone a Lexiscan stress test 08/02/2020 which was fairly limited secondary to increased GI uptake and had what appeared to be fixed inferior and anterior perfusion defects however this was suboptimal and recommendations for routine stress test if clinically indicated. Patient also underwent repeat echocardiogram 07/26/2020 which showed mildly improved ejection fraction 40-45%, moderate aortic stenosis, severe tricuspid regurgitation, RVSP 52 and hypokinesis of the anterior, anterolateral, inferior, inferolateral and anteroseptal oliveira. The mean gradient was 19 however calculated aortic valve area of 1.05. Patient has been having worsening kidney function over the last 6-12 months and is now end-stage renal disease on hemodialysis. She is undergoing workup for likely fistula placement actually scheduled for 09/04/19. She did have hospitalization began on July when she was first placed on dialysis. She had been doing fairly well up until 2-3 days before presentation she started feeling acutely short of breath. REVIEW OF SYSTEMS At the time of my exam: CONSTITUTIONAL: Denies fever or chills. CARDIOVASCULAR: Denies chest pain, +shortness of breath, +orthopnea, no PND or palpitations. RESPIRATORY: Denies cough. GASTROINTESTINAL: Denies abdominal pain, diarrhea, constipation, nausea or vomiting. MUSCULOSKELETAL: Denies myalgias. NEUROLOGIC: Denies numbness, tingling or weakness. ENDOCRINE: Denies fatigue, weight change, polydipsia or polyurina. GENITOURINARY: Denies burning, hematuria or urgency with micturation. HEMATOLOGIC: +anemia, no bleeding. PHYSICAL EXAMINATION Vital signs reviewed. CONSTITUTIONAL: No apparent distress, obese chronically ill appearing HEENT: Head is normocephalic. Pupils are equal, round. Sclerae anicteric. Mucous membranes of the mouth are moist. No JVD. No carotid bruit. CHEST EXAMINATION: Lungs are clear to auscultation. No chest wall tenderness is noted on palpation or with deep breathing. HEART EXAMINATION: Regular rate and rhythm. S1, S2 heard. No murmurs, gallops or rub. ABDOMEN: Soft, nontender. Positive bowel sounds. EXTREMITIES: 2+ peripheral pulses, no lower extremity edema and no calf tenderness. NEUROLOGIC EXAMINATION: Patient is awake, alert and oriented x3. ASSESSMENT 1. Acute on chronic systolic heart failure 2. End-stage renal disease 3. Coronary artery disease status post CABG 4. Minimally elevated troponin, do not suspect acute coronary syndrome, mainly related to chronic kidney disease 5. Moderate aortic stenosis, velocities fairly minimal and less likely low-flow low gradient severe aortic stenosis, by most parameters 6. Severe tricuspid regurgitation 7. Pulmonary hypertension likely related to heart failure 8. Peripheral vascular disease 9. Diabetes mellitus type 2 PLAN Continue with hemodialysis per nephrology. Monitor response of diuresis, fluid removal. Echocardiogram from office reviewed and all parameters 0.2 moderate aortic stenosis. She is not having any angina-type symptoms and shortness breath appears mainly related to volume overload. We will discuss with nephrology regarding possibly stopping amlodipine and start a more afterload reduction with hydralazine, Isordil for heart failure optomization. Likely followup next week with vascular surgery for AV fistula placement. Objective - Vital Signs Vital signs: Vital Signs Temp 97.5 F L 09/02/20 12:40 Pulse 56 L 09/02/20 15:43 Resp 18 09/02/20 15:43 BP 121/57 09/02/20 15:43 Pulse Ox 94 L 09/02/20 15:43 Intake & Output 09/01/20 09/02/20 09/02/20 18:59 06:59 18:59 Intake Total 118 Balance 118 Weight 114.5 kg Intake: Oral 118 Other: # Voids 0 - Labs CBC & Chem 7: 09/02/20 10:46 09/02/20 10:46 Labs: Abnormal Lab Results - Last 24 Hours (Table) 09/01/20 09/02/20 09/02/20 Range/Units 20:14 06:05 10:46 WBC 15.2 H (3.8-10.6) k/uL RBC 2.39 L (3.80-5.40) m/uL Hgb 7.3 L (11.4-16.0) gm/dL Hct 23.0 L (34.0-46.0) % RDW 16.2 H (11.5-15.5) % Sodium (137-145) mmol/L Potassium (3.5-5.1) mmol/L Chloride (98-107) mmol/L BUN (7-17) mg/dL Creatinine (0.52-1.04) mg/dL Glucose (74-99) mg/dL POC Glucose (mg/dL) 237 H 154 H (75-99) mg/dL Magnesium (1.6-2.3) mg/dL 09/02/20 09/02/20 Range/Units 10:46 11:40 WBC (3.8-10.6) k/uL RBC (3.80-5.40) m/uL Hgb (11.4-16.0) gm/dL Hct (34.0-46.0) % RDW (11.5-15.5) % Sodium 134 L (137-145) mmol/L Potassium 5.4 H (3.5-5.1) mmol/L Chloride 94 L (98-107) mmol/L BUN 75 H (7-17) mg/dL Creatinine 6.94 H (0.52-1.04) mg/dL Glucose 163 H (74-99) mg/dL POC Glucose (mg/dL) 167 H (75-99) mg/dL Magnesium 2.6 H (1.6-2.3) mg/dL Microbiology - Last 24 Hours (Table) 08/31/20 23:00 Blood Culture - Preliminary Blood No Growth after 24 hours 08/31/20 23:15 Blood Culture - Preliminary Blood No Growth after 24 hours
[2020-09-02 20:27] LABS: Glucose,Whole Blood 134 mg/dL (75-99)
[2020-09-02] MEDS: ATORVASTATIN 80 MG TAB PO SCH (20:36)
[2020-09-03] MEDS: ALPRAZolam 0.5 MG TAB PO PRN ×3 (03:47→22:05)
[2020-09-03 06:14] LABS: Glucose,Whole Blood 169 mg/dL (75-99)
[2020-09-03] MEDS: SEVELAMER 800 MG TAB PO SCH ×3 (06:21→17:10)
[2020-09-03] MEDS: INSULIN ASPART (NovoLOG) 100 UNIT/ML VIAL SQ SCH ×4 (06:21→21:03)
[2020-09-03] MEDS: carvediloL 12.5 MG TAB PO SCH ×2 (06:21→17:10)
[2020-09-03] MEDS: metOLazone 5 MG TAB PO SCH (06:21)
[2020-09-03] MEDS: INSULIN DETEMIR (LEVEMIR) 100 UNIT/ML SYR SQ SCH (06:22)
[2020-09-03] MEDS: ALBUTEROL NEBULIZED 2.5 MG/3 ML INHALATION SCH ×4 (07:54→19:55)
[2020-09-03 08:30] LABS: Anisocytosis Slight; HCT 22.9 % (34.0-46.0); HGB 7.2 gm/dL (11.4-16.0); Hypochromasia Marked; MCHC 31.6 g/dL (31.0-37.0); MCV 98.1 fL (80.0-100.0); Macrocytosis Slight; Mean Platelet Volume 6.7; Platelet Count 370 k/uL (150-450); RBC 2.34 m/uL (3.80-5.40); RDW 16.3 % (11.5-15.5); WBC 11.4 k/uL (3.8-10.6)
[2020-09-03 08:37] LABS: Calcium 8.9 mg/dL (8.4-10.2); Potassium 4.8 mmol/L (3.5-5.1)
[2020-09-03] MEDS: ASPIRIN 81 MG PO SCH (08:50)
[2020-09-03] MEDS: HEPARIN SODIUM,PORCINE/PF 5,000 UNIT/0.5 ML SYRINGE SQ SCH ×3 (08:50→23:13)
[2020-09-03] MEDS: THIAMINE 100 MG TAB PO SCH ×2 (08:51→21:03)
[2020-09-03] MEDS: polyethylene glycoL 3350 17 GM POWD.PACK PO SCH (08:51)
[2020-09-03] MEDS: FERROUS SULFATE 325 MG TAB PO SCH ×2 (08:51→21:03)
[2020-09-03] MEDS: amLODIPine 10 MG TAB PO SCH (08:51)
[2020-09-03] MEDS: allopurinoL 100 MG TAB PO SCH (08:51)
--- NOTE | 2020-09-03 09:23 | P.PN ---
Subjective Progress Note Date: 09/03/20 Hospital course: Patient is a 74-year-old female with a past medical history including coronary artery disease, chronic systolic heart failure with an EF of 35-40%, hypertension, hyperlipidemia, COPD home oxygen dependent on 2 L, insulin- dependent diabetes mellitus type 2, and end-stage renal disease on dialysis Mondays/Wednesdays/Fridays. Patient presented to the hospital on 08/31/20 with a chief complaint of shortness of breath. Patient reports on Wednesday after her normal regular dialysis session she went home, but shortly later that evening she began noticing an increase shortness of breath from her baseline. Patient reports she was in the house and the air conditioner was on and she was not exposed to any excess heat or activities. Patient states progressively through the night Wednesday and throughout the day Wednesday shortness of breath became more and more severe so she came to the emergency department. In the emergency department patient was found to have leukocytosis with WBC count of 18.4, and elevated proBNP of 27,400, and a troponin of 0.036. Chest x-ray was completed and revealed increased pulmonary vascular congestion consistent with worsening CHF. EKG revealed normal sinus rhythm at 77 bpm with no noted T wave or ST abnormality showing no signs of acute ischemia. D-dimer was elevated at 1.76, however patient very low suspicion for DVT/PE at this time and borderline elevation is likely secondary to ongoing stressors. Patient admitted under our services for continued medical management with consultation to cardiology for CHF exacerbation and nephrology for continued dialysis. Physical exam: Patient seen and fully evaluated at the bedside. She reports continued shortness of breath but has been weaned down to 5 L high flow nasal cannula and maintaining saturations. Patient has not had any urinary output in > 24 hours. Bladder scan was completed at bedside showing only 137 mL for highest read. Lasix discontinued at this time. Dr. Tyler notified as pt will likely need additional dialysis treatment secondary to continued fluid overload. Pt continues to deny having any headache, lightheadedness, dizziness, chest pain, palpitations, abdominal pain, nausea, vomiting, or experiencing any numbness/tingling/weakness in her extremities. General: non toxic, no distress, appears at stated age Derm: warm, dry Head: atraumatic, normocephalic, symmetric Eyes: EOMI, no lid lag, anicteric sclera Mouth: no lip lesion, mucus membranes moist Cardiovascular: Normal rate and rhythm. Positive murmur. No gallop or rub. 2+ pitting bilateral lower extremity edema. Cap refill less than 2 seconds. Dialysis access right anterior chest. Lungs: Respirations tachypneic at 26 breaths per minute but were even, regular, and unlabored on 5L high flow NC. Lungs with crackles at bilateral bases. Abdominal: Obese abdomen soft, nontender to palpation, no guarding, no appreciable organomegaly Ext: no gross muscle atrophy, no edema, no contractures Neuro: CN II-XI grossly intact, no focal neuro deficits Psych: Alert, oriented, appropriate affect Plan of care: Acute on chronic systolic congestive heart failure with an ejection fraction of 35-40% -ProBNP 27,400, troponin 0.036 -Chest x-ray revealed increased pulmonary vascular congestion consistent with worsening CHF. -Cardiology and Nephrology following, pt to have dialysis today -Telemetry monitoring -Daily weights -Cardiac diet -Lasix discontinued secondary to patient being anuric for >24 hours. ESRD on dialysis Mondays/Wednesdays/Fridays -Currently admitted for fluid volume overload secondary to acute on chronic systolic congestive heart failure accompanied by need for dialysis. -Nephrology consulted for continued dialysis treatments. -We will continue to monitor closely. Elevated troponin -Likely secondary to CHF exacerbation on top of ESRD -Troponin 0.036 -EKG showed normal sinus rhythm at 77 bpm with no noted T wave or ST abnormalities. -Patient being diuresed and nephrology following for dialysis. -Cardiology following, appreciate further recommendations. Leukocytosis, improving -Likely secondary to inflammatory reaction -Pro-calcitonin 0.36. Blood cultures 2 sets obtained and preliminary results showing no growth after 48 hours -We will continue to monitor closely for any signs/symptoms of infections, at this time we will hold off antibiotics until further results available. Hypertension -Monitor vital signs and continue daily medication management. Hyperlipidemia -Continue daily medication management with atorvastatin 80 mg nightly. COPD home oxygen dependent on 2 L -Continue all to provide oxygen supplementation as needed to maintain SpO2 equal to or greater than 92%. Patient currently requiring BiPAP at this time. -Encourage incentive spirometry use 10-15 times hourly while awake. Insulin-dependent diabetes mellitus type 2 -Glycemic protocol with NovoLog sliding scale along with Levemir 30 units daily. -Heart healthy carb consistent diet. CODE STATUS: Full code DVT prophylaxis: Heparin Discussed with: Patient and RN Anticipated discharge date: Clinical course to determine Anticipated discharge place: Home, may consider home care services and palliative care A total of 45 minutes was spent on the care of this complex patient more than 50% of the time was spent in counseling and care coordination. Objective - Vital Signs Vital signs: Vital Signs Temp 97.6 F 09/03/20 08:40 Pulse 56 L 09/03/20 08:40 Resp 20 09/03/20 08:40 BP 109/43 09/03/20 08:40 Pulse Ox 93 L 09/03/20 08:40 Intake & Output 09/02/20 09/03/20 09/03/20 18:59 06:59 18:59 Intake Total 118 Output Total 3000 Balance 118 -3000 Weight 119 kg Intake: Oral 118 Output: Hemodialysis 3000 Other: # Bowel Movements 1 - Labs CBC & Chem 7: 09/03/20 07:50 09/03/20 07:50 Labs: Abnormal Lab Results - Last 24 Hours (Table) 09/02/20 09/02/20 09/02/20 Range/Units 10:46 10:46 11:40 WBC 15.2 H (3.8-10.6) k/uL RBC 2.39 L (3.80-5.40) m/uL Hgb 7.3 L (11.4-16.0) gm/dL Hct 23.0 L (34.0-46.0) % RDW 16.2 H (11.5-15.5) % Sodium 134 L (137-145) mmol/L Potassium 5.4 H (3.5-5.1) mmol/L Chloride 94 L (98-107) mmol/L Carbon Dioxide (22-30) mmol/L BUN 75 H (7-17) mg/dL Creatinine 6.94 H (0.52-1.04) mg/dL Glucose 163 H (74-99) mg/dL POC Glucose (mg/dL) 167 H (75-99) mg/dL Magnesium 2.6 H (1.6-2.3) mg/dL 09/02/20 09/03/20 09/03/20 Range/Units 20:26 06:13 07:50 WBC 11.4 H (3.8-10.6) k/uL RBC 2.34 L (3.80-5.40) m/uL Hgb 7.2 L (11.4-16.0) gm/dL Hct 22.9 L (34.0-46.0) % RDW 16.3 H (11.5-15.5) % Sodium (137-145) mmol/L Potassium (3.5-5.1) mmol/L Chloride (98-107) mmol/L Carbon Dioxide (22-30) mmol/L BUN (7-17) mg/dL Creatinine (0.52-1.04) mg/dL Glucose (74-99) mg/dL POC Glucose (mg/dL) 134 H 169 H (75-99) mg/dL Magnesium (1.6-2.3) mg/dL 09/03/20 Range/Units 07:50 WBC (3.8-10.6) k/uL RBC (3.80-5.40) m/uL Hgb (11.4-16.0) gm/dL Hct (34.0-46.0) % RDW (11.5-15.5) % Sodium (137-145) mmol/L Potassium (3.5-5.1) mmol/L Chloride (98-107) mmol/L Carbon Dioxide 33 H (22-30) mmol/L BUN 41 H (7-17) mg/dL Creatinine 4.79 H (0.52-1.04) mg/dL Glucose 180 H (74-99) mg/dL POC Glucose (mg/dL) (75-99) mg/dL Magnesium (1.6-2.3) mg/dL Microbiology - Last 24 Hours (Table) 08/31/20 23:00 Blood Culture - Preliminary Blood No Growth after 48 hours 08/31/20 23:15 Blood Culture - Preliminary Blood No Growth after 48 hours
--- NOTE | 2020-09-03 11:00 | P.PN ---
Subjective Progress Note Date: 09/03/20 HISTORY OF PRESENT ILLNESS: This is a pleasant 74-year-old femal past medical history significant for coronary artery disease s/p bypass grafting, chronic systolic heart failure EF 35-40%, moderate aortic stenosis, moderate tricuspid regurgitation, diabetes mellitus, hypertension, dyslipidemia, CVA, peripheral vascular s/p carotid stenting, new ESRD and morbid obesity. Patient had undergone a Lexiscan stress test 08/02/2020 which was fairly limited secondary to increased GI uptake and had what appeared to be fixed inferior and anterior perfusion defects however this was suboptimal and recommendations for routine stress test if clinically indicated. Patient also underwent repeat echocardiogram 07/26/2020 which showed mildly improved ejection fraction 40-45%, moderate aortic stenosis, severe tricuspid regurgitation, RVSP 52 and hypokinesis of the anterior, anterolateral, inferior, inferolateral and anteroseptal oliveira. The mean gradient was 19 however calculated aortic valve area of 1.05. Patient has been having worsening kidney function over the last 6-12 months and is now end-stage renal disease on hemodialysis. She is undergoing workup for likely fistula placement actually scheduled for 09/04/19. She did have hospitalization began on July when she was first placed on dialysis. She had been doing fairly well up until 2-3 days before presentation she started feeling acutely short of breath. 09/03/2020 Patient examined this morning at the bedside. Patient underwent hemodialysis yesterday with removal of 3 L. Patient is unsure if she is to have another hemodialysis session today. She remains on IV Lasix 80 mg every 12 hours. BUN 41. Creatinine 4.79. Vital signs stable. Blood pressure 109/43. Patient is on 5 L nasal cannula with oxygen saturations greater than 92%. PHYSICAL EXAM: VITAL SIGNS: Reviewed. GENERAL: Well-developed in no acute distress. NECK: Supple. No JVD or thyromegaly LUNGS: Respirations even and unlabored. Lungs diminished bilaterally-unable to listen to her lungs posteriorly as patient states she is too tired to sit up this morning. HEART: Regular rate and rhythm. S1 and S2 heard. Systolic murmur. EXTREMITIES: Normal range of motion. No clubbing or cyanosis. Peripheral pulses intact. 1-2+ bilateral lower extremity edema ASSESSMENT: Acute on chronic systolic heart failure, EF 40-45% per echo in office End-stage renal disease on hemodialysis Coronary artery disease status post CABG Minimally elevated troponins, do not suspect acute coronary syndrome, likely related to chronic kidney disease Moderate aortic stenosis, velocities fairly minimal and less likely lowflow low gradient severe aortic stenosis, by most parameters Severe tricuspid regurgitation Pulmonary hypertension likely related to heart failure Peripheral vascular disease Diabetes mellitus PLAN: Continue diuretics per nephrology Monitor kidney function Daily weights Accurate I&O Hemodialysis per nephrology Further recommendations pending patient course Nurse practitioner note has been reviewed by physician. Signing provider agrees with the documented findings, assessment, and plan of care. Objective - Vital Signs Vital signs: Vital Signs Temp 97.6 F 09/03/20 08:40 Pulse 56 L 09/03/20 08:40 Resp 20 09/03/20 08:40 BP 109/43 09/03/20 08:40 Pulse Ox 93 L 09/03/20 08:40 Intake & Output 09/02/20 09/03/20 09/03/20 18:59 06:59 18:59 Intake Total 118 Output Total 3000 Balance 118 -3000 Weight 119 kg Intake: Oral 118 Output: Hemodialysis 3000 Other: # Bowel Movements 1 - Labs CBC & Chem 7: 09/03/20 07:50 09/03/20 07:50 Labs: Abnormal Lab Results - Last 24 Hours (Table) 09/02/20 09/02/20 09/02/20 Range/Units 10:46 10:46 11:40 WBC 15.2 H (3.8-10.6) k/uL RBC 2.39 L (3.80-5.40) m/uL Hgb 7.3 L (11.4-16.0) gm/dL Hct 23.0 L (34.0-46.0) % RDW 16.2 H (11.5-15.5) % Sodium 134 L (137-145) mmol/L Potassium 5.4 H (3.5-5.1) mmol/L Chloride 94 L (98-107) mmol/L Carbon Dioxide (22-30) mmol/L BUN 75 H (7-17) mg/dL Creatinine 6.94 H (0.52-1.04) mg/dL Glucose 163 H (74-99) mg/dL POC Glucose (mg/dL) 167 H (75-99) mg/dL Magnesium 2.6 H (1.6-2.3) mg/dL 09/02/20 09/03/20 09/03/20 Range/Units 20:26 06:13 07:50 WBC 11.4 H (3.8-10.6) k/uL RBC 2.34 L (3.80-5.40) m/uL Hgb 7.2 L (11.4-16.0) gm/dL Hct 22.9 L (34.0-46.0) % RDW 16.3 H (11.5-15.5) % Sodium (137-145) mmol/L Potassium (3.5-5.1) mmol/L Chloride (98-107) mmol/L Carbon Dioxide (22-30) mmol/L BUN (7-17) mg/dL Creatinine (0.52-1.04) mg/dL Glucose (74-99) mg/dL POC Glucose (mg/dL) 134 H 169 H (75-99) mg/dL Magnesium (1.6-2.3) mg/dL 09/03/20 Range/Units 07:50 WBC (3.8-10.6) k/uL RBC (3.80-5.40) m/uL Hgb (11.4-16.0) gm/dL Hct (34.0-46.0) % RDW (11.5-15.5) % Sodium (137-145) mmol/L Potassium (3.5-5.1) mmol/L Chloride (98-107) mmol/L Carbon Dioxide 33 H (22-30) mmol/L BUN 41 H (7-17) mg/dL Creatinine 4.79 H (0.52-1.04) mg/dL Glucose 180 H (74-99) mg/dL POC Glucose (mg/dL) (75-99) mg/dL Magnesium (1.6-2.3) mg/dL Microbiology - Last 24 Hours (Table) 08/31/20 23:00 Blood Culture - Preliminary Blood No Growth after 48 hours 08/31/20 23:15 Blood Culture - Preliminary Blood No Growth after 48 hours
--- NOTE | 2020-09-03 11:37 | P.PN ---
Subjective Patient is seen in follow-up for end-stage renal disease. She is maintained on hemodialysis on Wednesday schedule. Dyspnea improved. No problems with dialysis yesterday. Not making any urine at this time. Vital signs are stable. General: The patient appeared well nourished and normally developed. HEENT: Head exam is unremarkable. Neck is without jugular venous distension. LUNGS: Breath sounds decreased. HEART: Rate and Rhythm are regular. ABDOMEN: Soft, no distention. EXTREMITITES: Trace edema. Objective - Vital Signs Vital signs: Vital Signs Temp 97.6 F 09/03/20 08:40 Pulse 56 L 09/03/20 08:40 Resp 20 09/03/20 08:40 BP 109/43 09/03/20 08:40 Pulse Ox 93 L 09/03/20 08:40 Intake & Output 09/02/20 09/03/20 09/03/20 18:59 06:59 18:59 Intake Total 118 Output Total 3000 Balance 118 -3000 Weight 119 kg Intake: Oral 118 Output: Hemodialysis 3000 Other: # Bowel Movements 1 - Labs CBC & Chem 7: 09/03/20 07:50 09/03/20 07:50 Labs: Abnormal Lab Results - Last 24 Hours (Table) 08/31/20 09/02/20 09/02/20 Range/Units 23:02 11:40 20:26 WBC (3.8-10.6) k/uL RBC (3.80-5.40) m/uL Hgb (11.4-16.0) gm/dL Hct (34.0-46.0) % RDW (11.5-15.5) % Carbon Dioxide (22-30) mmol/L BUN (7-17) mg/dL Creatinine (0.52-1.04) mg/dL Glucose (74-99) mg/dL POC Glucose (mg/dL) 167 H 134 H (75-99) mg/dL Crossmatch See Detail 09/03/20 09/03/20 09/03/20 Range/Units 06:13 07:50 07:50 WBC 11.4 H (3.8-10.6) k/uL RBC 2.34 L (3.80-5.40) m/uL Hgb 7.2 L (11.4-16.0) gm/dL Hct 22.9 L (34.0-46.0) % RDW 16.3 H (11.5-15.5) % Carbon Dioxide 33 H (22-30) mmol/L BUN 41 H (7-17) mg/dL Creatinine 4.79 H (0.52-1.04) mg/dL Glucose 180 H (74-99) mg/dL POC Glucose (mg/dL) 169 H (75-99) mg/dL Crossmatch Microbiology - Last 24 Hours (Table) 08/31/20 23:00 Blood Culture - Preliminary Blood No Growth after 48 hours 08/31/20 23:15 Blood Culture - Preliminary Blood No Growth after 48 hours Assessment and Plan Plan: Assessment: 1. End-stage renal disease maintained on hemodialysis on Wednesday schedule. 2. Anemia of chronic kidney disease. Maintained on Aranesp. 3. Acute on chronic systolic CHF with ejection fraction of 35-40% with moderate tricuspid regurgitation and pulmonary hypertension. 4. Volume overload. 5. Hypertension with chronic kidney disease. Stable. 6. Chronic kidney disease mineral bone disease maintained on Renvela. 7. Diabetes mellitus. Plan: Hemodialysis today mostly for ultrafiltration. Another treatment tomorrow per her outpatient schedule. Transfuse 1 unit of packed red cells with dialysis today. Stop diuretics as patient is not making any urine. Hold amlodipine for systolic blood pressure less than 120.
[2020-09-03 12:18] LABS: Glucose,Whole Blood 107 mg/dL (75-99)
[2020-09-03 16:51] LABS: Glucose,Whole Blood 208 mg/dL (75-99)
[2020-09-03 20:03] LABS: Glucose,Whole Blood 111 mg/dL (75-99)
[2020-09-03] MEDS: ATORVASTATIN 80 MG TAB PO SCH (21:03)
[2020-09-04 06:03] LABS: Glucose,Whole Blood 123 mg/dL (75-99)
[2020-09-04] MEDS: INSULIN ASPART (NovoLOG) 100 UNIT/ML VIAL SQ SCH ×4 (06:34→21:54)
[2020-09-04] MEDS: carvediloL 12.5 MG TAB PO SCH ×2 (06:36→17:44)
[2020-09-04] MEDS: SEVELAMER 800 MG TAB PO SCH ×3 (06:36→17:44)
[2020-09-04] MEDS: INSULIN DETEMIR (LEVEMIR) 100 UNIT/ML SYR SQ SCH (06:37)
[2020-09-04] MEDS: ALBUTEROL NEBULIZED 2.5 MG/3 ML INHALATION SCH ×4 (07:36→21:14)
[2020-09-04] MEDS: FUROSEMIDE 10 MG/ML 10 ML VIAL IV SCH (07:42)
--- NOTE | 2020-09-04 10:30 | P.PN ---
Subjective Patient is seen in follow-up for end-stage renal disease. She is maintained on hemodialysis on Wednesday schedule. Tolerating dialysis well. Dyspnea improved. No active complaints at this time. Vital signs are stable. General: The patient appeared well nourished and normally developed. HEENT: Head exam is unremarkable. Neck is without jugular venous distension. LUNGS: Breath sounds decreased. HEART: Rate and Rhythm are regular. ABDOMEN: Soft, no distention. EXTREMITITES: Trace edema. Objective - Vital Signs Vital signs: Vital Signs Temp 98.0 F 09/04/20 08:00 Pulse 59 L 09/04/20 08:00 Resp 18 09/04/20 08:00 BP 104/59 09/04/20 08:00 Pulse Ox 94 L 09/04/20 08:00 Intake & Output 09/03/20 09/04/20 09/04/20 18:59 06:59 18:59 Intake Total 730 Output Total 2700 0 Balance -1970 0 Weight 114 kg Intake: Oral 420 Blood Product 310 Rc Cpda-1 Unit 310 [id number] Output: Urine 0 Hemodialysis 2700 Other: # Voids 1 - Labs CBC & Chem 7: 09/03/20 07:50 09/03/20 07:50 Labs: Abnormal Lab Results - Last 24 Hours (Table) 08/31/20 09/03/20 09/03/20 Range/Units 23:02 12:16 16:49 POC Glucose (mg/dL) 107 H 208 H (75-99) mg/dL Crossmatch See Detail 09/03/20 09/04/20 Range/Units 20:02 06:01 POC Glucose (mg/dL) 111 H 123 H (75-99) mg/dL Crossmatch Microbiology - Last 24 Hours (Table) 08/31/20 23:00 Blood Culture - Preliminary Blood No Growth after 72 hours 08/31/20 23:15 Blood Culture - Preliminary Blood No Growth after 72 hours Assessment and Plan Plan: Assessment: 1. End-stage renal disease maintained on hemodialysis on Wednesday schedule. 2. Anemia of chronic kidney disease. Maintained on Aranesp. Status post blood transfusion this admission. No active bleeding. 3. Acute on chronic systolic CHF with ejection fraction of 35-40% with moderate tricuspid regurgitation and pulmonary hypertension. 4. Volume overload. Improving with ultrafiltration. 5. Hypertension with chronic kidney disease. Stable. 6. Chronic kidney disease mineral bone disease maintained on Renvela. 7. Diabetes mellitus. Plan: Currently seen while undergoing hemodialysis. Next treatment on Wednesday. Stopped diuretics as patient is not making any urine. I will decrease dose of amlodipine to 5 mg daily. To be held for systolic blood pressure less than 120.
[2020-09-04 11:58] LABS: Glucose,Whole Blood 109 mg/dL (75-99)
--- NOTE | 2020-09-04 12:34 | P.PN ---
Subjective Progress Note Date: 09/04/20 Patient feels okay, no nausea or vomiting .Patient is on hemodialysis. No chest pain no shortness of breath. Objective - Vital Signs Vital signs: Vital Signs Temp 98.0 F 09/04/20 08:00 Pulse 59 L 09/04/20 08:00 Resp 18 09/04/20 08:00 BP 104/59 09/04/20 08:00 Pulse Ox 94 L 09/04/20 08:00 Intake & Output 09/03/20 09/04/20 09/04/20 18:59 06:59 18:59 Intake Total 730 Output Total 2700 0 Balance -1970 0 Weight 114 kg Intake: Oral 420 Blood Product 310 Rc Cpda-1 Unit 310 [id number] Output: Urine 0 Hemodialysis 2700 Other: # Voids 1 - Exam Constitutional: No acute distress, conversant, pleasant Eyes: Anicteric sclerae, moist conjunctiva ENMT: NC/AT Neck:Supple, FROM, no masses, or JVD, No carotid bruits; No thyromegaly Lungs: Clear to auscultation, Clear to percussion, Normal respiratory effort, no accessory muscle use Cardiovascular: Heart regular in rate and rhythm,+ murmurs,no gallops, or rubs, trace peripheral edema Abdominal: Soft Nontender, non distended, no guarding, no rebound or rigidity Skin: Normal temperature, tone, texture, turgor, No induration No subcutaneous nodules, No rash, lesions, No ulcers Extremities:No digital cyanosis No clubbing, Pedal pulses intact and symmetrical Radial pulses intact and symmetrical Normal gait and station, No calf tenderness Psychiatric: Alert and oriented to person, place and time, Appropriate affect Intact judgement Neuro: Muscles Strength 5/5 in all 4 extremities, Sensation to light touch grossly present throughout, Cranial nerves II-XII grossly intact. No focal sensory deficits - Labs CBC & Chem 7: 09/03/20 07:50 09/03/20 07:50 Labs: Abnormal Lab Results - Last 24 Hours (Table) 08/31/20 09/03/20 09/03/20 Range/Units 23:02 16:49 20:02 POC Glucose (mg/dL) 208 H 111 H (75-99) mg/dL Crossmatch See Detail 09/04/20 09/04/20 Range/Units 06:01 11:56 POC Glucose (mg/dL) 123 H 109 H (75-99) mg/dL Crossmatch Microbiology - Last 24 Hours (Table) 08/31/20 23:00 Blood Culture - Preliminary Blood No Growth after 72 hours 08/31/20 23:15 Blood Culture - Preliminary Blood No Growth after 72 hours Assessment and Plan Plan: Acute on chronic systolic congestive heart failure with an ejection fraction of 35-40% -ProBNP 27,400, troponin 0.036 -Chest x-ray revealed increased pulmonary vascular congestion consistent with worsening CHF. -Cardiology and Nephrology following, pt is on HD -Telemetry monitoring -Daily weights -Cardiac diet -Lasix discontinued secondary to patient being anuric ESRD on dialysis Mondays/Wednesdays/Fridays -Currently admitted for fluid volume overload secondary to acute on chronic s ystolic congestive heart failure accompanied by need for dialysis. -Nephrology consulted for continued dialysis treatments. -We will continue to monitor closely.continue TEST ADMINISTRATOR Elevated troponin -Likely secondary to CHF exacerbation and ESRD -EKG showed normal sinus rhythm at 77 bpm with no noted T wave or ST abnormalities. -Cardiology following, appreciate recommendations. Leukocytosis, improving -Likely secondary to inflammatory reaction -Pro-calcitonin 0.36. Blood cultures 2 sets obtained and results showing no growth after 48 hours -WBC down to 11,000 Hypertension -Monitor vital signs and continue daily medication management. Hyperlipidemia -Continue daily medication management with atorvastatin 80 mg nightly. COPD with chronic hypoxic respiratory failure requiring home oxygen dependent on 2 L -Continue oxygen supplementation as needed to maintain SpO2 equal to or greater than 92%. prn BiPAP -Encourage incentive spirometry Insulin-dependent diabetes mellitus type 2 -Glycemic protocol with NovoLog sliding scale along with Levemir 30 units daily. -Heart healthy carb consistent diet. CODE STATUS: Full code DVT prophylaxis: Heparin Discussed with: Patient and RN Anticipated discharge date: Clinical course to determine Anticipated discharge place: Home, may consider home care services and palliative care, appreciate case management/foster care social worker input
[2020-09-04] MEDS: HEPARIN SODIUM,PORCINE/PF 5,000 UNIT/0.5 ML SYRINGE SQ SCH ×3 (12:59→23:03)
[2020-09-04] MEDS: polyethylene glycoL 3350 17 GM POWD.PACK PO SCH ×2 (13:00→13:01)
[2020-09-04] MEDS: ASPIRIN 81 MG PO SCH (13:00)
[2020-09-04] MEDS: allopurinoL 100 MG TAB PO SCH (13:00)
[2020-09-04] MEDS: THIAMINE 100 MG TAB PO SCH ×2 (13:00→21:53)
[2020-09-04] MEDS: FERROUS SULFATE 325 MG TAB PO SCH ×2 (13:00→21:53)
[2020-09-04] MEDS: amLODIPine 10 MG TAB PO SCH (13:10)
--- NOTE | 2020-09-04 13:41 | P.PN ---
Subjective Progress Note Date: 09/04/20 HISTORY OF PRESENT ILLNESS: This is a pleasant 74-year-old femal past medical history significant for coronary artery disease s/p bypass grafting, chronic systolic heart failure EF 35-40%, moderate aortic stenosis, moderate tricuspid regurgitation, diabetes mellitus, hypertension, dyslipidemia, CVA, peripheral vascular s/p carotid stenting, new ESRD and morbid obesity. Patient had undergone a Lexiscan stress test 08/02/2020 which was fairly limited secondary to increased GI uptake and had what appeared to be fixed inferior and anterior perfusion defects however this was suboptimal and recommendations for routine stress test if clinically indicated. Patient also underwent repeat echocardiogram 07/26/2020 which showed mildly improved ejection fraction 40-45%, moderate aortic stenosis, severe tricuspid regurgitation, RVSP 52 and hypokinesis of the anterior, anterolateral, inferior, inferolateral and anteroseptal oliveira. The mean gradient was 19 however calculated aortic valve area of 1.05. Patient has been having worsening kidney function over the last 6-12 months and is now end-stage renal disease on hemodialysis. She is undergoing workup for likely fistula placement actually scheduled for 09/04/19. She did have hospitalization began on July when she was first placed on dialysis. She had been doing fairly well up until 2-3 days before presentation she started feeling acutely short of breath. 09/03/2020 Patient examined this morning at the bedside. Patient underwent hemodialysis yesterday with removal of 3 L. Patient is unsure if she is to have another hemodialysis session today. She remains on IV Lasix 80 mg every 12 hours. BUN 41. Creatinine 4.79. Vital signs stable. Blood pressure 109/43. Patient is on 5 L nasal cannula with oxygen saturations greater than 92%. 09/04/2020 Patient examined this morning at the bedside. She is currently undergoing hemodialysis. Goal is for 3 L of fluid to be removed today. Patient states her shortness of breath is significantly improved. Patient has lower extremity edema is also improving. IV Lasix was discontinued per nephrology. Patient's amlodipine was also decreased per nephrology. PHYSICAL EXAM: VITAL SIGNS: Reviewed. GENERAL: Well-developed in no acute distress. NECK: Supple. No JVD or thyromegaly LUNGS: Respirations even and unlabored. Lungs diminished bilaterally-unable to listen to her lungs posteriorly as she is currently undergoing HD HEART: Regular rate and rhythm. S1 and S2 heard. Systolic murmur. EXTREMITIES: Normal range of motion. No clubbing or cyanosis. Peripheral pulses intact. 1+ bilateral lower extremity edema ASSESSMENT: Acute on chronic systolic heart failure, EF 40-45% per echo in office End-stage renal disease on hemodialysis Coronary artery disease status post CABG Minimally elevated troponins, do not suspect acute coronary syndrome, likely related to chronic kidney disease Moderate aortic stenosis, velocities fairly minimal and less likely lowflow low gradient severe aortic stenosis, by most parameters Severe tricuspid regurgitation Pulmonary hypertension likely related to heart failure Peripheral vascular disease Diabetes mellitus PLAN: Continue dialysis per nephrology Lasix DC per nephro Norvasc dose discontinued per nephrology. Monitor blood pressure Monitor kidney function Daily weights Accurate I&O Patient is stable from a cardiac standpoint We will follow on an as-needed basis. Please call if questions or concerns Patient to follow-up in the office with Dr. Amaro Nurse practitioner note has been reviewed by physician. Signing provider agrees with the documented findings, assessment, and plan of care. Objective - Vital Signs Vital signs: Vital Signs Temp 98 F 09/04/20 12:53 Pulse 53 L 09/04/20 12:53 Resp 18 09/04/20 12:53 BP 110/54 09/04/20 12:53 Pulse Ox 97 09/04/20 12:00 Intake & Output 09/03/20 09/04/20 09/04/20 18:59 06:59 18:59 Intake Total 730 Output Total 2700 0 3000 Balance -1970 0 -3000 Weight 114 kg Intake: Oral 420 Blood Product 310 Rc Cpda-1 Unit 310 [id number] Output: Urine 0 Hemodialysis 2700 3000 Other: # Voids 1 - Labs CBC & Chem 7: 09/03/20 07:50 09/03/20 07:50 Labs: Abnormal Lab Results - Last 24 Hours (Table) 08/31/20 09/03/20 09/03/20 Range/Units 23:02 16:49 20:02 POC Glucose (mg/dL) 208 H 111 H (75-99) mg/dL Crossmatch See Detail 09/04/20 09/04/20 Range/Units 06:01 11:56 POC Glucose (mg/dL) 123 H 109 H (75-99) mg/dL Crossmatch Microbiology - Last 24 Hours (Table) 08/31/20 23:00 Blood Culture - Preliminary Blood No Growth after 72 hours 08/31/20 23:15 Blood Culture - Preliminary Blood No Growth after 72 hours
[2020-09-04 16:48] LABS: Glucose,Whole Blood 129 mg/dL (75-99)
[2020-09-04 20:49] LABS: Glucose,Whole Blood 163 mg/dL (75-99)
[2020-09-04] MEDS: ALPRAZolam 0.5 MG TAB PO PRN (21:53)
[2020-09-04] MEDS: ATORVASTATIN 80 MG TAB PO SCH (21:53)
[2020-09-05 06:25] LABS: Glucose,Whole Blood 122 mg/dL (75-99)
[2020-09-05] MEDS: SEVELAMER 800 MG TAB PO SCH ×3 (06:59→17:12)
[2020-09-05] MEDS: INSULIN DETEMIR (LEVEMIR) 100 UNIT/ML SYR SQ SCH (06:59)
[2020-09-05] MEDS: carvediloL 12.5 MG TAB PO SCH ×2 (06:59→17:12)
[2020-09-05] MEDS: INSULIN ASPART (NovoLOG) 100 UNIT/ML VIAL SQ SCH ×4 (06:59→20:12)
[2020-09-05] MEDS: ALBUTEROL NEBULIZED 2.5 MG/3 ML INHALATION SCH ×4 (08:19→19:47)
[2020-09-05] MEDS: FERROUS SULFATE 325 MG TAB PO SCH ×2 (08:54→20:21)
[2020-09-05] MEDS: THIAMINE 100 MG TAB PO SCH ×2 (08:54→20:21)
[2020-09-05] MEDS: ASPIRIN 81 MG PO SCH (08:54)
[2020-09-05] MEDS: HEPARIN SODIUM,PORCINE/PF 5,000 UNIT/0.5 ML SYRINGE SQ SCH ×3 (08:54→22:57)
[2020-09-05] MEDS: allopurinoL 100 MG TAB PO SCH (08:54)
[2020-09-05] MEDS: polyethylene glycoL 3350 17 GM POWD.PACK PO SCH (08:55)
[2020-09-05] MEDS ORDERED: amLODIPine 5 MG TAB PO SCH (09:00)
[2020-09-05] MEDS ORDERED: DARBEPOETIN ALFA 40 MCG/0.4 ML SYRINGE SQ SCH (09:00)
--- NOTE | 2020-09-05 10:05 | P.PN ---
Subjective Feels better, no shortness of breath, no nausea no vomiting no dizziness. Still on 5 L of oxygen. Objective - Vital Signs Vital signs: Vital Signs Temp 98.0 F 09/05/20 08:00 Pulse 56 L 09/05/20 08:00 Resp 18 09/05/20 08:00 BP 109/53 09/05/20 08:00 Pulse Ox 100 09/05/20 08:00 Intake & Output 09/04/20 09/05/20 09/05/20 18:59 06:59 18:59 Intake Total 480 Output Total 3000 Balance -2520 Weight 110 kg Intake: Oral 480 Output: Hemodialysis 3000 Other: # Voids 1 - Exam Constitutional: No acute distress, conversant, pleasant, on 5 L of oxygen Eyes: Anicteric sclerae, moist conjunctiva ENMT: NC/AT Neck:Supple, FROM, no masses, or JVD, No carotid bruits; No thyromegaly Lungs: Clear to auscultation, Clear to percussion, Normal respiratory effort, no accessory muscle use Cardiovascular: Heart regular in rate and rhythm,+ murmurs,no gallops, or rubs, trace peripheral edema Abdominal: Soft Nontender, non distended, no guarding, no rebound or rigidity Skin: Normal temperature, tone, texture, turgor, No induration No subcutaneous nodules, No rash, lesions, No ulcers Extremities:No digital cyanosis No clubbing, Pedal pulses intact and symmetrical Radial pulses intact and symmetrical Normal gait and station, No calf tenderness Psychiatric: Alert and oriented to person, place and time, Appropriate affect Intact judgement Neuro: Muscles Strength 5/5 in all 4 extremities, Sensation to light touch grossly present throughout, Cranial nerves II-XII grossly intact. No focal sensory deficits - Labs CBC & Chem 7: 09/03/20 07:50 09/03/20 07:50 Labs: Abnormal Lab Results - Last 24 Hours (Table) 09/04/20 09/04/20 09/04/20 Range/Units 11:56 16:46 20:47 POC Glucose (mg/dL) 109 H 129 H 163 H (75-99) mg/dL 09/05/20 Range/Units 06:24 POC Glucose (mg/dL) 122 H (75-99) mg/dL Microbiology - Last 24 Hours (Table) 08/31/20 23:00 Blood Culture - Preliminary Blood No Growth after 96 hours 08/31/20 23:15 Blood Culture - Preliminary Blood No Growth after 96 hours Assessment and Plan Plan: Acute on chronic systolic congestive heart failure with an ejection fraction of 35-40% -ProBNP 27,400, troponin 0.036 -Chest x-ray revealed increased pulmonary vascular congestion consistent with worsening CHF. -Cardiology and Nephrology following, pt is on HD -Telemetry monitoring -Daily weights -Cardiac /renal diet -Lasix discontinued secondary to patient being anuric Social requiring oxygen 5 L ESRD on dialysis Mondays/Wednesdays/Fridays -Currently admitted for fluid volume overload secondary to acute on chronic systolic congestive heart failure accompanied by need for dialysis. -Nephrology consulted for continued dialysis treatments. -We will continue to monitor closely.continue ACADEMIC PROGRAM SPECIALIST as indicated Elevated troponin -Likely secondary to CHF exacerbation and ESRD -EKG showed normal sinus rhythm at 77 bpm with no noted T wave or ST abnormali ties. -Cardiology following, appreciate recommendations. Stable from cardiology standpoint Leukocytosis, improving -Likely secondary to inflammatory reaction -Pro-calcitonin 0.36. Blood cultures 2 sets obtained and results showing no growth after 48 hours -WBC down to 11,000 Hypertension -Monitor vital signs and continue daily medication management. Hyperlipidemia -Continue daily medication management with atorvastatin 80 mg nightly. COPD with chronic hypoxic respiratory failure requiring home oxygen dependent on 2 L -Continue oxygen supplementation as needed to maintain SpO2 equal to or greater than 92%. prn BiPAP -Encourage incentive spirometry Continues to be on 5 L Insulin-dependent diabetes mellitus type 2 -Glycemic protocol with NovoLog sliding scale along with Levemir 30 units daily. -Heart healthy carb consistent diet. Chronic anemia likely associated with end-stage renal disease Monitor hemoglobin, 7.2 09/03/2020 CODE STATUS: Full code DVT prophylaxis: Heparin Discussed with: Patient and RN Anticipated discharge date: Clinical course to determine Anticipated discharge place: Home, may consider home care services and palliative care, appreciate case management/social media manager input, discharge once on 2-3 L of oxygen
--- NOTE | 2020-09-05 10:12 | P.PN ---
Subjective Patient is seen in follow-up for end-stage renal disease. She is maintained on hemodialysis on Wednesday schedule. No problems with dialysis yesterday. Dyspnea improved. No active complaints at this time. Vital signs are stable. General: The patient appeared well nourished and normally developed. HEENT: Head exam is unremarkable. Neck is without jugular venous distension. LUNGS: Breath sounds decreased. HEART: Rate and Rhythm are regular. ABDOMEN: Soft, no distention. EXTREMITITES: Trace edema. Objective - Vital Signs Vital signs: Vital Signs Temp 98.0 F 09/05/20 08:00 Pulse 56 L 09/05/20 08:00 Resp 18 09/05/20 08:00 BP 109/53 09/05/20 08:00 Pulse Ox 100 09/05/20 08:00 Intake & Output 09/04/20 09/05/20 09/05/20 18:59 06:59 18:59 Intake Total 480 Output Total 3000 Balance -2520 Weight 110 kg Intake: Oral 480 Output: Hemodialysis 3000 Other: # Voids 1 - Labs CBC & Chem 7: 09/03/20 07:50 09/03/20 07:50 Labs: Abnormal Lab Results - Last 24 Hours (Table) 09/04/20 09/04/20 09/04/20 Range/Units 11:56 16:46 20:47 POC Glucose (mg/dL) 109 H 129 H 163 H (75-99) mg/dL 09/05/20 Range/Units 06:24 POC Glucose (mg/dL) 122 H (75-99) mg/dL Microbiology - Last 24 Hours (Table) 08/31/20 23:00 Blood Culture - Preliminary Blood No Growth after 96 hours 08/31/20 23:15 Blood Culture - Preliminary Blood No Growth after 96 hours Assessment and Plan Plan: Assessment: 1. End-stage renal disease maintained on hemodialysis on Wednesday schedule. 2. Anemia of chronic kidney disease. Maintained on Aranesp. Status post blood transfusion this admission. No active bleeding. 3. Acute on chronic systolic CHF with ejection fraction of 35-40% with moderate tricuspid regurgitation and pulmonary hypertension. 4. Volume overload. Improving with ultrafiltration. 5. Hypertension with chronic kidney disease. Stable. 6. Chronic kidney disease mineral bone disease maintained on Renvela. 7. Diabetes mellitus. Plan: Hemodialysis tomorrow. Stopped diuretics as patient is not making any urine. Stop amlodipine as blood pressures on the lower side.
[2020-09-05 10:45] LABS: Albumin 3.2 g/dL (3.5-5.0); Calcium 9.9 mg/dL (8.4-10.2); Potassium 4.8 mmol/L (3.5-5.1); Total Bilirubin 0.2 mg/dL (0.2-1.3); Total Protein 5.9 g/dL (6.3-8.2)
[2020-09-05 12:05] LABS: Glucose,Whole Blood 176 mg/dL (75-99)
[2020-09-05 12:34] LABS: Basophils % (A) 0 %; Eosinophils # (A) 0.1 k/uL (0-0.7); Eosinophils % (A) 2 %; HCT 28.2 % (34.0-46.0); HGB 8.3 gm/dL (11.4-16.0); Hypochromasia Marked; Lymphocytes # (A) 0.9 k/uL (1.0-4.8); Lymphocytes % (A) 9 %; MCH 28.7 pg (25.0-35.0); MCHC 29.3 g/dL (31.0-37.0); MCV 97.9 fL (80.0-100.0); Macrocytosis Slight; Mean Platelet Volume 7.6; Monocytes # (A) 0.8 k/uL (0-1.0); Monocytes % (A) 9 %; Neutrophils # (A) 7.1 k/uL (1.3-7.7); Neutrophils % (A) 77 %; Platelet Count 344 k/uL (150-450); RBC 2.89 m/uL (3.80-5.40); RDW 15.9 % (11.5-15.5); WBC 9.1 k/uL (3.8-10.6)
[2020-09-05 14:55] VITALS: BMI 39.1
[2020-09-05 16:52] LABS: Glucose,Whole Blood 157 mg/dL (75-99)
[2020-09-05 19:39] LABS: Glucose,Whole Blood 96 mg/dL (75-99)
[2020-09-05] MEDS: ATORVASTATIN 80 MG TAB PO SCH (20:21)
[2020-09-05] MEDS: ALPRAZolam 0.5 MG TAB PO PRN (20:21)
[2020-09-06] MEDS: ALPRAZolam 0.5 MG TAB PO PRN ×2 (02:51→12:17)
[2020-09-06 06:04] LABS: Glucose,Whole Blood 145 mg/dL (75-99)
[2020-09-06] MEDS: INSULIN DETEMIR (LEVEMIR) 100 UNIT/ML SYR SQ SCH (06:19)
[2020-09-06] MEDS: carvediloL 12.5 MG TAB PO SCH (06:20)
[2020-09-06] MEDS: INSULIN ASPART (NovoLOG) 100 UNIT/ML VIAL SQ SCH ×2 (06:20→12:07)
[2020-09-06] MEDS: SEVELAMER 800 MG TAB PO SCH ×2 (06:20→12:17)
[2020-09-06] MEDS: ALBUTEROL NEBULIZED 2.5 MG/3 ML INHALATION PRN (07:41)
[2020-09-06] MEDS: ALBUTEROL NEBULIZED 2.5 MG/3 ML INHALATION SCH ×2 (07:54→10:57)
[2020-09-06] MEDS: ASPIRIN 81 MG PO SCH (08:15)
[2020-09-06] MEDS: allopurinoL 100 MG TAB PO SCH (08:15)
[2020-09-06] MEDS: HEPARIN SODIUM,PORCINE/PF 5,000 UNIT/0.5 ML SYRINGE SQ SCH (08:15)
[2020-09-06] MEDS: FERROUS SULFATE 325 MG TAB PO SCH (08:15)
[2020-09-06] MEDS: THIAMINE 100 MG TAB PO SCH (08:15)
[2020-09-06] MEDS: polyethylene glycoL 3350 17 GM POWD.PACK PO SCH (08:15)
[2020-09-06] MEDS ORDERED: ERGOCALCIFEROL 1,250 MCG (50,000 IU) CAPSULE PO SCH (09:00)
--- NOTE | 2020-09-06 09:09 | P.DS ---
Providers Date of admission: 08/31/20 23:40 Expected date of discharge: 09/06/20 Attending physician: Linda Caupto MD Consults: 08/31/20 23:41 Consult Physician Urgent Consulting Provider: Jennifer Leon Consult Reason/Comments: chronic renal failure, dialysis patient, fluid overload Do you want consulting provider notified?: Yes Primary care physician: Dwight Anirudh [facility] Hospital Course: HPI: The patient is a 74-year-old female with an extensive PMH including systolic CHF, chronic hypoxic respiratory failure on home 2 L nasal cannula oxygen, ESRD on hemodialysis, hypertension, hyperlipidemia, and type II DM who presented to the emergency room with complaints of shortness of breath. The patient reports that her breathing acutely worsened yesterday and she woke up from sleep feeling short of breath. She reports that since then, she had to increase her nasal cannula oxygen 6 L with only minimal improvement in her symptoms. EMS found the patient with SpO2 88% on 6 L nasal cannula. She was given a breathing treatment en-route to the hospital. Reports shortness of breath at rest and significantly decreased exercise tolerance. Patient reports she received her last dialysis on Wednesday 08/30, though could not recall the amount of fluid that was removed. She also reported chronic lower extremity edema which is unchanged and two-pillow orthopnea. She denied chest pain, fever, cough. Denied nausea, vomiting, abdominal pain, diarrhea. Denied leg pain. In the emergency room, an EKG revealed normal sinus rhythm at 77 bpm with poor R-wave progression. Chest x- ray was consistent with fluid overload and congestive heart failure. Laboratory evaluation was remarkable for leukocytosis of 18.4, hemoglobin 7.8 (at baseline) platelets 506, d-dimer 1.76, ABG showing pCO2 63, sodium 136, CO2 33, BUN 44, creatinine 4.4, glucose 151, troponin 0.036, proBNP 27,400. Hospital course and treatment: Patient was admitted to the hospital with acute on chronic systolic congestive heart failure with hypovolemia. She had shortness of breath and required increased oxygen. She is usually on 2-3 L of oxygen at home secondary to chronic congestive heart failure. She received renal replacement therapy with ultrafiltration during her hospitalization. Diuretics were discontinued as patient has been in urinary. Patient was initially placed on BiPAP which was discontinued. She was evaluated by nephrology and cardiology. Oxygenation improved and patient is back to 2-3 L of oxygen. She'll be discharged home on diuretics. She will continue hemodialysis as an outpatient. Diagnoses upon discharge: Acute on chronic systolic heart failure, EF 40% with chronic hypoxic respiratory failure requiring home oxygen End-stage renal disease on hemodialysis secondary to diabetes Coronary artery disease status post CABG Minimally elevated troponins, likely related to chronic kidney disease Moderate aortic stenosis Severe tricuspid regurgitation Pulmonary hypertension likely related to heart failure Peripheral vascular disease Diabetes mellitus type II with end-stage renal disease Chronic anemia secondary to end-stage renal disease Leukocytoses, likely reactive resolved Essential hypertension Hyperlipidemia COPD, chronic with chronic hypoxic respiratory failure requiring home oxygen Patient Condition at Discharge: Fair Plan - Discharge Summary Discharge Rx Participant: Yes New Discharge Prescriptions: New polyethylene glycoL 3350 [Miralax] 17 gm PO DAILY powd.pack INSULIN ASPART (NovoLOG) [NovoLOG (formulary)] 0 unit SQ ACHS vial Continue amLODIPine BESYLATE [Norvasc] 10 mg PO DAILY Carvedilol [Coreg] 25 mg PO BID Atorvastatin [Lipitor] 80 mg PO HS Allopurinol [Zyloprim] 200 mg PO DAILY Thiamine [Vitamin B-1] 100 mg PO BID Insulin Glargine,Hum.rec.anlog [Basaglar Kwikpen U-100] 30 unit SQ DAILY Aspirin 81 mg PO DAILY chew Darbepoetin Paresh [Aranesp] 40 mcg SQ TH Sevelamer [Renvela] 800 mg PO TID-W/MEALS 30 Days #90 tab Folic Acid-Vit B Complex-Vit C [Nephrocaps] 1 mg PO DIRECTED Nitroglycerin Sl Tabs [Nitrostat] 0.4 mg SUBLINGUAL Q5M PRN PRN Reason: Chest Pain Ferrous Sulfate [Feosol] 325 mg PO BID #60 tab Ergocalciferol [Vitamin D2 (1250 Mcg = 60657 Iu)] 1,250 mcg PO Q30D Discontinued metOLazone [Zaroxolyn] 5 mg PO AC-TID Torsemide [Demadex] 20 mg PO BID Discharge Medication List Atorvastatin [Lipitor] 80 mg PO HS 07/04/14 [History] Carvedilol [Coreg] 25 mg PO BID 07/04/14 [History] amLODIPine BESYLATE [Norvasc] 10 mg PO DAILY 07/04/14 [History] Allopurinol [Zyloprim] 200 mg PO DAILY 03/13/20 [History] Insulin Glargine,Hum.rec.anlog [Basaglar Kwikpen U-100] 30 unit SQ DAILY 03/13/20 [History] Thiamine [Vitamin B-1] 100 mg PO BID 03/13/20 [History] Aspirin 81 mg PO DAILY chew 03/15/20 [Rx] Ferrous Sulfate [Feosol] 325 mg PO BID #60 tab 06/24/20 [Rx] Ergocalciferol [Vitamin D2 (1250 Mcg = 68661 Iu)] 1,250 mcg PO Q30D 07/28/20 [History] Darbepoetin Paresh [Aranesp] 40 mcg SQ TH 08/06/20 [History] Sevelamer [Renvela] 800 mg PO TID-W/MEALS 30 Days #90 tab 08/09/20 [Rx] Folic Acid-Vit B Complex-Vit C [Nephrocaps] 1 mg PO DIRECTED 09/01/20 [History] Nitroglycerin Sl Tabs [Nitrostat] 0.4 mg SUBLINGUAL Q5M PRN 09/01/20 [History] INSULIN ASPART (NovoLOG) [NovoLOG (formulary)] 0 unit SQ ACHS vial 09/06/20 [Rx] polyethylene glycoL 3350 [Miralax] 17 gm PO DAILY powd.pack 09/06/20 [Rx] Follow up Appointment(s)/Referral(s): Dwight Abdullahi MD [Primary Care Provider] - 1-2 days [facility], [NON-STAFF] - Discharge Disposition: HOME WITH HOME HEALTH SERVICES
--- NOTE | 2020-09-06 10:20 | P.PN ---
Subjective Patient is seen in follow-up for end-stage renal disease. She is maintained on hemodialysis on Wednesday schedule. Tolerating dialysis well. Wants to go home. Dyspnea improved. No active complaints at this time. Vital signs are stable. General: The patient appeared well nourished and normally developed. HEENT: Head exam is unremarkable. Neck is without jugular venous distension. LUNGS: Breath sounds decreased. HEART: Rate and Rhythm are regular. ABDOMEN: Soft, no distention. EXTREMITITES: Trace edema. Objective - Vital Signs Vital signs: Vital Signs Temp 97.8 F 09/06/20 04:00 Pulse 63 09/06/20 08:00 Resp 16 09/06/20 08:00 BP 113/56 09/06/20 08:00 Pulse Ox 97 09/06/20 08:00 Intake & Output 09/05/20 09/06/20 09/06/20 18:59 06:59 18:59 Intake Total 480 240 Output Total 0 Balance 480 240 Weight 110 kg 111.4 kg Intake: Oral 480 240 Output: Urine 0 Other: Voiding Method Toilet - Labs CBC & Chem 7: 09/05/20 09:42 09/05/20 09:42 Labs: Abnormal Lab Results - Last 24 Hours (Table) 09/05/20 09/05/20 09/05/20 Range/Units 09:42 09:42 12:03 RBC 2.89 L (3.80-5.40) m/uL Hgb 8.3 L (11.4-16.0) gm/dL Hct 28.2 L (34.0-46.0) % MCHC 29.3 L (31.0-37.0) g/dL RDW 15.9 H (11.5-15.5) % Lymphocytes # 0.9 L (1.0-4.8) k/uL Carbon Dioxide 32 H (22-30) mmol/L BUN 36 H (7-17) mg/dL Creatinine 4.23 H (0.52-1.04) mg/dL Glucose 106 H (74-99) mg/dL POC Glucose (mg/dL) 176 H (75-99) mg/dL Total Protein 5.9 L (6.3-8.2) g/dL Albumin 3.2 L (3.5-5.0) g/dL 09/05/20 09/06/20 Range/Units 16:50 06:02 RBC (3.80-5.40) m/uL Hgb (11.4-16.0) gm/dL Hct (34.0-46.0) % MCHC (31.0-37.0) g/dL RDW (11.5-15.5) % Lymphocytes # (1.0-4.8) k/uL Carbon Dioxide (22-30) mmol/L BUN (7-17) mg/dL Creatinine (0.52-1.04) mg/dL Glucose (74-99) mg/dL POC Glucose (mg/dL) 157 H 145 H (75-99) mg/dL Total Protein (6.3-8.2) g/dL Albumin (3.5-5.0) g/dL Microbiology - Last 24 Hours (Table) 08/31/20 23:00 Blood Culture - Preliminary Blood No Growth after 120 hours 08/31/20 23:15 Blood Culture - Preliminary Blood No Growth after 120 hours Assessment and Plan Plan: Assessment: 1. End-stage renal disease maintained on hemodialysis on Wednesday schedule. 2. Anemia of chronic kidney disease. Maintained on Aranesp. Status post blood transfusion this admission. No active bleeding. 3. Acute on chronic systolic CHF with ejection fraction of 35-40% with moderate tricuspid regurgitation and pulmonary hypertension. 4. Volume overload. Improving with ultrafiltration. 5. Hypertension with chronic kidney disease. Stable. 6. Chronic kidney disease mineral bone disease maintained on Renvela. 7. Diabetes mellitus. Plan: Currently seen was undergoing hemodialysis. Next treatment on Wednesday. Stopped diuretics as patient is not making any urine. Stopped amlodipine as blood pressures on the lower side. Possibly going home today.
[2020-09-06 10:36] LABS: Basophils # (A) 0.1 k/uL (0-0.2); Basophils % (A) 1 %; Eosinophils # (A) 0.2 k/uL (0-0.7); Eosinophils % (A) 2 %; HCT 24.5 % (34.0-46.0); HGB 7.7 gm/dL (11.4-16.0); Hypochromasia Moderate; Lymphocytes # (A) 0.9 k/uL (1.0-4.8); Lymphocytes % (A) 9 %; MCH 30.3 pg (25.0-35.0); MCHC 31.3 g/dL (31.0-37.0); MCV 96.9 fL (80.0-100.0); Macrocytosis Slight; Mean Platelet Volume 7.1; Monocytes # (A) 0.8 k/uL (0-1.0); Monocytes % (A) 8 %; Neutrophils % (A) 79 %; Platelet Count 308 k/uL (150-450); RBC 2.53 m/uL (3.80-5.40); RDW 15.9 % (11.5-15.5); WBC 10.1 k/uL (3.8-10.6)
[2020-09-06 10:50] LABS: Calcium 9.3 mg/dL (8.4-10.2); Potassium 4.7 mmol/L (3.5-5.1); Total Bilirubin 0.2 mg/dL (0.2-1.3); Total Protein 5.7 g/dL (6.3-8.2)
[2020-09-06 12:04] LABS: Glucose,Whole Blood 116 mg/dL (75-99)
[2020-09-06 14:14] VITALS: BP 107/54; PULSE 59; RESP 20; TEMP 97.1
== END 2020-09-06 13:33 | disposition home health service (06) | DRG 291 ==
LOC: EC 21:47 → 4SSUR 23:40 → 3SCARD 09-01 13:33
PROVIDERS: ADMIT Internal Medicine; ATTEND Internal Medicine
PROC: 5A1D70Z Performance of Urinary Filtration, Intermittent, Less than 6 Hours Per Day (ICD-10-PCS; principal; 2020-09-01)
DX: I13.2 Hypertensive heart and chronic kidney disease with heart failure and with stage 5 chronic kidney disease, or end stage renal disease (principal); I50.23 Acute on chronic systolic (congestive) heart failure; N18.6 End stage renal disease; J44.1 Chronic obstructive pulmonary disease with (acute) exacerbation; J96.11 Chronic respiratory failure with hypoxia; H54.3 Unqualified visual loss, both eyes; D63.1 Anemia in chronic kidney disease; D72.829 Elevated white blood cell count, unspecified; E11.22 Type 2 diabetes mellitus with diabetic chronic kidney disease; E11.42 Type 2 diabetes mellitus with diabetic polyneuropathy; E66.01 Morbid (severe) obesity due to excess calories; Z68.39 Body mass index [BMI] 39.0-39.9, adult; E78.5 Hyperlipidemia, unspecified; E86.1 Hypovolemia; E87.5 Hyperkalemia; I08.3 Combined rheumatic disorders of mitral, aortic and tricuspid valves; I25.10 Atherosclerotic heart disease of native coronary artery without angina pectoris; I25.2 Old myocardial infarction; I25.5 Ischemic cardiomyopathy; I27.20 Pulmonary hypertension, unspecified; Z86.73 Personal history of transient ischemic attack (TIA), and cerebral infarction without residual deficits; E83.9 Disorder of mineral metabolism, unspecified; Z20.822 Contact with and (suspected) exposure to COVID-19; Z79.4 Long term (current) use of insulin; Z79.82 Long term (current) use of aspirin; Z79.899 Other long term (current) drug therapy; Z82.49 Family history of ischemic heart disease and other diseases of the circulatory system; Z83.3 Family history of diabetes mellitus; Z87.891 Personal history of nicotine dependence; Z90.710 Acquired absence of both cervix and uterus; Z95.1 Presence of aortocoronary bypass graft; Z95.5 Presence of coronary angioplasty implant and graft; Z99.2 Dependence on renal dialysis; Z99.81 Dependence on supplemental oxygen; Z88.0 Allergy status to penicillin; R79.1 Abnormal coagulation profile; R77.8 Other specified abnormalities of plasma proteins; Z90.49 Acquired absence of other specified parts of digestive tract; Z87.01 Personal history of pneumonia (recurrent)
CPT/HCPCS: 36415; 36600; 71045; 80048; 80053; 82805; 83036; 83735; 83880; 84145; 84484; 85025; 85027; 85379; 85610; 85730; 86706; 86850; 86900; 86901; 86920; 87040; 87340; 87635; 90935; 93005; 94640; 94660; 94760; 96374; 96375; 99285

== ENCOUNTER 2021-03-23 01:35 | Inpatient (IN) | payer MEDICARE, OTHER ==
[2021-03-23 01:46] LABS: Glucose,Whole Blood 159 mg/dL (75-99)
--- NOTE | 2021-03-23 02:05 | ED ---
Weakness HPI - General Chief complaint: Weakness Stated complaint: Weakness Time Seen by Provider: 03/23/21 01:41 Source: EMS Mode of arrival: EMS Limitations: no limitations - History of Present Illness Initial comments: 's patient is a 75-year-old woman with history of end-stage renal disease on hemodialysis who presents with complaint that she is not feeling well and also generalized weakness and fatigue. The patient states she has not been feeling well going on a few days now. She states that her last hemodialysis appointment her session had to be terminated after 1-2 hours because there were concerns about flow rates to her temporary dialysis catheter. The patient states that the graft in her left arm is not working so she has been dialyzing to right chest temporary catheter. When her last session was terminated she went out to the vehicle and she states she passed out in the process of getting into the vehicle. The dialysis nurse and her family recommended she go to ER but she refused, she states she did not want to be away from home for Jessica. Her last regular dialysis session was on Wednesday. Patient denies chest pain. She complains of nausea, generalized weakness and fatigue and some dyspnea. Patient states she is on nasal cannula oxygen at 4 L constantly at home and she even feels short of breath with this. No cough no chest pain, fever or chills. Patient has not noted leg swelling or pain. MD Complaint: generalized weakness -: days(s) Location: generalized Severity scale (1-10): 0 Consistency: constant Improves with: none Worsens with: exertion Context: other Associated Symptoms: nausea/vomiting - Related Data Home Medications Medication Instructions Recorded Confirmed Atorvastatin [Lipitor] 80 mg PO HS 07/04/14 09/01/20 Carvedilol [Coreg] 25 mg PO BID 07/04/14 09/01/20 Allopurinol [Zyloprim] 200 mg PO DAILY 03/13/20 09/01/20 Insulin Glargine,Hum.rec.anlog 30 unit SQ DAILY 03/13/20 09/01/20 [Basaglar Kwikpen U-100] Thiamine [Vitamin B-1] 100 mg PO BID 03/13/20 09/01/20 Ergocalciferol [Vitamin D2 (1250 1,250 mcg PO Q30D 07/28/20 09/01/20 Mcg = 81901 Iu)] Darbepoetin Paresh [Aranesp] 40 mcg SQ TH 08/06/20 09/01/20 Folic Acid-Vit B Complex-Vit C 1 mg PO DIRECTED 09/01/20 09/01/20 [Nephrocaps] Nitroglycerin Sl Tabs [Nitrostat] 0.4 mg SUBLINGUAL Q5M PRN 09/01/20 09/01/20 Previous Rx's Medication Instructions Recorded Aspirin 81 mg PO DAILY chew 03/15/20 Ferrous Sulfate [Feosol] 325 mg PO BID #60 tab 06/24/20 Sevelamer [Renvela] 800 mg PO TID-W/MEALS 30 Days #90 08/09/20 tab polyethylene glycoL 3350 [Miralax] 17 gm PO DAILY powd.pack 09/06/20 Allergies Allergy/AdvReac Type Severity Reaction Status Date / Time Penicillins Allergy Unknown Verified 09/01/20 08:12 Childhood Review of Systems ROS Statement: Those systems with pertinent positive or pertinent negative responses have been documented in the HPI. ROS Other: All systems not noted in ROS Statement are negative. Constitutional: Reports: weakness. Denies: fever, chills Eyes: Denies: vision change Respiratory: Reports: dyspnea. Denies: cough, wheezes, hemoptysis Cardiovascular: Reports: orthopnea. Denies: chest pain, palpitations, edema, syncope Gastrointestinal: Reports: nausea. Denies: abdominal pain, vomiting, diarrhea Musculoskeletal: Reports: myalgia. Denies: back pain Skin: Denies: rash Neurological: Denies: headache, weakness, numbness Past Medical History Past Medical History: Coronary Artery Disease (CAD), Heart Failure, COPD, CVA/TIA, Diabetes Mellitus, Hyperlipidemia, Hypertension, Myocardial Infarction (AZ), Pneumonia, Renal Disease Additional Past Medical History / Comment(s): Pt recently admitted to [facility] on 07/31/20 for acute on chronic CHF with EF 30-35%. Other hx: IDDM type II, n europathy bilateral legs/feet, CKD stage IV-pt being worked up for fistula placement/hemodialysis, normocytic anemia, during caratid stent procedure pt lost some vision in bilateral eyes, home oxygen 2L/NC ATC, gout bilateral great toes, CHF Last Myocardial Infarction Date:: 2006 History of Any Multi-Drug Resistant Organisms: None Reported Past Surgical History: Breast Surgery, Cholecystectomy, Coronary Bypass/CABG, Heart Catheterization, Hysterectomy, Orthopedic Surgery Additional Past Surgical History / Comment(s): R caratid stenting, 2006 CABG 4 vessels, bilateral knee surgeries-R knee was reconstructed/has hardware, L axillae cyst I&D, R index finger wound I&D, R breast biopsy x 2. Past Anesthesia/Blood Transfusion Reactions: No Reported Reaction Date of Last Stent Placement:: UN Past Psychological History: No Psychological Hx Reported Smoking Status: Former smoker Past Alcohol Use History: None Reported, Occasional Past Drug Use History: None Reported - Past Family History Mother Family Medical History: No Reported History Sister(s) Family Medical History: Cancer, Deep Vein Thrombosis (DVT) Additional Family Medical History / Comment(s): CERVICAL Father Family Medical History: Coronary Artery Disease (CAD), Diabetes Mellitus General Exam Limitations: no limitations General appearance: alert, in no apparent distress Head exam: Present: atraumatic, normocephalic Eye exam: Present: normal appearance. Absent: scleral icterus, conjunctival injection Neck exam: Present: normal inspection Respiratory exam: Present: rales (Bilateral bases). Absent: wheezes, rhonchi, stridor, accessory muscle use Cardiovascular Exam: Present: bradycardia, normal heart sounds. Absent: systolic murmur, diastolic murmur, rubs, gallop GI/Abdominal exam: Present: soft. Absent: distended, tenderness, guarding, rebound, rigid, mass, pulsatile mass Extremities exam: Present: normal inspection, normal capillary refill. Absent: pedal edema, calf tenderness Back exam: Present: normal inspection. Absent: CVA tenderness (R), CVA tende rness (L) Neurological exam: Present: alert Skin exam: Present: warm, dry, intact, normal color. Absent: rash Course Vital Signs 03/23/21 01:41 Pulse Rate 47 L Respiratory 18 Rate Blood Pressure 101/48 O2 Sat by Pulse 95 Oximetry EKG Findings - EKG Comments: EKG Findings:: Possible old lateral infarct. - EKG Results: EKG: interpreted by ERMD, sinus rhythm, normal axis EKG shows: bradycardia - Blocks, [place], Hypertrophy, ST Abn: Repolarization changes or abnormalities: ST or T wave suggestive of ischemia - [place], Pacemaker, Normal: Myocardial infarction: septal AZ (old age or indeterminate) Medical Decision Making - Lab Data Result diagrams: 03/23/21 02:01 Lab Results 03/23/21 03/23/21 03/23/21 Range/Units 01:42 02:01 02:01 Sodium 130 L (137-145) mmol/L Potassium 7.3 H* (3.5-5.1) mmol/L Chloride 91 L (98-107) mmol/L Carbon Dioxide 18 L (22-30) mmol/L Anion Gap 21 mmol/L BUN 94 H (7-17) mg/dL Creatinine 8.18 H* (0.52-1.04) mg/dL Est GFR (CKD-EPI)AfAm 5 (>60 ml/min/1.73 sqM) Est GFR (CKD-EPI)NonAf 4 (>60 ml/min/1.73 sqM) Glucose 162 H (74-99) mg/dL POC Glucose (mg/dL) 159 H (75-99) mg/dL POC Glu Mri Specialist ID Linus Hay Plasma Lactic Acid [place] 4.6 H* (0.7-2.0) mmol/L Calcium 10.7 H (8.4-10.2) mg/dL Magnesium 2.6 H (1.6-2.3) mg/dL Total Bilirubin 0.9 (0.2-1.3) mg/dL AST 294 H (14-36) U/L ALT 186 H (4-34) U/L Alkaline Phosphatase 102 (38-126) U/L Troponin I (0.000-0.034) ng/mL Total Protein 6.4 (6.3-8.2) g/dL Albumin 3.7 (3.5-5.0) g/dL 03/23/21 Range/Units 02:01 Sodium (137-145) mmol/L Potassium (3.5-5.1) mmol/L Chloride (98-107) mmol/L Carbon Dioxide (22-30) mmol/L Anion Gap mmol/L BUN (7-17) mg/dL Creatinine (0.52-1.04) mg/dL Est GFR (CKD-EPI)AfAm (>60 ml/min/1.73 sqM) Est GFR (CKD-EPI)NonAf (>60 ml/min/1.73 sqM) Glucose (74-99) mg/dL POC Glucose (mg/dL) (75-99) mg/dL POC Glu Mri Specialist ID Plasma Lactic Acid [place] (0.7-2.0) mmol/L Calcium (8.4-10.2) mg/dL Magnesium (1.6-2.3) mg/dL Total Bilirubin (0.2-1.3) mg/dL AST (14-36) U/L ALT (4-34) U/L Alkaline Phosphatase (38-126) U/L Troponin I 0.370 H* (0.000-0.034) ng/mL Total Protein (6.3-8.2) g/dL Albumin (3.5-5.0) g/dL Disposition Clinical Impression: Chronic renal failure, Congestive heart failure, Hyperkalemia Disposition: ADMITTED IP TO THIS HOSP Condition: Serious Referrals: Dwight Abdullahi MD [Primary Care Provider] - 1-2 days
[2021-03-23 02:13] LABS: Anisocytosis Slight; HCT 36.8 % (34.0-46.0); HGB 11.3 gm/dL (11.4-16.0); Hypochromasia Moderate; MCH 33.6 pg (25.0-35.0); MCHC 30.8 g/dL (31.0-37.0); MCV 109.1 fL (80.0-100.0); Macrocytosis Marked; Platelet Count 269 k/uL (150-450); RBC 3.37 m/uL (3.80-5.40); RDW 19.4 % (11.5-15.5)
[2021-03-23 02:23] LABS: Albumin 3.7 g/dL (3.5-5.0); Calcium 10.7 mg/dL (8.4-10.2); Magnesium 2.6 mg/dL (1.6-2.3); Total Bilirubin 0.9 mg/dL (0.2-1.3); Total Protein 6.4 g/dL (6.3-8.2)
--- NOTE | 2021-03-23 02:37 | XR ---
EXAMINATION TYPE: XR chest 1V portable DATE OF EXAM: 03/23/2021 COMPARISON: 08/31/2020 HISTORY: Difficulty breathing TECHNIQUE: Single view FINDINGS: Heart is enlarged. There is pulmonary vascular congestion. There is right central venous ca theter with tip in the superior vena cava. There are sternal wires. There are chest leads. IMPRESSION: Mild congestive heart failure. There is improvement in the pulmonary edema compared to ol d exam.
[2021-03-23 02:39] LABS: INR 1.3 (<1.2); Partial Thromboplastin Time 22.4 sec (22.0-30.0); Prothrombin Time 13.5 sec (9.0-12.0)
[2021-03-23] MEDS ORDERED: SODIUM BICARB 8.4% 50 ML SYR (1 MEQ/ML) IV STA (02:53)
[2021-03-23] MEDS ORDERED: DEXTROSE 50% SYRINGE 50 ML IVP STA (02:53)
[2021-03-23 02:54] LABS: Potassium 7.3 mmol/L (3.5-5.1)
[2021-03-23] MEDS ORDERED: INSULIN REGULAR 100 UNIT/ML VIAL (IV) IV STA (02:54)
[2021-03-23] MEDS ORDERED: CALCIUM GLUCONATE 1 GM in SODIUM CHLORIDE 0.9% 100 ML IVPB ONE ×2 (03:00→10:12)
[2021-03-23] MEDS ORDERED: NALOXONE 0.4 MG/ML 1 ML VIAL IV PRN ×2 (03:02→03:10)
[2021-03-23] MEDS ORDERED: ALBUTEROL NEBULIZED 2.5 MG/3 ML INHALATION STA (03:14)
[2021-03-23 04:03] LABS: Band Neutrophils % 1 %; Lymphocytes # (M) 1.87 k/uL (1.0-4.8); Metamyelocytes % 1 %; Monocytes # (M) 0.52 k/uL (0-1.0); Neutrophils % (M) 76 %; Nucleated Red Blood Cells 6 /100 WBC (0-0); Polychromasia Present; Total Cells Counted 200; WBC 10.4 k/uL (3.8-10.6)
[2021-03-23 04:10] LABS: Ovalocytes Present; Poikilocytosis (M) Present; RBC Fragments Present
--- NOTE | 2021-03-23 04:14 | P.HPIM ---
History of Present Illness H&P Date: 03/23/21 Chief Complaint: Generalized weakness 75-year-old woman with medical history of end-stage renal disease, chronic systolic heart failure, chronic respiratory failure secondary to COPD/heart failure, diabetes/hypertension/hyperlipidemia presented with generalized weakness. Patient says that last Wednesday she had a balloon angioplasty to her AV fistula in her left upper extremity due to a narrowing, and since then she's been feeling progressively weaker. On her dialysis session Wednesday, she had a presyncopal episode when getting into her car, prompting a call to EMS, but patient reported that she felt better after some time and refused transportation to the emergency room for evaluation. On , she had a shortened session of dialysis due to having flow issues in her temporary dialysis catheter requiring TPA administration. Patient does not make any urine, and has had 2.4 L pulled on her Wednesday session and 1.1 L pulled on her session, but due to symptoms of weakness and borderline hypotension and she was also bolused fluid on . Furthermore, her blood pressure has been soft, and she has not taken any of her blood pressure medications as week as a consequence. Patient to get felt significantly weak today and yesterday, but didn't want to spend the holidays in the hospital, so she and her presented today after holding festivities. Patient denies fevers, chills, nausea, vomiting, chest pain, palpitations, abdominal pain, cough, diarrhea, constipation, numbness/weakness of extremities. She does report dyspnea on exertion that's worse than her baseline. Continues to report orthopnea. In the emergency room she's noted to be afebrile, 101/48, heart rate 47, 95% on room air. CBC demonstrates mild leukocytosis to 11, hemoglobin of 11.3, platelets of 269. Chemistries are concerning for hyperkalemia to 7.3, creatinine of 8.18, lactic acid of 4.6. AST/ALT are elevated as well. Her cardiac markers demonstrated BNP of 112,000 and elevated troponin of 0.37. EKG demonstrates sinus bradycardia with right axis deviation and low voltage EKG no AV poppy blockage. Chest x-ray demonstrates findings of pulmonary edema c onsistent with congestive heart failure. She was given calcium gluconate, sodium bicarbonate, D50/insulin, and an albuterol nebulizer for her hyperkalemia in the emergency room. Review of Systems All Systems reviewed and pertinent positives and negatives noted in HPI, all other symptoms are negative Past Medical History Past Medical History: Coronary Artery Disease (CAD), Heart Failure, COPD, CVA/TIA, Diabetes Mellitus, Hyperlipidemia, Hypertension, Myocardial Infarction (RI), Pneumonia, Renal Disease Additional Past Medical History / Comment(s): Pt recently admitted to [facility] on 07/31/20 for acute on chronic CHF with EF 30-35%. Other hx: IDDM type II, neuropathy bilateral legs/feet, CKD stage IV-pt being worked up for fistula placement/hemodialysis, normocytic anemia, during caratid stent procedure pt lost some vision in bilateral eyes, home oxygen 2L/NC ATC, gout bilateral great toes, CHF Last Myocardial Infarction Date:: 2006 History of Any Multi-Drug Resistant Organisms: None Reported Past Surgical History: Breast Surgery, Cholecystectomy, Coronary Bypass/CABG, Heart Catheterization, Hysterectomy, Orthopedic Surgery Additional Past Surgical History / Comment(s): R caratid stenting, 2006 CABG 4 vessels, bilateral knee surgeries-R knee was reconstructed/has hardware, L axillae cyst I&D, R index finger wound I&D, R breast biopsy x 2. Past Anesthesia/Blood Transfusion Reactions: No Reported Reaction Date of Last Stent Placement:: UN Past Psychological History: No Psychological Hx Reported Smoking Status: Former smoker Past Alcohol Use History: None Reported, Occasional Past Drug Use History: None Reported - Past Family History Mother Family Medical History: No Reported History Sister(s) Family Medical History: Cancer, Deep Vein Thrombosis (DVT) Additional Family Medical History / Comment(s): CERVICAL Father Family Medical History: Coronary Artery Disease (CAD), Diabetes Mellitus Medications and Allergies Home Medications Medication Instructions Recorded Confirmed Type Atorvastatin [Lipitor] 80 mg PO HS 07/04/14 09/01/20 History Carvedilol [Coreg] 25 mg PO BID 07/04/14 09/01/20 History Allopurinol [Zyloprim] 200 mg PO DAILY 03/13/20 09/01/20 History Insulin Glargine,Hum.rec.anlog 30 unit SQ DAILY 03/13/20 09/01/20 History [Basaglar Kwikpen U-100] Thiamine [Vitamin B-1] 100 mg PO BID 03/13/20 09/01/20 History Aspirin 81 mg PO DAILY chew 03/15/20 09/01/20 Rx Ferrous Sulfate [Feosol] 325 mg PO BID #60 tab 06/24/20 09/01/20 Rx Ergocalciferol [Vitamin D2 (1250 1,250 mcg PO Q30D 07/28/20 09/01/20 History Mcg = 98228 Iu)] Darbepoetin Paresh [Aranesp] 40 mcg SQ TH 08/06/20 09/01/20 History Sevelamer [Renvela] 800 mg PO TID-W/MEALS 30 Days #90 08/09/20 09/01/20 Rx tab Folic Acid-Vit B Complex-Vit C 1 mg PO DIRECTED 09/01/20 09/01/20 History [Nephrocaps] Nitroglycerin Sl Tabs [Nitrostat] 0.4 mg SUBLINGUAL Q5M PRN 09/01/20 09/01/20 History polyethylene glycoL 3350 [Miralax] 17 gm PO DAILY powd.pack 09/06/20 Rx Allergies Allergy/AdvReac Type Severity Reaction Status Date / Time Penicillins Allergy Unknown Verified 09/01/20 08:12 Childhood Physical Exam Osteopathic Statement: *. No significant issues noted on an osteopathic structural exam other than those noted in the History and Physical/Consult. Vitals: Vital Signs Pulse Resp BP Pulse Ox 03/23/21 01:41 47 L 18 101/48 95 Intake and Output 03/22/21 03/22/21 03/23/21 14:59 22:59 06:59 Other: Weight 72.575 kg Gen: awake, alert HEENT: normocephalic, atraumatic, good hearing acuity, moist mucous membranes Resp: good air exchange, breathing comfortably with no accessory muscle use, fine crackles in the bases CVS: good distal perfusion x 4, regular rate and rhythm, blowing systolic murmur GI: soft, NTTP, ND : no SPT, no CVAT, egan catheter not present MSK: Bilateral pitting edema, no clubbing Neuro: non-focal, moving all extremities Psych: cooperative, euthymic mood Results CBC & Chem 7: 03/23/21 02:01 03/23/21 02:01 Labs: Abnormal Lab Results - Last 24 Hours (Table) 12/03/23/21 03/23/21 Range/Units 01:42 02:01 02:01 WBC 11.0 H (3.8-10.6) k/uL RBC 3.37 L (3.80-5.40) m/uL Hgb 11.3 L (11.4-16.0) gm/dL MCV 109.1 H (80.0-100.0) fL MCHC 30.8 L (31.0-37.0) g/dL RDW 19.4 H (11.5-15.5) % Macrocytosis Marked A PT 13.5 H (9.0-12.0) sec INR 1.3 H (<1.2) Sodium (137-145) mmol/L Potassium (3.5-5.1) mmol/L Chloride (98-107) mmol/L Carbon Dioxide (22-30) mmol/L BUN (7-17) mg/dL Creatinine (0.52-1.04) mg/dL Glucose (74-99) mg/dL POC Glucose (mg/dL) 159 H (75-99) mg/dL Plasma Lactic Acid Corwin (0.7-2.0) mmol/L Calcium (8.4-10.2) mg/dL Magnesium (1.6-2.3) mg/dL AST (14-36) U/L ALT (4-34) U/L Troponin I (0.000-0.034) ng/mL 03/23/21 03/23/21 03/23/21 Range/Units 02:01 02:01 02:01 WBC (3.8-10.6) k/uL RBC (3.80-5.40) m/uL Hgb (11.4-16.0) gm/dL MCV (80.0-100.0) fL MCHC (31.0-37.0) g/dL RDW (11.5-15.5) % Macrocytosis PT (9.0-12.0) sec INR (<1.2) Sodium 130 L (137-145) mmol/L Potassium 7.3 H* (3.5-5.1) mmol/L Chloride 91 L (98-107) mmol/L Carbon Dioxide 18 L (22-30) mmol/L BUN 94 H (7-17) mg/dL Creatinine 8.18 H* (0.52-1.04) mg/dL Glucose 162 H (74-99) mg/dL POC Glucose (mg/dL) (75-99) mg/dL Plasma Lactic Acid Corwin 4.6 H* (0.7-2.0) mmol/L Calcium 10.7 H (8.4-10.2) mg/dL Magnesium 2.6 H (1.6-2.3) mg/dL AST 294 H (14-36) U/L ALT 186 H (4-34) U/L Troponin I 0.370 H* (0.000-0.034) ng/mL Assessment and Plan Assessment: Generalized weakness End-stage renal disease with hyperkalemia -Admit to inpatient, telemetry -Shifting agents as needed -BMP ordered for 6 AM and 10 AM today, reassess frequency of blood draws based on these results -Phos level pending -Nephrology consult -If Her dialysis catheter has issues again can consider vascular consult to see if we can use AV fistula -Orthostatics twice a day -PT OT COPD without exacerbation Acute on Chronic systolic heart failure, EF 40% Chronic respiratory failure, on 4 L of oxygen at home -Oxygen as needed -Fluid removal per nephrology via dialysis -We'll defer cardiology consult for now -Nebulizers when necessary -Will not repeat echo at this time Hypertension Hyperlipidemia Diabetes type 2 -Pending home medication reconciliation, awaiting completion of medication history -Low-dose sliding scale insulin Patient is a no code Patient's is a surrogate decision-maker Heparin 3 times a day for DVT prophylaxis
[2021-03-23 06:13] LABS: Magnesium 2.5 mg/dL (1.6-2.3)
[2021-03-23 06:32] LABS: Potassium 6.3 mmol/L (3.5-5.1)
[2021-03-23 06:33] LABS: Calcium 14.9 mg/dL (8.4-10.2); Phosphorus 10.1 mg/dL (2.5-4.5)
[2021-03-23 08:18] LABS: Glucose,Whole Blood 107 mg/dL (75-99)
[2021-03-23] MEDS ORDERED: carvediloL 12.5 MG TAB PO PRN (08:26)
[2021-03-23] MEDS: INSULIN ASPART (NovoLOG) 100 UNIT/ML VIAL SQ SCH ×3 (08:46→17:11)
[2021-03-23 09:05] LABS: Anisocytosis Slight; HCT 36.1 % (34.0-46.0); HGB 11.3 gm/dL (11.4-16.0); Hypochromasia Slight; MCH 34.1 pg (25.0-35.0); MCHC 31.4 g/dL (31.0-37.0); MCV 108.5 fL (80.0-100.0); Macrocytosis Marked; Mean Platelet Volume 8.9; Platelet Count 258 k/uL (150-450); RBC 3.33 m/uL (3.80-5.40); RDW 19.7 % (11.5-15.5)
[2021-03-23] MEDS: HEPARIN SODIUM,PORCINE/PF 5,000 UNIT/0.5 ML SYRINGE SQ SCH ×2 (09:42→17:12)
[2021-03-23] MEDS: ASPIRIN 81 MG PO SCH (09:43)
[2021-03-23] MEDS: allopurinoL 100 MG TAB PO SCH ×2 (09:43→19:51)
[2021-03-23] MEDS: INSULIN DETEMIR (LEVEMIR) 100 UNIT/ML SYR SQ SCH (09:43)
[2021-03-23] MEDS: FERROUS SULFATE 325 MG TAB PO SCH (09:43)
[2021-03-23] MEDS ORDERED: MIDODRINE 5 MG TAB PO ONE (10:14)
[2021-03-23 10:51] LABS: Band Neutrophils % 1 %; Basophils # (M) 0.13 k/uL (0-0.2); Neutrophils % (M) 86 %; Nucleated Red Blood Cells 5 /100 WBC (0-0); Total Cells Counted 200
[2021-03-23 10:52] LABS: Lymphocytes # (M) 1.15 k/uL (1.0-4.8); Monocytes # (M) 0.51 k/uL (0-1.0); Poikilocytosis (M) Present; Polychromasia Present; WBC 12.8 k/uL (3.8-10.6)
--- NOTE | 2021-03-23 11:46 | CONS ---
CONSULTATION REASON FOR CONSULT: Renal failure. HISTORY OF PRESENT ILLNESS: patient is a 75-year-old female with end-stage renal disease, on hemodialysis on a Wednesday, , Wednesday schedule. She was admitted to the hospital with increased weakness, passing out, and low blood pressure. Patient states she recently had intervention on her left arm AV fistula and has noticed increased weakness and low blood pressure since then. Her last dialysis was on 03/20/2021. She had a two-hour treatment at that time. Patient denies any active bleeding. She was having some shortness of breath as well prior to admission. No history of fevers. Systolic blood pressure documented here is 105 to 100 mmHg. However, patient states that she passed out when EMS had asked her to stand up at home. Her potassium was 6.3. PAST MEDICAL HISTORY: End-stage renal disease, anemia of chronic disease, coronary artery disease, COPD, CVA, TIA, type 2 diabetes, hyperlipidemia, previous history of pneumonia, history of [place], cardiomyopathy, EF 30% to 35%, neuropathy. PAST SURGICAL HISTORY: Cholecystectomy, coronary artery bypass surgery, cardiac catheterization, hysterectomy, right carotid artery stent, bilateral knee surgeries, breast biopsy x2. SOCIAL HISTORY: Patient is a former smoker. No history of drug abuse or alcohol abuse. MEDICATIONS: Medications prior to admission included Lipitor, Coreg, Zyloprim, vitamin B1, aspirin, iron, Aranesp, Renvela, Nitrostat, Nephrocaps, MiraLAX. ALLERGIES: PENICILLIN; type of reaction not known. REVIEW OF SYSTEMS: As per HPI. Other systems negative. PHYSICAL EXAMINATION: Patient is comfortable, awake. She is not in any acute distress. Blood pressure is 100/53, heart rate 55 per minute. She is afebrile. EXAMINATION OF THE HEART: S1 and S2. EXAMINATION OF LUNGS: Bilateral breath sounds are heard. Abdomen is soft, non-tender. Examination of lower extremities shows no significant edema. ABSORBER OPERATOR EXAM: Grossly intact. LABS: Sodium 133, potassium 6.3, BUN 95, serum creatinine 7.67, calcium 14.9, phosphorus 10.1, magnesium 2.5. Lactic acid was elevated at 4.2. ASSESSMENT: 1. End-stage renal disease, on hemodialysis on a Wednesday, , Wednesday schedule. Patient will be dialyzed today. 2. Hyperkalemia. Expect improvement post dialysis. 3. Metabolic acidosis associated with lactic acidosis as well as CKD and not having had dialysis over the last 5 days. 4. Hypercalcemia with mineral bone disorder. I will check her outpatient medications, if patient was receiving Rocaltrol at dialysis. Currently she is on non-calcium- containing binders. 5. Significant hyperphosphatemia. I will resume the Renvela and increase the dose as well. 6. Hypotension. No evidence of obvious infection. Will check blood cultures with dialysis today. Patient recently had intervention on her AV fistula. No evidence of infection noted at this point. PLAN: Hemodialysis today. Repeat labs in a.m. Increase Renvela dose. Continue to avoid calcium supplements. Will dialyze on a low calcium bath. Increase UF as tolerated. Add midodrine for blood pressure and check blood cultures with dialysis. Thank you for this consultation. Will continue to follow the patient with you during her hospitalization. MMPRAVEENL / IJN: [id number] /
[2021-03-23 11:55] LABS: Glucose,Whole Blood 101 mg/dL (75-99)
--- NOTE | 2021-03-23 12:24 | P.PN ---
Progress Note - Text Progress Note Date: 03/23/21 Patient was seen and examined, d/w nephrology. No need to give the K lowering cocktail one more time as she will be dialysed today. Reconciled home meds. No other needs.
[2021-03-23] MEDS ORDERED: CALCIUM CARBONATE 500 MG CHEWABLE PO SCH (12:30)
[2021-03-23] MEDS: MIDODRINE 5 MG TAB PO SCH ×2 (14:29→17:09)
[2021-03-23] MEDS: SEVELAMER 800 MG TAB PO SCH ×2 (14:29→17:12)
[2021-03-23 17:11] LABS: Glucose,Whole Blood 122 mg/dL (75-99)
[2021-03-23 17:44] LABS: Calcium 11.2 mg/dL (8.4-10.2); Potassium 5.7 mmol/L (3.5-5.1)
[2021-03-23] MEDS: ATORVASTATIN 80 MG TAB PO SCH (19:51)
[2021-03-23 20:33] LABS: Glucose,Whole Blood 170 mg/dL (75-99)
[2021-03-23 23:23] LABS: Hepatitis B Surface AB- Quant 3.5 mIU/mL; Hepatitis B Surface Antibody Nonreactive (Nonreactive); Hepatitis B Surface Antigen Nonreactive (Nonreactive)
[2021-03-24] MEDS: HEPARIN SODIUM,PORCINE/PF 5,000 UNIT/0.5 ML SYRINGE SQ SCH ×3 (00:15→15:09)
[2021-03-24] MEDS: ACETAMINOPHEN TAB 325 MG TAB PO PRN ×3 (00:15→19:45)
[2021-03-24 06:18] LABS: Glucose,Whole Blood 152 mg/dL (75-99)
[2021-03-24] MEDS: INSULIN ASPART (NovoLOG) 100 UNIT/ML VIAL SQ SCH ×3 (06:22→17:17)
[2021-03-24] MEDS: SEVELAMER 800 MG TAB PO SCH ×3 (06:23→17:17)
[2021-03-24] MEDS: MIDODRINE 5 MG TAB PO SCH ×3 (06:27→17:17)
[2021-03-24] MEDS: ASPIRIN 81 MG PO SCH (09:16)
[2021-03-24] MEDS: INSULIN DETEMIR (LEVEMIR) 100 UNIT/ML SYR SQ SCH (09:16)
[2021-03-24] MEDS: allopurinoL 100 MG TAB PO SCH ×2 (09:16→19:45)
[2021-03-24] MEDS: FERROUS SULFATE 325 MG TAB PO SCH (09:16)
[2021-03-24 10:41] LABS: Anisocytosis Moderate; HCT 33.9 % (34.0-46.0); HGB 10.3 gm/dL (11.4-16.0); Hypochromasia Moderate; MCH 33.9 pg (25.0-35.0); MCHC 30.4 g/dL (31.0-37.0); MCV 111.4 fL (80.0-100.0); Macrocytosis Marked; Mean Platelet Volume 8.5; Platelet Count 233 k/uL (150-450); RBC 3.04 m/uL (3.80-5.40); RDW 20.2 % (11.5-15.5); WBC 12.3 k/uL (3.8-10.6)
[2021-03-24 11:02] LABS: Calcium 11.2 mg/dL (8.4-10.2); Potassium 5.8 mmol/L (3.5-5.1)
[2021-03-24 12:24] LABS: Glucose,Whole Blood 218 mg/dL (75-99)
--- NOTE | 2021-03-24 12:44 | PN ---
PROGRESS NOTE Patient is seen for followup for end-stage renal disease. She was admitted with hypotension, hyperkalemia. She received dialysis yesterday. We had ultrafiltration of about 2 L. Patient tolerated the treatment well. Potassium remains slightly on the higher side. She will be dialyzed again today. On examination today, blood pressure 107/57, heart rate 76 per minute. She is afebrile. EXAMINATION OF THE HEART: S1 and S2. EXAMINATION OF LUNGS: Bilateral breath sounds are heard. Decreased breath sounds at the bases. Abdomen is soft, non-tender, obese. Examination of lower extremities shows 1+ edema. BRANDS EDITOR EXAM: Grossly intact. Labs show sodium 131, potassium 5.8, BUN 78, creatinine 6.5, hemoglobin 10.3. ASSESSMENT: 1. End stage renal disease, on hemodialysis on a Wednesday, , Wednesday schedule. 2. Hyperkalemia associated with not having received adequate dialysis as outpatient. Currently remains hyperkalemic. Will dialyze on a 1 K bath today. Patient had issues with her catheter as outpatient. It did run pretty well yesterday. 3. Hypercalcemia associated with calcium supplements, currently discontinued. Maintained on Renvela. Will dialyze on a low-calcium bath again today. 4. Hypotension, currently improved. 5. Hypervolemia, currently improved. PLAN: Follow up on the blood cultures. Hemodialysis today and then again in a.m. Control blood sugars. UF of about 2 L again today. MMODL / IJN: [id number] /
[2021-03-24] MEDS ORDERED: ALTEPLASE 2 MG VIAL (CATHFLO) MISCELLANE ONE (13:59)
[2021-03-24 17:10] LABS: Glucose,Whole Blood 146 mg/dL (75-99)
--- NOTE | 2021-03-24 17:57 | P.PN ---
Subjective Progress Note Date: 03/24/21 (delayed charting seen at 1030) Principal diagnosis: hypotension Patient is a 75-year-old woman with end-stage renal disease oh HD t//wed, chronic systolic heart failure, chronic respiratory failure secondary to COPD/heart failure, diabetes/hypertension/hyperlipidemia presented with generalized weakness. Patient says that last Wednesday she had a balloon angioplasty to her AV fistula in her left upper extremity due to a narrowing, and since then she's been feeling progressively weaker. On , she had a shortened session of dialysis due to having flow issues in her temporary dialysis catheter requiring TPA administration. In the emergency room s CBC demonstrates mild leukocytosis to 11, hemoglobin of 11.3, platelets of 269. Chemistries are concerning for hyperkalemia to 7.3, creatinine of 8.18, lactic acid of 4.6. AST/ALT are elevated as well. Her cardiac markers demonstrated BNP of 112,000 and elevated troponin of 0.37. EKG demonstrated sinus bradycardia with right axis deviation and low voltage EKG no AV poppy blockage. Chest x-ray demonstrates findings of pulmonary edema consistent with congestive heart failure. She was given calcium gluconate, sodium bicarbonate, D50/insulin, and an albuterol nebulizer for her hyperkalemia in the emergency room. She underwent HD on 03/23 and 03/24. Patient seen and examined at bedside. No chest pain, + SOB when laying flat, no nausea, not vomiting. General: ill appeairng, no distress, appears at stated age Derm: warm, dry Head: atraumatic, normocephalic, symmetric Eyes: EOMI, no lid lag, anicteric sclera Mouth: no lip lesion, mucus membranes moist Cardiovascular: S1S2 reg, no murmur, positive posterior tibial pulse bilateral, Lungs: CTA bilateral, no rhonchi, no rales , no accessory muscle use Abdominal: soft, nontender to palpation, no guarding, no appreciable organomegaly Ext: no gross muscle atrophy, trace edema, no contractures Neuro: CN II-XI grossly intact, no focal neuro deficits Psych: Alert, oriented, appropriate affect Assessment/Plan: ESRD with HyperKalemia and Acute fluid Overload Hyponatremia due to fluid over load Hypercalcemia Anemia of ESRD Acute exacerbation of systolic congestive heart failure with ejection fraction 35-40%, moderate aortic stenosis, moderate tricuspid regurgitation, moderate pulmonary hypertension Chronic hypoxic respiratory failure - HD 03/23 and 03/24 - Renvela - ferrous sulfate - nephrocaps - Fluid management with hemodialysis DM 2 with hyperglycemia - SSI - Levemir - follow BS Hx HTN now hypotensive - coreg - midodrine HLD - lipitor Leukocytosis - await blood cultures Chronic: Coronary artery disease Neuropathy Carotid stenosis Gout Home O2 at 3 L [id number] Objective - Vital Signs Vital signs: Vital Signs Temp 97.3 F L 03/24/21 15:21 Pulse 75 03/24/21 15:21 Resp 18 03/24/21 15:21 BP 126/61 03/24/21 16:13 Pulse Ox 97 03/24/21 15:21 Intake & Output 03/23/21 03/24/21 03/24/21 18:59 06:59 18:59 Intake Total 0 300 118 Output Total 1999 1999 Balance -1999 300 -1882 Weight 72.575 kg 112.5 kg Intake: Oral 0 300 118 Output: Hemodialysis 1999 1999 Other: # Voids 1 # Bowel Movements 1 1 - Labs CBC & Chem 7: 03/24/21 10:20 03/24/21 10:20 Labs: Abnormal Lab Results - Last 24 Hours (Table) 03/23/21 03/24/21 03/24/21 Range/Units 20:12 05:43 10:20 WBC 12.3 H (3.8-10.6) k/uL RBC 3.04 L (3.80-5.40) m/uL Hgb 10.3 L (11.4-16.0) gm/dL Hct 33.9 L (34.0-46.0) % MCV 111.4 H (80.0-100.0) fL MCHC 30.4 L (31.0-37.0) g/dL RDW 20.2 H (11.5-15.5) % Macrocytosis Marked A Sodium (137-145) mmol/L Potassium (3.5-5.1) mmol/L Chloride (98-107) mmol/L Carbon Dioxide (22-30) mmol/L BUN (7-17) mg/dL Creatinine (0.52-1.04) mg/dL Glucose (74-99) mg/dL POC Glucose (mg/dL) 170 H 152 H (75-99) mg/dL Calcium (8.4-10.2) mg/dL 03/24/21 03/24/21 03/24/21 Range/Units 10:20 11:49 16:42 WBC (3.8-10.6) k/uL RBC (3.80-5.40) m/uL Hgb (11.4-16.0) gm/dL Hct (34.0-46.0) % MCV (80.0-100.0) fL MCHC (31.0-37.0) g/dL RDW (11.5-15.5) % Macrocytosis Sodium 131 L (137-145) mmol/L Potassium 5.8 H (3.5-5.1) mmol/L Chloride 93 L (98-107) mmol/L Carbon Dioxide 21 L (22-30) mmol/L BUN 78 H (7-17) mg/dL Creatinine 6.52 H (0.52-1.04) mg/dL Glucose 225 H (74-99) mg/dL POC Glucose (mg/dL) 218 H 146 H (75-99) mg/dL Calcium 11.2 H (8.4-10.2) mg/dL Microbiology - Last 24 Hours (Table) 03/23/21 14:00 Blood Culture - Preliminary Blood No Growth after 24 hours
[2021-03-24] MEDS: ATORVASTATIN 80 MG TAB PO SCH (19:45)
[2021-03-24 20:28] LABS: Glucose,Whole Blood 136 mg/dL (75-99)
[2021-03-25] MEDS: HEPARIN SODIUM,PORCINE/PF 5,000 UNIT/0.5 ML SYRINGE SQ SCH ×4 (00:10→23:47)
[2021-03-25] MEDS: ACETAMINOPHEN TAB 325 MG TAB PO PRN ×2 (01:56→19:47)
[2021-03-25 06:30] LABS: Glucose,Whole Blood 121 mg/dL (75-99)
[2021-03-25] MEDS: SEVELAMER 800 MG TAB PO SCH ×3 (06:39→17:13)
[2021-03-25] MEDS: INSULIN ASPART (NovoLOG) 100 UNIT/ML VIAL SQ SCH ×3 (06:42→17:12)
[2021-03-25] MEDS: MIDODRINE 5 MG TAB PO SCH ×3 (06:42→17:13)
[2021-03-25 09:44] LABS: Anisocytosis Moderate; HCT 35.9 % (34.0-46.0); HGB 11.1 gm/dL (11.4-16.0); Hypochromasia Marked; MCH 34.5 pg (25.0-35.0); MCV 111.4 fL (80.0-100.0); Macrocytosis Marked; Mean Platelet Volume 8.2; Platelet Count 245 k/uL (150-450); RBC 3.22 m/uL (3.80-5.40); RDW 20.4 % (11.5-15.5); WBC 9.1 k/uL (3.8-10.6)
[2021-03-25 09:53] LABS: Calcium 8.9 mg/dL (8.4-10.2); Potassium 3.7 mmol/L (3.5-5.1)
[2021-03-25 11:20] LABS: Glucose,Whole Blood 109 mg/dL (75-99)
[2021-03-25] MEDS: INSULIN DETEMIR (LEVEMIR) 100 UNIT/ML SYR SQ SCH (13:16)
[2021-03-25] MEDS: FERROUS SULFATE 325 MG TAB PO SCH (13:17)
[2021-03-25] MEDS: FOLIC ACID-VIT B COMPLEX-VIT C 1 CAP PO SCH (13:18)
[2021-03-25] MEDS: ASPIRIN 81 MG PO SCH (13:18)
[2021-03-25] MEDS: allopurinoL 100 MG TAB PO SCH ×2 (13:18→19:47)
--- NOTE | 2021-03-25 15:36 | PN ---
PROGRESS NOTE Patient is seen for followup for end-stage renal disease. Patient was admitted with severe hyperkalemia, hypercalcemia and volume overload. At this time we have been using her catheter, which has been working fairly well. Patient recently had intervention on her left arm AV fistula. Her blood pressure had been low since the intervention. Currently blood pressure is improved. Patient was maintained on midodrine. She did have an extra treatment yesterday and is currently seen on dialysis, tolerating her treatment well. On examination today, this morning blood pressure was 111/75, heart rate 79 per minute. She is afebrile. EXAMINATION OF THE HEART: S1 and S2. EXAMINATION OF LUNGS: Bilateral breath sounds are heard. Abdomen is soft, non-tender. Examination of lower extremities shows trace edema. CLINICAL TRIALS ASSISTANT EXAM: Grossly intact. Labs show sodium 137, potassium 3.7, BUN 35, creatinine 3.3, hemoglobin 11.1. ASSESSMENT: 1. End-stage renal disease, on hemodialysis on a Wednesday, , Wednesday schedule. Patient is being dialyzed today. 2. Hyperkalemia, currently improved. 3. Hypercalcemia associated with chronic kidney disease mineral bone disorder as well as calcium supplements, now improved. 4. Chronic kidney disease mineral bone disorder, maintained on non-calcium binders in the form of Renvela. 5. Volume overload, currently improved. 6. Hypotension, improved. Currently maintained on midodrine. Blood pressure is staying consistently above 110 mmHg for systolic. PLAN: Next hemodialysis on . Possible discharge today after dialysis if patient is feeling well. MMODL / IJN: [id number] /
[2021-03-25 16:42] LABS: Glucose,Whole Blood 179 mg/dL (75-99)
--- NOTE | 2021-03-25 17:20 | P.PN ---
Subjective Progress Note Date: 03/25/21 (delayed charting seen at 0830) Principal diagnosis: hypotension Patient is a 75-year-old woman with end-stage renal disease oh HD t//wed, chronic systolic heart failure, chronic respiratory failure secondary to COPD/heart failure, diabetes/hypertension/hyperlipidemia presented with generalized weakness. Patient says that last Wednesday she had a balloon angioplasty to her AV fistula in her left upper extremity due to a narrowing, and since then she's been feeling progressively weaker. On , she had a shortened session of dialysis due to having flow issues in her temporary dialysis catheter requiring TPA administration. In the emergency room s CBC demonstrates mild leukocytosis to 11, hemoglobin of 11.3, platelets of 269. Chemistries are concerning for hyperkalemia to 7.3, creatinine of 8.18, lactic acid of 4.6. AST/ALT are elevated as well. Her cardiac markers demonstrated BNP of 112,000 and elevated troponin of 0.37. EKG demonstrated sinus bradycardia with right axis deviation and low voltage EKG no AV poppy blockage. Chest x-ray demonstrates findings of pulmonary edema consistent with congestive heart failure. She was given calcium gluconate, sodium bicarbonate, D50/insulin, and an albuterol nebulizer for her hyperkalemia in the emergency room. She underwent HD on 03/23 and 03/24. Patient seen and examined at bedside. No chest pain, + SOB when laying flat, no nausea, not vomiting. General: ill appeairng, no distress, appears at stated age Derm: warm, dry Head: atraumatic, normocephalic, symmetric Eyes: EOMI, no lid lag, anicteric sclera Mouth: no lip lesion, mucus membranes moist Cardiovascular: S1S2 reg, + murmur, positive posterior tibial pulse bilateral, Lungs: CTA bilateral, no rhonchi, no rales , no accessory muscle use Abdominal: soft, nontender to palpation, no guarding, no appreciable organomegaly Ext: no gross muscle atrophy, trace edema, no contractures Neuro: CN II-XI grossly intact, no focal neuro deficits Psych: Alert, oriented, appropriate affect Assessment/Plan: ESRD with HyperKalemia and Acute fluid Overload Hyponatremia due to fluid over load Hypercalcemia Anemia of ESRD Acute exacerbation of systolic congestive heart failure with ejection fraction 35-40%, moderate aortic stenosis, moderate tricuspid regurgitation, moderate pulmonary hypertension Chronic hypoxic respiratory failure - HD 03/23 and 03/24 - Renvela - ferrous sulfate - nephrocaps - Fluid management with hemodialysis Murmur - check records - echo DM 2 with hyperglycemia - SSI - Levemir - follow BS Hx HTN now hypotensive - coreg - midodrine HLD - lipitor Leukocytosis - Blood cultures negative fro 48 hours Chronic: Coronary artery disease Neuropathy Carotid stenosis Gout Home O2 at 3 L [id number] Home in AM, working on helping get rides set up Objective - Vital Signs Vital signs: Vital Signs Temp 97.5 F L 03/25/21 16:30 Pulse 81 03/25/21 16:30 Resp 20 03/25/21 16:30 BP 116/63 03/25/21 16:30 Pulse Ox 97 03/25/21 15:54 Intake & Output 03/24/21 03/25/21 03/25/21 18:59 06:59 18:59 Intake Total 476 500 870 Output Total 1999 4500 Balance -1524 500 -3630 Weight 114.5 kg Intake: Oral 476 500 370 Hemodialysis 500 Output: Hemodialysis 1999 4500 Other: # Voids 0 # Bowel Movements 1 0 - Labs CBC & Chem 7: 03/25/21 09:22 03/25/21 09:22 Labs: Abnormal Lab Results - Last 24 Hours (Table) 03/24/21 03/25/21 03/25/21 Range/Units 20:26 06:08 09:22 RBC 3.22 L (3.80-5.40) m/uL Hgb 11.1 L (11.4-16.0) gm/dL MCV 111.4 H (80.0-100.0) fL RDW 20.4 H (11.5-15.5) % Macrocytosis Marked A Carbon Dioxide (22-30) mmol/L BUN (7-17) mg/dL Creatinine (0.52-1.04) mg/dL Glucose (74-99) mg/dL POC Glucose (mg/dL) 136 H 121 H (75-99) mg/dL 03/25/21 03/25/21 03/25/21 Range/Units 09:22 11:17 16:42 RBC (3.80-5.40) m/uL Hgb (11.4-16.0) gm/dL MCV (80.0-100.0) fL RDW (11.5-15.5) % Macrocytosis Carbon Dioxide 31 H (22-30) mmol/L BUN 35 H (7-17) mg/dL Creatinine 3.31 H (0.52-1.04) mg/dL Glucose 119 H (74-99) mg/dL POC Glucose (mg/dL) 109 H 179 H (75-99) mg/dL Microbiology - Last 24 Hours (Table) 03/23/21 14:00 Blood Culture - Preliminary Blood No Growth after 48 hours
[2021-03-25] MEDS: ATORVASTATIN 80 MG TAB PO SCH (19:46)
[2021-03-25 20:01] LABS: Glucose,Whole Blood 129 mg/dL (75-99)
[2021-03-26 05:59] LABS: Glucose,Whole Blood 87 mg/dL (75-99)
[2021-03-26] MEDS: INSULIN ASPART (NovoLOG) 100 UNIT/ML VIAL SQ SCH ×3 (06:18→16:49)
[2021-03-26] MEDS: MIDODRINE 5 MG TAB PO SCH ×3 (06:23→17:45)
[2021-03-26] MEDS: SEVELAMER 800 MG TAB PO SCH ×3 (06:23→17:44)
[2021-03-26] MEDS: ACETAMINOPHEN TAB 325 MG TAB PO PRN ×2 (06:23→19:39)
--- NOTE | 2021-03-26 08:00 | ECHOF ---
Referral Reason:murmur, endocarditis MEASUREMENTS -------- HEIGHT: 170.2 cm WEIGHT: 0.0 kg BP: RVIDd: 3.9 cm (< 3.3) IVSd: 0.8 cm (0.6 - 1.1) LVIDd: 6.6 cm (3.9 - 5.3) LVPWd: 1.1 cm (0.6 - 1.1) IVSs: 1.2 cm LVIDs: 5.7 cm LVPWs: 1.5 cm LA Diam: 5.6 cm (2.7 - 3.8) MV EXCURSION: 14.447 mm (> 18.000) MV EF SLOPE: 41 mm/s (70 - 150) EPSS: 1.5 cm MV E Jose David: 0.72 m/s MV DecT: 151 ms MV A Jose David: 0.76 m/s MV E/A Ratio: 0.94 AV maxP.59 mmHg AV maxP.59 mmHg AV meanP.06 mmHg RAP: 5.00 mmHg RVSP: 54.05 mmHg FINDINGS -------- Sinus rhythm. This was a techncally difficult study with suboptimal views, , Lumason utilized for enhancement of im ages. The left ventricle is severely dilated. There is severe global hypokinesis of LV . Overall left v entricular systolic function is severely impaired with, an EF < 20%. The right ventricle is moderately enlarged. The left atrium is markedly dilated. There is severe aortic stenosis present. Peak/mean gradient across the Aortic Valve is 49.59mmHg / 30.06mmHg. Aov is underestimated due to decreased EF. Moderate mitral regurgitation is present. Eccentric jet Mild tricuspid regurgitation present. There is moderate pulmonary hypertension. The right ventric ular systolic pressure, as measured by Doppler, is 54.05mmHg. The pulmonic valve was not well visualized. Echo free space represents a pericardial fat pad. CONCLUSIONS -------- 1. This was a techncally difficult study with suboptimal views, , Lumason utilized for enhancement of images. 2. The left ventricle is severely dilated. 3. There is severe global hypokinesis of LV . 4. Overall left ventricular systolic function is severely impaired with, an EF < 20%. 5. The right ventricle is moderately enlarged. 6. The left atrium is markedly dilated. 7. There is severe aortic stenosis present. 8. Peak/mean gradient across the Aortic Valve is 49.59mmHg / 30.06mmHg. 9. Aov is underestimated due to decreased EF. 10. Moderate mitral regurgitation is present. 11. Mild tricuspid regurgitation present. 12. There is moderate pulmonary hypertension. 13. The right ventricular systolic pressure, as measured by Doppler, is 54.05mmHg. 14. The pulmonic valve was not well visualized. 15. Echo free space represents a pericardial fat pad. [employer]: Charlee Gomez RDCS
[2021-03-26] MEDS: INSULIN DETEMIR (LEVEMIR) 100 UNIT/ML SYR SQ SCH (08:51)
[2021-03-26] MEDS: HEPARIN SODIUM,PORCINE/PF 5,000 UNIT/0.5 ML SYRINGE SQ SCH ×3 (08:51→23:18)
[2021-03-26] MEDS: allopurinoL 100 MG TAB PO SCH ×2 (08:52→19:39)
[2021-03-26] MEDS: FERROUS SULFATE 325 MG TAB PO SCH (08:52)
[2021-03-26] MEDS: ASPIRIN 81 MG PO SCH (08:52)
[2021-03-26 11:51] LABS: Glucose,Whole Blood 131 mg/dL (75-99)
[2021-03-26] MEDS: METOPROLOL SUCCINATE (ER) 25 MG TAB.ER.24H PO SCH (12:28)
--- NOTE | 2021-03-26 13:10 | P.CRDCN ---
History of Present Illness History of present illness: HISTORY OF PRESENTING ILLNESS This is a pleasant 75-year-old femal past medical history significant for coronary artery disease s/p bypass grafting, chronic systolic heart failure EF 35-40%, moderate aortic stenosis, moderate tricuspid regurgitation, diabetes mellitus, hypertension, dyslipidemia, CVA, peripheral vascular s/p carotid stenting, End stage renal disease on hemodialysis T//Wed and morbid obesity. She follows with Dr. Amaro. We are consulted for congestive heart failure and worsening cardiomyopathy. Patient presents to the emergency department with worsening fatigue, generalized weakness and shortness of breath. Patient states on 03/17/21 she had a balloon angioplasty to her AV fistula in her left upper extremity due to a narrowing, and since then she's been feeling progressively weaker. On 03/20/21 she had a shortened session of dialysis due to having flow issues in her temporary dialysis catheter due to a clot in her catheter requiring TPA administration. On 03/21 and 03/22, patient continued to have worsening shortness of breath and fatigue. She states she had a couple syncopal episodes when being sat up at home and when EMS sat her up in the stretcher. Patient has undergone hemodialysis every day since admission, last HD with 4.5L removed. DIAGNOSTICS -EKG sinus bradycardia HR 45, with T wave inversion in inferior Leads. Similar to prior EKGs -Labs, Troponin 0.37, Sodium 137, potassium 3.7, BUN 35, serum creatinine 3.3 -Patient had undergone a Lexiscan stress test 08/02/2020 which was fairly limited secondary to increased GI uptake and had what appeared to be fixed inferior and anterior perfusion defects however this was suboptimal and recommendations for routine stress test if clinically indicated. -Echocardiogram 07/26/2020 which showed mildly improved ejection fraction 40-45%, moderate aortic stenosis, severe tricuspid regurgitation, RVSP 52 and hypokinesis of the anterior, anterolateral, inferior, inferolateral and a nteroseptal oliveira. The mean gradient was 19 however calculated aortic valve area of 1.05. -Echocardiogram this admission 03/25/21 - <20%, severe global hypokinesis of LV, severe aortic stenosis with a peak/mean gradient of 49 mmHg/30 mmHg, AoV is underestimated due to decreased EF, moderate mitral regurgitation, moderate pulmonary hypertension with his by mouth 54 mmHg REVIEW OF SYSTEMS At the time of my exam: CONSTITUTIONAL: Denies fever or chills. CARDIOVASCULAR: Denies chest pain, +shortness of breath, +orthopnea, no PND or palpitations. RESPIRATORY: Denies cough. GASTROINTESTINAL: Denies abdominal pain, diarrhea, constipation, nausea or vomiting. MUSCULOSKELETAL: Denies myalgias. NEUROLOGIC: Denies numbness, tingling or weakness. ENDOCRINE: Denies fatigue, weight change, polydipsia or polyurina. GENITOURINARY: Denies burning, hematuria or urgency with micturation. HEMATOLOGIC: +anemia, no bleeding. PHYSICAL EXAMINATION Vital signs reviewed. CONSTITUTIONAL: No apparent distress, obese chronically ill appearing HEENT: Head is normocephalic. Pupils are equal, round. Sclerae anicteric. Mucous membranes of the mouth are moist. CHEST EXAMINATION: Lungs are diminished bilaterally to auscultation. No chest wall tenderness is noted on palpation or with deep breathing. HEART EXAMINATION: Regular rate and rhythm. S1, S2 heard. Systolic ejection murmur right sternal border and base ABDOMEN: Soft, nontender. Positive bowel sounds. EXTREMITIES: 2+ peripheral pulses, no lower extremity edema and no calf tenderness. NEUROLOGIC EXAMINATION: Patient is awake, alert and oriented x3. ASSESSMENT Acute on chronic systolic heart failure EF <20% End-stage renal disease on hemodialysis Hypnatremia Anemia Moderate aortic stenosis, velocities fairly minimal and less likely low-flow low gradient severe aortic stenosis, by most parameters Coronary artery disease status post CABG Elevated troponin, do not suspect acute coronary syndrome, mainly related to chronic kidney disease Severe tricuspid regurgitation Pulmonary hypertension likely related to heart failure Peripheral vascular disease Diabetes mellitus type 2 Hypotension PLAN From a cardiology perspective, patient's symptoms have improved with hemodialysis. We will continue current medical therapy. Recommend starting Losartan 25mg daily for cardiomyopathy when patient's serum creatinine improves. Hemodialysis per nephrology. Follow up with Dr. Amaro outpatient. Past Medical History Past Medical History: Coronary Artery Disease (CAD), Heart Failure, COPD, CVA/TIA, Diabetes Mellitus, Hyperlipidemia, Hypertension, Myocardial Infarction ([place]), Pneumonia, Renal Disease Additional Past Medical History / Comment(s): Pt recently admitted to [facility] on 07/31/20 for acute on chronic CHF with EF 30-35%. Other hx: IDDM type II, neuropathy bilateral legs/feet, CKD stage IV-pt being worked up for fistula placement/hemodialysis, normocytic anemia, during caratid stent procedure pt lost some vision in bilateral eyes, home oxygen 3L/NC ATC, gout bilateral great toes, CHF Last Myocardial Infarction Date:: 2006 History of Any Multi-Drug Resistant Organisms: None Reported Past Surgical History: Breast Surgery, Cholecystectomy, Coronary Bypass/CABG, Heart Catheterization, Hysterectomy, Orthopedic Surgery Additional Past Surgical History / Comment(s): R caratid stenting, 2006 CABG 4 vessels, bilateral knee surgeries-R knee was reconstructed/has hardware, L axillae cyst I&D, R index finger wound I&D, R breast biopsy x 2. Past Anesthesia/Blood Transfusion Reactions: No Reported Reaction Date of Last Stent Placement:: UN Past Psychological History: No Psychological Hx Reported Additional Psychological History / Comment(s): Pt resides with her spouse of 57yrs. She uses a walker and has a wheelchair/ramp. She has home oxygen and a glucometer. She has homecare establishing thru [facility]. She no longer drives, her spouse drives. Smoking Status: Former smoker Past Alcohol Use History: None Reported, Occasional Additional Past Alcohol Use History / Comment(s): Pt started smoking in 1963 and quit in 2013 Past Drug Use History: None Reported - Past Family History Mother Family Medical History: No Reported History Sister(s) Family Medical History: Cancer, Deep Vein Thrombosis (DVT) Additional Family Medical History / Comment(s): CERVICAL Father Family Medical History: Coronary Artery Disease (CAD), Diabetes Mellitus Medications and Allergies Home Medications Medication Instructions Recorded Confirmed Type Atorvastatin [Lipitor] 80 mg PO HS 07/04/14 03/23/21 History Carvedilol [Coreg] 25 mg PO BID PRN 07/04/14 03/23/21 History Allopurinol [Zyloprim] 100 mg PO BID 03/13/20 03/23/21 History Insulin Glargine,Hum.rec.anlog 15 unit SQ DAILY 03/13/20 03/23/21 History [Basaglar Kwikpen U-100] Thiamine [Vitamin B-1] 100 mg PO BID 03/13/20 03/23/21 History Aspirin 81 mg PO DAILY chew 03/15/20 03/23/21 Rx Ergocalciferol [Vitamin D2 (1250 1,250 mcg PO Q30D 07/28/20 03/23/21 History Mcg = [id number] Iu)] Folic Acid-Vit B Complex-Vit C 1 mg PO TUTHSA 09/01/20 03/23/21 History [Nephrocaps] Nitroglycerin Sl Tabs [Nitrostat] 0.4 mg SL Q5M PRN 09/01/20 03/23/21 History Calcium Carbonate [Tums] 500 mg PO AC-TID 03/23/21 03/23/21 History Ferrous Sulfate [Feosol] 325 mg PO DAILY 03/23/21 03/23/21 History Allergies Allergy/AdvReac Type Severity Reaction Status Date / Time Penicillins Allergy Unknown Verified 03/23/21 07:19 Childhood/Rash/Hives Physical Exam Vitals: Vital Signs Temp Pulse Resp BP Pulse Ox 03/26/21 08:00 97.3 F L 83 24 120/77 98 03/26/21 06:21 102/69 03/26/21 04:00 78 16 112/70 98 03/26/21 00:00 82 16 104/65 98 03/25/21 19:45 97.9 F 80 18 122/76 98 03/25/21 16:30 97.5 F L 81 20 116/63 03/25/21 15:54 97.6 F 83 18 98/65 97 03/25/21 12:58 97.5 F L 81 20 116/63 Intake and Output 03/25/21 03/26/21 03/26/21 22:59 06:59 14:59 Intake Total 740 300 100 Output Total 2500 Balance -1760 300 100 Intake: Oral 240 300 100 Hemodialysis 500 Output: Hemodialysis 2500 Other: # Voids 0 Results 03/25/21 09:22 03/25/21 09:22 Current Medications Generic Name Dose Route Start Last Admin Trade Name Freq PRN Reason Stop Dose Admin Acetaminophen 650 mg 03/23/21 03:02 03/26/21 06:23 Acetaminophen Tab 325 Mg Tab PO 650 mg Q6HR PRN Administration Mild Pain or Fever > 100.5 Allopurinol 100 mg 03/23/21 09:00 03/26/21 08:52 Allopurinol 100 Mg Tab PO 100 mg BID ELIESER Administration Aspirin 81 mg 03/23/21 09:00 03/26/21 08:52 Aspirin 81 Mg PO 81 mg DAILY ELIESER Administration Atorvastatin Calcium 80 mg 03/23/21 21:00 03/25/21 19:46 Atorvastatin 80 Mg Tab PO 80 mg HS ELIESER Administration Ergocalciferol 1,250 mcg 03/29/21 09:00 Ergocalciferol 1,250 Mcg (50,000 Iu) Capsule PO Q30D [facility] Ferrous Sulfate 325 mg 03/23/21 09:00 03/26/21 08:52 Ferrous Sulfate 325 Mg Tab PO 325 mg DAILY ELISEER Administration Heparin Sodium (Porcine) 5,000 unit 03/23/21 08:00 03/26/21 08:51 Heparin Sodium,Porcine/Pf 5,000 Unit/0.5 Ml Syringe SQ 5,000 unit Q8HR ELIESER Administration Insulin Aspart 0 unit 03/23/21 07:30 03/26/21 06:18 Insulin Aspart (Novolog) 100 Unit/Ml Vial SQ Not Given AC-TID [facility] Protocol Insulin Detemir 15 unit 03/23/21 09:00 03/26/21 08:51 Insulin Detemir (Levemir) 100 Unit/Ml Syr SQ 15 unit DAILY ELIESER Administration Metoprolol Succinate 25 mg 03/26/21 10:00 Metoprolol Succinate (Er) 25 Mg Tab.Er.24h PO DAILY [facility] Midodrine 5 mg 03/23/21 12:30 03/26/21 06:23 Midodrine 5 Mg Tab PO Not Given AC-TID [facility] Multivit/Ca Carb/B Cmplx/FA/Prenat 1 each 03/25/21 09:00 03/25/21 13:18 Folic Acid-Vit B Complex-Vit C 1 Cap PO 1 each TUTHSA [facility] Administration Naloxone HCl 0.2 mg 03/23/21 03:10 Naloxone 0.4 Mg/Ml 1 Ml Vial IV Q2M PRN Opioid Reversal Sevelamer Carbonate 1,600 mg 03/23/21 12:30 03/26/21 06:23 Sevelamer 800 Mg Tab PO 800 mg TID-W/MEALS ELIESER Administration Intake and Output 03/25/21 03/26/21 03/26/21 22:59 06:59 14:59 Intake Total 740 300 100 Output Total 2500 Balance -1760 300 100 Intake: Oral 240 300 100 Hemodialysis 500 Output: Hemodialysis 2500 Other: # Voids 0 03/25/21 09:22 03/25/21 09:22
[2021-03-26 16:32] LABS: Glucose,Whole Blood 108 mg/dL (75-99)
--- NOTE | 2021-03-26 16:42 | P.PN ---
Subjective Progress Note Date: 03/26/21 (delayed charting seen at 0930) Principal diagnosis: hypotension Patient is a 75-year-old woman with end-stage renal disease oh HD t//wed, chronic systolic heart failure, chronic respiratory failure secondary to COPD/heart failure, diabetes/hypertension/hyperlipidemia presented with generalized weakness. Patient says that last Wednesday she had a balloon angioplasty to her AV fistula in her left upper extremity due to a narrowing, and since then she's been feeling progressively weaker. On , she had a shortened session of dialysis due to having flow issues in her temporary dialysis catheter requiring TPA administration. In the emergency room s CBC demonstrates mild leukocytosis to 11, hemoglobin of 11.3, platelets of 269. Chemistries are concerning for hyperkalemia to 7.3, creatinine of 8.18, lactic acid of 4.6. AST/ALT are elevated as well. Her cardiac markers demonstrated BNP of 112,000 and elevated troponin of 0.37. EKG demonstrated sinus bradycardia with right axis deviation and low voltage EKG no AV poppy blockage. Chest x-ray demonstrates findings of pulmonary edema consistent with congestive heart failure. She was given calcium gluconate, sodium bicarbonate, D50/insulin, and an albuterol nebulizer for her hyperkalemia in the emergency room. She underwent HD on 03/23 and 03/24. Patient seen and examined at bedside. No chest pain, + SOB when laying flat, no nausea, not vomiting. General: ill appearing, no distress, appears at stated age Derm: warm, dry Head: atraumatic, normocephalic, symmetric Eyes: EOMI, no lid lag, anicteric sclera Mouth: no lip lesion, mucus membranes moist Cardiovascular: S1S2 reg, + murmur, positive posterior tibial pulse bilateral, Lungs:Decreased bs bilateral, no rhonchi, no rales , no accessory muscle use Abdominal: soft, nontender to palpation, no guarding, no appreciable organomegaly Ext: no gross muscle atrophy, trace edema, no contractures Neuro: CN II-XI grossly intact, no focal neuro deficits Psych: Alert, oriented, appropriate affect Assessment/Plan: ESRD with Hyperkalemia and Acute fluid Overload Hyponatremia due to fluid over load Hypercalcemia Anemia of ESRD Acute exacerbation of systolic congestive heart failure with ejection fraction <20%, Moderate aortic stenosis, moderate tricuspid regurgitation, moderate pulmonary hypertension Chronic hypoxic respiratory failure - D/W Dr Bush will need cath as outpatient, recs appreciated - change from coreg to metoprolol, consider cozaar - HD 03/23, 03/24 and 03/25 - Renvela - ferrous sulfate - nephrocaps - Fluid management with hemodialysis DM 2 with hyperglycemia - SSI - Levemir - follow BS Hx HTN now hypotensive - coreg - midodrine HLD - lipitor Leukocytosis, resolved Chronic: Coronary artery disease Neuropathy Carotid stenosis Gout Home O2 at 3 L [id number] to [facility] in AM Objective - Vital Signs Vital signs: Vital Signs Temp 97.8 F 03/26/21 12:49 Pulse 78 03/26/21 12:49 Resp 18 03/26/21 12:49 BP 107/72 03/26/21 12:49 Pulse Ox 98 03/26/21 12:49 Intake & Output 03/25/21 03/26/21 03/26/21 18:59 06:59 18:59 Intake Total 1110 300 218 Output Total 4500 Balance -3390 300 218 Intake: Oral 610 300 218 Hemodialysis 500 Output: Hemodialysis 4500 Other: # Voids 0 0 # Bowel Movements 0 1 - Labs CBC & Chem 7: 03/25/21 09:22 03/25/21 09:22 Labs: Abnormal Lab Results - Last 24 Hours (Table) 03/25/21 03/25/21 03/26/21 Range/Units 16:42 19:55 11:50 POC Glucose (mg/dL) 179 H 129 H 131 H (75-99) mg/dL Microbiology - Last 24 Hours (Table) 03/23/21 14:00 Blood Culture - Preliminary Blood No Growth after 72 hours
--- NOTE | 2021-03-26 16:49 | PN ---
PROGRESS NOTE Patient is seen for followup for end-stage renal disease. The patient was admitted to the hospital with weakness, shortness of breath and significant hyperkalemia and hypercalcemia. She had been on calcium supplements which she has now stopped. The patient was hypotensive and had not had a good dialysis treatment as outpatient. She recently had intervention on her AV fistula and currently has a IJ PermCath. This needed tPA as outpatient but has been functioning well during her hospitalization. Volume status has improved. Patient was noted to have an ejection fraction which was significantly low at less than 20% on this hospitalization and cardiology has been consulted. PHYSICAL EXAMINATION: On examination today, blood pressure 120/77, heart rate 83 per minute, she is afebrile. Examination of lower extremities shows no significant edema. Examination of the heart S1, S2. Examination of the lungs, decreased breath sounds at the bases. Abdomen is soft, obese, nontender. LAB: From yesterday 02/2028 show sodium 137, potassium 3.7, BUN 35, creatinine 3.3, hemoglobin 11.1. ASSESSMENT: 1. End-stage renal disease, on hemodialysis on a Wednesday, , Wednesday schedule. 2. Hypercalcemia associated with CKD and calcium supplements, currently improved. Patient is maintained on Renvela and off of Tums. 3. Severe cardiomyopathy, EF less than 20%. Cardiology has been consulted. The patient will need cardiac workup, currently asymptomatic. 4. Volume overload, now improved. 5. Hyperkalemia on initial admission, currently improved. 6. Status post recent intervention on AV fistula with plans to follow up with vascular surgery post discharge. PLAN: Hemodialysis in a.m. If patient is discharged, she can follow up as outpatient for her treatment tomorrow. DC Tums on discharge and continue with Renvela for phosphate binder. MMODL / IJN: [id number] / [email or web address]
[2021-03-26] MEDS: ATORVASTATIN 80 MG TAB PO SCH (19:39)
[2021-03-26 20:12] LABS: Glucose,Whole Blood 122 mg/dL (75-99)
[2021-03-26] MEDS: MELATONIN 3 MG TABLET PO SCH (23:33)
[2021-03-27] MEDS: ACETAMINOPHEN TAB 325 MG TAB PO PRN ×2 (02:05→20:10)
[2021-03-27 06:07] LABS: Glucose,Whole Blood 97 mg/dL (75-99)
[2021-03-27] MEDS: INSULIN ASPART (NovoLOG) 100 UNIT/ML VIAL SQ SCH ×3 (06:17→17:52)
[2021-03-27] MEDS: MIDODRINE 5 MG TAB PO SCH ×3 (06:30→17:52)
[2021-03-27] MEDS: SEVELAMER 800 MG TAB PO SCH ×3 (06:30→17:51)
--- NOTE | 2021-03-27 07:19 | P.PN ---
Subjective Progress Note Date: 03/27/21 Principal diagnosis: Cardiomyopathy The patient is a 75-year-old female patient with known coronary artery disease and cardiomyopathy and valvular heart disease as well as multiple comorbid conditions including end stage renal disease who was admitted to the hospital with symptoms of worsening fatigue and generalized weakness and shortness of breath. She underwent an echo which showed worsening in the cardiomyopathy was EF around 20% which has dropped from 35%. Also she was found to be having borderline low blood pressure. The patient was seen this morning. She stated that she is feeling overall slightly better. The pressure continues to be marginal. Yesterday we did stop the carvedilol and restart the patient on Toprol-XL. She is not on any other pelvic pressure medications like CHARLES inhibitor. She is on midodrine. She seems to be euvolemic when she was seen and examined this morning. Objective - Vital Signs Vital signs: Vital Signs Temp 97.5 F L 03/26/21 19:37 Pulse 72 03/27/21 04:00 Resp 16 03/27/21 04:00 BP 98/64 03/27/21 06:29 Pulse Ox 100 03/27/21 04:00 Intake & Output 03/26/21 03/27/21 03/27/21 18:59 06:59 18:59 Intake Total 318 150 Balance 318 150 Intake: Oral 318 150 Other: # Voids 0 # Bowel Movements 1 - Constitutional General appearance: Present: no acute distress - Respiratory Respiratory: bilateral: diminished - Cardiovascular Rhythm: regular Heart sounds: normal: S1, S2 Abnormal Heart Sounds: Present: systolic murmur - Labs CBC & Chem 7: 03/25/21 09:22 03/25/21 09:22 Labs: Abnormal Lab Results - Last 24 Hours (Table) 03/26/21 03/26/21 03/26/21 Range/Units 11:50 16:31 20:11 POC Glucose (mg/dL) 131 H 108 H 122 H (75-99) mg/dL Microbiology - Last 24 Hours (Table) 03/23/21 14:00 Blood Culture - Preliminary Blood No Growth after 72 hours Assessment and Plan Assessment: Assessment #1 severe cardiomyopathy with worsening in the EF #2 low-flow low gradient aortic stenosis #3 margin the low blood pressure #4 coronary artery disease #5 end stage renal disease on dialysis Plan #1 continue the current medical regimen including the current dose of Toprol-XL #2 the aortic valve needs to be investigated as an outpatient #3 avoid any other medications like CHARLES inhibitor at this point #4 the patient seems to be euvolemic on examination #5 follow-up with the patient
--- NOTE | 2021-03-27 09:33 | P.DS ---
Providers Date of admission: 03/23/21 03:02 Expected date of discharge: 03/27/21 Attending physician: Janusz Yao MD Consults: 03/23/21 03:03 Consult Physician Routine Consulting Provider: Malini Tyler Consult Reason/Comments: End-stage renal disease patient. Hyperkalemia. Do you want consulting provider notified?: Yes 03/26/21 08:41 Consult Physician Routine Consulting Provider: Pedro Bush Consult Reason/Comments: systolic CHF with decreased EF Do you want consulting provider notified?: Yes Primary care physician: Dwight Anirudh Regions Hospital Course: Discharge Diagnosis: ESRD with Hyperkalemia and Acute fluid Overload Hyponatremia due to fluid over load Hypercalcemia Anemia of ESRD Acute exacerbation of systolic congestive heart failure with ejection fraction <20%, Moderate aortic stenosis, moderate tricuspid regurgitation, moderate pulmonary hypertension Chronic hypoxic respiratory failure DM 2 with hyperglycemia Hx HTN now hypotensive HLD Leukocytosis, resolved Coronary artery disease Neuropathy Carotid stenosis Gout Home O2 at 3 L [id number] Hospital Course: Patient is a 75-year-old woman with end-stage renal disease oh HD t//wed, chronic systolic heart failure, chronic respiratory failure secondary to COPD/heart failure, diabetes/hypertension/hyperlipidemia presented with generalized weakness. Patient says that last Wednesday she had a balloon angioplasty to her AV fistula in her left upper extremity due to a narrowing, and since then she's been feeling progressively weaker. On , she had a shortened session of dialysis due to having flow issues in her temporary dialysis catheter requiring TPA administration. In the emergency room her CBC demonstrates mild leukocytosis to 11, hemoglobin of 11.3, platelets of 269. Chemistries are concerning for hyperkalemia to 7.3, creatinine of 8.18, lactic acid of 4.6. AST/ALT are elevated as well. Her cardiac markers demonstrated BNP of 112,000 and elevated troponin of 0.37. EKG demonstrated sinus bradycardia with right axis deviation and low voltage EKG no AV poppy blockage. Chest x-ray demonstrates findings of pulmonary edema consistent with congestive heart failure. She was given calcium gluconate, sodium bicarbonate, D50/insulin, and an albuterol nebulizer for her hyperkalemia in the emergency room. She underwent HD on 03/23, 03/24, and 03/25. Her echo showed EF <20. She was seen by cardio and plans are for outpatient evaluation [facility] Dr. Amaro. Her Coreg was transitioned to metoprolol and she was added on low-dose lisinopril. She was determined stable for discharge to intermediate facility. Follow-up: Dr. Amaro in the clinic, Dr. Tyler at dialysis. Currently goes to [facility] and is Wednesday//Wednesday. She also will need to follow with Dr. Sanchez for an ultrasound of her fistula in the office. Patient seen and examined at bedside. Doing well. No chest pain, shortness breath, nausea, vomiting. Vital signs reviewed and stable. General: non toxic, no distress, appears at stated age Derm: warm, dry, bruising in various stages of healing, HD catheter right chest wall, who she will would thrill and bruit Head: atraumatic, normocephalic, symmetric Eyes: EOMI, no lid lag, anicteric sclera Mouth: no lip lesion, mucus membranes moist Cardiovascular: S1S2 reg, no murmur, positive posterior tibial pulse bilateral, Lungs: Crackles bilateral bases,, no accessory muscle use Abdominal: soft, nontender to palpation, no guarding, no appreciable organomega ly Ext: no gross muscle atrophy, no edema, no contractures Neuro: CN II-XI grossly intact, no focal neuro deficits Psych: Alert, oriented, appropriate affect A total of 42 minutes of time were spent preparing this complex discharge summary . Patient Condition at Discharge: Stable Plan - Discharge Summary Discharge Rx Participant: No New Discharge Prescriptions: New Insulin Detemir (Levemir) [Levemir] 12 unit SQ DAILY ml Midodrine [ProAmatine] 5 mg PO AC-TID PRN #30 tab lisinopriL [Zestril] 2.5 mg PO DAILY tab Melatonin 3 mg PO HS tablet Sevelamer [Renvela] 1,600 mg PO TID-W/MEALS tab Metoprolol Succinate (ER) [Toprol XL] 25 mg PO DAILY Continue Atorvastatin [Lipitor] 80 mg PO HS Allopurinol [Zyloprim] 100 mg PO BID Thiamine [Vitamin B-1] 100 mg PO BID Aspirin 81 mg PO DAILY chew Folic Acid-Vit B Complex-Vit C [Nephrocaps] 1 mg PO TUTHSA Nitroglycerin Sl Tabs [Nitrostat] 0.4 mg SL Q5M PRN PRN Reason: Chest Pain Calcium Carbonate [Tums] 500 mg PO AC-TID Ferrous Sulfate [Feosol] 325 mg PO DAILY Ergocalciferol [Vitamin D2 (1250 Mcg = 81505 Iu)] 1,250 mcg PO Q30D Discontinued Carvedilol [Coreg] 25 mg PO BID PRN PRN Reason: sbp over 140 Insulin Glargine,Hum.rec.anlog [Basaglar Kwikpen U-100] 15 unit SQ DAILY Discharge Medication List Atorvastatin [Lipitor] 80 mg PO HS 07/04/14 [History] Allopurinol [Zyloprim] 100 mg PO BID 03/13/20 [History] Thiamine [Vitamin B-1] 100 mg PO BID 03/13/20 [History] Aspirin 81 mg PO DAILY chew 03/15/20 [Rx] Ergocalciferol [Vitamin D2 (1250 Mcg = 57897 Iu)] 1,250 mcg PO Q30D 07/28/20 [History] Folic Acid-Vit B Complex-Vit C [Nephrocaps] 1 mg PO TUTHSA 09/01/20 [History] Nitroglycerin Sl Tabs [Nitrostat] 0.4 mg SL Q5M PRN 09/01/20 [History] Calcium Carbonate [Tums] 500 mg PO AC-TID 03/23/21 [History] Ferrous Sulfate [Feosol] 325 mg PO DAILY 03/23/21 [History] Insulin Detemir (Levemir) [Levemir] 12 unit SQ DAILY ml 03/27/21 [Rx] Melatonin 3 mg PO HS tablet 03/27/21 [Rx] Metoprolol Succinate (ER) [Toprol XL] 25 mg PO DAILY 03/27/21 [Rx] Midodrine [ProAmatine] 5 mg PO AC-TID PRN #30 tab 03/27/21 [Rx] Sevelamer [Renvela] 1,600 mg PO TID-W/MEALS tab 03/27/21 [Rx] lisinopriL [Zestril] 2.5 mg PO DAILY tab 03/27/21 [Rx] Follow up Appointment(s)/Referral(s): Brad Amaro DO [STAFF PHYSICIAN] - 1 Week Dwight Abdullahi MD [Primary Care Provider] - 1-2 days [facility], [NON-STAFF] - Peter Sanchez MD [STAFF PHYSICIAN] - 1-2 Days Activity/Diet/Wound Care/Special Instructions: Activity: as tolerated Diet: Renal diet, carb consistent Wound Care: as tolerated Discharge Disposition: TRANSFER TO SNF/ECF
--- NOTE | 2021-03-27 11:37 | P.PN ---
Subjective Progress Note Date: 03/27/21 Principal diagnosis: Is a 75-year-old female known with ESRD on dialysis. Wednesday who came in because of weakness and was found to have hypercalcemia and hyperkalemia. She was also hypotensive. She is known with COPD coronary artery disease admitted and mostly ejection fraction 30-35% diabetes. Currently she is feeling much better blood pressure is on dialysis as at the time of this examination he is in the 120s to 130s. She is denying any shortness of breath dizziness no nausea vomiting diarrhea appetite is fair Her hypercalcemia is resolved off off calcium binders, Objective - Vital Signs Vital signs: Vital Signs Temp 97.5 F L 03/27/21 08:00 Pulse 72 03/27/21 08:00 Resp 16 03/27/21 08:00 BP 107/73 03/27/21 08:00 Pulse Ox 99 03/27/21 08:00 Intake & Output 03/26/21 03/27/21 03/27/21 18:59 06:59 18:59 Intake Total 318 150 118 Balance 318 150 118 Intake: Oral 318 150 118 Other: # Voids 0 # Bowel Movements 1 2 On examination she is awake alert oriented comfortable A chin exam no JVP neck is supple no facial asymmetry Lungs clear to auscultation good air entry bilaterally Heart sounds unremarkable for any murmur rub gallop. Abdomen soft nontender Extremity exam was no edema Neurologically awake alert oriented but profoundly weak - Labs CBC & Chem 7: 03/25/21 09:22 03/25/21 09:22 Labs: Abnormal Lab Results - Last 24 Hours (Table) 03/26/21 03/26/21 03/26/21 Range/Units 11:50 16:31 20:11 POC Glucose (mg/dL) 131 H 108 H 122 H (75-99) mg/dL Coronavirus (PCR) (Not Detectd) 03/27/21 Range/Units 10:45 POC Glucose (mg/dL) (75-99) mg/dL Coronavirus (PCR) Detected A (Not Detectd) Microbiology - Last 24 Hours (Table) 03/23/21 14:00 Blood Culture - Preliminary Blood No Growth after 72 hours Assessment and Plan Assessment: Impression 1. ESRD on dialysis Wednesday. 2. Admitted with hypercalcemia, related to calcium tablets resolved potassium came down from 14.9 mg to 8.9 mg/dL. 3. Anemia with hemoglobin 11.1 at target 4. Hypotension, currently blood is reasonable on dialysis in the 110s to 130 systolic range 5. Severe cardiomyopathy ejection fraction 20%. 6. Profound weakness. A brown Admission 1. Patient can be be discharged home to be followed up
[2021-03-27 11:45] LABS: Glucose,Whole Blood 111 mg/dL (75-99)
[2021-03-27] MEDS: ASPIRIN 81 MG PO SCH (12:28)
[2021-03-27] MEDS: HEPARIN SODIUM,PORCINE/PF 5,000 UNIT/0.5 ML SYRINGE SQ SCH ×3 (12:28→23:09)
[2021-03-27] MEDS: allopurinoL 100 MG TAB PO SCH ×2 (12:28→20:09)
[2021-03-27] MEDS: FOLIC ACID-VIT B COMPLEX-VIT C 1 CAP PO SCH (12:29)
[2021-03-27] MEDS: INSULIN DETEMIR (LEVEMIR) 100 UNIT/ML SYR SQ SCH (12:29)
[2021-03-27] MEDS: METOPROLOL SUCCINATE (ER) 25 MG TAB.ER.24H PO SCH (12:29)
[2021-03-27] MEDS: FERROUS SULFATE 325 MG TAB PO SCH (12:29)
[2021-03-27 16:31] LABS: Glucose,Whole Blood 147 mg/dL (75-99)
[2021-03-27] MEDS: ATORVASTATIN 80 MG TAB PO SCH (20:09)
[2021-03-27] MEDS: MELATONIN 3 MG TABLET PO SCH (20:13)
[2021-03-27 20:20] LABS: Glucose,Whole Blood 145 mg/dL (75-99)
[2021-03-28] MEDS: ACETAMINOPHEN TAB 325 MG TAB PO PRN ×3 (02:21→20:06)
[2021-03-28 06:00] LABS: Glucose,Whole Blood 100 mg/dL (75-99)
[2021-03-28] MEDS: INSULIN ASPART (NovoLOG) 100 UNIT/ML VIAL SQ SCH ×3 (06:10→17:01)
[2021-03-28] MEDS: MIDODRINE 5 MG TAB PO SCH ×3 (06:28→17:01)
[2021-03-28] MEDS: SEVELAMER 800 MG TAB PO SCH ×3 (06:28→17:01)
--- NOTE | 2021-03-28 07:41 | P.PN ---
Subjective Progress Note Date: 03/28/21 Principal diagnosis: Is a 75-year-old female known with ESRD on dialysis. Wednesday, Wednesday who came in because of weakness and was found to have hypercalcemia secondary to calcium intake and hyperkalemia. She was also hypotensive. In the hospital she has been checked for: 19 and is positive as of yesterday 03/27/2021, was negative and she was admitted on 03/23/2021 She is known with COPD coronary artery disease admitted and mostly ejection fraction 30-35% diabetes. Currently she is feeling much better, blood pressure is in the 90s systolic as is usual for her supposedly She is denying any shortness of breath dizziness no nausea vomiting diarrhea appetite is fair Her hypercalcemia is resolved off off calcium binders, Objective - Vital Signs Vital signs: Vital Signs Temp 97.7 F 03/28/21 04:00 Pulse 64 03/28/21 04:00 Resp 18 03/28/21 04:00 BP 96/64 03/28/21 04:00 Pulse Ox 100 03/28/21 04:00 Intake & Output 03/27/21 03/28/21 03/28/21 18:59 06:59 18:59 Intake Total 354 10 Output Total 1999 Balance -1646 10 Intake: IV 10 0.9 10 Oral 354 Output: Hemodialysis 1999 Other: Voiding Method Bedpan # Voids 0 # Bowel Movements 1 On examination from the door she is awake alert comfortable. She isn't necessarily cannula oxygen. - Labs CBC & Chem 7: 03/25/21 09:22 03/25/21 09:22 Labs: Abnormal Lab Results - Last 24 Hours (Table) 03/27/21 03/27/21 03/27/21 Range/Units 10:45 11:44 16:30 POC Glucose (mg/dL) 111 H 147 H (75-99) mg/dL Coronavirus (PCR) Detected A (Not Detectd) 03/27/21 03/28/21 Range/Units 20:19 05:59 POC Glucose (mg/dL) 145 H 100 H (75-99) mg/dL Coronavirus (PCR) (Not Detectd) Microbiology - Last 24 Hours (Table) 03/23/21 14:00 Blood Culture - Preliminary Blood No Growth after 96 hours Assessment and Plan Assessment: Impression 1. ESRD on dialysis Wednesday. He tolerated 2 L taken off yesterday during dialysis 2. Admitted with hypercalcemia, related to calcium tablets resolved potassium came down from 14.9 mg to 8.9 mg/dL. 3. Anemia with hemoglobin 11.1 at target 4. Hypotension, chronic unchanged 5. Severe cardiomyopathy ejection fraction 20%. 6. Profound weakness. 7. Positive, with COVID 19 in the hospital 03/17/21 after initially being negative 03/23/21 Admission 1. We'll obtain chest x-ray 2. Next dialysis will be scheduled for tomorrow unless she is discharged. Because of the positive Covid state may be better to watch her for the next 2 or 3 days
[2021-03-28] MEDS: METOPROLOL SUCCINATE (ER) 25 MG TAB.ER.24H PO SCH (08:34)
[2021-03-28] MEDS: INSULIN DETEMIR (LEVEMIR) 100 UNIT/ML SYR SQ SCH (08:34)
[2021-03-28] MEDS: allopurinoL 100 MG TAB PO SCH ×2 (08:34→20:06)
[2021-03-28] MEDS: HEPARIN SODIUM,PORCINE/PF 5,000 UNIT/0.5 ML SYRINGE SQ SCH ×3 (08:34→23:09)
[2021-03-28] MEDS: FERROUS SULFATE 325 MG TAB PO SCH (08:34)
[2021-03-28] MEDS: ASPIRIN 81 MG PO SCH (08:34)
--- NOTE | 2021-03-28 09:36 | XR ---
EXAMINATION TYPE: XR chest 1V DATE OF EXAM: 03/28/2021 COMPARISON: 03/23/2021 HISTORY: Cough TECHNIQUE: Single frontal view of the chest is obtained. FINDINGS: Heart is enlarged and left lower lobe infiltrate and small effusion with interstitial brandon hayden. Dialysis catheter postsurgical changes noted. Atherosclerotic change aorta. No pneumothorax. Art hropathy of the shoulders. IMPRESSION: 1. Cardiomegaly with left lower lobe infiltrate and small effusion correlate for mild CHF versus inte rstitial pneumonitis. Underlying pneumonia not excluded.
[2021-03-28 11:58] LABS: Glucose,Whole Blood 124 mg/dL (75-99)
[2021-03-28 13:38] VITALS: BMI 40.7
[2021-03-28 16:48] LABS: Glucose,Whole Blood 159 mg/dL (75-99)
--- NOTE | 2021-03-28 18:24 | P.PN ---
Subjective Progress Note Date: 03/28/21 (delayed charting seen at 1145) Principal diagnosis: hypotension Patient is a 75-year-old woman with end-stage renal disease oh HD t//wed, chronic systolic heart failure, chronic respiratory failure secondary to COPD/heart failure, diabetes/hypertension/hyperlipidemia presented with generalized weakness. Patient says that last Wednesday she had a balloon angioplasty to her AV fistula in her left upper extremity due to a narrowing, and since then she's been feeling progressively weaker. On , she had a shortened session of dialysis due to having flow issues in her temporary dialysis catheter requiring TPA administration. In the emergency room her CBC demonstrates mild leukocytosis to 11, hemoglobin of 11.3, platelets of 269. Chemistries are concerning for hyperkalemia to 7.3, creatinine of 8.18, lactic acid of 4.6. AST/ALT are elevated as well. Her cardiac markers demonstrated BNP of 112,000 and elevated troponin of 0.37. EKG demonstrated sinus bradycardia with right axis deviation and low voltage EKG no AV poppy blockage. Chest x-ray demonstrates findings of pulmonary edema consistent with congestive heart failure. She was given calcium gluconate, sodium bicarbonate, D50/insulin, and an albuterol nebulizer for her hyperkalemia in the emergency room. She underwent HD on 03/23, 03/24, and 03/25. Her echo showed EF <20. She was seen by cardio and plans are for outpatient evaluation iw Dr. Amaro. Her Coreg was transitioned to metoprolol and she was added on low-dose lisinopril. She was determined stable for discharge to [facility] facility. We'll be screening her for colitic can back positive she was asymptomatic. Dialysis was not able to accommodate her except that [facility] Location at this time. is unable to transport her and she is too weak for him. We'll continue to search for dialysis and [facility] accommodations. Patient seen and examined at bedside. Months to get up and out of bed more often. Breathing is the same as yesterday. No nausea or vomiting. General: ill appearing, no distress, appears at stated age Derm: warm, dry Head: atraumatic, normocephalic, symmetric Eyes: EOMI, no lid lag, anicteric sclera Mouth: no lip lesion, mucus membranes moist Cardiovascular: S1S2 reg, + murmur, positive posterior tibial pulse bilateral, Lungs:Decreased bs bilateral, no rhonchi, no rales , no accessory muscle use Abdominal: soft, nontender to palpation, no guarding, no appreciable organomegaly Ext: no gross muscle atrophy, trace edema, no contractures Neuro: CN II-XI grossly intact, no focal neuro deficits Psych: Alert, oriented, appropriate affect Assessment/Plan: ESRD with Hyperkalemia and Acute fluid Overload Hyponatremia due to fluid over load Hypercalcemia Anemia of ESRD Acute exacerbation of systolic congestive heart failure with ejection fraction <20%, Moderate aortic stenosis, moderate tricuspid regurgitation, moderate pulmonary hypertension Chronic hypoxic respiratory failure - F/U Dr. Amaro as outpatient - change from coreg to metoprolol, minimal lisinopril - HD 03/23, 03/24 and 03/25 - Renvela - ferrous sulfate - nephrocaps - Fluid management with hemodialysis -She also will need to follow with Dr. Sanchez for an ultrasound of her fistula in the office. DM 2 with hyperglycemia - SSI - Levemir - follow BS Hx HTN now hypotensive - coreg - midodrine HLD - lipitor Leukocytosis, resolved Chronic: Coronary artery disease Neuropathy Carotid stenosis Gout Home O2 at 3 L [id number] D/C one able to find some where that can accommodate SNF and HD with COVID. Will retest 01/29 to see if COVID clears. Objective - Vital Signs Vital signs: Vital Signs Temp 97.7 F 03/28/21 16:00 Pulse 58 L 03/28/21 16:00 Resp 16 03/28/21 16:00 BP 98/62 03/28/21 16:00 Pulse Ox 97 03/28/21 16:00 Intake & Output 03/27/21 03/28/21 03/28/21 18:59 06:59 18:59 Intake Total 354 10 275 Output Total 1999 Balance -1646 10 275 Weight 114.5 kg Intake: IV 10 0.9 10 Oral 354 275 Output: Hemodialysis 1999 Other: Voiding Method Bedpan # Voids 0 # Bowel Movements 1 1 - Labs CBC & Chem 7: 03/25/21 09:22 03/25/21 09:22 Labs: Abnormal Lab Results - Last 24 Hours (Table) 03/27/21 03/28/21 03/28/21 Range/Units 20:19 05:59 11:54 POC Glucose (mg/dL) 145 H 100 H 124 H (75-99) mg/dL 03/28/21 Range/Units 16:35 POC Glucose (mg/dL) 159 H (75-99) mg/dL Microbiology - Last 24 Hours (Table) 03/23/21 14:00 Blood Culture - Preliminary Blood No Growth after 120 hours
[2021-03-28 19:31] LABS: Glucose,Whole Blood 137 mg/dL (75-99)
[2021-03-28] MEDS: MELATONIN 3 MG TABLET PO SCH (20:06)
[2021-03-28] MEDS: ATORVASTATIN 80 MG TAB PO SCH (20:06)
[2021-03-29] MEDS: ACETAMINOPHEN TAB 325 MG TAB PO PRN ×3 (01:51→22:09)
[2021-03-29 06:14] LABS: Glucose,Whole Blood 115 mg/dL (75-99)
[2021-03-29] MEDS: MIDODRINE 5 MG TAB PO SCH ×3 (06:40→17:02)
[2021-03-29] MEDS: SEVELAMER 800 MG TAB PO SCH ×4 (06:40→17:01)
[2021-03-29] MEDS: INSULIN ASPART (NovoLOG) 100 UNIT/ML VIAL SQ SCH ×3 (06:42→17:01)
[2021-03-29 08:25] LABS: Anisocytosis Moderate; HCT 37.6 % (34.0-46.0); HGB 11.3 gm/dL (11.4-16.0); Hypochromasia Marked; MCH 34.2 pg (25.0-35.0); MCHC 29.9 g/dL (31.0-37.0); MCV 114.1 fL (80.0-100.0); Macrocytosis Marked; Mean Platelet Volume 8.9; Platelet Count 209 k/uL (150-450); RDW 20.6 % (11.5-15.5); WBC 11.9 k/uL (3.8-10.6)
[2021-03-29 08:39] LABS: Calcium 9.4 mg/dL (8.4-10.2); Potassium 5.9 mmol/L (3.5-5.1)
[2021-03-29] MEDS ORDERED: ERGOCALCIFEROL 1,250 MCG (50,000 IU) CAPSULE PO SCH (09:00)
[2021-03-29] MEDS ORDERED: DEXTROSE 50% SYRINGE 50 ML IVP STA (09:45)
[2021-03-29] MEDS: FERROUS SULFATE 325 MG TAB PO SCH (10:00)
[2021-03-29] MEDS: FOLIC ACID-VIT B COMPLEX-VIT C 1 CAP PO SCH (10:00)
[2021-03-29] MEDS: allopurinoL 100 MG TAB PO SCH ×2 (10:00→21:01)
[2021-03-29] MEDS ORDERED: SODIUM ZIRCONIUM CYCLOSILICATE 10 GM PACKET PO ONE ×2 (10:00→20:19)
[2021-03-29] MEDS: METOPROLOL SUCCINATE (ER) 25 MG TAB.ER.24H PO SCH ×2 (10:00→12:37)
[2021-03-29] MEDS: ASPIRIN 81 MG PO SCH (10:00)
[2021-03-29] MEDS ORDERED: INSULIN REGULAR 100 UNIT/ML VIAL (IV) IV ONE ×2 (10:00→20:19)
[2021-03-29] MEDS: HEPARIN SODIUM,PORCINE/PF 5,000 UNIT/0.5 ML SYRINGE SQ SCH ×2 (10:01→16:31)
[2021-03-29] MEDS: INSULIN DETEMIR (LEVEMIR) 100 UNIT/ML SYR SQ SCH (10:03)
--- NOTE | 2021-03-29 10:31 | P.PN ---
Subjective Patient is seen in follow-up for her incisional disease. She is maintained on hemodialysis on Wednesday schedule. Denies chest pain or shortness of breath. Sitting up in chair. Vital signs are stable. General: The patient appeared well nourished and normally developed. HEENT: Head exam is unremarkable. LUNGS: Breath sounds decreased. HEART: Rate and Rhythm are regular. ABDOMEN: Soft, no distention. EXTREMITITES: No edema. Objective - Vital Signs Vital signs: Vital Signs Temp 98.0 F 03/29/21 04:00 Pulse 51 L 03/29/21 04:00 Resp 18 03/29/21 04:00 BP 100/68 03/29/21 04:00 Pulse Ox 99 03/29/21 04:00 Intake & Output 03/28/21 03/29/21 03/29/21 18:59 06:59 18:59 Intake Total 515 10 118 Balance 515 10 118 Weight 114.5 kg Intake: IV 10 0.9 10 Oral 515 118 Other: Voiding Method Bedpan # Voids 0 # Bowel Movements 1 1 - Labs CBC & Chem 7: 03/29/21 07:24 03/29/21 07:24 Labs: Abnormal Lab Results - Last 24 Hours (Table) 03/28/21 03/28/21 03/28/21 Range/Units 11:54 16:35 19:30 WBC (3.8-10.6) k/uL RBC (3.80-5.40) m/uL Hgb (11.4-16.0) gm/dL MCV (80.0-100.0) fL MCHC (31.0-37.0) g/dL RDW (11.5-15.5) % Macrocytosis Sodium (137-145) mmol/L Potassium (3.5-5.1) mmol/L Chloride (98-107) mmol/L BUN (7-17) mg/dL Creatinine (0.52-1.04) mg/dL Glucose (74-99) mg/dL POC Glucose (mg/dL) 124 H 159 H 137 H (75-99) mg/dL 03/29/21 03/29/21 03/29/21 Range/Units 06:12 07:24 07:24 WBC 11.9 H (3.8-10.6) k/uL RBC 3.30 L (3.80-5.40) m/uL Hgb 11.3 L (11.4-16.0) gm/dL MCV 114.1 H (80.0-100.0) fL MCHC 29.9 L (31.0-37.0) g/dL RDW 20.6 H (11.5-15.5) % Macrocytosis Marked A Sodium 134 L (137-145) mmol/L Potassium 5.9 H (3.5-5.1) mmol/L Chloride 95 L (98-107) mmol/L BUN 66 H (7-17) mg/dL Creatinine 6.22 H (0.52-1.04) mg/dL Glucose 112 H (74-99) mg/dL POC Glucose (mg/dL) 115 H (75-99) mg/dL Microbiology - Last 24 Hours (Table) 03/23/21 14:00 Blood Culture - Preliminary Blood No Growth after 120 hours Assessment and Plan Plan: Assessment: 1. End-stage renal disease maintained on hemodialysis on Wednesday schedule. 2. Hyperkalemia secondary to chronic kidney disease and lisinopril. 3. COVID-19 pneumonia. 4. Chronic systolic CHF with ejection fraction of less than 20% with severe aortic stenosis, moderate mitral regurgitation and pulmonary hypertension. 5. Hypercalcemia secondary to calcium supplementation. Resolved. 6. Diabetes mellitus. Plan: 10 units IV regular insulin with an amp of D50 now. 10 g lokelma once now. Repeat potassium level this afternoon. If no improvement, will dialyze today. Otherwise she will be dialyzed tomorrow due to the holiday schedule.
--- NOTE | 2021-03-29 10:51 | P.PN ---
Subjective Progress Note Date: 03/29/21 Principal diagnosis: Weakness Patient is a 75-year-old woman with end-stage renal disease oh HD t//wed, chronic systolic heart failure, chronic respiratory failure secondary to COPD/heart failure, diabetes/hypertension/hyperlipidemia presented with generalized weakness. Patient says that last Wednesday she had a balloon angioplasty to her AV fistula in her left upper extremity due to a narrowing, and since then she's been feeling progressively weaker. On , she had a shortened session of dialysis due to having flow issues in her temporary dialysis catheter requiring TPA administration. In the emergency room her CBC demonstrates mild leukocytosis to 11, hemoglobin of 11.3, platelets of 269. Chemistries are concerning for hyperkalemia to 7.3, creatinine of 8.18, lactic acid of 4.6. AST/ALT are elevated as well. Her cardiac markers demonstrated BNP of 112,000 and elevated troponin of 0.37. EKG demonstrated sinus bradycardia with right axis deviation and low voltage EKG no AV poppy blockage. Chest x-ray demonstrates findings of pulmonary edema consistent with congestive heart failure. She was given calcium gluconate, sodium bicarbonate, D50/insulin, and an albuterol nebulizer for her hyperkalemia in the emergency room. She underwent HD on 03/23, 03/24, and 03/25. Her echo showed EF <20. She was seen by cardio and plans are for outpatient evaluation iwth Dr. Amaro. Her Coreg was transitioned to metoprolol and she was added on low-dose lisinopril. She was determined stable for [facility] to [facility]. We'll be screening her for colitic can back positive she was asymptomatic. Dialysis was not able to accommodate her except that [facility] Location at this time. is unable to transport her and she is too weak for him. We'll continue to search for dialysis and [facility] accommodations. 03/29/2021: Patient was seen this morning sitting in chair. She had no acute complaints. Patient's potassium this morning was 5.9. Nephrology order IV insulin and D50 amp. Patient will then have a repeat BMP and a potassium is not improved patient will need dialysis. Otherwise patient will get dialysis tomorrow due to the holiday schedule Objective - Vital Signs Vital signs: Vital Signs Temp 98.1 F 03/29/21 09:55 Pulse 60 03/29/21 09:55 Resp 16 03/29/21 09:55 BP 100/57 03/29/21 09:55 Pulse Ox 98 03/29/21 09:55 Intake & Output 03/28/21 03/29/21 03/29/21 18:59 06:59 18:59 Intake Total 515 10 118 Balance 515 10 118 Weight 114.5 kg Intake: IV 10 0.9 10 Oral 515 118 Other: Voiding Method Bedpan # Voids 0 # Bowel Movements 1 1 - Exam General examination - Alert and Oriented 3 in NAD Heart - + S1S2 no murmurs Lungs - Clear to auscultation Abdomen soft NT ND +ve BS, morbidly obese Extremities - No edema 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 Psych - Calm and cooperative - Labs CBC & Chem 7: 03/29/21 07:24 03/29/21 07:24 Labs: Abnormal Lab Results - Last 24 Hours (Table) 03/28/21 03/28/21 03/28/21 Range/Units 11:54 16:35 19:30 WBC (3.8-10.6) k/uL RBC (3.80-5.40) m/uL Hgb (11.4-16.0) gm/dL MCV (80.0-100.0) fL MCHC (31.0-37.0) g/dL RDW (11.5-15.5) % Macrocytosis Sodium (137-145) mmol/L Potassium (3.5-5.1) mmol/L Chloride (98-107) mmol/L BUN (7-17) mg/dL Creatinine (0.52-1.04) mg/dL Glucose (74-99) mg/dL POC Glucose (mg/dL) 124 H 159 H 137 H (75-99) mg/dL 03/29/21 03/29/21 03/29/21 Range/Units 06:12 07:24 07:24 WBC 11.9 H (3.8-10.6) k/uL RBC 3.30 L (3.80-5.40) m/uL Hgb 11.3 L (11.4-16.0) gm/dL MCV 114.1 H (80.0-100.0) fL MCHC 29.9 L (31.0-37.0) g/dL RDW 20.6 H (11.5-15.5) % Macrocytosis Marked A Sodium 134 L (137-145) mmol/L Potassium 5.9 H (3.5-5.1) mmol/L Chloride 95 L (98-107) mmol/L BUN 66 H (7-17) mg/dL Creatinine 6.22 H (0.52-1.04) mg/dL Glucose 112 H (74-99) mg/dL POC Glucose (mg/dL) 115 H (75-99) mg/dL Microbiology - Last 24 Hours (Table) 03/23/21 14:00 Blood Culture - Preliminary Blood No Growth after 120 hours Assessment and Plan Assessment: ESRD with Hyperkalemia and Acute fluid Overload Hyponatremia due to fluid over load Hypercalcemia Anemia of ESRD Acute exacerbation of systolic congestive heart failure with ejection fraction <20%, Moderate aortic stenosis, moderate tricuspid regurgitation, moderate pulmonary hypertension Chronic hypoxic respiratory failure - F/U Dr. Amaro as outpatient - change from coreg to metoprolol, minimal lisinopril - HD 03/23, 03/24 and 03/25 - Renvela - ferrous sulfate - nephrocaps - Fluid management with hemodialysis -She also will need to follow with Dr. Sanchez for an ultrasound of her fistula in the office. -Nephrology to manage hyperkalemia. Due to holiday schedule nephrology will try to manage hyperkalemia medically however if there is no improvement she will then need emergent dialysis. DM 2 with hyperglycemia - SSI - Levemir - follow BS Hx HTN now hypotensive - coreg - midodrine HLD - lipitor Leukocytosis, resolved Chronic: Coronary artery disease Neuropathy Carotid stenosis Gout Home O2 at 3 L [id number] D/C one able to find some where that can accommodate SNF and HD with COVID.
[2021-03-29 12:01] LABS: Glucose,Whole Blood 227 mg/dL (75-99)
[2021-03-29 17:01] LABS: Glucose,Whole Blood 86 mg/dL (75-99)
[2021-03-29] MEDS ORDERED: DEXTROSE 50% SYRINGE 50 ML IVP ONE (20:20)
[2021-03-29 20:24] LABS: Glucose,Whole Blood 95 mg/dL (75-99)
[2021-03-29] MEDS: MELATONIN 3 MG TABLET PO SCH (21:01)
[2021-03-29] MEDS: ATORVASTATIN 80 MG TAB PO SCH (21:01)
[2021-03-30] MEDS: HEPARIN SODIUM,PORCINE/PF 5,000 UNIT/0.5 ML SYRINGE SQ SCH ×4 (00:59→23:57)
[2021-03-30 06:44] LABS: African American GFR (CKD) 6 (>60 ml/min/1.73 sqM); Anion Gap 16 mmol/L; Blood Urea Nitrogen 78 mg/dL (7-17); Calcium 9.7 mg/dL (8.4-10.2); Carbon Dioxide 20 mmol/L (22-30); Chloride 97 mmol/L (98-107); Glucose 58 mg/dL (74-99); Non-African American GFR(CKD) 5 (>60 ml/min/1.73 sqM); Potassium 5.5 mmol/L (3.5-5.1); Sodium 133 mmol/L (137-145)
[2021-03-30 07:40] LABS: Glucose,Whole Blood 90 mg/dL (75-99)
[2021-03-30] MEDS: INSULIN ASPART (NovoLOG) 100 UNIT/ML VIAL SQ SCH ×3 (08:13→16:35)
[2021-03-30] MEDS: ACETAMINOPHEN TAB 325 MG TAB PO PRN ×3 (08:21→20:51)
[2021-03-30] MEDS: ASPIRIN 81 MG PO SCH (08:22)
[2021-03-30] MEDS: FERROUS SULFATE 325 MG TAB PO SCH (08:23)
[2021-03-30] MEDS: allopurinoL 100 MG TAB PO SCH ×2 (08:23→20:51)
[2021-03-30] MEDS: INSULIN DETEMIR (LEVEMIR) 100 UNIT/ML SYR SQ SCH (08:23)
[2021-03-30] MEDS: MIDODRINE 5 MG TAB PO SCH ×3 (08:23→16:51)
[2021-03-30] MEDS: METOPROLOL SUCCINATE (ER) 25 MG TAB.ER.24H PO SCH (08:24)
[2021-03-30] MEDS: SEVELAMER 800 MG TAB PO SCH ×3 (08:33→16:50)
[2021-03-30] MEDS ORDERED: MIDODRINE 5 MG TAB PO PRN (10:32)
--- NOTE | 2021-03-30 11:29 | P.PN ---
Subjective Progress Note Date: 03/30/21 Principal diagnosis: Weakness Patient is a 75-year-old woman with end-stage renal disease oh HD t//wed, chronic systolic heart failure, chronic respiratory failure secondary to COPD/heart failure, diabetes/hypertension/hyperlipidemia presented with generalized weakness. Patient says that last Wednesday she had a balloon angioplasty to her AV fistula in her left upper extremity due to a narrowing, and since then she's been feeling progressively weaker. On , she had a shortened session of dialysis due to having flow issues in her temporary dialysis catheter requiring TPA administration. In the emergency room her CBC demonstrates mild leukocytosis to 11, hemoglobin of 11.3, platelets of 269. Chemistries are concerning for hyperkalemia to 7.3, creatinine of 8.18, lactic acid of 4.6. AST/ALT are elevated as well. Her cardiac markers demonstrated BNP of 112,000 and elevated troponin of 0.37. EKG demonstrated sinus bradycardia with right axis deviation and low voltage EKG no AV poppy blockage. Chest x-ray demonstrates findings of pulmonary edema consistent with congestive heart failure. She was given calcium gluconate, sodium bicarbonate, D50/insulin, and an albuterol nebulizer for her hyperkalemia in the emergency room. She underwent HD on 03/23, 03/24, and 03/25. Her echo showed EF <20. She was seen by cardio and plans are for outpatient evaluation iwth Dr. Amaro. Her Coreg was transitioned to metoprolol and she was added on low-dose lisinopril. She was determined stable for discharge to senior care facility. We'll be screening her for colitic can back positive she was asymptomatic. Dialysis was not able to accommodate her except that [facility] Location at this time. is unable to transport her and she is too weak for him. We'll continue to search for dialysis and senior care accommodations. 03/30/2021: Patient was seen this monitoring dialysis. She had no acute complaints. 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 - Moving all 4 extremities spontaneously Psych - Calm and cooperative - Labs CBC & Chem 7: 03/29/21 07:24 03/30/21 06:09 Labs: Abnormal Lab Results - Last 24 Hours (Table) 03/29/21 03/29/21 03/29/21 Range/Units 11:55 12:55 18:57 Sodium (137-145) mmol/L Potassium 5.6 H 5.8 H (3.5-5.1) mmol/L Chloride (98-107) mmol/L Carbon Dioxide (22-30) mmol/L BUN (7-17) mg/dL Creatinine (0.52-1.04) mg/dL Glucose (74-99) mg/dL POC Glucose (mg/dL) 227 H (75-99) mg/dL 03/30/21 03/30/21 Range/Units 01:08 06:09 Sodium 133 L (137-145) mmol/L Potassium 5.3 H 5.5 H (3.5-5.1) mmol/L Chloride 97 L (98-107) mmol/L Carbon Dioxide 20 L (22-30) mmol/L BUN 78 H (7-17) mg/dL Creatinine 7.36 H* (0.52-1.04) mg/dL Glucose 58 L (74-99) mg/dL POC Glucose (mg/dL) (75-99) mg/dL Microbiology - Last 24 Hours (Table) 03/23/21 14:00 Blood Culture - Final Blood No Growth after 144 hours Assessment and Plan Assessment: ESRD with Hyperkalemia and Acute fluid Overload Hyponatremia due to fluid over load Hypercalcemia Anemia of ESRD Acute exacerbation of systolic congestive heart failure with ejection fraction <20%, Moderate aortic stenosis, moderate tricuspid regurgitation, moderate pulmonary hypertension Chronic hypoxic respiratory failure - F/U Dr. Amaro as outpatient - change from coreg to metoprolol, minimal lisinopril - HD 03/23, 03/24 and 03/25 - Renvela - ferrous sulfate - nephrocaps - Fluid management with hemodialysis -She also will need to follow with Dr. Sanchez for an ultrasound of her fistula in the office. -Nephrology to manage hyperkalemia. Due to holiday schedule nephrology will try to manage hyperkalemia medically however if there is no improvement she will then need emergent dialysis. DM 2 with hyperglycemia - SSI - Levemir - follow BS Hx HTN now hypotensive - coreg - midodrine HLD - lipitor Leukocytosis, resolved Chronic: Coronary artery disease Neuropathy Carotid stenosis Gout Home O2 at 3 L [id number] D/C one able to find some where that can accommodate SNF and HD with COVID.
--- NOTE | 2021-03-30 11:44 | P.PN ---
Subjective Patient is seen in follow-up for end-stage renal disease. She is maintained on hemodialysis on Wednesday schedule. Denies chest pain or shortness of breath. Tolerating dialysis well. Vital signs are stable. General: The patient appeared well nourished and normally developed. HEENT: Head exam is unremarkable. LUNGS: Breath sounds decreased. HEART: Rate and Rhythm are regular. ABDOMEN: Soft, no distention. EXTREMITITES: 1+ edema. Objective - Vital Signs Vital signs: Vital Signs Temp 97.5 F L 03/30/21 05:48 Pulse 57 L 03/30/21 05:48 Resp 18 03/30/21 08:32 BP 128/68 03/30/21 05:48 Pulse Ox 92 L 03/30/21 05:48 Intake & Output 03/29/21 03/30/21 03/30/21 18:59 06:59 18:59 Intake Total 368 400 Balance 368 400 Weight 111.5 kg Intake: Oral 368 400 Other: Voiding Method Bedpan # Voids 0 - Labs CBC & Chem 7: 03/29/21 07:24 03/30/21 06:09 Labs: Abnormal Lab Results - Last 24 Hours (Table) 03/29/21 03/29/21 03/29/21 Range/Units 11:55 12:55 18:57 Sodium (137-145) mmol/L Potassium 5.6 H 5.8 H (3.5-5.1) mmol/L Chloride (98-107) mmol/L Carbon Dioxide (22-30) mmol/L BUN (7-17) mg/dL Creatinine (0.52-1.04) mg/dL Glucose (74-99) mg/dL POC Glucose (mg/dL) 227 H (75-99) mg/dL Magnesium (1.5-2.4) mg/dL 03/30/21 03/30/21 03/30/21 Range/Units 01:08 06:09 06:09 Sodium 133 L (137-145) mmol/L Potassium 5.3 H 5.5 H (3.5-5.1) mmol/L Chloride 97 L (98-107) mmol/L Carbon Dioxide 20 L (22-30) mmol/L BUN 78 H (7-17) mg/dL Creatinine 7.36 H* (0.52-1.04) mg/dL Glucose 58 L (74-99) mg/dL POC Glucose (mg/dL) (75-99) mg/dL Magnesium 3.0 H (1.5-2.4) mg/dL Microbiology - Last 24 Hours (Table) 03/23/21 14:00 Blood Culture - Final Blood No Growth after 144 hours Assessment and Plan Plan: Assessment: 1. End-stage renal disease maintained on hemodialysis on Wednesday schedule. 2. Hyperkalemia secondary to chronic kidney disease and lisinopril. Stable. 3. COVID-19 pneumonia. 4. Chronic systolic CHF with ejection fraction of less than 20% with severe aortic stenosis, moderate mitral regurgitation and pulmonary hypertension. 5. Hypercalcemia secondary to calcium supplementation. Resolved. 6. Diabetes mellitus. Plan: Currently seen while undergoing hemodialysis. Next treatment on Wednesday. Repeat labs in the morning. If remains persistently hyperkalemic, will stop lisinopril.
[2021-03-30 11:47] LABS: Glucose,Whole Blood 100 mg/dL (75-99)
[2021-03-30 16:31] LABS: Glucose,Whole Blood 135 mg/dL (75-99)
[2021-03-30 20:47] LABS: Glucose,Whole Blood 133 mg/dL (75-99)
[2021-03-30] MEDS: MELATONIN 3 MG TABLET PO SCH (20:51)
[2021-03-30] MEDS: ATORVASTATIN 80 MG TAB PO SCH (20:51)
[2021-03-31] MEDS: ACETAMINOPHEN TAB 325 MG TAB PO PRN ×3 (02:33→17:08)
[2021-03-31 07:30] LABS: Glucose,Whole Blood 118 mg/dL (75-99)
[2021-03-31] MEDS: INSULIN ASPART (NovoLOG) 100 UNIT/ML VIAL SQ SCH ×3 (07:34→16:59)
[2021-03-31] MEDS: ASPIRIN 81 MG PO SCH (07:48)
[2021-03-31] MEDS: allopurinoL 100 MG TAB PO SCH ×2 (07:49→20:26)
[2021-03-31] MEDS: MIDODRINE 5 MG TAB PO SCH ×3 (07:49→17:08)
[2021-03-31] MEDS: HEPARIN SODIUM,PORCINE/PF 5,000 UNIT/0.5 ML SYRINGE SQ SCH ×2 (07:49→17:08)
[2021-03-31] MEDS: FERROUS SULFATE 325 MG TAB PO SCH (07:49)
[2021-03-31] MEDS: SEVELAMER 800 MG TAB PO SCH ×3 (07:49→17:08)
[2021-03-31] MEDS: INSULIN DETEMIR (LEVEMIR) 100 UNIT/ML SYR SQ SCH (07:57)
[2021-03-31] MEDS: METOPROLOL SUCCINATE (ER) 25 MG TAB.ER.24H PO SCH (07:57)
[2021-03-31 09:48] LABS: Anion Gap 19.1 mmol/L (10.00-18.00); BUN/Creat Ratio 8.31 Ratio (12.00-20.00); Blood Urea Nitrogen 45.7 mg/dL (9.0-27.0); Calcium 10.2 mg/dL (8.7-10.3); Carbon Dioxide 18.9 mmol/L (20.0-27.5); Non-African American GFR(CKD) 6.9 (60.0-200.0); Potassium 4.9 mmol/L (3.5-5.5)
--- NOTE | 2021-03-31 09:59 | P.PN ---
Subjective Progress Note Date: 03/31/21 Principal diagnosis: Weakness Patient is a 75-year-old woman with end-stage renal disease oh HD t//wed, chronic systolic heart failure, chronic respiratory failure secondary to COPD/heart failure, diabetes/hypertension/hyperlipidemia presented with generalized weakness. Patient says that last Wednesday she had a balloon angioplasty to her AV fistula in her left upper extremity due to a narrowing, and since then she's been feeling progressively weaker. On , she had a shortened session of dialysis due to having flow issues in her temporary dialysis catheter requiring TPA administration. In the emergency room her CBC demonstrates mild leukocytosis to 11, hemoglobin of 11.3, platelets of 269. Chemistries are concerning for hyperkalemia to 7.3, creatinine of 8.18, lactic acid of 4.6. AST/ALT are elevated as well. Her cardiac markers demonstrated BNP of 112,000 and elevated troponin of 0.37. EKG demonstrated sinus bradycardia with right axis deviation and low voltage EKG no AV poppy blockage. Chest x-ray demonstrates findings of pulmonary edema consistent with congestive heart failure. She was given calcium gluconate, sodium bicarbonate, D50/insulin, and an albuterol nebulizer for her hyperkalemia in the emergency room. She underwent HD on 03/23, 03/24, and 03/25. Her echo showed EF <20. She was seen by cardio and plans are for outpatient evaluation iwth Dr. Amaro. Her Coreg was transitioned to metoprolol and she was added on low-dose lisinopril. She [facility] We'll be screening her for colitic can back positive she was asymptomatic. Dialysis was not able to accommodate her except that [facility] Location at this time. is unable to transport her and she is too weak for him. We'll continue to search for dialysis and [facility] accommodations. 03/31/2021: Patient states that she had a hard time sleeping last night. She otherwise denies any acute complaints. 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 - Moving all 4 extremities spontaneously Psych - Calm and cooperative - Labs CBC & Chem 7: 03/29/21 07:24 03/31/21 05:56 Labs: Abnormal Lab Results - Last 24 Hours (Table) 03/30/21 03/30/21 03/30/21 Range/Units 06:09 11:47 16:30 Carbon Dioxide (20.0-27.5) mmol/L Anion Gap (10.00-18.00) mmol/L BUN (9.0-27.0) mg/dL Creatinine (0.6-1.5) mg/dL Est GFR (CKD-EPI)AfAm (60.0-200.0) Est GFR (CKD-EPI)NonAf (60.0-200.0) BUN/Creatinine Ratio (12.00-20.00) Ratio POC Glucose (mg/dL) 100 H 135 H (75-99) mg/dL Magnesium 3.0 H (1.5-2.4) mg/dL 03/30/21 03/31/21 03/31/21 Range/Units 20:41 05:56 07:28 Carbon Dioxide 18.9 L (20.0-27.5) mmol/L Anion Gap 19.10 H (10.00-18.00) mmol/L BUN 45.7 H (9.0-27.0) mg/dL Creatinine 5.5 H (0.6-1.5) mg/dL Est GFR (CKD-EPI)AfAm 8.0 L (60.0-200.0) Est GFR (CKD-EPI)NonAf 6.9 L (60.0-200.0) BUN/Creatinine Ratio 8.31 L (12.00-20.00) Ratio POC Glucose (mg/dL) 133 H 118 H (75-99) mg/dL Magnesium (1.5-2.4) mg/dL Assessment and Plan Assessment: ESRD with Hyperkalemia and Acute fluid Overload Hyponatremia due to fluid over load Hypercalcemia Anemia of ESRD Acute exacerbation of systolic congestive heart failure with ejection fraction <20%, Moderate aortic stenosis, moderate tricuspid regurgitation, moderate pulmonary hypertension Chronic hypoxic respiratory failure - F/U Dr. Amaro as outpatient - change from coreg to metoprolol, minimal lisinopril - HD 03/23, 03/24 and 03/25 - Renvela - ferrous sulfate - nephrocaps - Fluid management with hemodialysis -She also will need to follow with Dr. Sanchez for an ultrasound of her fistula in the office. DM 2 with hyperglycemia - SSI - Levemir - follow BS Hx HTN now hypotensive - coreg - midodrine HLD - lipitor Leukocytosis, resolved Chronic: Coronary artery disease Neuropathy Carotid stenosis Gout Home O2 at 3 L [id number] D/C once able to find some where that can accommodate SNF and HD with COVID.
--- NOTE | 2021-03-31 10:21 | P.PN ---
Subjective Patient is seen in follow-up for end-stage renal disease. She is maintained on hemodialysis on Wednesday schedule. Denies chest pain or shortness of breath. No active complaints. Tolerated dialysis well yesterday. Vital signs are stable. General: The patient appeared well nourished and normally developed. HEENT: Head exam is unremarkable. LUNGS: Breath sounds decreased. HEART: Rate and Rhythm are regular. ABDOMEN: Soft, no distention. EXTREMITITES: 1+ edema. Objective - Vital Signs Vital signs: Vital Signs Temp 97.8 F 03/31/21 09:52 Pulse 73 03/31/21 09:52 Resp 14 03/31/21 09:52 BP 127/56 03/31/21 09:52 Pulse Ox 97 03/31/21 09:52 Intake & Output 03/30/21 03/31/21 03/31/21 18:59 06:59 18:59 Intake Total 480 Output Total 1999 Balance -1999 480 Intake: Oral 480 Output: Hemodialysis 1999 Other: Voiding Method Bedpan Bedpan # Voids 0 - Labs CBC & Chem 7: 03/29/21 07:24 03/31/21 05:56 Labs: Abnormal Lab Results - Last 24 Hours (Table) 03/30/21 03/30/21 03/30/21 Range/Units 06:09 11:47 16:30 Carbon Dioxide (20.0-27.5) mmol/L Anion Gap (10.00-18.00) mmol/L BUN (9.0-27.0) mg/dL Creatinine (0.6-1.5) mg/dL Est GFR (CKD-EPI)AfAm (60.0-200.0) Est GFR (CKD-EPI)NonAf (60.0-200.0) BUN/Creatinine Ratio (12.00-20.00) Ratio POC Glucose (mg/dL) 100 H 135 H (75-99) mg/dL Magnesium 3.0 H (1.5-2.4) mg/dL 03/30/21 03/31/21 03/31/21 Range/Units 20:41 05:56 07:28 Carbon Dioxide 18.9 L (20.0-27.5) mmol/L Anion Gap 19.10 H (10.00-18.00) mmol/L BUN 45.7 H (9.0-27.0) mg/dL Creatinine 5.5 H (0.6-1.5) mg/dL Est GFR (CKD-EPI)AfAm 8.0 L (60.0-200.0) Est GFR (CKD-EPI)NonAf 6.9 L (60.0-200.0) BUN/Creatinine Ratio 8.31 L (12.00-20.00) Ratio POC Glucose (mg/dL) 133 H 118 H (75-99) mg/dL Magnesium (1.5-2.4) mg/dL Assessment and Plan Plan: Assessment: 1. End-stage renal disease maintained on hemodialysis on Wednesday schedule. 2. Hyperkalemia secondary to chronic kidney disease and lisinopril. Improved postdialysis. 3. COVID-19 pneumonia. 4. Chronic systolic CHF with ejection fraction of less than 20% with severe aortic stenosis, moderate mitral regurgitation and pulmonary hypertension. 5. Hypercalcemia secondary to calcium supplementation. Resolved. She is receiving daily vitamin D. 6. Diabetes mellitus. Plan: Hemodialysis tomorrow. Will stop vitamin D if calcium rises further. Add oral bicarbonate.
[2021-03-31] MEDS: SODIUM BICARBONATE TAB 650 MG TAB PO SCH (10:34)
[2021-03-31 12:09] LABS: Glucose,Whole Blood 157 mg/dL (75-99)
[2021-03-31 16:52] LABS: Glucose,Whole Blood 136 mg/dL (75-99)
[2021-03-31] MEDS: ATORVASTATIN 80 MG TAB PO SCH (20:26)
[2021-03-31] MEDS: MELATONIN 3 MG TABLET PO SCH (20:26)
[2021-03-31 20:49] LABS: Glucose,Whole Blood 137 mg/dL (75-99)
[2021-04-01] MEDS: HEPARIN SODIUM,PORCINE/PF 5,000 UNIT/0.5 ML SYRINGE SQ SCH ×3 (00:25→17:56)
[2021-04-01] MEDS: ACETAMINOPHEN TAB 325 MG TAB PO PRN ×3 (00:27→21:03)
[2021-04-01 07:10] LABS: Glucose,Whole Blood 96 mg/dL (75-99)
[2021-04-01] MEDS: SEVELAMER 800 MG TAB PO SCH ×3 (07:30→17:56)
[2021-04-01] MEDS: INSULIN ASPART (NovoLOG) 100 UNIT/ML VIAL SQ SCH ×3 (09:07→17:59)
--- NOTE | 2021-04-01 10:17 | P.PN ---
Subjective Patient is seen in follow-up for end-stage renal disease. She is maintained on hemodialysis on Wednesday schedule. Denies chest pain or shortness of breath. No active complaints. Scheduled for dialysis today. Vital signs are stable. General: The patient appeared well nourished and normally developed. HEENT: Head exam is unremarkable. LUNGS: Breath sounds decreased. HEART: Rate and Rhythm are regular. ABDOMEN: Soft, no distention. EXTREMITITES: 1+ edema. Objective - Vital Signs Vital signs: Vital Signs Temp 97.6 F 04/01/21 09:45 Pulse 80 04/01/21 09:45 Resp 16 04/01/21 09:45 BP 148/79 04/01/21 09:45 Pulse Ox 97 04/01/21 09:45 Intake & Output 03/31/21 04/01/21 04/01/21 18:59 06:59 18:59 Intake Total 340 Balance 340 Weight 112 kg Intake: Oral 340 Other: Voiding Method Bedpan Bedpan # Voids 0 # Bowel Movements 2 - Labs CBC & Chem 7: 03/29/21 07:24 03/31/21 05:56 Labs: Abnormal Lab Results - Last 24 Hours (Table) 03/31/21 03/31/21 03/31/21 Range/Units 12:05 13:00 16:50 POC Glucose (mg/dL) 157 H 136 H (75-99) mg/dL Coronavirus (PCR) Detected A (Not Detectd) 03/31/21 Range/Units 20:48 POC Glucose (mg/dL) 137 H (75-99) mg/dL Coronavirus (PCR) (Not Detectd) Assessment and Plan Plan: Assessment: 1. End-stage renal disease maintained on hemodialysis on Wednesday schedule. 2. Hyperkalemia secondary to chronic kidney disease and lisinopril. Improved postdialysis. 3. COVID-19 pneumonia. 4. Chronic systolic CHF with ejection fraction of less than 20% with severe aortic stenosis, moderate mitral regurgitation and pulmonary hypertension. 5. Hypercalcemia secondary to calcium supplementation. She is receiving daily vitamin D. Stable. 6. Diabetes mellitus. 7. Metabolic acidosis secondary to chronic kidney disease maintained on oral sodium bicarbonate. Expect further improvement postdialysis. Plan: Hemodialysis today. Will stop vitamin D if calcium rises further.
[2021-04-01] MEDS: INSULIN DETEMIR (LEVEMIR) 100 UNIT/ML SYR SQ SCH (10:47)
[2021-04-01] MEDS: allopurinoL 100 MG TAB PO SCH ×2 (10:49→20:58)
[2021-04-01 11:35] LABS: Glucose,Whole Blood 130 mg/dL (75-99)
--- NOTE | 2021-04-01 13:22 | P.PN ---
Subjective Progress Note Date: 04/01/21 Principal diagnosis: weakness 75-year-old woman with end-stage renal disease oh HD t//wed, chronic systolic heart failure, chronic respiratory failure secondary to COPD/heart failure, diabetes/hypertension/hyperlipidemia presented with generalized weakness. Patient says that last Wednesday she had a balloon angioplasty to her AV fistula in her left upper extremity due to a narrowing, and since then she's been feeling progressively weaker. On , she had a shortened session of dialysis due to having flow issues in her temporary dialysis catheter requiring TPA administration. In the emergency room her CBC demonstrates mild leukocytosis to 11, hemoglobin o f 11.3, platelets of 269. Chemistries are concerning for hyperkalemia to 7.3, creatinine of 8.18, lactic acid of 4.6. AST/ALT are elevated as well. Her cardiac markers demonstrated BNP of 112,000 and elevated troponin of 0.37. EKG demonstrated sinus bradycardia with right axis deviation and low voltage EKG no AV poppy blockage. Chest x-ray demonstrates findings of pulmonary edema consistent with congestive heart failure. She was given calcium gluconate, sodium bicarbonate, D50/insulin, and an albuterol nebulizer for her hyperkalemia in the emergency room. She underwent HD on 03/23, 03/24, and 03/25. Her echo showed EF <20. She was seen by cardio and plans are for outpatient evaluation iwth Dr. Amaro. Her Coreg was transitioned to metoprolol and she was added on low-dose lisinopril. She was determined stable for discharge to [facility] facility. We'll be screening her for colitic can back positive she was asymptomatic. Dialysis was not able to accommodate her except that [facility] Location at this time. is unable to transport her and she is too weak for him. We'll continue to search for dialysis and [facility] accommodations. 04/01/2021: Doing well. No complaints. Asking about another covid test. 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 Psych - Calm and cooperative - Labs CBC & Chem 7: 03/29/21 07:24 03/31/21 05:56 Labs: Abnormal Lab Results - Last 24 Hours (Table) 03/31/21 03/31/21 03/31/21 Range/Units 13:00 16:50 20:48 POC Glucose (mg/dL) 136 H 137 H (75-99) mg/dL Coronavirus (PCR) Detected A (Not Detectd) 04/01/21 Range/Units 11:32 POC Glucose (mg/dL) 130 H (75-99) mg/dL Coronavirus (PCR) (Not Detectd) Assessment and Plan Plan: ESRD with Hyperkalemia and Acute fluid Overload Hyponatremia due to fluid over load Hypercalcemia Anemia of ESRD Acute exacerbation of systolic congestive heart failure with ejection fraction <20%, Moderate aortic stenosis, moderate tricuspid regurgitation, moderate pulmonary hypertension Chronic hypoxic respiratory failure - F/U Dr. Amaro as outpatient - change from coreg to metoprolol, minimal lisinopril - HD 03/23, 03/24 and 03/25 - Renvela - ferrous sulfate - nephrocaps - Fluid management with hemodialysis -She also will need to follow with Dr. Sanchez for an ultrasound of her fistula in the office. DM 2 with hyperglycemia - SSI - Levemir - follow BS Hx HTN now hypotensive - coreg - midodrine HLD - lipitor Leukocytosis, resolved Chronic: Coronary artery disease Neuropathy Carotid stenosis Gout Home O2 at 3 L [id number] D/w licensed social worker, D/C once able to find some where that can accommodate SNF and HD with COVID.
[2021-04-01] MEDS: MIDODRINE 5 MG TAB PO SCH ×3 (15:32→17:56)
[2021-04-01] MEDS: SODIUM BICARBONATE TAB 650 MG TAB PO SCH (15:36)
[2021-04-01] MEDS: FOLIC ACID-VIT B COMPLEX-VIT C 1 CAP PO SCH (15:36)
[2021-04-01] MEDS: ASPIRIN 81 MG PO SCH (15:36)
[2021-04-01] MEDS: FERROUS SULFATE 325 MG TAB PO SCH (15:36)
[2021-04-01] MEDS: METOPROLOL SUCCINATE (ER) 25 MG TAB.ER.24H PO SCH (15:36)
[2021-04-01 16:46] LABS: Glucose,Whole Blood 204 mg/dL (75-99)
[2021-04-01 20:14] LABS: Glucose,Whole Blood 120 mg/dL (75-99)
[2021-04-01] MEDS: MELATONIN 3 MG TABLET PO SCH (20:58)
[2021-04-01] MEDS: ATORVASTATIN 80 MG TAB PO SCH ×2 (20:58→21:05)
[2021-04-02] MEDS: HEPARIN SODIUM,PORCINE/PF 5,000 UNIT/0.5 ML SYRINGE SQ SCH ×3 (00:46→17:21)
[2021-04-02] MEDS: MIDODRINE 5 MG TAB PO SCH ×4 (05:48→17:21)
[2021-04-02] MEDS ORDERED: MIDODRINE 5 MG TAB PO STA (06:47)
[2021-04-02 07:18] LABS: Glucose,Whole Blood 116 mg/dL (75-99)
[2021-04-02] MEDS: SODIUM BICARBONATE TAB 650 MG TAB PO SCH (08:07)
[2021-04-02] MEDS: SEVELAMER 800 MG TAB PO SCH ×5 (08:07→17:23)
[2021-04-02] MEDS: FERROUS SULFATE 325 MG TAB PO SCH (08:07)
[2021-04-02] MEDS: allopurinoL 100 MG TAB PO SCH ×2 (08:07→21:02)
[2021-04-02] MEDS: ASPIRIN 81 MG PO SCH (08:07)
[2021-04-02] MEDS: INSULIN ASPART (NovoLOG) 100 UNIT/ML VIAL SQ SCH ×3 (08:07→17:02)
[2021-04-02] MEDS: INSULIN DETEMIR (LEVEMIR) 100 UNIT/ML SYR SQ SCH (08:10)
--- NOTE | 2021-04-02 09:54 | P.PN ---
Subjective Patient is seen in follow-up for end-stage renal disease. She is maintained on hemodialysis on Wednesday schedule. Denies chest pain or shortness of breath. Tolerated dialysis well yesterday. Blood pressure was low this morning. Lisinopril and Toprol up in discontinued. Dose of midodrine increased. Blood pressure better per nurse. Patient denies any active complaints. Vital signs are stable. General: The patient appeared well nourished and normally developed. HEENT: Head exam is unremarkable. LUNGS: Breath sounds decreased. HEART: Rate and Rhythm are regular. ABDOMEN: Soft, no distention. EXTREMITITES: 1+ edema. Objective - Vital Signs Vital signs: Vital Signs Temp 97.8 F 04/02/21 05:13 Pulse 69 04/02/21 05:13 Resp 20 04/02/21 05:13 BP 85/45 04/02/21 07:12 Pulse Ox 95 04/02/21 05:13 Intake & Output 04/01/21 04/02/21 04/02/21 18:59 06:59 18:59 Intake Total 300 Output Total 2200 Balance -1900 Intake: Hemodialysis 300 Output: Hemodialysis 2200 Other: Voiding Method Incontinent Indwelling Catheter # Bowel Movements 2 - Labs CBC & Chem 7: 03/29/21 07:24 03/31/21 05:56 Labs: Abnormal Lab Results - Last 24 Hours (Table) 04/01/21 04/01/21 04/01/21 Range/Units 11:32 16:43 20:13 POC Glucose (mg/dL) 130 H 204 H 120 H (75-99) mg/dL 04/02/21 Range/Units 07:16 POC Glucose (mg/dL) 116 H (75-99) mg/dL Assessment and Plan Plan: Assessment: 1. End-stage renal disease maintained on hemodialysis on Wednesday schedule. 2. Hyperkalemia secondary to chronic kidney disease and lisinopril. Improved postdialysis. 3. COVID-19 pneumonia. 4. Chronic systolic CHF with ejection fraction of less than 20% with severe aortic stenosis, moderate mitral regurgitation and pulmonary hypertension. 5. Hypercalcemia secondary to calcium supplementation. She is receiving daily vitamin D. Stable. 6. Diabetes mellitus. 7. Metabolic acidosis secondary to chronic kidney disease maintained on oral so dium bicarbonate. Expect further improvement postdialysis. Plan: Hemodialysis tomorrow. Will stop vitamin D if calcium rises further. Dose of midodrine increased. Antihypertensives discontinued.
[2021-04-02 12:02] LABS: Glucose,Whole Blood 94 mg/dL (75-99)
--- NOTE | 2021-04-02 13:25 | P.PN ---
Subjective Progress Note Date: 04/02/21 Principal diagnosis: weakness Patient feeling weak and dizzy, her blood pressure was low this morning. Product Support Rep discontinued lisinopril and toprol. Dose of midodrine was incr eased. Blood pressure is currently improved. Patient feeling better. 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 Psych - Calm and cooperative - Labs CBC & Chem 7: 03/29/21 07:24 03/31/21 05:56 Labs: Abnormal Lab Results - Last 24 Hours (Table) 04/01/21 04/01/21 04/02/21 Range/Units 16:43 20:13 07:16 POC Glucose (mg/dL) 204 H 120 H 116 H (75-99) mg/dL Assessment and Plan Plan: ESRD with Hyperkalemia and Acute fluid Overload Hyponatremia due to fluid over load Hypercalcemia Anemia of ESRD Acute exacerbation of systolic congestive heart failure with ejection fraction <20%, Moderate aortic stenosis, moderate tricuspid regurgitation, moderate pulmonary hypertension Chronic hypoxic respiratory failure - F/U Dr. Amaro as outpatient - change from coreg to metoprolol, minimal lisinopril - HD 03/23, 03/24 and 03/25 - Renvela - ferrous sulfate - nephrocaps - Fluid management with hemodialysis -She also will need to follow with Dr. Sanchez for an ultrasound of her fistula in the office. DM 2 with hyperglycemia - SSI - Levemir - follow BS Hx HTN now hypotensive - coreg and lisinopril discontinued - midodrine increased HLD - lipitor Leukocytosis, resolved Chronic: Coronary artery disease Neuropathy Carotid stenosis Gout Home O2 at 3 L [id number] D/w dialysis social worker, D/C once able to find some where that can accommodate SNF and HD with COVID.
[2021-04-02 16:54] LABS: Glucose,Whole Blood 110 mg/dL (75-99)
[2021-04-02] MEDS: MELATONIN 3 MG TABLET PO SCH (21:02)
[2021-04-02] MEDS: ACETAMINOPHEN TAB 325 MG TAB PO PRN (21:03)
[2021-04-02] MEDS: ATORVASTATIN 80 MG TAB PO SCH (21:23)
[2021-04-02 21:24] LABS: Glucose,Whole Blood 117 mg/dL (75-99)
[2021-04-03 01:26] LABS: Glucose,Whole Blood 103 mg/dL (75-99)
[2021-04-03] MEDS: HEPARIN SODIUM,PORCINE/PF 5,000 UNIT/0.5 ML SYRINGE SQ SCH ×3 (02:43→14:34)
[2021-04-03] MEDS ORDERED: ATORVASTATIN 80 MG TAB PO SCH (03:51)
[2021-04-03 07:35] LABS: Glucose,Whole Blood 115 mg/dL (75-99)
[2021-04-03] MEDS: INSULIN ASPART (NovoLOG) 100 UNIT/ML VIAL SQ SCH ×2 (07:36→12:21)
[2021-04-03 08:01] LABS: African American GFR (CKD) 6 (>60 ml/min/1.73 sqM); Anion Gap 17 mmol/L; Blood Urea Nitrogen 69 mg/dL (7-17); Calcium 12.6 mg/dL (8.4-10.2); Carbon Dioxide 21 mmol/L (22-30); Chloride 97 mmol/L (98-107); Glucose 105 mg/dL (74-99); Magnesium 2.8 mg/dL (1.6-2.3); Non-African American GFR(CKD) 5 (>60 ml/min/1.73 sqM); Sodium 135 mmol/L (137-145)
[2021-04-03 08:07] LABS: Potassium 6.2 mmol/L (3.5-5.1)
[2021-04-03] MEDS: SEVELAMER 800 MG TAB PO SCH ×2 (08:50→11:33)
[2021-04-03] MEDS: INSULIN DETEMIR (LEVEMIR) 100 UNIT/ML SYR SQ SCH (08:51)
[2021-04-03] MEDS: FERROUS SULFATE 325 MG TAB PO SCH (08:51)
[2021-04-03] MEDS: SODIUM BICARBONATE TAB 650 MG TAB PO SCH (08:51)
[2021-04-03] MEDS: allopurinoL 100 MG TAB PO SCH (08:51)
[2021-04-03] MEDS: ASPIRIN 81 MG PO SCH (08:51)
[2021-04-03] MEDS: FOLIC ACID-VIT B COMPLEX-VIT C 1 CAP PO SCH (08:51)
[2021-04-03] MEDS: MIDODRINE 5 MG TAB PO SCH ×2 (08:53→12:21)
[2021-04-03] MEDS ORDERED: DEXAMETHASONE SOD PHOSPHATE 10 MG/ML 1 ML VIAL IVP SCH (09:00)
--- NOTE | 2021-04-03 09:40 | XR ---
EXAMINATION TYPE: XR chest 1V portable DATE OF EXAM: 04/03/2021 Comparison: 03/28/2021 Clinical History: 75 year-old female shortness of breath Findings: Patient is rotated towards the right altering the normal cardiomediastinal contours. Right-sided doub le-lumen hemodialysis catheter tips in upper right atrium. Median sternotomy wires are present. There is increasing opacity now with near complete white out of the left hemithorax. A small portion of th e left upper lobe remains aerated. Interstitial density right lung. Impression: Rotated exam. Worsening opacity on the left. Only a small portion of the left upper lobe is now aerat ed. Correlate for underlying large pleural effusion with atelectasis and/or consolidation.
[2021-04-03] MEDS ORDERED: SODIUM ZIRCONIUM CYCLOSILICATE 10 GM PACKET PO ONE (10:25)
[2021-04-03] MEDS ORDERED: INSULIN REGULAR 100 UNIT/ML VIAL (IV) IV ONE (10:25)
[2021-04-03] MEDS ORDERED: DEXTROSE 50% SYRINGE 50 ML IVP STA (10:25)
--- NOTE | 2021-04-03 10:28 | P.PN ---
Subjective Patient is seen in follow-up for end-stage renal disease. She is maintained on hemodialysis on Wednesday schedule. Resting in bed. On 6 L nasal cannula. She is awake and alert. Patient is refusing hemodialysis and wants to proceed with hospice. Vital signs are stable. General: On nasal cannula. HEENT: Head exam is unremarkable. LUNGS: Breath sounds decreased. HEART: Rate and Rhythm are regular. ABDOMEN: Soft, no distention. EXTREMITITES: 1+ edema. Objective - Vital Signs Vital signs: Vital Signs Temp 97.6 F 04/03/21 05:36 Pulse 65 04/03/21 05:36 Resp 18 04/03/21 05:36 BP 107/63 04/03/21 05:36 Pulse Ox 94 L 04/03/21 05:36 Intake & Output 04/02/21 04/03/21 04/03/21 18:59 06:59 18:59 Other: # Voids 3 - Labs CBC & Chem 7: 03/29/21 07:24 04/03/21 06:33 Labs: Abnormal Lab Results - Last 24 Hours (Table) 04/02/21 04/02/21 04/03/21 Range/Units 16:52 21:23 01:24 Sodium (137-145) mmol/L Potassium (3.5-5.1) mmol/L Chloride (98-107) mmol/L Carbon Dioxide (22-30) mmol/L BUN (7-17) mg/dL Creatinine (0.52-1.04) mg/dL Glucose (74-99) mg/dL POC Glucose (mg/dL) 110 H 117 H 103 H (75-99) mg/dL Calcium (8.4-10.2) mg/dL Magnesium (1.6-2.3) mg/dL 04/03/21 04/03/21 Range/Units 06:33 07:31 Sodium 135 L (137-145) mmol/L Potassium 6.2 H* (3.5-5.1) mmol/L Chloride 97 L (98-107) mmol/L Carbon Dioxide 21 L (22-30) mmol/L BUN 69 H (7-17) mg/dL Creatinine 6.92 H (0.52-1.04) mg/dL Glucose 105 H (74-99) mg/dL POC Glucose (mg/dL) 115 H (75-99) mg/dL Calcium 12.6 H (8.4-10.2) mg/dL Magnesium 2.8 H (1.6-2.3) mg/dL Assessment and Plan Plan: Assessment: 1. End-stage renal disease maintained on hemodialysis on Wednesday schedule. 2. Hyperkalemia secondary to chronic kidney disease and lisinopril. 3. COVID-19 pneumonia. 4. Chronic systolic CHF with ejection fraction of less than 20% with severe aortic stenosis, moderate mitral regurgitation and pulmonary hypertension. 5. Hypercalcemia secondary to calcium supplementation. She is receiving daily vitamin D. Calcium elevated today. 6. Diabetes mellitus. 7. Metabolic acidosis secondary to chronic kidney disease maintained on oral sodium bicarbonate. Expect further improvement postdialysis. Plan: Patient is refusing hemodialysis and medications today. She wants to proceed with hospice. Maintain midodrine for now. 10 units IV insulin with an upper D50 now. 10 g lokelma once now. Hospice will be consulted.
[2021-04-03 10:47] VITALS: BP 112/69; PULSE 68; RESP 14; TEMP 98.5
[2021-04-03 12:08] LABS: Glucose,Whole Blood 225 mg/dL (75-99)
[2021-04-03] MEDS: ACETAMINOPHEN TAB 325 MG TAB PO PRN (12:23)
--- NOTE | 2021-04-03 14:48 | P.DS ---
Providers Date of admission: 03/23/21 03:02 Expected date of discharge: 04/03/21 Attending physician: Janusz Yao MD Consults: 03/23/21 03:03 Consult Physician Routine Consulting Provider: Malini Tyler Consult Reason/Comments: End-stage renal disease patient. Hyperkalemia. Do you want consulting provider notified?: Yes 03/26/21 08:41 Consult Physician Routine Consulting Provider: Pedro Bush Consult Reason/Comments: systolic CHF with decreased EF Do you want consulting provider notified?: Yes Primary care physician: [facility] Course: 75-year-old woman with end-stage renal disease oh HD t/th/sat, chronic systolic heart failure, chronic respiratory failure secondary to COPD/heart failure, diabetes/hypertension/hyperlipidemia presented with generalized weakness. She recently had a balloon angioplasty to her AV fistula in her left upper extremity due to a narrowing, and since then she's been feeling progressively weaker. In the emergency room her CBC demonstrates mild leukocytosis to 11, hemoglobin of 11.3, platelets of 269. Chemistries are concerning for hyperkalemia to 7.3, creatinine of 8.18, lactic acid of 4.6. AST/ALT are elevated as well. Her cardiac markers demonstrated BNP of 112,000 and elevated troponin of 0.37. EKG demonstrated sinus bradycardia with right axis deviation and low voltage EKG no AV poppy blockage. Chest x-ray demonstrates findings of pulmonary edema consistent with congestive heart failure. She was given calcium gluconate, sodium bicarbonate, D50/insulin, and an albuterol nebulizer for her hyperkalemia in the emergency room. She underwent HD on 03/23, 03/24, and 03/25. Her echo showed EF <20. She was seen by cardio and plans are for outpatient evaluation with Dr. Amaro. Her Coreg was transitioned to metoprolol and she was added on low-dose lisinopril. She was determined stable for discharge to nursing home facility. When she was stable for discharge to the nrusing home she had to have a covid test and that came back positive. Her O2 requirements only increased a few days after testing positive. She went from 3L to 6L. Yesterday she had issues with her bp being low and she was started on midodrine by nephrology. Today patient told me that she wants to go home with hospice. She states that she is tired of all the medical procedures being done on her. She refused d ialysis and all of her meds today. She states that she is not depressed. She is alert and oriented. I called her daughter who spoke to other family members and to the patient to make sure that she was making a sound decision. Patient repeatedly told her family and multiple staff members that she just wants to go back home on hospice. Hospice care was arranged with the help of care management. Patient will be discharged home with hospice. Time for discharge 35 minutes. Patient Condition at Discharge: Stable Plan - Discharge Summary Discharge Rx Participant: No New Discharge Prescriptions: New Insulin Detemir (Levemir) [Levemir] 12 unit SQ DAILY ml Midodrine [ProAmatine] 5 mg PO AC-TID PRN #30 tab lisinopriL [Zestril] 2.5 mg PO DAILY tab Melatonin 3 mg PO HS tablet Sevelamer [Renvela] 1,600 mg PO TID-W/MEALS tab Metoprolol Succinate (ER) [Toprol XL] 25 mg PO DAILY Continue Atorvastatin [Lipitor] 80 mg PO HS Allopurinol [Zyloprim] 100 mg PO BID Thiamine [Vitamin B-1] 100 mg PO BID Aspirin 81 mg PO DAILY chew Folic Acid-Vit B Complex-Vit C [Nephrocaps] 1 mg PO TUTHSA Nitroglycerin Sl Tabs [Nitrostat] 0.4 mg SL Q5M PRN PRN Reason: Chest Pain Calcium Carbonate [Tums] 500 mg PO AC-TID Ferrous Sulfate [Feosol] 325 mg PO DAILY Ergocalciferol [Vitamin D2 (1250 Mcg = 07863 Iu)] 1,250 mcg PO Q30D Discontinued Carvedilol [Coreg] 25 mg PO BID PRN PRN Reason: sbp over 140 Insulin Glargine,Hum.rec.anlog [Yarelisagldionicio Teresa U-100] 15 unit SQ DAILY Discharge Medication List Atorvastatin [Lipitor] 80 mg PO HS 07/04/14 [History] Allopurinol [Zyloprim] 100 mg PO BID 03/13/20 [History] Thiamine [Vitamin B-1] 100 mg PO BID 03/13/20 [History] Aspirin 81 mg PO DAILY chew 03/15/20 [Rx] Ergocalciferol [Vitamin D2 (1250 Mcg = 37262 Iu)] 1,250 mcg PO Q30D 07/28/20 [History] Folic Acid-Vit B Complex-Vit C [Nephrocaps] 1 mg PO TUTHSA 09/01/20 [History] Nitroglycerin Sl Tabs [Nitrostat] 0.4 mg SL Q5M PRN 09/01/20 [History] Calcium Carbonate [Tums] 500 mg PO AC-TID 03/23/21 [History] Ferrous Sulfate [Feosol] 325 mg PO DAILY 03/23/21 [History] Insulin Detemir (Levemir) [Levemir] 12 unit SQ DAILY ml 03/27/21 [Rx] Melatonin 3 mg PO HS tablet 03/27/21 [Rx] Metoprolol Succinate (ER) [Toprol XL] 25 mg PO DAILY 03/27/21 [Rx] Midodrine [ProAmatine] 5 mg PO AC-TID PRN #30 tab 03/27/21 [Rx] Sevelamer [Renvela] 1,600 mg PO TID-W/MEALS tab 03/27/21 [Rx] lisinopriL [Zestril] 2.5 mg PO DAILY tab 03/27/21 [Rx] Follow up Appointment(s)/Referral(s): Brad Amaro DO [STAFF PHYSICIAN] - 1 Week Dwight Abdullahi MD [Primary Care Provider] - 1-2 days [facility], [NON-STAFF] - Peter Sanchez MD [STAFF PHYSICIAN] - 1-2 Days Activity/Diet/Wound Care/Special Instructions: Patient scheduled for dialysis @[facility] on [address] in [place]. She can start this Wednesday03/30/21 - her chair time is 1250 Activity: as tolerated Diet: Renal diet, carb consistent Wound Care: as tolerated Discharge Disposition: TRANSFER TO SNF/ECF
[2021-04-04] MEDS ORDERED: allopurinoL 100 MG TAB PO SCH (09:00)
== END 2021-04-03 15:33 | DRG 291 ==
LOC: EC 01:35 → 3SCARD 03:02 → 4SSUR 03-29 19:08
PROVIDERS: ADMIT Internal Medicine; ATTEND Internal Medicine
DX: I13.2 Hypertensive heart and chronic kidney disease with heart failure and with stage 5 chronic kidney disease, or end stage renal disease (principal); I50.23 Acute on chronic systolic (congestive) heart failure; J12.82 Pneumonia due to coronavirus disease 2019; U07.1 COVID-19; N18.6 End stage renal disease; E87.1 Hypo-osmolality and hyponatremia; E87.2 Acidosis; J44.0 Chronic obstructive pulmonary disease with (acute) lower respiratory infection; J96.11 Chronic respiratory failure with hypoxia; I27.22 Pulmonary hypertension due to left heart disease; D63.1 Anemia in chronic kidney disease; E11.22 Type 2 diabetes mellitus with diabetic chronic kidney disease; E11.41 Type 2 diabetes mellitus with diabetic mononeuropathy; E11.51 Type 2 diabetes mellitus with diabetic peripheral angiopathy without gangrene; E11.65 Type 2 diabetes mellitus with hyperglycemia; E66.01 Morbid (severe) obesity due to excess calories; E78.5 Hyperlipidemia, unspecified; E83.39 Other disorders of phosphorus metabolism; E83.52 Hypercalcemia; E87.5 Hyperkalemia; G62.9 Polyneuropathy, unspecified; I08.3 Combined rheumatic disorders of mitral, aortic and tricuspid valves; I25.10 Atherosclerotic heart disease of native coronary artery without angina pectoris; I25.2 Old myocardial infarction; I42.9 Cardiomyopathy, unspecified; I65.29 Occlusion and stenosis of unspecified carotid artery; M10.9 Gout, unspecified; M89.9 Disorder of bone, unspecified; Z51.5 Encounter for palliative care; Z79.4 Long term (current) use of insulin; Z79.82 Long term (current) use of aspirin; Z79.899 Other long term (current) drug therapy; Z82.49 Family history of ischemic heart disease and other diseases of the circulatory system; Z83.3 Family history of diabetes mellitus; Z95.1 Presence of aortocoronary bypass graft; Z99.2 Dependence on renal dialysis; Z91.15 Patient's noncompliance with renal dialysis; Z90.710 Acquired absence of both cervix and uterus; Z87.891 Personal history of nicotine dependence; Z87.01 Personal history of pneumonia (recurrent); Z86.73 Personal history of transient ischemic attack (TIA), and cerebral infarction without residual deficits
CPT/HCPCS: 36415; 71045; 80048; 80053; 83605; 83735; 83880; 84100; 84132; 84484; 85025; 85027; 85610; 85730; 86706; 87040; 87340; 87635; 90935; 93005; 93306; 99285